=== PATIENT | male | born 1980 | race Caucasian/White ===

== ENCOUNTER 2023-12-09 19:24 | Inpatient (IN) | payer MEDICAID, OTHER, SELFPAY ==
[2023-12-09] VITALS (9 sets, daily range): BP systolic 109–123; BP diastolic 55–75; PULSE 102–137; RESP 23–45; TEMP 36.6–39.2; O2SAT 4–96; BMI 20.6
--- NOTE | ~2023-12-09 | US_ITS ---
EXAMINATION: US VENOUS ULTRASOUND WITH DOPPLER LOWER EXTREMITY, BILATERAL CLINICAL INFORMATION: Pain COMPARISON: None available. TECHNIQUE: Ultrasound of the deep veins is performed from the hip to the calf with compression sonography and color and pulse Doppler assessment. Spectral analysis with color-flow imaging is performed. FINDINGS: RIGHT: There is normal venous compression and respiratory variation and augmented flow. The visualized common femoral vein, superficial femoral vein, profunda femoral vein, popliteal vein, and the trifurcation region shows no evidence of deep venous thrombosis. There is no significant popliteal fossa cyst. Subcentimeter short axis inguinal nodes which maintain normal hilar architecture. LEFT: There is normal venous compression and respiratory variation and augmented flow. The visualized common femoral vein, superficial femoral vein, profunda femoral vein, popliteal vein, and the trifurcation region shows no evidence of deep venous thrombosis. There is no significant popliteal fossa cyst. Subcentimeter short axis inguinal nodes which maintain normal hilar architecture. If the patient's symptoms persist, followup ultrasound in 5 days 7 days might be of value to exclude proximal propagation from a non-visualized calf vein. US/US venous duplex LE BI IMPRESSION: No DVT demonstrated in the bilateral lower extremity. Subcentimeter short axis bilateral inguinal nodes which maintain normal hilar architecture, and may be reactive.
--- NOTE | ~2023-12-09 | CT_ITS ---
CLINICAL HISTORY: Left pneumothorax PROCEDURES: 1. Limited preprocedure CT of the chest. Permanent images saved in PACS. 2. Placement of a 10 Georgian all-purpose drainage catheter into left pleural space 3. Limited post procedure CT of the chest. Permanent images taken PACS. CLINICIANS: Terry King PA-C Preprocedural imaging reviewed with Dr. Andres MEDICATIONS: -Fentanyl 25 mcg, and lidocaine 1% 10 mL SQ -Antibiotics: None -For additional details, please see nursing flowsheet. COMPLICATIONS: None ESTIMATED BLOOD LOSS: < 5 ml CONTRAST: None SPECIMENS: None PROCEDURE NOTE: The procedure, risks, benefits, and alternatives were carefully explained to the patient and written informed consent was obtained. The patient was placed supine on the CT table. A timeout was performed. A limited CT of the chest was performed to choose appropriate needle entry and trajectory. The patient was prepped and draped in usual sterile fashion. The skin and subcutaneous tissues were anesthetized with lidocaine. Under CT guidance, a 5 Georgian M-KOPAeh catheter was advanced through the left second intercostal space into the pleural cavity. A 0.0355 J-wire was advanced through the catheter and coiled into left pleural space. The catheter was removed and the tract was serially dilated. Over the wire, a 10 [place]ian all-purpose drainage catheter was advanced and positioned at the left apex of the left chest cavity. The wire was removed. The catheter was connected to an atrium. The catheter was secured to skin with a 3-0 nylon suture. A dry sterile dressing was applied to the left chest. A limited post procedure CT of the chest was performed demonstrating the tube well-positioned in the left pleural space. Images were saved in PACS. The patient was stable after the procedure and was transferred back to the medical floor. The procedure was done a dedicated nurse for monitoring of vital signs. CT/CT chest tube placement Impression: CT-guided placement of left chest tube for pneumothorax This procedure was performed by Terry King PA-C and supervised by Dr. Andres.
--- NOTE | ~2023-12-09 | XR_ITS ---
EXAMINATION: XR CHEST CLINICAL INFORMATION: Follow-up left pneumothorax COMPARISON: Previous chest x-ray most recent from yesterday TECHNIQUE: Frontal view of the chest was obtained. FINDINGS: Left chest tube projects over left upper lung unchanged. Right upper extremity PICC line tip projects over cavoatrial junction. The cardiac and mediastinal contours are stable. There is diffuse bilateral airspace there is a small to moderate left pneumothorax. Slightly decreased in size compared to yesterday's exam. No pleural effusion. No right pneumothorax. XR/XR chest 1V IMPRESSION: Stable position of left chest tube. Small to moderate left pneumothorax slightly decreased in size compared to yesterday's exam.
--- NOTE | ~2023-12-09 | CT_ITS ---
EXAMINATION: CT CHEST WITHOUT CONTRAST CLINICAL INFORMATION: Pulmonary fibrosis COMPARISON: 01/13/2024 TECHNIQUE: Multidetector volumetric CT imaging of the chest was done. Axial MIP volume rendering provided. Sagittal and coronal reformatted images were obtained. This CT examination was performed using dose optimization techniques as appropriate, variously including the following: *Automated exposure control *Adjustment of mA and/or kV according to patient size (this includes techniques or standardized protocols for targeted exams where dose is matched to indication/reason for exam; i.e. extremities or head) *Use of iterative reconstruction technique DLP: 190 mGy-cm FINDINGS: LD TEACHER: PICC line and left hemithorax smallbore catheter. Left costophrenic angle blunting. Increased interstitial markings. LUNGS AND PLEURA: Intrathoracic trachea is dilated. Trachea and bronchi are patent. Mild bronchiectasis. Diffuse underlying groundglass opacities and septal thickening/fibrosis again noted. Small bore left sided chest tube has been placed with pigtail in the anterior pleural space. One of the sideholes appears to reside outside the thoracic cavity, coronal 8:15, sagittal 9:31. There is been reduction in the degree of left pneumothorax following chest tube placement. Small amount of subcutaneous emphysema is noted. Small left pleural effusion has increased since previous chest CT. Small right-sided medial pleural thickening/fluid minimally increased. MEDIASTINUM: No demonstrable thyroid nodules. Diffuse esophageal thickening. No pathologic lymphadenopathy. Heart size within normal limits. No pericardial effusion. Nonaneurysmal aorta. Dilated pulmonary arteries. Central venous catheter tip at the SVC/right atrial junction. CORONARY ARTERY CALCIFICATION: None visualized on this study. AXILLA: No lymphadenopathy. UPPER ABDOMEN: Splenomegaly to 15 cm. OSSEOUS STRUCTURES: Unremarkable. CT/CT chest wo IV con IMPRESSION: Interval decrease in left-sided pneumothorax following small bore chest tube placement since 01/13/[address] One of the catheter sideholes appears to reside outside the thoracic cavity. Small amount of subcutaneous emphysema. Increasing small left pleural effusion. Stable underlying pulmonary groundglass opacities and fibrotic changes. Pulmonary hypertension. Splenomegaly. Fleischner guidelines were followed.
--- NOTE | ~2023-12-09 | XR_ITS ---
EXAMINATION: XR CHEST CLINICAL INFORMATION: Shortness of breath. COMPARISON: Prior chest radiographs dated 02/16/2010. TECHNIQUE: Frontal view of the chest was obtained. FINDINGS: The heart, great vessels, pulmonary vasculature and mediastinum are stable. There is a moderate patchy infiltrate in the mid left lung. Lesser patchy airspace disease is seen at the central right base. No pleural effusion or pneumothorax is seen. There is no acute osseous abnormality. XR/XR chest 1V IMPRESSION: There are bilateral patchy infiltrates, left greater than right. These are likely infectious in etiology. Recommend continued radiographic follow-up to clearance.
--- NOTE | ~2023-12-09 | XR_ITS ---
EXAMINATION: XR CHEST CLINICAL INFORMATION: Follow-up pneumothorax. COMPARISON: Most recent chest radiograph dated 01/12/2024. TECHNIQUE: Frontal view of the chest was obtained. FINDINGS: Moderate left-sided pneumothorax, not significantly changed when compared to the prior examination. No right-sided pneumothorax. No pleural effusion. Diffuse bilateral airspace opacities are redemonstrated, unchanged. Stable cardiomediastinal silhouette. Right-sided PICC in unchanged position. XR/XR chest 1V IMPRESSION: 1. Moderate left-sided pneumothorax, not significantly changed. 2. Diffuse bilateral airspace opacities, unchanged. 3. Right-sided PICC in unchanged position.
--- NOTE | ~2023-12-09 | CT_ITS ---
EXAMINATION: CT CHEST WITHOUT CONTRAST CLINICAL INFORMATION: Cough. Shortness of breath. COMPARISON: Chest radiograph from 12/09/2023. TECHNIQUE: Multidetector volumetric CT imaging of the chest was done. Axial MIP volume rendering provided. Sagittal and coronal reformatted images were obtained. DLP: 222 mGy-cm FINDINGS: LUNGS: Extensive regions of irregular groundglass opacification with interlobular and intralobular septal thickening throughout the bilateral lungs (partially decreasing terminating in appearance). Partial sparing in the medial aspects of the upper lungs, multiple subpleural regions,, the inferior segment of the right middle lobe, and the basal segments of the left lower lobe. No dense focal consolidative process. No pleural effusion or pneumothorax. Mild central peribronchial wall thickening. Otherwise, the airways remain patent. MEDIASTINUM: The cardiac structures are without significant demonstrated abnormality. No pericardial effusion. No mediastinal free fluid or gas. No hilar or mediastinal lymphadenopathy. Coronary artery calcifications: Absent. PLEURA: There is no pleural effusion or pneumothorax. No pleural mass or thickening. AXILLA: No lymphadenopathy UPPER ABDOMEN: The spleen is enlarged, measuring up to 14 cm in long axis. Otherwise, limited evaluation of the upper abdomen without additional significant soft tissue abnormalities. VASCULATURE: The thoracic aorta is of normal contour and caliber. The main pulmonary artery appears mildly enlarged, measuring approximately 3.4 cm in diameter (ascending aorta 3 cm). OSSEOUS STRUCTURES: Mild multilevel degenerative changes of the spine. No suspicious lytic or sclerotic osseous lesions demonstrated. No soft tissue masses demonstrated. CT/CT chest wo IV con IMPRESSION: 1. Extensive regions of irregular groundglass opacification with interlobular and intralobular septal thickening throughout the bilateral lungs. Findings are nonspecific but may be seen in the setting of an atypical/viral infections, inflammatory processes, or diffuse alveolar hemorrhage in the appropriate clinical settings. 2. The main pulmonary artery appears mildly enlarged, measuring 3.4 cm in diameter. 3. Nonspecific splenomegaly.
--- NOTE | ~2023-12-09 | XR_ITS ---
EXAMINATION: XR CHEST CLINICAL INFORMATION: Chest tube placement. COMPARISON: 01/22/2024. TECHNIQUE: Frontal view of the chest was obtained. FINDINGS: The cardiomediastinal silhouette is stable. There is diffuse increased markings and bilateral patchy infiltrates similar to previous. A left approach chest tube is in good position. PICC line is in a stable position. No significant pneumothorax currently identified. The bony structures and soft tissues are unremarkable. XR/XR chest 1V IMPRESSION: 1. Left chest tube in place with no significant pneumothorax currently identified. 2. Diffuse increased markings and bilateral patchy infiltrates similar to previous.
--- NOTE | ~2023-12-09 | XR_ITS ---
EXAMINATION: XR CHEST CLINICAL INFORMATION: Left pneumothorax status post pleurodesis. COMPARISON: 01/25/2024 TECHNIQUE: Frontal view of the chest was obtained. FINDINGS: Right sided PICC line again seen with internal tip at the SVC/right atrial junction. Small bore caliber pigtail catheter again identified overlying the upper left hemithorax. Redemonstration left costophrenic angle blunting and mild increase in lateral left hemithorax opacity. Overall mid/inferior left hemithorax lucency is unchanged. Patchy pulmonary opacities again seen with slight worsening left upper lobe. Bony structures are intact. XR/XR chest 1V IMPRESSION: Left small bore pigtail catheter with slight increase in left lateral pleural opacity/fluid and left upper lobe patchy pulmonary opacity. No identifiable pneumothorax.
--- NOTE | ~2023-12-09 | XR_ITS ---
EXAMINATION: XR CHEST CLINICAL INFORMATION: Dyspnea. COMPARISON: 01/11/2024. TECHNIQUE: Frontal view of the chest was obtained. FINDINGS: The cardiomediastinal silhouette is stable. There is diffuse increased markings/patchy infiltrates similar to previous. There is a moderate left pneumothorax. A PICC line extends to the lower SVC. The bony structures and soft tissues are unremarkable. XR/XR chest 1V IMPRESSION: 1. Moderate left pneumothorax. 2. Diffuse increased markings/patchy infiltrates similar to previous. 3. PICC line in place.
--- NOTE | ~2023-12-09 | XR_ITS ---
EXAMINATION: XR CHEST CLINICAL INFORMATION: A left pneumothorax COMPARISON: Chest x-ray 01/21/2024 TECHNIQUE: Frontal view of the chest was obtained. FINDINGS: There is persistent small left pneumothorax with a chest tube overlying fourth posterior rib. A right PICC line tip remains in distal SVC. The lungs are hypoexpanded with patchy opacities in both lungs which are stable chest x-ray from 01/13/2024. Heart size and pulmonary vascularity is normal. No gross bony abnormality seen. XR/XR chest 1V IMPRESSION: No change in the small left apical pneumothorax and chest catheter which appears to be within the upper hemithorax. No change in right PICC line. No change in patchy bilateral airspace disease.
--- NOTE | ~2023-12-09 | XR_ITS ---
EXAMINATION: XR CHEST CLINICAL INFORMATION: Follow-up left pneumothorax COMPARISON: Previous chest x-ray from yesterday TECHNIQUE: Frontal view of the chest was obtained. FINDINGS: Left pigtail chest tube unchanged in position. Small left apical pneumothorax not appreciably changed. There may be a small left pleural effusion. The cardiac and mediastinal contours are stable. Diffuse bilateral airspace disease unchanged. No right pleural effusion or pneumothorax. Right upper extremity PICC line with tip projecting over the cavoatrial junction. XR/XR chest 1V IMPRESSION: Stable position of left chest tube. Stable small left apical pneumothorax. No change in diffuse bilateral airspace disease.
--- NOTE | ~2023-12-09 | US_ITS ---
EXAMINATION: US ABDOMEN COMPLETE CLINICAL INFORMATION: Cirrhosis, splenomegaly. COMPARISON: CT chest without contrast 12/09/2023. TECHNIQUE: Real-time imaging of the abdominal viscera. FINDINGS: PANCREAS: Largely obscured by overlapping bowel gas. ABDOMINAL AORTA: The proximal segment is nonaneurysmal. The mid and distal segments are obscured by overlapping bowel gas. INFERIOR VENA CAVA: Visualized portions are normal. LIVER: The liver is normal in size. The liver contour is normal. There is diffuse increased liver parenchymal echogenicity. Within the right hepatic lobe, there are 2.9 x 1.9 x 2.7 cm and 1.1 x 1.2 x 0.9 cm hyperechoic, circumscribed masses. Within the left hepatic lobe, there are 2.0 x 1.5 x 1.3 cm, 1.9 x 1.8 x 2.0 cm hyperechoic, circumscribed masses. There is no intrahepatic biliary duct dilatation seen. GALLBLADDER: The gallbladder is partially contracted and shows shadowing gallstones. There is no sludge, polyp, wall thickening or pericholecystic fluid. COMMON BILE DUCT: Normal in caliber measuring 0.9 cm in diameter. RIGHT KIDNEY: There is mild hydronephrosis. No renal calculi or focal parenchymal lesions. The kidney measures 13.3 cm in maximum dimension. LEFT KIDNEY: Imaging somewhat limited. No hydronephrosis. No renal calculi or focal parenchymal lesions. The kidney measures 12.6 cm in maximum dimension. SPLEEN: No focal finding. The spleen measures 12.7 cm in maximum dimension. FREE FLUID: There is mild free fluid noted within the rightward pelvis superior to the urinary bladder. US/US abdomen complete IMPRESSION: 1. Consistent with the provided history of cirrhosis, there is increase in hepatic echotexture. No biliary ductal dilatation is seen. 2. Four hyperechoic, circumscribed masses are seen within the liver, the appearances characteristic of benign hemangiomas. These are of doubtful clinical significance; however, given the history of cirrhosis, further consideration may be given to more definitive characterization with dynamic MRI. 3. There is cholelithiasis. 4. There is mild right hydronephrosis. 4. Technically limited ultrasound examination of the abdominal great vessels and the left kidney.
--- NOTE | ~2023-12-09 | XR_ITS ---
EXAMINATION: XR CHEST CLINICAL INFORMATION: Follow-up left pneumothorax. COMPARISON: 01/08/2024 TECHNIQUE: Frontal view of the chest was obtained. FINDINGS: Lungs are mildly hypoinflated. There is mild improvement with decreased reticular and groundglass opacities, particularly in the right lung. Trace left pneumothorax is faintly visible at the lateral left upper lobe. The minimal blunting of the left lateral costophrenic sulcus suggests trace pleural effusion. The tip of the right arm peripherally inserted catheter is in region of junction of the SVC with right atrium. Cardiac silhouette is normal in size. The visualized bones are intact. XR/XR chest 1V IMPRESSION: * Trace left-sided pneumothorax is similar in appearance compared to 01/08/2024. * Mild interval improvement in the diffuse reticular/groundglass opacities, particularly in the right lung.
--- NOTE | ~2023-12-09 | XR_ITS ---
EXAMINATION: XR CHEST CLINICAL INFORMATION: Hypoxia, SOB COMPARISON: None available. TECHNIQUE: Frontal view of the chest was obtained. FINDINGS: The lungs are well-expanded with patchy diffuse patchy opacity seen in both lungs suggestive multi lobar infiltrate. There is no pleural effusion or pneumothorax. Heart size appears normal. Pulmonary vascularity is normal. There is a right PICC line with its tip in mid SVC. No gross bony abnormality. XR/XR chest 1V IMPRESSION: Diffuse patchy opacity in both lungs suggestive of multi lobar infiltrate.
--- NOTE | ~2023-12-09 | CT_ITS ---
EXAMINATION: CT CHEST WITHOUT CONTRAST CLINICAL INFORMATION: Hypoxia. COMPARISON: 12/09/2023. TECHNIQUE: Multidetector volumetric CT imaging of the chest was done. Axial MIP volume rendering provided. Sagittal and coronal reformatted images were obtained. This CT examination was performed using dose optimization techniques as appropriate, variously including the following: *Automated exposure control *Adjustment of mA and/or kV according to patient size (this includes techniques or standardized protocols for targeted exams where dose is matched to indication/reason for exam; i.e. extremities or head) *Use of iterative reconstruction technique DLP: 279 mGy-cm FINDINGS: DIRECTOR MISSION: There are diffuse bilateral lung opacities. LUNGS: There is again seen extensive bilateral multilobar groundglass opacities with intralobular and interlobular septal thickening similar to previous with some apparent extension right upper lobe as well as medial left upper lobe. MEDIASTINUM: The mediastinum is normal. CORONARY ARTERY CALCIFICATION: None visualized on this study. PLEURA: There is no pleural effusion. No pleural mass or thickening. AXILLA: No lymphadenopathy. UPPER ABDOMEN: Unremarkable. OSSEOUS STRUCTURES: Unremarkable. CT/CT chest wo IV con IMPRESSION: Extensive bilateral multilobar groundglass opacities with intralobular and interlobular septal thickening with mild interval progression compared to prior. Findings are again nonspecific and may be seen with infectious or inflammatory process. Fleischner guidelines were followed.
--- NOTE | ~2023-12-09 | XR_ITS ---
EXAMINATION: XR CHEST CLINICAL INFORMATION: Follow up left pneumothorax. COMPARISON: None available. TECHNIQUE: Frontal view of the chest was obtained. FINDINGS: Redemonstration of left apically oriented chest tube. Increased moderate left apical pneumothorax. Right PICC line tip again projects at the cavoatrial junction. Similar cardiomediastinal silhouette. Redemonstration of multifocal patchy airspace opacities, similar. XR/XR chest 1V IMPRESSION: Increased moderate left apical pneumothorax. Left apically oriented chest tube appears relatively less apical in location compared with prior exam. This study was presented today January 19, 2024 for interpretation. [facility] staff will provide results to referring provider at this time.
--- NOTE | ~2023-12-09 | XR_ITS ---
EXAMINATION: XR CHEST CLINICAL INFORMATION: Chest tube removal. COMPARISON: 01/26/2024 chest radiographs earlier in the day. TECHNIQUE: Frontal view of the chest was obtained. FINDINGS: Right-sided PICC line unchanged in position. Interval removal of left pigtail catheter. No gross pneumothorax appreciated. Persistent pulmonary opacities and left costophrenic angle blunting are stable to slightly improved. XR/XR chest 1V IMPRESSION: 1. Interval removal of left pigtail catheter. No gross pneumothorax appreciated. 2. Persistent pulmonary opacities and left costophrenic angle blunting are stable to slightly improved.
--- NOTE | ~2023-12-09 | XR_ITS ---
EXAMINATION: XR CHEST CLINICAL INFORMATION: Follow-up left pneumothorax and chest tube placement COMPARISON: Chest 01/13/2024 TECHNIQUE: AP upright portable view of the chest was obtained. By 40 9:00 AM FINDINGS: Left apically oriented chest tube is seen. Question of trace air at the left lung base with a small hydropneumothorax. Right-sided PICC line projects over the level of the cavoatrial junction. Stable appearance of the cardiomediastinal silhouette. Again seen is multifocal patchy of airspace opacities with slightly better aeration. XR/XR chest 1V IMPRESSION: 1. Left apically oriented chest tube is seen. 2. Question of trace air at the left lung base with a small hydropneumothorax.
--- NOTE | ~2023-12-09 | XR_ITS ---
EXAMINATION: XR CHEST CLINICAL INFORMATION: Follow-up pneumothorax. COMPARISON: Chest 01/24/2024 TECHNIQUE: Frontal view of the chest was obtained. FINDINGS: There is a left chest tube catheter with its tip overlying fourth rib. No visible pneumothorax is seen. There is minimal blunting of left CP angle. There is a right PICC line with its tip in the mid SVC. The lungs are hypoexpanded diffuse increase interstitial markings and patchy infiltrates which appears stable. Heart size is borderline normal. No gross bony abnormality seen. XR/XR chest 1V IMPRESSION: 1. Left chest tube catheter with its tip overlying fourth rib. No visible pneumothorax. 2. Hypoexpanded lungs with diffuse increase interstitial markings and patchy infiltrates are stable. 3. Stable right PICC line
--- NOTE | ~2023-12-09 | XR_ITS ---
EXAMINATION: XR CHEST CLINICAL INFORMATION: Chest tube to waterseal COMPARISON: Previous chest radiographs, most recent, earlier in the day. TECHNIQUE: Frontal view of the chest was obtained. FINDINGS: Right-sided PICC line and left upper lobe smallbore pigtail catheter unchanged in position. No definite pneumothorax identified status post left chest tube to waterseal. Persistent pulmonary opacities and left costophrenic angle blunting are unchanged. Left lateral hemithorax density may be slightly increased in the left apex. Cardiomediastinal silhouette is stable in appearance. Bony structures are intact. XR/XR chest 1V IMPRESSION: No identifiable pneumothorax. Mild increase in left pleural fluid not excluded. Other stable findings.
--- NOTE | ~2023-12-09 | XR_ITS ---
EXAMINATION: XR CHEST CLINICAL INFORMATION: Follow-up pneumothorax. COMPARISON: Chest 01/08/2024. TECHNIQUE: Frontal view of the chest was obtained. FINDINGS: The lungs are hypoexpanded with diffuse fine reticular and groundglass opacity seen throughout both lungs similar to CT chest 01/06/2024. CT visualized trace left apical pneumothorax is not visualized on this chest x-ray. The heart size and the great vessels are normal caliber. There is a right PICC line with its tip in mid SVC. There is no gross bony abnormality seen. XR/XR chest 1V IMPRESSION: 1. Diffuse fine reticular and groundglass opacity throughout both lungs similar to CT chest 01/06/2024. 2. Right PICC line tip in mid SVC.
--- NOTE | ~2023-12-09 | CT_ITS ---
EXAMINATION: CT CHEST WITHOUT CONTRAST CLINICAL INFORMATION: Hypoxia COMPARISON: 12/19/2023 TECHNIQUE: Multidetector volumetric CT imaging of the chest was done. Axial MIP volume rendering provided. Sagittal and coronal reformatted images were obtained. This CT examination was performed using dose optimization techniques as appropriate, variously including the following: *Automated exposure control *Adjustment of mA and/or kV according to patient size (this includes techniques or standardized protocols for targeted exams where dose is matched to indication/reason for exam; i.e. extremities or head) *Use of iterative reconstruction technique DLP: 134 mGy-cm FINDINGS: PALLET RECTIFIER: Diffuse bilateral opacities are noted. LUNGS: The central airways are patent. Diffuse groundglass opacity throughout both lungs appearing more confluent than on prior study. Mild bronchiectasis throughout. Given the increased confluence of the opacities there is decreased appearance of the septal thickening/reticulation. There is a trace left-sided pneumothorax noted. No pleural effusion. MEDIASTINUM: Normal heart size. No pericardial effusion. No mediastinal lymphadenopathy. Right-sided PICC line terminates near the cavoatrial junction. CORONARY ARTERY CALCIFICATION: None visualized on this study. AXILLA: No lymphadenopathy. UPPER ABDOMEN: Unremarkable. OSSEOUS STRUCTURES: Unremarkable. CT/CT chest wo IV con IMPRESSION: 1. Trace left-sided pneumothorax. This appears new from previous. 2. Diffuse groundglass opacities throughout both lungs appearing more confluent than on the prior study. There is decreased appearance of the septal thickening/reticulation. There is likely a component of fibrosis with bronchiectasis associated with chronic infectious/inflammatory process. Fleischner guidelines were followed. The report will be called to the ordering clinician by a [facility] Workflow Coordinator.
--- NOTE | ~2023-12-09 | XR_ITS ---
EXAMINATION: XR CHEST CLINICAL INFORMATION: Chest pain. Pneumothorax. COMPARISON: Chest x-ray January 26, 2024 TECHNIQUE: Frontal view of the chest was obtained. FINDINGS: Cardiac silhouette is normal in size. Stable positioning of right upper extremity PICC line with catheter tip terminating at the cavoatrial junction. Unchanged patchy bilateral airspace disease. Similar tenting of the left hemidiaphragm. No gross pleural effusion. No pneumothorax. XR/XR chest 1V IMPRESSION: Unchanged patchy bilateral airspace disease. No pneumothorax.
--- NOTE | ~2023-12-09 | XR_ITS ---
EXAMINATION: XR CHEST CLINICAL INFORMATION: Hypoxia. COMPARISON: CT chest 12/09/2023 TECHNIQUE: Frontal view of the chest was obtained. FINDINGS: The lungs are fairly well-expanded with diffuse groundglass patchy opacity seen throughout both lungs. No pleural effusion suspected. The heart size and pulmonary vascularity is normal. No gross bony abnormality seen. XR/XR chest 1V IMPRESSION: Diffuse groundglass patchy opacity seen throughout both lungs likely inflammatory or infectious etiology. Atypical viral, toxic inhalation or autoimmune disease can have same picture. Overall no change from CT chest 12/09/2023.
--- NOTE | ~2023-12-09 | XR_ITS ---
EXAMINATION: XR CHEST CLINICAL INFORMATION: Left pneumothorax status post chest tube. COMPARISON: Chest radiograph 01/13/2024. TECHNIQUE: Frontal view of the chest was obtained. FINDINGS: Interval placement of a left apically oriented chest tube with significant decrease size of a now trace left-sided pneumothorax. Right-sided PICC line tip projects at the level of the superior cavoatrial junction. Stable appearance of the cardiomediastinal silhouette. Redemonstration of multifocal patchy airspace opacities. No significant pleural effusion. No acute osseous findings. XR/XR chest 1V IMPRESSION: 1. Significant decrease in size of a now trace left-sided pneumothorax. 2. Multifocal patchy airspace opacities are not significantly changed.
--- NOTE | 2023-12-09 19:32 | ECG_ITS ---
Test Reason : SOB Blood Pressure : / mmHG Vent. Rate : 135 BPM Atrial Rate : 135 BPM P-R Int : 136 ms QRS Dur : 094 ms QT Int : 368 ms P-R-T Axes : 080 -17 065 degrees QTc Int : 552 ms Poor data quality Sinus tachycardia Possible Left atrial enlargement Incomplete right bundle branch block Minimal voltage criteria for LVH, may be normal variant ( [place] product ) Borderline ECG When compared with ECG of 24-FEB-2010 15:53, Vent. rate has increased BY 74 BPM Incomplete right bundle branch block is now Present Referred By: Sophie Vaughn Electronically Signed By:DEJAH DUONG MD
--- NOTE | 2023-12-09 19:44 | ED_ITS ---
HPI - SOB/Dyspnea General Chief Complaint: Dyspnea Stated Complaint: SOB,FLU-LIKE SYMPTOMS,WKNSS [id number] Time Seen by Provider: 12/09/23 19:43 Source: patient and EMS Mode of arrival: EMS History of Present Illness HPI Narrative: 43-year-old male who arrives severely short of breath and hypoxic into the 70s and 80s, known to have HIV but is not currently on medication and also has history of anxiety, reports that he has been sleeping on his mother's couch denies any GI or symptoms but has been progressively short of breath with chills. Related Data Allergies Allergy/AdvReac Type Severity Reaction Status Date / Time No Known Allergies Allergy Verified 12/09/23 19:32 Review of Systems 2 Review of Systems: Pertinent positives and negatives as stated in HPI [facility] Past Medical History Source: nursing notes reviewed Onset Date is defined in the Problem List Problems that require an onset date and time if occurred within 24 hrs of arrival to the ED Aortic Dissection and Rupture; Neurologic impairment; Cardiopulmonary Arrest; Endotracheal Intubation; Insertion or Replacement of Mechanical Circulatory Assist Device Social History Social History Smoked in Last 30 Days: Yes Use of substances other than those prescribed or required for medical reasons: No Advance Directives: No Advance Directives Information Provided: No Physical Exam 2 Vital Signs: Vital Signs: Last Vital Signs Temp 99.1 F 12/09/23 22:00 Pulse 104 H 12/09/23 22:11 Resp 23 H 12/09/23 22:11 BP 111/59 L 12/09/23 22:11 Pulse Ox 94 12/09/23 22:00 O2 Del Method Oxymask 12/09/23 22:00 O2 Flow Rate 15 12/09/23 22:00 Oxygen Flow Rate 15 12/09/23 19:34 BMI result Body Mass Index 20.6 VITAL SIGNS: Reviewed. GENERAL: cachectic, in moderate to severe distress. HEAD: Normocephalic/atraumatic EYES: PERRLA, EOMI EARS: Ext canals without abnormality NOSE: Nares patent bilateral OROPHARYNX: no oral lesions noted, posterior pharynx clear, oral thrush noted NECK: Supple, no adenopathy LUNGS: Normal breath sounds. No adventitious sounds or accessory muscle use. SpO2<96> CARDIOVASCULAR: Regular rate and rhythm without noted murmurs, no JVD or lower extremity edema. ABDOMEN: Soft, non-tender, non-distended with bowel sounds. MUSCULOSKELETAL: No tenderness, deformities, or effusions noted on gross inspection. EXTREMITIES: No cyanosis, clubbing or edema. SKIN: Inspection of the skin reveals no rashes NEUROLOGIC: Alert and oriented x 4. Strength and sensation to light touch were grossly intact x 4. Medications Administered Generic Name Dose Route Start Last Admin Trade Name Freq PRN Reason Stop Dose Admin Atovaquone 1,500 mg 12/09/23 22:15 12/09/23 22:44 Atovaquone 750 Mg/5 Ml Oral.Susp PO 1,500 mg DAILY COMPA Administration Fluconazole 200 mg in 100 mls @ 100 mls/hr 12/09/23 22:10 12/09/23 22:44 Diflucan IV 12/09/23 23:09 100 mls/hr ONCE ONE Administration Discontinued Medications Generic Name Dose Route Start Last Admin Trade Name Freq PRN Reason Stop Dose Admin Cefepime HCl 2 gm/ Sodium 50 mls @ 100 mls/hr 12/09/23 19:43 12/09/23 20:44 Chloride IV 12/09/23 20:12 Infused ONCE ONE Infusion Sodium Chloride 2,245.29 mls @ 2,245.29 mls/hr 12/09/23 19:43 12/09/23 22:00 Ns 30 ml/kg infuse over 1 hr (2245.29 ml) 12/09/23 20:42 Infused IV Infusion .Q1H STA Medical Decision Making Medical Decision Making [facility] Narrative: 43-year-old male with history and clinical presentation, DDX: Severe Sepsis, AIDS, PE/PNA, oral thrush, ?PCP INTERVENTION: Antibiotics, ED bolus, oxy mask at 12 L I reviewed all investigations and hematologic indices are negative for leukocytosis although there is a left shift, there is a normocytic anemia and no thrombocytopenia. Coagulation studies are deranged. VBG with pH suggestive of acidosis but not secondary to respiratory at this time. There is no hypercapnia. Chemistry indices demonstrate an ELI with metabolic acidosis not associated with lactic acid elevation and no suspicion for contributing DKA. Suspect that the acidosis is secondary to renal failure, there are no prior lab findings for correlation. High sensitivity troponin is noted to be 60 but this may be a combination of patient's hypoxemic episode in conjunction with ELI. Albumin is noted to be 2.6 suggesting malnutrition and underlying chronic disease. Viral testing is negative for influenza/RSV/COVID. Chest x-ray significant for bilateral patchy infiltrates, left greater than right and given patient's presentation and lack of HIV treatment suspicion for PJP is high and will pursue obtaining sputum for further analysis. Consultation was placed for Infectious Disease. 2200: Dr. Jovel agrees with treating for PJP. Recommends Mepron 1500mg daily and Diflucan. Pt already received Cefepime. 2211: ABG demonstrates improvement of pH, pCO2 is noted to be 18 and PO2-86. 2214: On re-evaluation patient's HR has improved, his color has improved and BP remains stable. 2219: Discussed the case with DR Lara and will discuss with Dr Hay (senior game designer). 2239: I discussed case with senior game designer, Dr. Hay, who is in initial agreement that patient does not require ICU level of care at this time but understands that this could change for the hospitalist. Dr. Hay will send down the ICU mid- level provider to further assess the patient and then make her final decision. Dr Lara to admit but ICU is aware and will provide any additional support. PT rectal temp- 102 and given Tylenol. Differential Diagnosis Differential Diagnoses: The differential diagnosis associated with the presentation includes Please see the discussion above Admission/Observation Consideration of admission/observation: Escalation of care including admission/observation considered Please see the discussion above Consult Healthcare Provider Management of the patient was discussed with: Hospitalist and Electronics Engineering Technologist Please see the discussion above Lab Data MDM Lab Attestation statement: I reviewed the patient's lab results. Please see the discussion above 12/09/23 19:52 12/09/23 21:23 Labs: Lab Results 12/09/23 12/09/23 12/09/23 Range/Units 19:51 19:52 19:54 WBC 10.1 (4.8-10.8) X10*3/uL RBC 3.94 L (4.60-5.80) X10*6/uL Hgb 11.6 L (14.0-18.0) g/dl Hct 34.2 L (42.0-52.0) % MCV 86.8 (80.0-98.0) fL MCH 29.4 (27.0-33.0) pg MCHC 33.9 (31.0-36.0) g/dl RDW 13.9 (11.0-16.0) % Plt Count 397 (160-400) X10*3/uL MPV 11.1 (9.4-12.4) fL Immature Gran % (Auto) 0.6 H (0.0-0.4) % Neut % (Auto) 86.6 H (45-73) % Lymph % (Auto) 6.6 L (20-40) % [place] % (Auto) 4.7 (2-11) % Eos % (Auto) 1.2 (0-4) % Baso % (Auto) 0.3 (0-2) % Lymph # (Auto) 0.7 L (1.2-4.9) X10*3/uL [place] # (Auto) 0.5 (0.1-1.2) X10*3/uL Eos # (Auto) 0.1 (0.0-0.4) X10*3/uL Baso # (Auto) 0.0 (0.0-0.2) X10*3/uL Abs Immat Gran (auto) 0.06 H (0.00-0.03) X10*3/uL Absolute Neuts (auto) 8.8 H (2.0-8.3) x10*3/uL Absolute Nucleated RBC 0.000 (0.0-0.012) X10*3/uL Nucleated RBC % (auto) 0.0 (0.0-0.2) /100WBC PT 18.9 H (11.1-13.3) SEC INR 1.6 H (0.9-1.1) APTT 38.1 H (26.0-36.4) SEC O2 Saturation % ABG pH at Pt Temp (7.35-7.45) ABG pCO2 at Pt Temp (32-45) mmHg ABG pO2 at Pt Temp (83-108) mmHg ABG HCO3 (22-26) mmol/L ABG Base Excess (Actual) mmol/L VBG pH (7.32-7.43) VBG pCO2 mmHg VBG pO2 mmHg VBG HCO3 (22-26) mmol/L VBG O2 Saturation % VBG Base Excess mmol/L Sodium (135-145) mmol/L Potassium (3.3-5.1) mmol/L Chloride (96-108) mmol/L Carbon Dioxide (22-29) mmol/L Anion Gap (12-20) BUN (9-16) mg/dL Creatinine (0.5-1.4) mg/dL Estim Creat Clear Calc Estimated GFR Random Glucose (60-115) mg/dL Lactic Acid (0.5-2.0) mmol/L Calcium (8.4-10.2) mg/dL Magnesium (1.6-2.6) mg/dL Total Bilirubin (0.0-1.0) mg/dL AST (5-37) U/L ALT (0-40) U/L Alkaline Phosphatase (39-117) U/L Total Creatine Kinase (38-174) U/L Troponin I High Sens (<3.5-35.0) ng/L Total Protein (6.5-8.0) g/dL Albumin (3.5-5.0) g/dL Urine Color Urine Appearance Urine pH (5.0-9.0) Ur Specific [place] (1.005-1.025) Urine Protein (Neg-Trace) mg/dL Urine Glucose (UA) (Negative) mg/dL Urine Ketones (Negative) mg/dL Urine Blood (Negative) Urine Nitrite (Negative) Ur Leukocyte Esterase (Negative) Urine Opiates Screen (Not Detect) Urine Fentanyl Screen (Not Detect) Ur Barbiturates Screen (Not Detect) Ur Phencyclidine Scrn (Not Detect) Ur Amphetamines Screen (Not Detect) U Benzodiazepines Scrn (Not Detect) Urine Cocaine Screen (Not Detect) U Marijuana (THC) Screen (Not Detect) Ethyl Alcohol mg/dL COVID-19 (ANDI) Negative (Negative) COVID-19 Clin Com See Note Influenza Type A (MELLY) Negative (Negative) Influenza Type A (PCR) (Negative) Influenza Type B (MELLY) Negative (Negative) Influenza Type B (PCR) (Negative) Influenza A & B Note See Note RSV RNA Qual (PCR) (Negative) SARS-CoV-2 RNA (RT-PCR) (Negative) 12/09/23 12/09/23 12/09/23 Range/Units 20:05 20:55 21:23 WBC (4.8-10.8) X10*3/uL RBC (4.60-5.80) X10*6/uL Hgb (14.0-18.0) g/dl Hct (42.0-52.0) % MCV (80.0-98.0) fL MCH (27.0-33.0) pg MCHC (31.0-36.0) g/dl RDW (11.0-16.0) % Plt Count (160-400) X10*3/uL MPV (9.4-12.4) fL Immature Gran % (Auto) (0.0-0.4) % Neut % (Auto) (45-73) % Lymph % (Auto) (20-40) % [place] % (Auto) (2-11) % Eos % (Auto) (0-4) % Baso % (Auto) (0-2) % Lymph # (Auto) (1.2-4.9) X10*3/uL [place] # (Auto) (0.1-1.2) X10*3/uL Eos # (Auto) (0.0-0.4) X10*3/uL Baso # (Auto) (0.0-0.2) X10*3/uL Abs Immat Gran (auto) (0.00-0.03) X10*3/uL Absolute Neuts (auto) (2.0-8.3) x10*3/uL Absolute Nucleated RBC (0.0-0.012) X10*3/uL Nucleated RBC % (auto) (0.0-0.2) /100WBC PT (11.1-13.3) SEC INR (0.9-1.1) APTT (26.0-36.4) SEC O2 Saturation % ABG pH at Pt Temp (7.35-7.45) ABG pCO2 at Pt Temp (32-45) mmHg ABG pO2 at Pt Temp (83-108) mmHg ABG HCO3 (22-26) mmol/L ABG Base Excess (Actual) mmol/L VBG pH 7.30 L (7.32-7.43) VBG pCO2 25 mmHg VBG pO2 30 mmHg VBG HCO3 12 L (22-26) mmol/L VBG O2 Saturation 32.0 % VBG Base Excess -11.9 mmol/L Sodium 143 (135-145) mmol/L Potassium 3.7 (3.3-5.1) mmol/L Chloride 118 H (96-108) mmol/L Carbon Dioxide 12 L (22-29) mmol/L Anion Gap 17 (12-20) BUN 71 H (9-16) mg/dL Creatinine 2.48 H (0.5-1.4) mg/dL Estim Creat Clear Calc 39.8 Estimated GFR 28 Random Glucose 103 (60-115) mg/dL Lactic Acid 1.3 (0.5-2.0) mmol/L Calcium 9.0 (8.4-10.2) mg/dL Magnesium 1.6 (1.6-2.6) mg/dL Total Bilirubin 0.2 (0.0-1.0) mg/dL AST 41 H (5-37) U/L ALT 21 (0-40) U/L Alkaline Phosphatase 48 (39-117) U/L Total Creatine Kinase 30 L (38-174) U/L Troponin I High Sens 60.0 H (<3.5-35.0) ng/L Total Protein 8.3 H (6.5-8.0) g/dL Albumin 2.6 L (3.5-5.0) g/dL Urine Color Urine Appearance Urine pH (5.0-9.0) Ur Specific [place] (1.005-1.025) Urine Protein (Neg-Trace) mg/dL Urine Glucose (UA) (Negative) mg/dL Urine Ketones (Negative) mg/dL Urine Blood (Negative) Urine Nitrite (Negative) Ur Leukocyte Esterase (Negative) Urine Opiates Screen (Not Detect) Urine Fentanyl Screen (Not Detect) Ur Barbiturates Screen (Not Detect) Ur Phencyclidine Scrn (Not Detect) Ur Amphetamines Screen (Not Detect) U Benzodiazepines Scrn (Not Detect) Urine Cocaine Screen (Not Detect) U Marijuana (THC) Screen (Not Detect) Ethyl Alcohol < 10 mg/dL COVID-19 (ANDI) (Negative) COVID-19 Clin Com Influenza Type A (MELLY) (Negative) Influenza Type A (PCR) NEGATIVE (Negative) Influenza Type B (MELLY) (Negative) Influenza Type B (PCR) NEGATIVE (Negative) Influenza A & B Note RSV RNA Qual (PCR) NEGATIVE (Negative) SARS-CoV-2 RNA (RT-PCR) NEGATIVE (Negative) 12/09/23 12/09/23 Range/Units 22:11 22:36 WBC (4.8-10.8) X10*3/uL RBC (4.60-5.80) X10*6/uL Hgb (14.0-18.0) g/dl Hct (42.0-52.0) % MCV (80.0-98.0) fL MCH (27.0-33.0) pg MCHC (31.0-36.0) g/dl RDW (11.0-16.0) % Plt Count (160-400) X10*3/uL MPV (9.4-12.4) fL Immature Gran % (Auto) (0.0-0.4) % Neut % (Auto) (45-73) % Lymph % (Auto) (20-40) % [place] % (Auto) (2-11) % Eos % (Auto) (0-4) % Baso % (Auto) (0-2) % Lymph # (Auto) (1.2-4.9) X10*3/uL [place] # (Auto) (0.1-1.2) X10*3/uL Eos # (Auto) (0.0-0.4) X10*3/uL Baso # (Auto) (0.0-0.2) X10*3/uL Abs Immat Gran (auto) (0.00-0.03) X10*3/uL Absolute Neuts (auto) (2.0-8.3) x10*3/uL Absolute Nucleated RBC (0.0-0.012) X10*3/uL Nucleated RBC % (auto) (0.0-0.2) /100WBC PT (11.1-13.3) SEC INR (0.9-1.1) APTT (26.0-36.4) SEC O2 Saturation 97.0 % ABG pH at Pt Temp 7.37 (7.35-7.45) ABG pCO2 at Pt Temp 18 L* (32-45) mmHg ABG pO2 at Pt Temp 86 (83-108) mmHg ABG HCO3 10 L (22-26) mmol/L ABG Base Excess (Actual) -12.3 mmol/L VBG pH (7.32-7.43) VBG pCO2 mmHg VBG pO2 mmHg VBG HCO3 (22-26) mmol/L VBG O2 Saturation % VBG Base Excess mmol/L Sodium (135-145) mmol/L Potassium (3.3-5.1) mmol/L Chloride (96-108) mmol/L Carbon Dioxide (22-29) mmol/L Anion Gap (12-20) BUN (9-16) mg/dL Creatinine (0.5-1.4) mg/dL Estim Creat Clear Calc Estimated GFR Random Glucose (60-115) mg/dL Lactic Acid (0.5-2.0) mmol/L Calcium (8.4-10.2) mg/dL Magnesium (1.6-2.6) mg/dL Total Bilirubin (0.0-1.0) mg/dL AST (5-37) U/L ALT (0-40) U/L Alkaline Phosphatase (39-117) U/L Total Creatine Kinase (38-174) U/L Troponin I High Sens (<3.5-35.0) ng/L Total Protein (6.5-8.0) g/dL Albumin (3.5-5.0) g/dL Urine Color Dark Yellow Urine Appearance Cloudy Urine pH 5.5 (5.0-9.0) Ur Specific [place] 1.025 (1.005-1.025) Urine Protein 100 (2+) H (Neg-Trace) mg/dL Urine Glucose (UA) Negative (Negative) mg/dL Urine Ketones Trace (Negative) mg/dL Urine Blood Trace H (Negative) Urine Nitrite Negative (Negative) Ur Leukocyte Esterase Negative (Negative) Urine Opiates Screen Not Detected (Not Detect) Urine Fentanyl Screen Not Detected (Not Detect) Ur Barbiturates Screen Not Detected (Not Detect) Ur Phencyclidine Scrn Not Detected (Not Detect) Ur Amphetamines Screen Not Detected (Not Detect) U Benzodiazepines Scrn Not Detected (Not Detect) Urine Cocaine Screen Not Detected (Not Detect) U Marijuana (THC) Screen Not Detected (Not Detect) Ethyl Alcohol mg/dL COVID-19 (ANDI) (Negative) COVID-19 Clin Com Influenza Type A (MELLY) (Negative) Influenza Type A (PCR) (Negative) Influenza Type B (MELLY) (Negative) Influenza Type B (PCR) (Negative) Influenza A & B Note RSV RNA Qual (PCR) (Negative) SARS-CoV-2 RNA (RT-PCR) (Negative) Independent Interpretation I performed an independent interpretation of an: EKG Interpretation: Sinus tachycardia, HR-135, no STEMI, [place]/QRS within normal limits, QTC -552 Radiology Impression Discussion of test interpretation with radiology: I have reviewed the radiologist's reading. Radiologist Impression: Please see the discussion above Chronic Conditions Patient?s care impacted by: Other HIV/AIDS Critical Care Time Critical Care Time Critical Care Time: Yes Total Critical Care Time: 90 Attestation: I personally attest to this time spent taking care of the patient. Discharge Plan Discharge Clinical Impression: AIDS, Severe sepsis, Acute hypoxemic respiratory failure, PCP (pneumocystis jiroveci pneumonia) Patient Disposition: Admitted As Inpatient
[2023-12-09] MEDS: 0.9 % Sodium Chloride 2,245.29 ML 2245.29 ML IV (19:55)
[2023-12-09 19:59] LABS: MANUAL DIFF FLAG NO
[2023-12-09 20:01] LABS: Basophils Percent Auto 0.3 % (0-2); Eosinophils Absolute Auto 0.1 X10*3/uL (0.0-0.4); Eosinophils Percent Auto 1.2 % (0-4); Hematocrit 34.2 % (42.0-52.0); Hemoglobin 11.6 g/dl (14.0-18.0); Imm Gran Abs Auto 0.06 X10*3/uL (0.00-0.03); Imm Gran Pct Auto 0.6 % (0.0-0.4); Lymphocytes Absolute Auto 0.7 X10*3/uL (1.2-4.9); Lymphocytes Percent Auto 6.6 % (20-40); Mean Corpuscular HGB Conc 33.9 g/dl (31.0-36.0); Mean Corpuscular Hemoglobin 29.4 pg (27.0-33.0); Mean Corpuscular Volume 86.8 fL (80.0-98.0); Mean Platelet Volume 11.1 fL (9.4-12.4); Monocytes Absolute Auto 0.5 X10*3/uL (0.1-1.2); Monocytes Percent Auto 4.7 % (2-11); Neutrophils Absolute Auto 8.8 x10*3/uL (2.0-8.3); Neutrophils Percent Auto 86.6 % (45-73); Platelet Count 397 X10*3/uL (160-400); Red Blood Count 3.94 X10*6/uL (4.60-5.80); Red Cell Distribution Width 13.9 % (11.0-16.0); White Blood Count 10.1 X10*3/uL (4.8-10.8)
[2023-12-09] MEDS: cefEPime HCl 2 GM in 0.9 % Sodium Chloride 50 ML IV (20:01)
--- NOTE | 2023-12-09 20:04 | PC.NURSE ---
pt a&o, increase sob, pt change director, respiratory at the bedside, provider into assess pt, labs collect and sent, Iv placed. pt placed on bedside monitor, EKG completed.
[2023-12-09 20:10] LABS: VBG Base Excess -11.9 mmol/L; VBG HCO3 12 mmol/L (22-26); VBG pCO2 25 mmHg; VBG pO2 30 mmHg
[2023-12-09 20:10] LABS: Venous Blood Gas Refer to POC result
[2023-12-09 20:11] LABS: INTERNATIONAL NORM RATIO 1.6 (0.9-1.1); Prothrombin Time 18.9 SEC (11.1-13.3)
[2023-12-09 20:17] LABS: COVID-19 Test Negative (Negative); IDNOW Serial# 08D9AD1C
[2023-12-09 20:26] LABS: IDNOW Serial# 152EDE1D; Influenza A Negative (Negative); Influenza B2 Negative (Negative)
--- NOTE | 2023-12-09 21:16 | MHC.EDTECH ---
SOME OF PATIENT LABS ARE DELAY PATIENT A DIFFICULT STICK .
[2023-12-09 21:36] LABS: Influenza A PCR NEGATIVE (Negative); Influenza B PCR NEGATIVE (Negative); Resp Syncy Virus RNA Qual PCR NEGATIVE (Negative); SARS COV2 PCR INHOUSE NEGATIVE (Negative)
[2023-12-09 21:42] LABS: Lactic Acid 1.3 mmol/L (0.5-2.0)
[2023-12-09 21:47] LABS: Alanine Aminotransferase 21 U/L (0-40); Albumin Level 2.6 g/dL (3.5-5.0); Alkaline Phosphatase 48 U/L (39-117); Anion Gap 17 (12-20); Aspartate Amino Transferase 41 U/L (5-37); Bilirubin Total 0.2 mg/dL (0.0-1.0); Blood Urea Nitrogen 71 mg/dL (9-16); Carbon Dioxide 12 mmol/L (22-29); Chloride 118 mmol/L (96-108); Creatinine Clr Calc Pharmacy 39.8; Estimated Glomerular Filt Rate 28; Glucose Random 103 mg/dL (60-115); Magnesium 1.6 mg/dL (1.6-2.6); Potassium 3.7 mmol/L (3.3-5.1); Sodium 143 mmol/L (135-145); Total Protein 8.3 g/dL (6.5-8.0)
[2023-12-09 22:05] LABS: Partial Thromboplastin Time 38.1 SEC (26.0-36.4)
[2023-12-09 22:08] LABS: Ethanol < 10 mg/dL
[2023-12-09 22:20] LABS: ABG Refer to POC result
[2023-12-09 22:21] LABS: ABG Base Excess -12.3 mmol/L; ABG HCO3 10 mmol/L (22-26); ABG pCO2 18 mmHg (32-45); ABG pH 7.37 (7.35-7.45); ABG pO2 86 mmHg (83-108)
[2023-12-09] MEDS: Atovaquone 750 MG/5 ML ORAL.SUSP 1500 MG PO (22:44)
[2023-12-09] MEDS: Fluconazole in NaCl,Iso-Osm 200 MG/100 ML PIGGYBACK 100 MG IV (22:44)
[2023-12-09 22:50] LABS: Amphetamine Screen Urine Not Detected (Not Detect); Barbiturates, Urine Not Detected (Not Detect); Benzodiazepines Screen Urine Not Detected (Not Detect); Cannabinoid Screen Urine Not Detected (Not Detect); Cocaine Screen Urine Not Detected (Not Detect); Fentanyl, urine Not Detected (Not Detect); Opiate Screen Urine Not Detected (Not Detect); Phencyclidine Screen Urine Not Detected (Not Detect)
[2023-12-09 22:51] LABS: Appearance Urine Cloudy; Color Urine Dark Yellow; Glucose Urine UA Negative (Negative); Leukocyte Esterase Urine Negative (Negative); Nitrite Urine Negative (Negative); PH 5.5 (5.0-9.0); Specific Gravity - Urine 1.025 (1.005-1.025); UMIC TRIGGER UACC YES; Urine Blood Trace (Negative); Urine Ketones Trace mg/dL (Negative); Urine Protein 100 (2+) mg/dL (Neg-Trace)
[2023-12-09] MEDS: Acetaminophen 325 MG TABLET 975 MG PO (22:58)
--- NOTE | 2023-12-09 23:05 | P.CONCC_ITS ---
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 The patient had been homeless for over 3 years and has not taking any medications for such.? Of time.? Recently has been in contact and living in his mom's house but started feeling sick for the past 2 weeks with cough, generalized malaise, chills and flu-like symptoms which have gotten worse over the past week. He did come to the emergency room and at the time he arrived with unstable vital signs including tachycardia in the 140s, tachypnea at 40 breaths per minute, hypoxic at 70-80% while on supplemental oxygen and reporting all of the above- mentioned symptoms. ?His workup reveal no white count, he is however febrile at 102.5.? Electrolytes are normal, he does have renal failure with creatinine of 2.41, BUN of 71, albumin 2.6 otherwise normal laboratories and negative respiratory panel including RSV, COVID. ?Patient's chest x-ray does show bilateral patchy infiltrates left greater than right, and although CT scan reading is still pending, he appears to have somewhat groundglass lesions/infiltrates and given his underlying history of HIV, this is concerning for PCP pneumonia versus although less likely tuberculosis. Currently the patient states that he feels slightly better than when he 1st came in, his significantly dry and widened there is if he could eat something, he has not happy about having to answer additional questions to me and would like to be left alone. ROS:? Unable to obtain Past Medical History:? As above Past Surgical History: Family history:? Noncontributory Social History:? Lives at? home with mom; was homeless x 3 years, ex drinker, no drugs, contracted HIV due to unprotected sex. CODE STATUS: FULL CODE Allergies: NKDA Home Medications: See Med Rec sepsis PHYSICAL EXAM done at 11 pm: VS: 111/55; 104, 28, 102.5 rectally General:? Alert oriented x3 appears to be in minimal distress.? Speaking full sentences.? Speech is well articulated, thought process is coherent.? Following all commands. Skin:? Dry seborrheic like dermatitis and or lesions/plaques noted on the face, bilateral upper extremities, lower extremities.? Onychomycosis of the bilateral toenails.? No open sores or ulcers noted.? Overall the skin is dry, there is 1+ stenting. HEENT:? Head is normocephalic, atraumatic, pupils equal round reactive to light accommodation bilaterally.? Extraocular movements appear intact.? Buccal mucosa is very dry, Neck is supple without lymphadenopathy. Cardiac:? Clears wants to with a S3 gallop and/or murmur at the left lower sternal border 3/6.? No rubs Pulmonary:? Diminished lung sounds bilaterally with poor inspiratory and expiratory effort or capacity, no wheezes, rhonchi are noted bilaterally in the middle and lower lobes, no crackles.? There is no egophony changes. Abdomen:? Protuberant, positive bowel sounds in all 4 quadrants.? Soft, nontender, no rebound or guarding.? Musculoskeletal:? Moving all 4 extremities upon request a major joints, there is no crepitus or tenderness.? The strength is 5/5 bilaterally and throughout all 4 extremities.? There is no leg edema , no calf tenderness , no leg asymmetry.? Gait not assessed at this point. Neurologic:? As above, cranial nerves 2-12 are grossly intact.? No focal deficits noted. Vascular:? 2+ pulses upper and lower extremities distally. SIGNIFICANT LABORATORY DATA:? As above REVIEW OF IMAGES: CXR IMPRESSION: There are bilateral patchy infiltrates, left greater than right. These are likely infectious in etiology. Recommend continued radiographic follow-up to clearance. CHEST CT IMPRESSION: pending EKG REVIEW: ASSESSMENT : 1. Acute hypoxic respiratory failure 2.Acute respiratory distress due to underlying bilateral pneumonia rule out PCP, tuberculosis; atypical PNA 3. Acute Sepsis without shock 4.HIV rule out AIDS 5.Acute kidney injury likely prerenal azotemia 6. Significant clinical dehydration 7. Hypoalbuminemia and suspected protein calorie malnutrition syndrome 8. Compensating Metabolic acidosis 9. History of liver cirrhosis due to prior alcoholism 10. Coagulopathy due to liver disease ? vit ADECK deff 11. Normocytic anemia r/o iron deff, occult bleed vs chronic illness 12. Protenuria NOS likely due to dehydration, illness and renal failure 13. Oral Candidiasis ? esophageal due to inmuno-compromised state PLAN OF CARE: At this point, I do not believe the patient is in need of critical care, clinically he has improved since arrival to the emergency room and with their treatment. He does appear to be septic but is not in shock, I have ordered 3oml/kg; blood cultures, he will be on Cefepime, he has mild respiratory distress,? He certainly needs close observation, I have suggested and ordered to get him off the OxyMask in place him on flow oxygen for tachypnea and morphine or Dilaudid for work of breathing. He does not need positive pressure at this point. ?I ordered more IVF bolus and LR after that given significant dehydration, albumin, a total of 100 mEq of bicarb IV, Tylenol for fever, Patient should have a HIV viral load, CD4 count, infectious disease consult, sputum culture and Gram stain, AFB sputum testing x3, PCP prophylaxis and or treatment orally; keeping in mind his renal dysfunction for dosing purposes if Bactrim is used; but would be best to treat with Atovaquone;oral nystatin vs fluconazole, repeat laboratories, check hepatitis AB and C, Phos. Consider steroid if he wheezes and schedule nebs. Consider covering for atypicals with Zithromax. Certainly if the patient decompensates please feel free to contact us again. All orders placed and case discussed with the ED physician (Dr Godfrey) and Dr Lara from IM service GI PROPHYLAXIS: ?Oral PPI DVT PROPHYLAXIS: ?Heparin subQ q.12 hours Critical care time used for critical evaluation of this patient, diagnosis, treatment and coordination of care, review her records and documentation TOTAL CRITICAL CARE TIME 90?MIN . discussion and coordination with consultants, completely separate from any procedures performed. Patient's care was discussed in detail with Dr. Hay.? She is aware of all the above as well as the plan of care for this patient. [facility] Social History Social History Patient Tobacco Use Status: Current everyday Tobacco user Smoked in Last 30 Days: Yes Use of substances other than those prescribed or required for medical reasons: No Advance Directives: No Advance Directives Information Provided: No Meds Allergies Allergy/AdvReac Type Severity Reaction Status Date / Time No Known Allergies Allergy Verified 12/09/23 19:32 Active Medications: Current Medications Atovaquone (Atovaquone 750 Mg/5 Ml Oral.Susp) 1,500 mg PO DAILY [facility] Last Admin: 12/09/23 22:44 Dose: 1,500 mg Fluconazole (Diflucan) 200 mg in 100 mls @ 100 mls/hr IV ONCE ONE Stop: 12/09/23 23:09 Last Admin: 12/09/23 22:44 Dose: 100 mls/hr Physical Exam 2 Vital Signs: Vital Signs: Last Vital Signs Temp 102.5 F H 12/09/23 22:53 Pulse 114 H 12/09/23 22:53 Resp 39 H 12/09/23 22:53 BP 111/55 L 12/09/23 22:53 Pulse Ox 96 12/09/23 22:53 O2 Del Method Oxymask 12/09/23 22:53 O2 Flow Rate 15 12/09/23 22:53 Oxygen Flow Rate 15 12/09/23 19:34 BMI result Body Mass Index 20.6 Results Labs 12/10/23 05:56 12/10/23 05:56 Labs: Short CBC 12/09/23 Range/Units 19:52 WBC 10.1 (4.8-10.8) X10*3/uL Hgb 11.6 L (14.0-18.0) g/dl Hct 34.2 L (42.0-52.0) % Plt Count 397 (160-400) X10*3/uL BMP 12/09/23 21:23 Sodium 143 Potassium 3.7 Chloride 118 H Carbon Dioxide 12 L BUN 71 H Creatinine 2.48 H Calcium 9.0 Cardiac Enzymes 12/09/23 Range/Units 21:23 Total Creatine Kinase 30 L (38-174) U/L Liver Function 12/09/23 Range/Units 21:23 Total Bilirubin 0.2 (0.0-1.0) mg/dL AST 41 H (5-37) U/L ALT 21 (0-40) U/L Alkaline Phosphatase 48 (39-117) U/L Albumin 2.6 L (3.5-5.0) g/dL Urine 12/09/23 Range/Units 22:36 Urine Color Dark Yellow Urine Appearance Cloudy Urine pH 5.5 (5.0-9.0) Ur Specific [place] 1.025 (1.005-1.025) Urine Protein 100 (2+) H (Neg-Trace) mg/dL Urine Glucose (UA) Negative (Negative) mg/dL Documented by User: Gina Hay MD 12/10/23 07:53 History of Present Illness HPI HPI: ?43-year-old male with long history of HIV which he contracted by unprotected intercourse, liver cirrhosis due to alcoholism however he has been sober for several years, denies IV or any other drug use or other medical comorbidities.? The patient had been homeless for over 3 years and has not taking any medications for such.? Of time.? Recently has been in contact and living in his mom's house but started feeling sick for the past 2 weeks with cough, generalized malaise, chills and flu-like symptoms which have gotten worse over the past week. He did come to the emergency room and at the time he arrived with unstable vital signs including tachycardia in the 140s, tachypnea at 40 breaths per minute, hypoxic at 70-80% while on supplemental oxygen and reporting all of the above- mentioned symptoms. ?His workup reveal no white count, he is however febrile at 102.5.? Electrolytes are normal, he does have acute renal insufficiency with creatinine of 2.41, BUN of 71, albumin 2.6 otherwise normal laboratories and negative respiratory panel including RSV, COVID. ?Patient's chest x-ray does show bilateral patchy infiltrates left greater than right, and although CT scan reading is still pending, he appears to have somewhat groundglass lesions/infiltrates and given his underlying history of HIV, this is concerning for PCP pneumonia versus although less likely tuberculosis. Currently the patient states that he feels slightly better than when he 1st came in, his significantly dry and widened there is if he could eat something, he has not happy about having to answer additional questions to me and would like to be left alone. ROS:? Unable to obtain Past Medical History:? As above Past Surgical History: Family history:? Noncontributory Social History:? Lives at? home with mom; was homeless x 3 years, ex drinker, no drugs, contracted HIV due to unprotected sex. CODE STATUS: FULL CODE Allergies: NKDA Home Medications: See Med Rec sepsis PHYSICAL EXAM done at 11 pm: VS: 111/55; 104, 28, 102.5 rectally General:? Alert oriented x3 appears to be in minimal distress.? Speaking full sentences.? Speech is well articulated, thought process is coherent.? Following all commands. Skin:? Dry seborrheic like dermatitis and or lesions/plaques noted on the face, bilateral upper extremities, lower extremities.? Onychomycosis of the bilateral toenails.? No open sores or ulcers noted.? Overall the skin is dry, there is 1+ stenting. HEENT:? Head is normocephalic, atraumatic, pupils equal round reactive to light accommodation bilaterally.? Extraocular movements appear intact.? Buccal mucosa is very dry, Neck is supple without lymphadenopathy. Cardiac:? Clears wants to with a S3 gallop and/or murmur at the left lower sternal border 3/6.? No rubs Pulmonary:? Diminished lung sounds bilaterally with poor inspiratory and expiratory effort or capacity, no wheezes, rhonchi are noted bilaterally in the middle and lower lobes, no crackles.? There is no egophony changes. Abdomen:? Protuberant, positive bowel sounds in all 4 quadrants.? Soft, nontender, no rebound or guarding.? Musculoskeletal:? Moving all 4 extremities upon request a major joints, there is no crepitus or tenderness.? The strength is 5/5 bilaterally and throughout all 4 extremities.? There is no leg edema , no calf tenderness , no leg asymmetry.? Gait not assessed at this point. Neurologic:? As above, cranial nerves 2-12 are grossly intact.? No focal deficits noted. Vascular:? 2+ pulses upper and lower extremities distally. SIGNIFICANT LABORATORY DATA:? As above REVIEW OF IMAGES: CXR IMPRESSION: There are bilateral patchy infiltrates, left greater than right. These are likely infectious in etiology. Recommend continued radiographic follow-up to clearance. CHEST CT IMPRESSION: pending EKG REVIEW: ASSESSMENT : 1. Acute hypoxic respiratory failure 2.Acute respiratory distress due to underlying bilateral pneumonia rule out PCP, tuberculosis; atypical PNA 3. Acute Sepsis without shock 4.HIV rule out AIDS 5.Acute kidney injury likely prerenal azotemia 6. Significant clinical dehydration 7. Hypoalbuminemia and suspected protein calorie malnutrition syndrome 8. Compensating Metabolic acidosis 9. History of liver cirrhosis due to prior alcoholism 10. Coagulopathy due to liver disease ? vit ADECK deff 11. Normocytic anemia r/o iron deff, occult bleed vs chronic illness 12. Protenuria NOS likely due to dehydration, illness and renal failure 13. Oral Candidiasis ? esophageal due to inmuno-compromised state PLAN OF CARE: At this point, I do not believe the patient is in need of critical care, clinically he has improved since arrival to the emergency room and with their treatment. He does appear to be septic but is not in shock, I have ordered 3oml/kg; blood cultures, he will be on Cefepime, he has mild respiratory distress,? He certainly needs close observation, I have suggested and ordered to get him off the OxyMask in place him on flow oxygen for tachypnea and morphine or Dilaudid for work of breathing. He does not need positive pressure at this point. ?I ordered more IVF bolus and LR after that given significant dehydration, albumin, a total of 100 mEq of bicarb IV, Tylenol for fever, Patient should have a HIV viral load, CD4 count, infectious disease consult, sputum culture and Gram stain, AFB sputum testing x3, PCP prophylaxis and or treatment orally; keeping in mind his renal dysfunction for dosing purposes if Bactrim is used; but would be best to treat with Atovaquone;oral nystatin vs fluconazole, repeat laboratories, check hepatitis AB and C, Phos. Consider steroid if he wheezes and schedule nebs. Consider covering for atypicals with Zithromax. Certainly if the patient decompensates please feel free to contact us again. All orders placed and case discussed with the ED physician (Dr Godfrey) and Dr Lara from IM service GI PROPHYLAXIS: ?Oral PPI DVT PROPHYLAXIS: ?Heparin subQ q.12 hours Critical care time used for critical evaluation of this patient, diagnosis, treatment and coordination of care, review her records and documentation TOTAL CRITICAL CARE TIME 90?MIN . discussion and coordination with consultants, completely separate from any procedures performed. Patient's care was discussed in detail with Dr. Hay.? She is aware of all the above as well as the plan of care for this patient. [facility] Social History Social History Patient Tobacco Use Status: Current everyday Tobacco user Smoked in Last 30 Days: Yes Use of substances other than those prescribed or required for medical reasons: No Advance Directives: No Advance Directives Information Provided: No Meds Allergies Allergy/AdvReac Type Severity Reaction Status Date / Time No Known Allergies Allergy Verified 12/09/23 19:32 Results Labs 12/10/23 05:56 12/10/23 05:56
--- NOTE | 2023-12-09 23:10 | PC.NURSE ---
Pt IV infiltrated. Second IV placed in the left AC. IV working well with medications running at this time.
[2023-12-09 23:14] LABS: Bacteria Urine None Seen (None Seen); Granular Casts Urine Present; Other Crystals Urine Present; WBC Urine 0-5 /HPF (0-5)
--- NOTE | 2023-12-09 23:38 | PM.IMHP ---
History of Present Illness Date of Service: 12/09/23 Attending physician on admission: Gia Reagan Chief Complaint: Shortness of breath Terry Gunter is a 43 years old man with past medical history significant for HIV infection (not taking HARRTs) presents to the emergency department complaining of worsening shortness of breath over the last few days. He does have generalized weakness and fatigue. He also complains of cough, vomiting and diarrhea. He denied abdominal pain. He did not report any acute gastrointestinal symptom. He does have a rash involving his face and extremities which he attributes to sorry acids. Terry is homeless and he has not been taking his HIV medication for the last 3 years. He smoke tobacco, half pack daily. He denied illicit drug use or alcohol abuse. In the ED, he was found to have tachycardia and fever. His oxygen saturation dropped to the 70s and his current requirement 2 L per minutes supplemental oxygen via mask. Blood workup is remarkable for elevated creatinine in of 2.48 as well as a BUN. There is no leukocytosis or lactic acidosis. Troponin is elevated, 60 and there is hypoalbuminemia. Urinalysis showed proteinuria but no evidence of urinary tract infection. Viral testing for COVID-19, influenza and RSV are negative. Urine drug test is negative. TSH is normal. AST is slightly elevated at 41. ALT, alk phos and total bilirubin are normal. ABG showed normal pH. There is no CO2 retention. CXR showed bilateral patchy infiltrates. Chest CT scan without IV contrast showed extensive regions of irregular ground glass opacities with interlobular and intralobular septal thickening throughout the bilateral lungs and splenomegaly. ED tx: Cefepime 2 g IV x1, fluconazole 200 mg IV x1, acetaminophen 975 mg p.o. x1, atovaquone 1500 mg p.o. x1, DuoNeb. Review of Systems Review of Systems: All 12 systems were reviewed and normal except as noted in HPI. Neurologic: Denies Abnormal speech present [facility] Social History Patient Tobacco Use Status: Current everyday Tobacco user Smoked in Last 30 Days: Yes Use of substances other than those prescribed or required for medical reasons: No Advance Directives: No Advance Directives Information Provided: No Meds Allergies Allergy/AdvReac Type Severity Reaction Status Date / Time No Known Allergies Allergy Verified 12/09/23 19:32 Active Medications: Current Medications Acetaminophen (Acetaminophen 325 Mg Tablet) 975 mg PO Q6H PRN PRN Reason: Pain, Mild (Pain Scale 1-3) Atovaquone (Atovaquone 750 Mg/5 Ml Oral.Susp) 1,500 mg PO DAILY [facility] Last Admin: 12/09/23 22:44 Dose: 1,500 mg Atovaquone (Atovaquone 750 Mg/5 Ml Oral.Susp) 1,500 mg PO DAILY [facility] Heparin Sodium (Porcine) (Heparin Sodium,Porcine 5,000 Unit/Ml Vial) 5,000 unit SUBCUT Q8H COMPA Hydromorphone HCl (Hydromorphone Hcl 0.5 Mg/0.5 Ml Syringe) 0.5 mg IVPUSH Q4H PRN; Protocol PRN Reason: Pain, Mild (Pain Scale 1-3) Lactated Ringer's (Lr) 1,000 mls @ 100 mls/hr IVCONT .Q10H [facility] Sodium Chloride (Ns) 1,000 mls @ 100 mls/hr IVCONT .Q10H [facility] Cefepime HCl 0.5 gm/ Sodium (Chloride) 50 mls @ 100 mls/hr IV Q24H [facility] Lactated Ringer's (Lr) 2,245.29 mls @ 2,245.29 mls/hr 30 ml/kg infuse over 1 hr (2245.29 ml) IV .Q1H ONE Stop: 12/10/23 00:35 Prednisone (Prednisone 20 Mg Tablet) 40 mg PO BID [facility] Sodium Chloride (0.9 % Sodium Chloride Flush 3 Ml Syringe) 3 ml IVFLUSH QSHIFT [facility] Physical Exam Vital Signs and Narrative: Vital Signs: Last Vital Signs Temp 102.5 F H 12/09/23 22:53 Pulse 114 H 12/09/23 22:53 Resp 39 H 12/09/23 22:53 BP 111/55 L 12/09/23 22:53 Pulse Ox 96 12/09/23 22:53 O2 Del Method Oxymask 12/09/23 22:53 O2 Flow Rate 15 12/09/23 22:53 Oxygen Flow Rate 12/09/23 19:34 BMI result Body Mass Index 20.6 Const: General: cooperative, alert, awake, ill appearing and poor hygiene Orientation/consciousness: patient oriented x3 HEENT: Head: Yes normocephalic and Yes atraumatic Eyes: Pupils: Equal, round and reactive pupils present EOM: EOMs intact bilaterally Resp: Effort & Inspection: able to speak in complete sentences, abnormal respiratory pattern, no nasal flaring and no respiratory distress Auscultation: rhonchi Cardio: Rate: tachycardic Rhythm: regular rhythm Heart sounds: no murmurs GI: Inspection: Yes normal to inspection and No distended Palpation (GI): Soft to palpation, nontender and No Ascites present Auscultation: normal bowel sounds Rectal Exam - Male: Yes deferred Skin: General skin exam: dry skin and erythema Rashes: rashes noted Neuro: General: patient oriented x3 Cranial nerves: Yes Equal, round and reactive pupils present Cognition (Neuro): normal cognition Speech: No Abnormal speech present Extrem: General: Yes full ROM, Yes no clubbing, cyanosis or edema and No edema Left upper extremity: edema Psych: Appearance: grossly normal Mental Status: mental status grossly normal Speech and movement: Normal speech and movement present Affect: normal affect Results Labs 12/09/23 19:52 12/09/23 21:23 Labs: Laboratory Results - last 24 hr 12/09/23 12/09/23 12/09/23 19:51 19:52 19:54 MCV 86.8 MCH 29.4 MCHC 33.9 RDW 13.9 Plt Count 397 MPV 11.1 Immature Gran % (Auto) 0.6 H Neut % (Auto) 86.6 H Lymph % (Auto) 6.6 L [place] % (Auto) 4.7 Eos % (Auto) 1.2 Baso % (Auto) 0.3 Lymph # (Auto) 0.7 L [place] # (Auto) 0.5 Eos # (Auto) 0.1 Baso # (Auto) 0.0 Abs Immat Gran (auto) 0.06 H Absolute Neuts (auto) 8.8 H Absolute Nucleated RBC 0.000 Nucleated RBC % (auto) 0.0 PT 18.9 H INR 1.6 H APTT 38.1 H O2 Saturation ABG pH at Pt Temp ABG pCO2 at Pt Temp ABG pO2 at Pt Temp ABG HCO3 ABG Base Excess (Actual) VBG pH VBG pCO2 VBG pO2 VBG HCO3 VBG O2 Saturation VBG Base Excess Anion Gap Estim Creat Clear Calc Estimated GFR Random Glucose Lactic Acid Calcium Magnesium Total Bilirubin AST ALT Alkaline Phosphatase Total Creatine Kinase Total Protein Albumin Urine Color Urine Appearance Urine pH Ur Specific [place] Urine Protein Urine Glucose (UA) Urine Ketones Urine Blood Urine Nitrite Ur Leukocyte Esterase Urine RBC Urine WBC Ur Squamous Epith Cells Other Crystals Urine Bacteria Hyaline Casts Granular Casts Urine Opiates Screen Urine Fentanyl Screen Ur Barbiturates Screen Ur Phencyclidine Scrn Ur Amphetamines Screen U Benzodiazepines Scrn Urine Cocaine Screen U Marijuana (THC) Screen Ethyl Alcohol COVID-19 (ANDI) Negative COVID-19 Clin Com See Note Influenza Type A (MELLY) Negative Influenza Type A (PCR) Influenza Type B (MELLY) Negative Influenza Type B (PCR) Influenza A & B Note See Note RSV RNA Qual (PCR) SARS-CoV-2 RNA (RT-PCR) 12/09/23 12/09/23 12/09/23 20:05 20:55 21:23 MCV MCH MCHC RDW Plt Count MPV Immature Gran % (Auto) Neut % (Auto) Lymph % (Auto) [place] % (Auto) Eos % (Auto) Baso % (Auto) Lymph # (Auto) [place] # (Auto) Eos # (Auto) Baso # (Auto) Abs Immat Gran (auto) Absolute Neuts (auto) Absolute Nucleated RBC Nucleated RBC % (auto) PT INR APTT O2 Saturation ABG pH at Pt Temp ABG pCO2 at Pt Temp ABG pO2 at Pt Temp ABG HCO3 ABG Base Excess (Actual) VBG pH 7.30 L VBG pCO2 25 VBG pO2 30 VBG HCO3 12 L VBG O2 Saturation 32.0 VBG Base Excess -11.9 Anion Gap 17 Estim Creat Clear Calc 39.8 Estimated GFR 28 Random Glucose 103 Lactic Acid 1.3 Calcium 9.0 Magnesium 1.6 Total Bilirubin 0.2 AST 41 H ALT 21 Alkaline Phosphatase 48 Total Creatine Kinase 30 L Total Protein 8.3 H Albumin 2.6 L Urine Color Urine Appearance Urine pH Ur Specific [place] Urine Protein Urine Glucose (UA) Urine Ketones Urine Blood Urine Nitrite Ur Leukocyte Esterase Urine RBC Urine WBC Ur Squamous Epith Cells Other Crystals Urine Bacteria Hyaline Casts Granular Casts Urine Opiates Screen Urine Fentanyl Screen Ur Barbiturates Screen Ur Phencyclidine Scrn Ur Amphetamines Screen U Benzodiazepines Scrn Urine Cocaine Screen U Marijuana (THC) Screen Ethyl Alcohol < 10 COVID-19 (ANDI) COVID-19 Clin Com Influenza Type A (MELLY) Influenza Type A (PCR) NEGATIVE Influenza Type B (MELLY) Influenza Type B (PCR) NEGATIVE Influenza A & B Note RSV RNA Qual (PCR) NEGATIVE SARS-CoV-2 RNA (RT-PCR) NEGATIVE 12/09/23 12/09/23 22:11 22:36 MCV MCH MCHC RDW Plt Count MPV Immature Gran % (Auto) Neut % (Auto) Lymph % (Auto) [place] % (Auto) Eos % (Auto) Baso % (Auto) Lymph # (Auto) [place] # (Auto) Eos # (Auto) Baso # (Auto) Abs Immat Gran (auto) Absolute Neuts (auto) Absolute Nucleated RBC Nucleated RBC % (auto) PT INR APTT O2 Saturation 97.0 ABG pH at Pt Temp 7.37 ABG pCO2 at Pt Temp 18 L* ABG pO2 at Pt Temp 86 ABG HCO3 10 L ABG Base Excess (Actual) -12.3 VBG pH VBG pCO2 VBG pO2 VBG HCO3 VBG O2 Saturation VBG Base Excess Anion Gap Estim Creat Clear Calc Estimated GFR Random Glucose Lactic Acid Calcium Magnesium Total Bilirubin AST ALT Alkaline Phosphatase Total Creatine Kinase Total Protein Albumin Urine Color Dark Yellow Urine Appearance Cloudy Urine pH 5.5 Ur Specific [place] 1.025 Urine Protein 100 (2+) H Urine Glucose (UA) Negative Urine Ketones Trace Urine Blood Trace H Urine Nitrite Negative Ur Leukocyte Esterase Negative Urine RBC 3-5 H Urine WBC 0-5 Ur Squamous Epith Cells 6-10 Other Crystals Present Urine Bacteria None Seen Hyaline Casts 6-10 Granular Casts Present Urine Opiates Screen Not Detected Urine Fentanyl Screen Not Detected Ur Barbiturates Screen Not Detected Ur Phencyclidine Scrn Not Detected Ur Amphetamines Screen Not Detected U Benzodiazepines Scrn Not Detected Urine Cocaine Screen Not Detected U Marijuana (THC) Screen Not Detected Ethyl Alcohol COVID-19 (ANDI) COVID-19 Clin Com Influenza Type A (MELLY) Influenza Type A (PCR) Influenza Type B (MELLY) Influenza Type B (PCR) Influenza A & B Note RSV RNA Qual (PCR) SARS-CoV-2 RNA (RT-PCR) Imaging Radiologist's Impressions: Impressions Chest X-Ray 12/09/23 20:25 IMPRESSION: There are bilateral patchy infiltrates, left greater than right. These are likely infectious in etiology. Recommend continued radiographic follow-up to clearance. Assessment and Plan (1) PCP (pneumocystis jiroveci pneumonia): Status: Acute (2) Acute hypoxemic respiratory failure: Status: Acute Plan Terry Gunter is a 43 years old man with past medical history significant Hypoxic respiratory failure likely secondary to Pneumocystis pneumonia in the setting of untreated HIV infection (likely underlying AIDS). Admit to hospitalist service. Telemetry. Pulse oximetry. Will start high-flow therapy. Bronchodilator therapy every 4 hours. Continue empiric treatment with atorvaquone. Continue therapy with cefepime. Start therapy with azithromycin IV for a typical coverage. Start corticosteroids therapy with prednisone (decreases mortality). shakes CD4, HIV viral load, sputum cultures and AFB sputum testing. Appreciate ICU team and ID recommendations. Sepsis likely secondary to above. Continue therapy with cefepime, atorvaquone. and Diflucan. IV fluids administration with lactated Ringer 3o ml/kg then maintenance. Blood cultures were obtained -will follow results. Recheck lactic acid. Metabolic acidosis, improving. Bicarb IV given. Continue to monitor CO2. Acute kidney injury + proteinuria; possible secondary to volume depletion. This can also be associated to HIV infection.. Continue IV fluids. Continue to monitor renal function. Avoid nephrotoxic agents. Generalized pain. Dilaudid IV as needed. Oral candidiasis (possibly esophageal as well), continue fluconazole IV. Anemia, likely multifactorial: AIDS, poor nutrition and acute infection. Elevated troponin, likely demand ischemia (tachycardia). Will continue to monitor. Cachexia associated with hypoalbuminemia. Dietary consult. Elevated INR. possible vitamin K deficiency. According to notes patient has history of liver cirrhosis, however he denied a history of this. Will order vitamin K and recheck INR. VTE prophylaxis: Heparin subut GI prophylaxis: Protonix IV Code status: Full Patient will require hospitalization for at least 2 midnights for respiratory failure secondary to pneumonia (eduardo PJP) therapy with IV antibiotics and antifungals, IV fluids , high-flow oxygen therapy as a specialty evaluation. Quality Stroke Does the patient have a stroke diagnosis?: No VTE Prior VTE?: No VTE Risk Level:: Medical - moderate - high VTE Device Contraindication: Treatment Not Indicated VTE Drug Contraindication: N/A - Med Ordered
--- NOTE | 2023-12-09 23:42 | PC.NURSE ---
Per signal tower director, DC normal saline and admin LR. Pt has one 22g IV, multiple RN's and techs have attempted to stick pt with no success. Prison Officer stated he will send his ICU resource nurse to attempt.
[2023-12-09 23:43] LABS: Phosphorus 4.9 mg/dL (2.7-4.5)
[2023-12-09] MEDS: predniSONE 20 MG TABLET 40 MG PO (23:58)
[2023-12-09] MEDS: Sodium Bicarbonate 8.4% 50 MEQ/50 ML SYRINGE 100 MEQ IVPUSH (23:59)
[2023-12-10] VITALS (20 sets, daily range): BP systolic 106–138; BP diastolic 54–83; PULSE 63–91; RESP 16–39; TEMP 36.1–38.1; O2SAT 85–100; BMI 20.5
[2023-12-10 00:06] LABS: Thyroid Stimulating Hormone 1.82 uIU/mL (0.32-4.0)
[2023-12-10] MEDS: HYDROmorphone HCl 0.5 MG/0.5 ML SYRINGE IVPUSH ×4 (00:06→21:05)
--- NOTE | 2023-12-10 00:12 | PC.NURSE ---
Pt reporting 9/10 pain everywhere. Medicated with PRN dilauded, per JAN.
--- NOTE | 2023-12-10 00:33 | PC.NURSE ---
maintenance fluids delayed due to bolus fluids taking longer than scheduled.
[2023-12-10] MEDS: Azithromycin 500 MG in 0.9 % Sodium Chloride 250 ML 125 MG IV (02:33)
[2023-12-10] MEDS: Lactated Ringers 1,000 ML 100 ML IVCONT ×3 (02:33→21:05)
[2023-12-10 02:55] LABS: Venous Blood Gas Refer to POC result
[2023-12-10 02:57] LABS: VBG Base Excess -7.2 mmol/L; VBG HCO3 16 mmol/L (22-26); VBG pCO2 25 mmHg; VBG pH 7.41 (7.32-7.43); VBG pO2 33 mmHg
[2023-12-10 03:05] LABS: Anion Gap 16 (12-20); Blood Urea Nitrogen 65 mg/dL (9-16); Calcium 8.6 mg/dL (8.4-10.2); Carbon Dioxide 15 mmol/L (22-29); Chloride 118 mmol/L (96-108); Creatinine Clr Calc Pharmacy 52.2; Estimated Glomerular Filt Rate 39; Glucose Random 106 mg/dL (60-115); Potassium 3.5 mmol/L (3.3-5.1); Sodium 145 mmol/L (135-145)
[2023-12-10] MEDS: Sodium Bicarbonate 8.4% 50 MEQ/50 ML SYRINGE 100 MEQ IVPUSH (04:25)
[2023-12-10] MEDS: Pantoprazole Sodium 40 MG/10 ML VIAL IVPUSH (05:53)
[2023-12-10 06:04] LABS: MANUAL DIFF FLAG NO
[2023-12-10 06:05] LABS: Venous Blood Gas Refer to POC result
[2023-12-10 06:06] LABS: VBG Base Excess -3.4 mmol/L; VBG HCO3 19 mmol/L (22-26); VBG pCO2 28 mmHg; VBG pH 7.44 (7.32-7.43); VBG pO2 45 mmHg
[2023-12-10 06:22] LABS: Lactic Acid 1.1 mmol/L (0.5-2.0)
[2023-12-10 06:29] LABS: Basophils Percent Auto 0.2 % (0-2); Eosinophils Percent Auto 0.4 % (0-4); Hematocrit 25.3 % (42.0-52.0); Hemoglobin 8.6 g/dl (14.0-18.0); Imm Gran Abs Auto 0.08 X10*3/uL (0.00-0.03); Imm Gran Pct Auto 1.6 % (0.0-0.4); Lymphocytes Absolute Auto 0.3 X10*3/uL (1.2-4.9); Lymphocytes Percent Auto 5.5 % (20-40); Mean Corpuscular Hemoglobin 29.5 pg (27.0-33.0); Mean Corpuscular Volume 86.6 fL (80.0-98.0); Mean Platelet Volume 11.1 fL (9.4-12.4); Monocytes Absolute Auto 0.2 X10*3/uL (0.1-1.2); Monocytes Percent Auto 3.6 % (2-11); Neutrophils Absolute Auto 4.5 x10*3/uL (2.0-8.3); Neutrophils Percent Auto 88.7 % (45-73); Platelet Count 282 X10*3/uL (160-400); Red Blood Count 2.92 X10*6/uL (4.60-5.80); Red Cell Distribution Width 13.8 % (11.0-16.0); White Blood Count 5.1 X10*3/uL (4.8-10.8)
[2023-12-10 06:33] LABS: Troponin-I High Sensitivity 41.1 ng/L (<3.5-35.0)
[2023-12-10 06:34] LABS: Alanine Aminotransferase 22 U/L (0-40); Albumin Level 2.3 g/dL (3.5-5.0); Alkaline Phosphatase 51 U/L (39-117); Anion Gap 14 (12-20); Aspartate Amino Transferase 44 U/L (5-37); Bilirubin Total 0.3 mg/dL (0.0-1.0); Blood Urea Nitrogen 60 mg/dL (9-16); Calcium 8.4 mg/dL (8.4-10.2); Carbon Dioxide 19 mmol/L (22-29); Chloride 117 mmol/L (96-108); Creatinine Clr Calc Pharmacy 62.5; Estimated Glomerular Filt Rate 48; Glucose Random 120 mg/dL (60-115); Potassium 3.3 mmol/L (3.3-5.1); Sodium 147 mmol/L (135-145); Total Protein 7.3 g/dL (6.5-8.0)
--- NOTE | 2023-12-10 07:29 | PC.NURSE ---
patient sitting up in bed, high flow NC 54 FIO2 patient satting 97%. respirations equal, patient shows no signs of distress. Eating breakfast, call [facility] within reach, skin PWD
[2023-12-10] MEDS: Albuterol/Iprat 2.5/0.5MG 3 ML AMPUL.NEB INHALE ×3 (07:53→21:12)
--- NOTE | 2023-12-10 07:54 | PHA.MEDREC ---
Pharmacy Consult ? Medication Reconciliation Pharmacy has completed the medication reconciliation.
[2023-12-10] MEDS: Heparin Sodium,Porcine 5,000 UNIT/ML VIAL 5000 UNIT SUBCUT ×2 (08:06→17:00)
[2023-12-10] MEDS: Phytonadione (Vit K1) Oral 10 MG/ML AMPUL 5 MG PO (08:07)
[2023-12-10] MEDS: predniSONE 20 MG TABLET 40 MG PO ×2 (08:18→17:00)
[2023-12-10 08:33] LABS: HBS Num1 2.61 mIU/mL (0-7.99); HBc Num1 0.13 S/CO (0.00-0.79); HBsAGNum1 0.84 S/CO (0.00-0.99); Hepatitis A Antibody IgM 0.16 Index (0-0.79); Hepatitis B Core Antibody Nonreactive (Nonreactive); Hepatitis B Surface Antigen Negative (Negative); ~HepC Num1 0.21 S/CO (0.00-0.79); ~Hepatitis A Antibody IgM Nonreactive (Nonreactive); ~Hepatitis B Surface Antibody NONREACTIVE (Nonreactive); ~Hepatitis C Antibody Nonreactive (Nonreactive)
--- NOTE | 2023-12-10 08:37 | MHC.EDTECH ---
this account underwriter noticed low O2 stats on area secretary monitor reading between 68%-80%, I went to pt's room in attempts to reposition O2 sensor and check to see if pt is feeling SOB. Pt refused O2 check do to pt being on bed cash and requesting privacy. pt was informed by this account underwriter that his O2 was reading very low and I wanted to make sure that the O2 was reading accurately. This tech was not able to recheck O2, RN was made aware of situation.
[2023-12-10 08:53] LABS: Lactate Dehydrogenase 646 U/L (118-273)
--- NOTE | 2023-12-10 08:58 | PC.NURSE ---
patient desat down to the 60s, on high flow, resp called patient placed back on 50 % fio2. patient had diarrhea, patient cleaned up linens changed. patient sitting up in bed
[2023-12-10] MEDS: Sulfamethoxazole/Trimethoprim 320 MG in Dextrose 5 % 500 ML 225 MG IV ×2 (09:42→22:28)
--- NOTE | 2023-12-10 09:49 | MHC.CM.PN ---
IMM 12/10/23, Pt is staying with his mother, he was independent with ADL's prior to becoming ill. He does not have a PCP, CM will request appt. be made for him. HCP was discussed, he declined to complete one. Pt expressed preference for home with VNA services vs. STR if recommended. CM to follow and assist with DC planning.
--- NOTE | 2023-12-10 10:24 | PC.NURSE ---
RN noted H/H and WBC drop from yesterday's labs. H/H 11.6/34.2 to 8.6/25.3 WB 10.1 to 5.1 MD Noé Robles made aware via [employer]. No new orders.
[2023-12-10] MEDS: Bictegrav/Emtricit/Tenofov Ala TABLET 1 TAB PO (11:01)
[2023-12-10] MEDS: Sodium Chloride 3 % Inhalation 15 ML VIAL.NEB INHALE ×2 (11:12→14:31)
--- NOTE | 2023-12-10 13:59 | HO.PM.IMPN ---
Subjective Subjective Date of Service: 12/10/23 Interval History: Coughing, minimal sputum On HFNC 50% fiO2 40 Lpm Was seen at [facility] in [place] but became homeless and was living in tent and was lost to follow-up. Now staying with mother locally. No fever. Has been off ARVs for approximately 3 yr due to loss to follow-up. Review of Systems Review of Systems: Yes all other systems are reviewed and are negative Physical Exam Vital Signs: Vital Signs: Last Vital Signs Temp 98.1 F 12/10/23 10:58 Pulse 77 12/10/23 11:13 Resp 21 H 12/10/23 11:13 BP 116/67 12/10/23 10:58 Pulse Ox 96 12/10/23 10:58 O2 Del Method High Flow Nasal C annula 12/10/23 10:58 O2 Flow Rate 40 12/10/23 10:58 FiO2 50 12/10/23 10:58 Oxygen Flow Rate 15 12/09/23 19:34 BMI result Body Mass Index 20.6 Gen: in moderate repsiratory distress. malnourished, ill-appearing HEENT: sclera anicteric, moist mucus membranes, thrush on back of tongue Neck: supple Lungs: inspiratory fine crackles throughout Heart: regular rate and rhythm, no murmurs Abd: soft, non-tender, non-distended Ext: no edema Skin: warm/well-perfused Neuro: alert and oriented x3, no focal findings Psych: appropriate affect Objective Data Active Medications Acetaminophen (Acetaminophen 325 Mg Tablet) 975 mg PO Q8H PRN PRN Reason: Fever >100.4 Albuterol/Ipratropium (Albuterol/Iprat 2.5/0.5mg 3 Ml Ampul.Neb) 3 ml INHALE RQ6H WHILE AWAKE [facility] Last Admin: 12/10/23 07:53 Dose: 3 ml Documented By: JAMES Bictegravir/Emtricitabine/Tenofovir (Bictegrav/Emtricit/Tenofov Ala Tablet) 1 tab PO DAILY [facility] Last Admin: 12/10/23 11:01 Dose: 1 tab Documented By: PRUDENCIO Heparin Sodium (Porcine) (Heparin Sodium,Porcine 5,000 Unit/Ml Vial) 5,000 unit SUBCUT Q8H [facility] Last Admin: 12/10/23 08:06 Dose: 5,000 unit Documented By: AAYUSH Hydromorphone HCl (Hydromorphone Hcl 0.5 Mg/0.5 Ml Syringe) 0.5 mg IVPUSH Q4H PRN; Protocol PRN Reason: Pain, Mild (Pain Scale 1-3) Last Admin: 12/10/23 11:52 Dose: 0.5 mg Documented By: PRUDENCIO Cefepime HCl 0.5 gm/ Sodium (Chloride) 50 mls @ 100 mls/hr IV Q24H [facility] Azithromycin 500 mg/ Sodium (Chloride) 250 mls @ 125 mls/hr IV Q24H [facility] Last Infusion: 12/10/23 04:45 Dose: Infused Documented By: LYNNE Lactated Ringer's (Lr) 1,000 mls @ 100 mls/hr IVCONT .Q10H [facility] Last Admin: 12/10/23 11:52 Dose: 100 mls/hr Documented By: PRUDENCIO Fluconazole 100 mg/ IV (Miscellaneous Supplies) 50 mls @ 50 mls/hr IV Q24H [facility] Trimethoprim/Sulfamethoxazole (320 mg/ Dextrose) 520 mls @ 225 mls/hr IV Q6H [facility] Last Admin: 12/10/23 09:42 Dose: 225 mls/hr Documented By: AAYUSH Pantoprazole Sodium (Pantoprazole Sodium 40 Mg/10 Ml Vial) 40 mg IVPUSH DAILY@0630 [facility] Last Admin: 12/10/23 05:53 Dose: 40 mg Documented By: LYNNE Prednisone (Prednisone 20 Mg Tablet) 40 mg PO BIDWM [facility] Stop: 12/14/23 17:01 Last Admin: 12/10/23 08:18 Dose: 40 mg Documented By: AAYUSH Prednisone (Prednisone 20 Mg Tablet) 40 mg PO DAILY [facility] Stop: 12/19/23 09:01 Prednisone (Prednisone 20 Mg Tablet) 20 mg PO DAILY [facility] Stop: 12/30/23 09:01 Sodium Chloride (0.9 % Sodium Chloride Flush 3 Ml Syringe) 3 ml IVFLUSH QSHIFT [facility] Last Admin: 12/10/23 07:36 Dose: Not Given Documented By: AAYUSH Non-Admin Reason: IV Running Sodium Chloride (Sodium Chloride 3 % Inhalation 15 Ml Vial.Neb) 15 ml INHALE Q12H [facility] Stop: 12/11/23 10:31 Last Admin: 12/10/23 11:12 Dose: 15 ml Documented By: JAMES Labs 12/10/23 05:56 12/10/23 05:56 Labs: Laboratory Results - last 24 hr 12/09/23 12/09/23 12/09/23 19:51 19:52 19:54 MCV 86.8 MCH 29.4 MCHC 33.9 RDW 13.9 Plt Count 397 MPV 11.1 Immature Gran % (Auto) 0.6 H Neut % (Auto) 86.6 H Lymph % (Auto) 6.6 L Antelope % (Auto) 4.7 Eos % (Auto) 1.2 Baso % (Auto) 0.3 Lymph # (Auto) 0.7 L [place]elope # (Auto) 0.5 Eos # (Auto) 0.1 Baso # (Auto) 0.0 Abs Immat Gran (auto) 0.06 H Absolute Neuts (auto) 8.8 H Absolute Nucleated RBC 0.000 Nucleated RBC % (auto) 0.0 PT 18.9 H INR 1.6 H APTT 38.1 H O2 Saturation ABG pH at Pt Temp ABG pCO2 at Pt Temp ABG pO2 at Pt Temp ABG HCO3 ABG Base Excess (Actual) VBG pH VBG pCO2 VBG pO2 VBG HCO3 VBG O2 Saturation VBG Base Excess Anion Gap Estim Creat Clear Calc Estimated GFR Random Glucose Lactic Acid Calcium Phosphorus Magnesium Total Bilirubin AST ALT Alkaline Phosphatase Lactate Dehydrogenase Total Creatine Kinase Total Protein Albumin TSH Urine Color Urine Appearance Urine pH Ur Specific [place] Urine Protein Urine Glucose (UA) Urine Ketones Urine Blood Urine Nitrite Ur Leukocyte Esterase Urine RBC Urine WBC Ur Squamous Epith Cells Other Crystals Urine Bacteria Hyaline Casts Granular Casts Urine Opiates Screen Urine Fentanyl Screen Ur Barbiturates Screen Ur Phencyclidine Scrn Ur Amphetamines Screen U Benzodiazepines Scrn Urine Cocaine Screen U Marijuana (THC) Screen Ethyl Alcohol COVID-19 (ANDI) Negative COVID-19 Clin Com See Note Hepatitis A IgM Ab Hep Bs Antigen Hep Bs Antibody Hep B Core Total Ab Hepatitis C Ab (EIA) Influenza Type A (MELLY) Negative Influenza Type A (PCR) Influenza Type B (MELLY) Negative Influenza Type B (PCR) Influenza A & B Note See Note RSV RNA Qual (PCR) SARS-CoV-2 RNA (RT-PCR) 12/09/23 12/09/23 12/09/23 20:05 20:55 21:23 MCV MCH MCHC RDW Plt Count MPV Immature Gran % (Auto) Neut % (Auto) Lymph % (Auto) Antelope % (Auto) Eos % (Auto) Baso % (Auto) Lymph # (Auto) Antelope # (Auto) Eos # (Auto) Baso # (Auto) Abs Immat Gran (auto) Absolute Neuts (auto) Absolute Nucleated RBC Nucleated RBC % (auto) PT INR APTT O2 Saturation ABG pH at Pt Temp ABG pCO2 at Pt Temp ABG pO2 at Pt Temp ABG HCO3 ABG Base Excess (Actual) VBG pH 7.30 L VBG pCO2 25 VBG pO2 30 VBG HCO3 12 L VBG O2 Saturation 32.0 VBG Base Excess -11.9 Anion Gap 17 Estim Creat Clear Calc 39.8 Estimated GFR 28 Random Glucose 103 Lactic Acid 1.3 Calcium 9.0 Phosphorus 4.9 H Magnesium 1.6 Total Bilirubin 0.2 AST 41 H ALT 21 Alkaline Phosphatase 48 Lactate Dehydrogenase Total Creatine Kinase 30 L Total Protein 8.3 H Albumin 2.6 L TSH 1.82 Urine Color Urine Appearance Urine pH Ur Specific [place] Urine Protein Urine Glucose (UA) Urine Ketones Urine Blood Urine Nitrite Ur Leukocyte Esterase Urine RBC Urine WBC Ur Squamous Epith Cells Other Crystals Urine Bacteria Hyaline Casts Granular Casts Urine Opiates Screen Urine Fentanyl Screen Ur Barbiturates Screen Ur Phencyclidine Scrn Ur Amphetamines Screen U Benzodiazepines Scrn Urine Cocaine Screen U Marijuana (THC) Screen Ethyl Alcohol < 10 COVID-19 (ANDI) COVID-19 Clin Com Hepatitis A IgM Ab Hep Bs Antigen Hep Bs Antibody Hep B Core Total Ab Hepatitis C Ab (EIA) Influenza Type A (MELLY) Influenza Type A (PCR) NEGATIVE Influenza Type B (MELLY) Influenza Type B (PCR) NEGATIVE Influenza A & B Note RSV RNA Qual (PCR) NEGATIVE SARS-CoV-2 RNA (RT-PCR) NEGATIVE 12/09/23 12/09/23 12/10/23 22:11 22:36 02:48 MCV MCH MCHC RDW Plt Count MPV Immature Gran % (Auto) Neut % (Auto) Lymph % (Auto) Antelope % (Auto) Eos % (Auto) Baso % (Auto) Lymph # (Auto) Antelope # (Auto) Eos # (Auto) Baso # (Auto) Abs Immat Gran (auto) Absolute Neuts (auto) Absolute Nucleated RBC Nucleated RBC % (auto) PT INR APTT O2 Saturation 97.0 ABG pH at Pt Temp 7.37 ABG pCO2 at Pt Temp 18 L* ABG pO2 at Pt Temp 86 ABG HCO3 10 L ABG Base Excess (Actual) -12.3 VBG pH VBG pCO2 VBG pO2 VBG HCO3 VBG O2 Saturation VBG Base Excess Anion Gap 16 Estim Creat Clear Calc 52.2 Estimated GFR 39 Random Glucose 106 Lactic Acid Calcium 8.6 Phosphorus Magnesium Total Bilirubin AST ALT Alkaline Phosphatase Lactate Dehydrogenase 646 H Total Creatine Kinase Total Protein Albumin TSH Urine Color Dark Yellow Urine Appearance Cloudy Urine pH 5.5 Ur Specific [place] 1.025 Urine Protein 100 (2+) H Urine Glucose (UA) Negative Urine Ketones Trace Urine Blood Trace H Urine Nitrite Negative Ur Leukocyte Esterase Negative Urine RBC 3-5 H Urine WBC 0-5 Ur Squamous Epith Cells 6-10 Other Crystals Present Urine Bacteria None Seen Hyaline Casts 6-10 Granular Casts Present Urine Opiates Screen Not Detected Urine Fentanyl Screen Not Detected Ur Barbiturates Screen Not Detected Ur Phencyclidine Scrn Not Detected Ur Amphetamines Screen Not Detected U Benzodiazepines Scrn Not Detected Urine Cocaine Screen Not Detected U Marijuana (THC) Screen Not Detected Ethyl Alcohol COVID-19 (ANDI) COVID-19 Clin Com Hepatitis A IgM Ab Hep Bs Antigen Hep Bs Antibody Hep B Core Total Ab Hepatitis C Ab (EIA) Influenza Type A (MELLY) Influenza Type A (PCR) Influenza Type B (MELLY) Influenza Type B (PCR) Influenza A & B Note RSV RNA Qual (PCR) SARS-CoV-2 RNA (RT-PCR) 12/10/23 12/10/23 12/10/23 02:50 05:56 05:57 MCV 86.6 MCH 29.5 MCHC 34.0 RDW 13.8 Plt Count 282 D MPV 11.1 Immature Gran % (Auto) 1.6 H Neut % (Auto) 88.7 H Lymph % (Auto) 5.5 L [place]elope % (Auto) 3.6 Eos % (Auto) 0.4 Baso % (Auto) 0.2 Lymph # (Auto) 0.3 L [place] # (Auto) 0.2 Eos # (Auto) 0.0 Baso # (Auto) 0.0 Abs Immat Gran (auto) 0.08 H Absolute Neuts (auto) 4.5 Absolute Nucleated RBC 0.000 Nucleated RBC % (auto) 0.0 PT INR APTT O2 Saturation ABG pH at Pt Temp ABG pCO2 at Pt Temp ABG pO2 at Pt Temp ABG HCO3 ABG Base Excess (Actual) VBG pH 7.41 VBG pCO2 25 VBG pO2 33 VBG HCO3 16 L VBG O2 Saturation 49.0 VBG Base Excess -7.2 Anion Gap 14 Estim Creat Clear Calc 62.5 Estimated GFR 48 Random Glucose 120 H Lactic Acid 1.1 Calcium 8.4 Phosphorus Magnesium Total Bilirubin 0.3 AST 44 H ALT 22 Alkaline Phosphatase 51 Lactate Dehydrogenase Total Creatine Kinase Total Protein 7.3 Albumin 2.3 L TSH Urine Color Urine Appearance Urine pH Ur Specific [place] Urine Protein Urine Glucose (UA) Urine Ketones Urine Blood Urine Nitrite Ur Leukocyte Esterase Urine RBC Urine WBC Ur Squamous Epith Cells Other Crystals Urine Bacteria Hyaline Casts Granular Casts Urine Opiates Screen Urine Fentanyl Screen Ur Barbiturates Screen Ur Phencyclidine Scrn Ur Amphetamines Screen U Benzodiazepines Scrn Urine Cocaine Screen U Marijuana (THC) Screen Ethyl Alcohol COVID-19 (ANDI) COVID-19 Clin Com Hepatitis A IgM Ab Nonreactive Hep Bs Antigen Negative Hep Bs Antibody NONREACTIVE Hep B Core Total Ab Nonreactive Hepatitis C Ab (EIA) Nonreactive Influenza Type A (MELLY) Influenza Type A (PCR) Influenza Type B (MELLY) Influenza Type B (PCR) Influenza A & B Note RSV RNA Qual (PCR) SARS-CoV-2 RNA (RT-PCR) 12/10/23 06:00 MCV MCH MCHC RDW Plt Count MPV Immature Gran % (Auto) Neut % (Auto) Lymph % (Auto) Antelope % (Auto) Eos % (Auto) Baso % (Auto) Lymph # (Auto) [place]elope # (Auto) Eos # (Auto) Baso # (Auto) Abs Immat Gran (auto) Absolute Neuts (auto) Absolute Nucleated RBC Nucleated RBC % (auto) PT INR APTT O2 Saturation ABG pH at Pt Temp ABG pCO2 at Pt Temp ABG pO2 at Pt Temp ABG HCO3 ABG Base Excess (Actual) VBG pH 7.44 H VBG pCO2 28 VBG pO2 45 VBG HCO3 19 L VBG O2 Saturation 70.0 VBG Base Excess -3.4 Anion Gap Estim Creat Clear Calc Estimated GFR Random Glucose Lactic Acid Calcium Phosphorus Magnesium Total Bilirubin AST ALT Alkaline Phosphatase Lactate Dehydrogenase Total Creatine Kinase Total Protein Albumin TSH Urine Color Urine Appearance Urine pH Ur Specific [place] Urine Protein Urine Glucose (UA) Urine Ketones Urine Blood Urine Nitrite Ur Leukocyte Esterase Urine RBC Urine WBC Ur Squamous Epith Cells Other Crystals Urine Bacteria Hyaline Casts Granular Casts Urine Opiates Screen Urine Fentanyl Screen Ur Barbiturates Screen Ur Phencyclidine Scrn Ur Amphetamines Screen U Benzodiazepines Scrn Urine Cocaine Screen U Marijuana (THC) Screen Ethyl Alcohol COVID-19 (ANDI) COVID-19 Clin Com Hepatitis A IgM Ab Hep Bs Antigen Hep Bs Antibody Hep B Core Total Ab Hepatitis C Ab (EIA) Influenza Type A (MELLY) Influenza Type A (PCR) Influenza Type B (MELLY) Influenza Type B (PCR) Influenza A & B Note RSV RNA Qual (PCR) SARS-CoV-2 RNA (RT-PCR) Assessment and Plan (1) PCP (pneumocystis jiroveci pneumonia): Status: Acute Plan d2 43yo M with HIV diagnosed in 2005 off ART for approximately 3 yr presenting with 2 wk of increasing dyspnea + cough + fever, admitted for hypoxia due to PNA, likely PJP sepsis and AHRF due to PNA, likely PJP - Cr improved; given severity of disease, will treat with IV TMP-SMX 17.5 mg/kg/d TMP component divided q6h 12/10-12/30 PLUS prednisone taper 12/10-. Induced sputum for PJP PCR and also will check Fungitell. ID consult pending. Remains on bacterial coverage with azithromycin and cefepime started 12/09-. Blood cultures pending. - Given immunosuppression, will also r/o active TB with induced sputum x3 for AFB smear/culture. HIV and likely AIDS - CD4 + viral load pending. Pt states christal CD4 was around 360 and denies hx AIDS-defining illnesses. ARV hx includes Truvada + Norvir-boosed Prezista, then Truvada + Prezcobix, then Biktarvy. No hx of resistance or medication intolerance Restart Biktarvy and monitor for IRIS. ID consult pending. Obtain records from [facility] in [place], [place]. thrush and likely esophagitis - fluconazole IV ELI, prerenal metabolic acidosis - Improving with fluid resucitation. Check FENa and Upr/Cr anemia of chronic disease - monitor blood counts troponin elevation - likely demand from sepsis + ELI; no chest pain/ischemic EKG changes coagulopathy - given vit K, recheck INR tomorrow possible cirrhosis - abd US. HBV + HCV negative. hx syphilis, previously treated - check RPR titer VTE ppx - UFH dispo - TBD In my clinical judgment, the patient requires continued inpatient hospitalization for the following reasons: hypoxia Total time managing care of this patient today: 50 minutes. Quality Stroke Does the patient have a stroke diagnosis?: No VTE Prior VTE?: No VTE Risk Level:: Medical - moderate - high VTE Device Contraindication: Treatment Not Indicated VTE Drug Contraindication: N/A - Med Ordered
[2023-12-10 15:14] LABS: Protein/Creatinine Ratio, Ur 1.53 (<0.2); Total Protein Urine Random 87 mg/dL (<12)
[2023-12-10] MEDS: 0.9 % Sodium Chloride Flush 3 ML SYRINGE IVFLUSH (21:05)
[2023-12-10] MEDS: Fluconazole in NaCl,Iso-Osm 100 MG in Container,Empty 0 ML 50 MG IV (22:28)
[2023-12-10] MEDS: cefEPime HCl 0.5 GM in 0.9 % Sodium Chloride 50 ML IV (22:28)
--- NOTE | 2023-12-10 23:18 | W.PM.IDCN ---
History of Present Illness Data of Consult Service Date: 12/10/23 Requesting physician: Harmeet Wells Primary Care Provider: None Physician HPI Reason for consult: hypoxia,pneumonia in HIV patient He is too short of breath to give much of history. He came from [place] to live with mother here. He is homeless there. He has HIV and takes Biktarvy over last two years but hasnt lately. He denies positive Tspot or TB concepcion test. He has been positive since 2005. He worked starting up [email or web address]. He took Biktarvy regularly when he took it. He recalls CD4 count around 550. His MRSA screen is negative. Review of Systems Review of Systems: Yes all other systems are reviewed and are negative Respiratory: Respiratory: Reports as per HPI [facility] Past Medical History Medical History Gout Arthritis Family History Family history: reviewed and not pertinent Social History Social History Household Members: Family Housing: Apartment Do you presently have visiting nurse or other home services: No Patient Tobacco Use Status: Current everyday Tobacco user Tobacco use type: Cigarette Cigarette Packs Per Day: 0.5 Cigarettes Per Day: 10.0 service: No Meds Allergies Allergy/AdvReac Type Severity Reaction Status Date / Time No Known Allergies Allergy Verified 12/09/23 19:32 Active Medications: Current Medications Acetaminophen (Acetaminophen 325 Mg Tablet) 975 mg PO Q8H PRN PRN Reason: Fever >100.4 Albuterol/Ipratropium (Albuterol/Iprat 2.5/0.5mg 3 Ml Ampul.Neb) 3 ml INHALE RQ6H WHILE AWAKE [facility] Last Admin: 12/10/23 21:12 Dose: 3 ml Bictegravir/Emtricitabine/Tenofovir (Bictegrav/Emtricit/Tenofov Ala Tablet) 1 tab PO DAILY [facility] Last Admin: 12/10/23 11:01 Dose: 1 tab Heparin Sodium (Porcine) (Heparin Sodium,Porcine 5,000 Unit/Ml Vial) 5,000 unit SUBCUT Q8H [facility] Last Admin: 12/10/23 17:00 Dose: 5,000 unit Hydromorphone HCl (Hydromorphone Hcl 0.5 Mg/0.5 Ml Syringe) 0.5 mg IVPUSH Q4H PRN; Protocol PRN Reason: Pain, Mild (Pain Scale 1-3) Last Admin: 12/10/23 21:05 Dose: 0.5 mg Azithromycin 500 mg/ Sodium (Chloride) 250 mls @ 125 mls/hr IV Q24H [facility] Last Infusion: 12/10/23 04:45 Dose: Infused Lactated Ringer's (Lr) 1,000 mls @ 100 mls/hr IVCONT .Q10H [facility] Last Admin: 12/10/23 21:05 Dose: 100 mls/hr Fluconazole 100 mg/ IV (Miscellaneous Supplies) 50 mls @ 50 mls/hr IV Q24H [facility] Last Admin: 12/10/23 22:28 Dose: 50 mls/hr Trimethoprim/Sulfamethoxazole (320 mg/ Dextrose) 520 mls @ 225 mls/hr IV Q6H [facility] Last Admin: 12/10/23 22:28 Dose: 225 mls/hr Cefepime HCl 0.5 gm/ Sodium (Chloride) 50 mls @ 100 mls/hr IV Q24H [facility] Last Admin: 12/10/23 22:28 Dose: 100 mls/hr Pantoprazole Sodium (Pantoprazole Sodium 40 Mg/10 Ml Vial) 40 mg IVPUSH DAILY@0630 [facility] Last Admin: 12/10/23 05:53 Dose: 40 mg Prednisone (Prednisone 20 Mg Tablet) 40 mg PO BIDWM [facility] Stop: 12/14/23 17:01 Last Admin: 12/10/23 17:00 Dose: 40 mg Prednisone (Prednisone 20 Mg Tablet) 40 mg PO DAILY [facility] Stop: 12/19/23 09:01 Prednisone (Prednisone 20 Mg Tablet) 20 mg PO DAILY [facility] Stop: 12/30/23 09:01 Sodium Chloride (0.9 % Sodium Chloride Flush 3 Ml Syringe) 3 ml IVFLUSH QSHIFT [facility] Last Admin: 12/10/23 21:05 Dose: 3 ml Sodium Chloride (Sodium Chloride 3 % Inhalation 15 Ml Vial.Neb) 15 ml INHALE Q12H [facility] Stop: 12/11/23 10:31 Last Admin: 12/10/23 14:31 Dose: 15 ml Home Medications Medication Instructions Recorded Confirmed Last Taken Type No Known Home Meds 12/10/23 12/10/23 Unknown History Physical Exam Vital Signs: Vital Signs: Last Vital Signs Temp 97.0 F 12/10/23 23:07 Pulse 63 12/10/23 23:07 Resp 20 12/10/23 23:07 BP 106/54 L 12/10/23 23:07 Pulse Ox 97 12/10/23 23:07 O2 Del Method High Flow Nasal C annula 12/10/23 23:07 O2 Flow Rate 40 12/10/23 23:07 FiO2 50 12/10/23 23:07 Oxygen Flow Rate 15 12/09/23 19:34 BMI result Body Mass Index 20.5 Const: General: diaphoretic HEENT: Head: Yes normal to inspection Face and sinus: Yes normal facial exam Mouth: Normal oral and palatal mucosa present (small amount thrush back of mouth) Teeth and gingiva: dentition normal Eyes: General: appearance normal, both eyes and all related structures Pupils: Equal, round and reactive pupils present Resp: Effort & Inspection: normal respiratory effort Cardio: Rate: regular rate Rhythm: regular rhythm GI: Palpation (GI): Soft to palpation and nontender : General: Yes no CVA tenderness Back/Spine/Pelvis: Back: no CVA tenderness Skin: Other: seborrhea throughout Neuro: General: moves all extremities Cranial nerves: Yes Equal, round and reactive pupils present Extrem: General: Yes normal to inspection Psych: Appearance: grossly normal Results Labs 12/11/23 07:30 12/11/23 07:30 Labs: Short CBC 12/10/23 Range/Units 05:56 WBC 5.1 (4.8-10.8) X10*3/uL Hgb 8.6 L D (14.0-18.0) g/dl Hct 25.3 L D (42.0-52.0) % Plt Count 282 D (160-400) X10*3/uL BMP 12/10/23 12/10/23 02:48 05:56 Sodium 145 147 H Potassium 3.5 3.3 Chloride 118 H 117 H Carbon Dioxide 15 L 19 L BUN 65 H 60 H Creatinine 1.89 H 1.58 H Calcium 8.6 8.4 Liver Function 12/10/23 Range/Units 05:56 Total Bilirubin 0.3 (0.0-1.0) mg/dL AST 44 H (5-37) U/L ALT 22 (0-40) U/L Alkaline Phosphatase 51 (39-117) U/L Albumin 2.3 L (3.5-5.0) g/dL Urine 12/09/23 Range/Units 22:36 Urine Color Dark Yellow Urine Appearance Cloudy Urine pH 5.5 (5.0-9.0) Ur Specific [place] 1.025 (1.005-1.025) Urine Protein 100 (2+) H (Neg-Trace) mg/dL Urine Glucose (UA) Negative (Negative) mg/dL Microbiology Microbiology Results: Microbiology 12/09/23 20:11 Blood - Venous Blood Culture - Preliminary No growth after 24 hours. 12/09/23 19:51 Blood - Venous Blood Culture - Preliminary No growth after 24 hours. 12/10/23 10:10 Sputum - Expectorated Gram Stain - Final Assessment and Plan (1) AIDS: Status: Acute (2) Severe sepsis: Status: Acute Treat pneumonia Cefepime Bactrim Zmax appropriate. MRSA nare Check CD4 and viral load Continue Biktarvy (3) Acute hypoxemic respiratory failure: Status: Acute He has likely PJP pneumonia but possible bacterial or atypical coinfection. He has thrush He has likely CD4 count below 100. Plan Bactrim 15-20 mg/kg/day cover PJP. three week steroid 30 mg bid for a week,15 mg bid second week and 7.5 mg po bid third week. Cefepime for now but stop after 3-5 day likely. Azithromycin for now,likely change to po Zpack on discharge. Check urine strep pneumonia and Legionella antigen. Diflucan 100 mg daily cover thrush. Restart Biktarvy. Stop respiratory isolation and start standard precautions ,
[2023-12-11] VITALS (15 sets, daily range): BP systolic 105–129; BP diastolic 58–72; PULSE 51–98; RESP 18–24; TEMP 35.9–36.8; O2SAT 91–98; BMI 20.5
[2023-12-11] MEDS: Heparin Sodium,Porcine 5,000 UNIT/ML VIAL 5000 UNIT SUBCUT ×2 (00:59→07:50)
[2023-12-11] MEDS: Azithromycin 500 MG in 0.9 % Sodium Chloride 250 ML 125 MG IV (01:00)
[2023-12-11] MEDS: HYDROmorphone HCl 0.5 MG/0.5 ML SYRINGE IVPUSH ×3 (02:44→17:23)
[2023-12-11] MEDS: Sulfamethoxazole/Trimethoprim 320 MG in Dextrose 5 % 500 ML 225 MG IV ×3 (04:02→17:17)
[2023-12-11] MEDS: Pantoprazole Sodium 40 MG/10 ML VIAL IVPUSH (06:14)
[2023-12-11] MEDS: Lactated Ringers 1,000 ML 100 ML IVCONT (06:15)
[2023-12-11] MEDS: Bictegrav/Emtricit/Tenofov Ala TABLET 1 TAB PO (07:50)
[2023-12-11] MEDS: predniSONE 20 MG TABLET 40 MG PO ×2 (07:51→17:17)
[2023-12-11] MEDS: 0.9 % Sodium Chloride Flush 3 ML SYRINGE IVFLUSH ×2 (07:51→17:32)
[2023-12-11 07:55] LABS: Hematocrit 24.2 % (42.0-52.0); Hemoglobin 8.2 g/dl (14.0-18.0); Mean Corpuscular HGB Conc 33.9 g/dl (31.0-36.0); Mean Corpuscular Hemoglobin 29.7 pg (27.0-33.0); Mean Corpuscular Volume 87.7 fL (80.0-98.0); Mean Platelet Volume 10.9 fL (9.4-12.4); Platelet Count 284 X10*3/uL (160-400); Red Blood Count 2.76 X10*6/uL (4.60-5.80); Red Cell Distribution Width 13.8 % (11.0-16.0); White Blood Count 3.1 X10*3/uL (4.8-10.8)
[2023-12-11 08:04] LABS: INTERNATIONAL NORM RATIO 1.1 (0.9-1.1); Prothrombin Time 13.9 SEC (11.1-13.3)
[2023-12-11 08:33] LABS: Alanine Aminotransferase 16 U/L (0-40); Albumin Level 2.4 g/dL (3.5-5.0); Alkaline Phosphatase 44 U/L (39-117); Anion Gap 11 (12-20); Aspartate Amino Transferase 30 U/L (5-37); Bilirubin Total 0.2 mg/dL (0.0-1.0); Blood Urea Nitrogen 36 mg/dL (9-16); Calcium 8.5 mg/dL (8.4-10.2); Carbon Dioxide 24 mmol/L (22-29); Chloride 107 mmol/L (96-108); Creatinine Clr Calc Pharmacy 110.1; Estimated Glomerular Filt Rate > 60; Glucose Random 122 mg/dL (60-115); Potassium 3.8 mmol/L (3.3-5.1); Sodium 138 mmol/L (135-145); Total Protein 7.4 g/dL (6.5-8.0)
[2023-12-11 08:38] LABS: Magnesium 1.4 mg/dL (1.6-2.6)
[2023-12-11 08:39] LABS: Syphilis Screen Reactive (Nonreactive)
[2023-12-11 08:42] LABS: Procalcitonin 1.02 ng/mL
[2023-12-11] MEDS: Albuterol/Iprat 2.5/0.5MG 3 ML AMPUL.NEB INHALE ×3 (08:46→20:18)
--- NOTE | 2023-12-11 08:57 | P.PNIM_ITS ---
Subjective Subjective Date of Service: 12/11/23 Interval History: dyspnea improved; still on HFNC SCr normalized feels better no fever Review of Systems Review of Systems: Yes all other systems are reviewed and are negative Physical Exam 2 Vital Signs: Vital Signs: Last Vital Signs Temp 96.6 F L 12/11/23 07:55 Pulse 84 12/11/23 08:47 Resp 20 12/11/23 08:47 BP 106/69 12/11/23 07:55 Pulse Ox 97 12/11/23 07:55 O2 Del Method High Flow Nasal C annula 12/11/23 07:55 O2 Flow Rate 40 12/11/23 07:55 FiO2 54.6 12/11/23 07:55 Oxygen Flow Rate 15 12/09/23 19:34 BMI result Body Mass Index 20.5 Gen: in mild repsiratory distress. malnourished, ill-appearing HEENT: sclera anicteric, moist mucus membranes, thrush on back of tongue Neck: supple Lungs: fine inspiratory crackles throughout Heart: regular rate and rhythm, no murmurs Abd: soft, non-tender, non-distended Ext: no edema Skin: warm/well-perfused, multiple psoriatic plaques Neuro: alert and oriented x3, no focal findings Psych: appropriate affect Objective Data Active Medications Acetaminophen (Acetaminophen 325 Mg Tablet) 975 mg PO Q8H PRN PRN Reason: Fever >100.4 Albuterol/Ipratropium (Albuterol/Iprat 2.5/0.5mg 3 Ml Ampul.Neb) 3 ml INHALE RQ6H WHILE AWAKE [facility] Last Admin: 12/11/23 08:46 Dose: 3 ml Documented By: JONATHAN Bictegravir/Emtricitabine/Tenofovir (Bictegrav/Emtricit/Tenofov Ala Tablet) 1 tab PO DAILY [facility] Last Admin: 12/11/23 07:50 Dose: 1 tab Documented By: LIANA Heparin Sodium (Porcine) (Heparin Sodium,Porcine 5,000 Unit/Ml Vial) 5,000 unit SUBCUT Q8H [facility] Last Admin: 12/11/23 07:50 Dose: 5,000 unit Documented By: LIANA Hydromorphone HCl (Hydromorphone Hcl 0.5 Mg/0.5 Ml Syringe) 0.5 mg IVPUSH Q4H PRN; Protocol PRN Reason: Pain, Mild (Pain Scale 1-3) Last Admin: 12/11/23 02:44 Dose: 0.5 mg Documented By: SEAN Azithromycin 500 mg/ Sodium (Chloride) 250 mls @ 125 mls/hr IV Q24H [facility] Last Infusion: 12/11/23 03:01 Dose: Infused Documented By: SEAN Lactated Ringer's (Lr) 1,000 mls @ 100 mls/hr IVCONT .Q10H [facility] Last Admin: 12/11/23 06:15 Dose: 100 mls/hr Documented By: SEAN Fluconazole 100 mg/ IV (Miscellaneous Supplies) 50 mls @ 50 mls/hr IV Q24H [facility] Last Infusion: 12/10/23 23:33 Dose: Infused Documented By: SEAN Trimethoprim/Sulfamethoxazole (320 mg/ Dextrose) 520 mls @ 225 mls/hr IV Q6H [facility] Last Infusion: 12/11/23 06:24 Dose: Infused Documented By: SEAN Cefepime HCl 0.5 gm/ Sodium (Chloride) 50 mls @ 100 mls/hr IV Q24H [facility] Last Infusion: 12/10/23 23:33 Dose: Infused Documented By: SEAN Magnesium Sulfate (Magnesium Sulfate/H2o) 2 gm in 50 mls @ 25 mls/hr IV ONCE ONE Stop: 12/11/23 10:53 Pantoprazole Sodium (Pantoprazole Sodium 40 Mg/10 Ml Vial) 40 mg IVPUSH DAILY@0630 [facility] Last Admin: 12/11/23 06:14 Dose: 40 mg Documented By: SEAN Prednisone (Prednisone 20 Mg Tablet) 40 mg PO BIDWM [facility] Stop: 12/14/23 17:01 Last Admin: 12/11/23 07:51 Dose: 40 mg Documented By: LIANA Prednisone (Prednisone 20 Mg Tablet) 40 mg PO DAILY [facility] Stop: 12/19/23 09:01 Prednisone (Prednisone 20 Mg Tablet) 20 mg PO DAILY [facility] Stop: 12/30/23 09:01 Sodium Chloride (0.9 % Sodium Chloride Flush 3 Ml Syringe) 3 ml IVFLUSH QSHIFT [facility] Last Admin: 12/11/23 07:51 Dose: 3 ml Documented By: LIANA Sodium Chloride (Sodium Chloride 3 % Inhalation 15 Ml Vial.Neb) 15 ml INHALE Q12H [facility] Stop: 12/11/23 10:31 Last Admin: 12/11/23 08:41 Dose: Not Given Documented By: JONATHAN Non-Admin Reason: See Note Labs 12/11/23 07:30 12/11/23 07:30 Labs: Laboratory Results - last 24 hr 12/10/23 12/11/23 14:57 07:30 MCV 87.7 MCH 29.7 MCHC 33.9 RDW 13.8 Plt Count 284 MPV 10.9 Absolute Nucleated RBC 0.000 Nucleated RBC % (auto) 0.0 PT 13.9 H D INR 1.1 Anion Gap 11 L Estim Creat Clear Calc 110.1 Estimated GFR > 60 Random Glucose 122 H Calcium 8.5 Magnesium 1.4 L* Total Bilirubin 0.2 AST 30 ALT 16 Alkaline Phosphatase 44 Total Protein 7.4 Albumin 2.4 L Procalcitonin 1.02 U Random Total Protein 87 H Ur Random Sodium 69.0 Urine Creatinine 56.90 Protein/Creatinin Ratio 1.53 H T.pallidum Ab (EIA) Reactive A Impressions Abdomen Ultrasound 12/10/23 13:45 IMPRESSION: 1. Consistent with the provided history of cirrhosis, there is increase in hepatic echotexture. No biliary ductal dilatation is seen. 2. Four hyperechoic, circumscribed masses are seen within the liver, the appearances characteristic of benign hemangiomas. These are of doubtful clinical significance; however, given the history of cirrhosis, further consideration may be given to more definitive characterization with dynamic MRI. 3. There is cholelithiasis. 4. There is mild right hydronephrosis. 4. Technically limited ultrasound examination of the abdominal great vessels and the left kidney. Microbiology Microbiology Results: Microbiology 12/10/23 02:04 Blood Culture - Preliminary Blood - Venous No growth after 24 hours. 12/10/23 02:04 Blood Culture - Preliminary Blood - Venous No growth after 24 hours. 12/09/23 20:11 Blood Culture - Preliminary Blood - Venous No growth after 24 hours. 12/09/23 19:51 Blood Culture - Preliminary Blood - Venous No growth after 24 hours. 12/10/23 10:10 Gram Stain - Final Sputum - Expectorated Assessment and Plan (1) PCP (pneumocystis jiroveci pneumonia): Status: Acute Plan d3 43yo M with HIV diagnosed in 2005 off ART for approximately 3 yr presenting with 2 wk of increasing dyspnea + cough + fever, admitted for hypoxia due to PNA, likely PJP sepsis and AHRF due to PNA, likely PJP - Cr improved; given severity of disease, treating with IV TMP-SMX 17.5 mg/kg/d TMP component divided q6h 12/10-12/30 PLUS prednisone taper 12/10-. Induced sputum for PJP PCR and serum Fungitell pending. Remains on bacterial coverage with azithromycin and cefepime started 12/09-. Blood cultures pending. Trend PCT. MRSA swab pending. Legionella Ag pending. - Given likely AIDS, will also r/o active TB with induced sputum x3 for AFB smear/culture. T-spot pending HIV and likely AIDS - CD4 + viral load pending - pt states christal CD4 was around 360 and denies hx AIDS-defining illnesses - ARV hx includes Truvada + Norvir-boosed Prezista, then Truvada + Prezcobix, then Biktarvy. No hx of resistance or medication intolerance - restarted Biktarvy 12/10 and will monitor for IRIS - ID consulted - records requested from [facility] in [place], [place]. Needs local ID follow-up. 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 recheck as outpt once virally suppressed on ART hx syphilis - previously treated with 3 doses of PCN per pt; RPR pending anemia of chronic disease - monitor blood counts troponin elevation - likely demand from sepsis + ELI; no chest pain/ischemic EKG changes coagulopathy - resolved after vit K repleted compensated cirrhosis - abd US as above. HBV + HCV negative. 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 Quality Stroke Does the patient have a stroke diagnosis?: No VTE Prior VTE?: No VTE Risk Level:: Medical - moderate - high VTE Device Contraindication: Treatment Not Indicated VTE Drug Contraindication: N/A - Med Ordered
[2023-12-11] MEDS: Magnesium Sulfate/H2O 2 GM/50 ML PIGGYBACK IV (09:15)
[2023-12-11 09:26] LABS: MRSA Nasal PCR NEGATIVE (Negative); SA Nasal PCR POSITIVE (Negative)
--- NOTE | 2023-12-11 10:18 | MHC.IC ---
Addendum entered by Mindy Mcnair RN 12/14/23 10:40: NEGATIVE PRESSURE LOG IS HANGING ON THE WALL NEXT TO THE METER. IT MUST BE FILLED OUT EVERY SHIFT. Original Note: TB RULE OUT. N95 REQUIRED. CLIPBOARD MUST BE FILLED OUT EVERY SHIFT.
[2023-12-11] MEDS: Enoxaparin Sodium 40 MG/0.4 ML SYRINGE SUBCUT (11:18)
--- NOTE | 2023-12-11 12:07 | MHC.CM.PN ---
EMR REVIEWED, PT REMAINS ON HI FLOW NC O2, PT IS TB R/O AND PER HOSPITALIST ANTIC PT WILL REMAIN INPT APPROX 1 WK. PT W/[place] MEDICAID AND REFERRAL SENT TO TO ASSIST W/TRANSITION TO [facility] MEDICAID, ONCE PT'S MH IS ACTIVE CM WILL ASSIST W/NEW PCP APPT. CM WILL CONT TO FOLLOW DC NEEDS.
--- NOTE | 2023-12-11 15:05 | P.CDIM_ITS ---
PROVIDER RESPONSE TEXT: To clarify, the appropriate diagnosis supported by the clinical indicators: Moderate QUERY TEXT: PHYSICIAN'S DOCUMENTATION REQUEST Date of Query: 12/11/2023 08:31 AM EST Patient Name: Terry Gunter Admit Date: 12/10/2023 Dear Chidi Robles, A review of the medical record indicates additional documentation may be needed. Please review below and update the documentation accordingly. Documentation includes the diagnosis of malnutrition. ICU critical care note dated 12/09 - Assessment: Hypoalbuminemia and suspected protein calorie malnutr ition syndrome. Progress note dated 12/10 - malnourished BMI 20 74.3KG Albumin 2.4 L ill appearing, poor hygiene, homeless, AIDS, poor nutrition and acute infection. If possible, please provide additional specificity regarding the severity of the malnutrition using t he above information: Mild Moderate Severe Other (explain) Clinically unable to determine (explain) Thank you, Danae Blackmon, CCS, CDIS Use of terms such as suspected, likely, concern for, or probable (associated with a specific diagnosi s that is being evaluated, monitored, or treated as if it exists) are acceptable and can be coded in the inpatient se tting, when documented at the time of discharge. Please use your independent medical judgment in providing your response. THIS QUERY IS PART OF THE PERMANENT MEDICAL RECORD
--- NOTE | 2023-12-11 16:43 | P.PNID_ITS ---
Subjective Subjective Date of Service: 12/11/23 Critical Care Time (minutes): 15 Comment: He feels better His breathing feels better. Objective Data Labs 12/11/23 07:30 12/11/23 07:30 Labs: Laboratory Results - last 24 hr 12/11/23 12/11/23 00:05 07:30 WBC 3.1 L RBC 2.76 L Hgb 8.2 L Hct 24.2 L MCV 87.7 MCH 29.7 MCHC 33.9 RDW 13.8 Plt Count 284 MPV 10.9 Absolute Nucleated RBC 0.000 Nucleated RBC % (auto) 0.0 PT 13.9 H D INR 1.1 Sodium 138 Potassium 3.8 Chloride 107 Carbon Dioxide 24 Anion Gap 11 L BUN 36 H Creatinine 0.89 Estim Creat Clear Calc 110.1 Estimated GFR > 60 Random Glucose 122 H Calcium 8.5 Magnesium 1.4 L* Total Bilirubin 0.2 AST 30 ALT 16 Alkaline Phosphatase 44 Total Protein 7.4 Albumin 2.4 L Procalcitonin 1.02 Nasal Screen MRSA (PCR) NEGATIVE Nasal S. aureus Screen POSITIVE A Nasal MRSA/S.aureus Interp SEE NOTE T.pallidum Ab (EIA) Reactive A Microbiology Microbiology Results: Microbiology 12/10/23 10:10 Sputum - Expectorated Gram Stain - Final 12/10/23 10:10 Sputum - Expectorated Sputum Culture - Preliminary Culture in progress. 12/10/23 02:04 Blood - Venous Blood Culture - Preliminary No growth after 24 hours. 12/10/23 02:04 Blood - Venous Blood Culture - Preliminary No growth after 24 hours. 12/09/23 20:11 Blood - Venous Blood Culture - Preliminary No growth after 24 hours. 12/09/23 19:51 Blood - Venous Blood Culture - Preliminary No growth after 24 hours. Physical Exam 2 Vital Signs: Vital Signs: Last Vital Signs Temp 96.7 F L 12/11/23 15:23 Pulse 70 12/11/23 15:23 Resp 19 12/11/23 15:23 BP 129/66 12/11/23 15:23 Pulse Ox 96 12/11/23 15:23 O2 Del Method High Flow Nasal C annula 12/11/23 15:23 O2 Flow Rate 40 12/11/23 15:23 FiO2 50 12/11/23 15:23 Oxygen Flow Rate 15 12/09/23 19:34 BMI result Body Mass Index 20.5 Const: General: cooperative HEENT: Head: Yes normal to inspection Mouth: other (slt thrush) Resp: Effort & Inspection: normal respiratory effort Cardio: Rate: regular rate Rhythm: regular rhythm GI: Inspection: Yes normal to inspection Assessment and Plan Assessment and plan (1) PCP (pneumocystis jiroveci pneumonia): Status: Acute (2) Acute hypoxemic respiratory failure: Status: Acute (3) Severe sepsis: Problem details: Await CD4 count. Watch leukopenia and anemia,may be just dilutional but possible CMV disease or Bactrim related. Status: Acute Assessment and Plan: Continue Bactrim for now continue steroids continue Biktarvy,Cefepime,Azithromycin and Diflucan (4) AIDS: Status: Acute Time Spent With Patient Time: Total time managing care of this patient today ____ minutes.
--- NOTE | 2023-12-11 16:49 | PM.EVENT ---
Event Note Date of Service: 12/11/23 Event Note: on discharge call Aiden Mena at [phone] to set up patient at [facility] Time Spent With Patient Time: Total time managing care of this patient today ____ minutes.
[2023-12-12] VITALS (14 sets, daily range): BP systolic 96–132; BP diastolic 44–80; PULSE 61–126; RESP 18–28; TEMP 36.4–37.5; O2SAT 91–100
[2023-12-12] MEDS: HYDROmorphone HCl 0.5 MG/0.5 ML SYRINGE IVPUSH ×5 (00:03→22:40)
[2023-12-12] MEDS: Fluconazole in NaCl,Iso-Osm 100 MG in Container,Empty 0 ML IV ×2 (00:15→23:58)
[2023-12-12] MEDS: cefEPime HCl 0.5 GM in 0.9 % Sodium Chloride 50 ML IV ×2 (01:30→20:30)
[2023-12-12] MEDS: 0.9 % Sodium Chloride Flush 3 ML SYRINGE IVFLUSH ×4 (01:42→20:33)
[2023-12-12] MEDS: Azithromycin 500 MG in 0.9 % Sodium Chloride 250 ML 125 MG IV (02:30)
[2023-12-12] MEDS: Sulfamethoxazole/Trimethoprim 320 MG in Dextrose 5 % 500 ML 225 MG IV ×3 (05:39→16:26)
[2023-12-12] MEDS: Pantoprazole Sodium 40 MG/10 ML VIAL IVPUSH (05:39)
[2023-12-12] MEDS: Albuterol/Iprat 2.5/0.5MG 3 ML AMPUL.NEB INHALE ×3 (07:48→19:49)
[2023-12-12] MEDS: predniSONE 20 MG TABLET 40 MG PO ×2 (08:19→16:25)
[2023-12-12] MEDS: Bictegrav/Emtricit/Tenofov Ala TABLET 1 TAB PO (08:19)
[2023-12-12] MEDS: Enoxaparin Sodium 40 MG/0.4 ML SYRINGE SUBCUT (08:23)
--- NOTE | 2023-12-12 11:46 | HO.PM.IMPN ---
Subjective Subjective Date of Service: 12/12/23 Interval History: worsening hypoxia + dyspnea this AM, FiO2 up from 50 to 70% coughing no fever Review of Systems Review of Systems: Yes all other systems are reviewed and are negative Physical Exam Vital Signs: Vital Signs: Last Vital Signs Temp 97.9 F 12/12/23 08:00 Pulse 81 12/12/23 08:00 Resp 18 12/12/23 11:21 BP 96/44 L 12/12/23 08:00 Pulse Ox 91 L 12/12/23 08:00 O2 Del Method High Flow Nasal C annula 12/12/23 08:00 O2 Flow Rate 40 12/12/23 08:00 FiO2 50 12/12/23 08:00 Oxygen Flow Rate 15 12/09/23 19:34 BMI result Body Mass Index 20.5 Gen: in mild repsiratory distress. malnourished, ill-appearing HEENT: sclera anicteric, moist mucus membranes, thrush on back of tongue Neck: supple Lungs: fine inspiratory crackles throughout Heart: regular rate and rhythm, no murmurs Abd: soft, non-tender, non-distended Ext: no edema Skin: warm/well-perfused, multiple psoriatic plaques Neuro: alert and oriented x3, no focal findings Psych: appropriate affect Objective Data Active Medications Acetaminophen (Acetaminophen 325 Mg Tablet) 975 mg PO Q8H PRN PRN Reason: Fever >100.4 Albuterol/Ipratropium (Albuterol/Iprat 2.5/0.5mg 3 Ml Ampul.Neb) 3 ml INHALE RQ6H WHILE AWAKE [facility] Last Admin: 12/12/23 07:48 Dose: 3 ml Documented By: MIKI Bictegravir/Emtricitabine/Tenofovir (Bictegrav/Emtricit/Tenofov Ala Tablet) 1 tab PO DAILY [facility] Last Admin: 12/12/23 08:19 Dose: 1 tab Documented By: JESS Enoxaparin Sodium (Enoxaparin Sodium 40 Mg/0.4 Ml Syringe) 40 mg SUBCUT Q24H [facility] Last Admin: 12/12/23 08:23 Dose: 40 mg Documented By: JESS Hydromorphone HCl (Hydromorphone Hcl 0.5 Mg/0.5 Ml Syringe) 0.5 mg IVPUSH Q4H PRN; Protocol PRN Reason: Pain, Mild (Pain Scale 1-3) Last Admin: 12/12/23 08:34 Dose: 0.5 mg Documented By: JESS Azithromycin 500 mg/ Sodium (Chloride) 250 mls @ 125 mls/hr IV Q24H [facility] Last Infusion: 12/12/23 04:30 Dose: Infused Documented By: SPENSER Fluconazole 100 mg/ IV (Miscellaneous Supplies) 50 mls @ 50 mls/hr IV Q24H [facility] Last Infusion: 12/12/23 00:45 Dose: Infused Documented By: SPENSER Trimethoprim/Sulfamethoxazole (320 mg/ Dextrose) 520 mls @ 225 mls/hr IV Q6H [facility] Last Infusion: 12/12/23 08:25 Dose: Infused Documented By: JESS Cefepime HCl 0.5 gm/ Sodium (Chloride) 50 mls @ 100 mls/hr IV Q24H [facility] Last Infusion: 12/12/23 02:00 Dose: Infused Documented By: SPENSER Omeprazole (Omeprazole 20 Mg Capsule.Dr) 20 mg PO DAILY@0630 [facility] Prednisone (Prednisone 20 Mg Tablet) 40 mg PO BIDWM [facility] Stop: 12/14/23 17:01 Last Admin: 12/12/23 08:19 Dose: 40 mg Documented By: JESS Prednisone (Prednisone 20 Mg Tablet) 40 mg PO DAILY [facility] Stop: 12/19/23 09:01 Prednisone (Prednisone 20 Mg Tablet) 20 mg PO DAILY [facility] Stop: 12/30/23 09:01 Sodium Chloride (0.9 % Sodium Chloride Flush 3 Ml Syringe) [facility] Admin: 12/12/23 08:23 Dose: 3 ml Documented By: JESS Labs 12/11/23 07:30 12/11/23 07:30 Microbiology Microbiology Results: Microbiology 12/10/23 10:10 Gram Stain - Final Sputum - Expectorated Sputum Culture - Preliminary Culture in progress. 12/10/23 02:04 Blood Culture - Preliminary Blood - Venous No growth after 48 hours. 12/10/23 02:04 Blood Culture - Preliminary Blood - Venous No growth after 48 hours. 12/09/23 20:11 Blood Culture - Preliminary Blood - Venous No growth after 48 hours. 01/10/24 19:51 Blood Culture - Preliminary Blood - Venous No growth after 48 hours. Assessment and Plan (1) PCP (pneumocystis jiroveci pneumonia): Status: Acute Plan d4 43yo M with HIV diagnosed in 2005 off ART for approximately 3 yr presenting with 2 wk of increasing dyspnea + cough + fever, admitted for hypoxia due to PNA, likely PJP sepsis and AHRF due to PNA, likely severe PJP - ID consulted - IV TMP-SMX 17.5 mg/kg/d TMP component divided q6h 12/10-12/30 PLUS prednisone taper 12/10- - induced sputum for PJP PCR and serum Fungitell pending - remains on bacterial coverage with azithromycin and cefepime started 12/09-. MRSA swab positive. Blood cultures negative. Recheck procalcitonin in AM. Legionella Ag pending. - 3 induced sputums for AFB pending along with T-spot TB - wean fiO2 as tolerated HIV and likely AIDS - CD4 + viral load pending - pt states christal CD4 was around 360 and denies hx AIDS-defining illnesses - ARV hx includes Truvada + Norvir-boosed Prezista, then Truvada + Prezcobix, then Biktarvy. No hx of resistance or medication intolerance. Pt stopped taking Biktarvy due to homelessness/loss to follow-up - restarted Biktarvy 12/10 and will monitor for IRIS - records requested from [facility] in [place], [place]. Needs local ID follow-up. 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 recheck as outpt once virally suppressed on ART hx syphilis - previously treated with 3 doses of PCN per pt; RPR pending anemia of chronic disease - monitor blood counts troponin elevation - likely demand from sepsis + ELI; no chest pain/ischemic EKG changes coagulopathy - resolved after vit K repleted compensated cirrhosis - abd US as above. HBV + HCV negative. 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 Quality Stroke Does the patient have a stroke diagnosis?: No VTE Prior VTE?: No VTE Risk Level:: Medical - moderate - high VTE Device Contraindication: Treatment Not Indicated VTE Drug Contraindication: N/A - Med Ordered
[2023-12-12 14:28] LABS: Absolute CD3 Count 182 cells/uL (840-3060); Absolute CD4 Count <20 cells/uL (490-1740); Absolute CD8 Count 165 cells/uL (180-1170); Absolute Lymphocytes 270 cells/uL (850-3900); CD4 CD8 Ratio 0.11 (0.86-5.00); Percent CD3 Cells 67 % (57-85); Percent CD4 Cells 7 % (30-61); Percent CD8 Cells 61 % (12-42)
[2023-12-12 17:26] LABS: Hematocrit 23.8 % (42.0-52.0); Mean Corpuscular HGB Conc 33.6 g/dl (31.0-36.0); Mean Corpuscular Hemoglobin 29.4 pg (27.0-33.0); Mean Corpuscular Volume 87.5 fL (80.0-98.0); Mean Platelet Volume 10.6 fL (9.4-12.4); Platelet Count 295 X10*3/uL (160-400); Red Blood Count 2.72 X10*6/uL (4.60-5.80); Red Cell Distribution Width 13.6 % (11.0-16.0); White Blood Count 6.4 X10*3/uL (4.8-10.8)
[2023-12-12 17:31] LABS: INTERNATIONAL NORM RATIO 1.1 (0.9-1.1); Prothrombin Time 13.2 SEC (11.1-13.3)
[2023-12-12 17:58] LABS: Alanine Aminotransferase 14 U/L (0-40); Albumin Level 2.4 g/dL (3.5-5.0); Alkaline Phosphatase 44 U/L (39-117); Anion Gap 15 (12-20); Aspartate Amino Transferase 20 U/L (5-37); Bilirubin Total 0.2 mg/dL (0.0-1.0); Blood Urea Nitrogen 20 mg/dL (9-16); Calcium 8.3 mg/dL (8.4-10.2); Carbon Dioxide 20 mmol/L (22-29); Chloride 105 mmol/L (96-108); Creatinine Clr Calc Pharmacy 112.6; Estimated Glomerular Filt Rate > 60; Glucose Random 140 mg/dL (60-115); Magnesium 1.2 mg/dL (1.6-2.6); Potassium 3.8 mmol/L (3.3-5.1); Sodium 136 mmol/L (135-145); Total Protein 7.2 g/dL (6.5-8.0)
[2023-12-12] MEDS: Magnesium Sulfate/H2O 2 GM/50 ML PIGGYBACK IV (21:09)
[2023-12-13] VITALS (10 sets, daily range): BP systolic 97–117; BP diastolic 51–69; PULSE 61–88; RESP 18–24; TEMP 36.4–37.5; O2SAT 90–97
[2023-12-13] MEDS: Sulfamethoxazole/Trimethoprim 320 MG in Dextrose 5 % 500 ML 225 MG IV ×4 (01:03→22:14)
[2023-12-13] MEDS: Azithromycin 500 MG in 0.9 % Sodium Chloride 250 ML 125 MG IV (03:58)
[2023-12-13] MEDS: Omeprazole 20 MG CAPSULE.DR PO (06:30)
[2023-12-13 07:13] LABS: Hematocrit 23.6 % (42.0-52.0); Mean Corpuscular HGB Conc 33.9 g/dl (31.0-36.0); Mean Corpuscular Hemoglobin 29.1 pg (27.0-33.0); Mean Corpuscular Volume 85.8 fL (80.0-98.0); Mean Platelet Volume 10.6 fL (9.4-12.4); Platelet Count 307 X10*3/uL (160-400); Red Blood Count 2.75 X10*6/uL (4.60-5.80); Red Cell Distribution Width 13.6 % (11.0-16.0); White Blood Count 6.1 X10*3/uL (4.8-10.8)
[2023-12-13 07:42] LABS: Alanine Aminotransferase 11 U/L (0-40); Albumin Level 2.3 g/dL (3.5-5.0); Alkaline Phosphatase 41 U/L (39-117); Anion Gap 14 (12-20); Aspartate Amino Transferase 16 U/L (5-37); Bilirubin Total 0.2 mg/dL (0.0-1.0); Blood Urea Nitrogen 18 mg/dL (9-16); Calcium 7.6 mg/dL (8.4-10.2); Carbon Dioxide 21 mmol/L (22-29); Chloride 105 mmol/L (96-108); Creatinine Clr Calc Pharmacy 113.9; Estimated Glomerular Filt Rate > 60; Glucose Random 111 mg/dL (60-115); Magnesium 1.7 mg/dL (1.6-2.6); Potassium 3.5 mmol/L (3.3-5.1); Sodium 136 mmol/L (135-145); Total Protein 6.8 g/dL (6.5-8.0)
[2023-12-13] MEDS: Albuterol/Iprat 2.5/0.5MG 3 ML AMPUL.NEB INHALE ×3 (07:43→19:51)
[2023-12-13] MEDS: Bictegrav/Emtricit/Tenofov Ala TABLET 1 TAB PO (07:47)
[2023-12-13] MEDS: HYDROmorphone HCl 0.5 MG/0.5 ML SYRINGE IVPUSH ×3 (07:48→22:15)
[2023-12-13] MEDS: 0.9 % Sodium Chloride Flush 3 ML SYRINGE IVFLUSH ×2 (07:48→17:45)
[2023-12-13] MEDS: predniSONE 20 MG TABLET 40 MG PO ×2 (07:48→17:44)
[2023-12-13 07:58] LABS: Procalcitonin 0.18 ng/mL
[2023-12-13] MEDS: Enoxaparin Sodium 40 MG/0.4 ML SYRINGE SUBCUT (09:59)
[2023-12-13] MEDS: diazePAM 10 MG/2 ML CARTRIDGE 2.5 MG IVPUSH ×2 (12:19→21:16)
--- NOTE | 2023-12-13 12:29 | P.PNIM_ITS ---
Subjective Subjective Date of Service: 12/13/23 Interval History: Persistent hypoxix and remains on highFlo, FiO2 66%, saturation 95% Physical Exam 2 Vital Signs: Vital Signs: Last Vital Signs Temp 99.5 F 12/13/23 11:44 Pulse 86 12/13/23 11:44 Resp 20 12/13/23 11:44 BP 117/63 12/13/23 11:44 Pulse Ox 95 12/13/23 11:44 O2 Del Method High Flow Nasal C annula 12/13/23 11:44 O2 Flow Rate 50 12/13/23 11:44 FiO2 66 12/13/23 11:44 Oxygen Flow Rate 15 12/09/23 19:34 BMI result Body Mass Index 20.5 Gen: in mild repsiratory distress. malnourished, ill-appearing, anxious HEENT: sclera anicteric, thrush on tongue Neck: supple Lungs: fine inspiratory crackles throughout Heart: regular rate and rhythm, no murmurs Abd: soft, non-tender, non-distended Ext: no edema Skin: warm/well-perfused, multiple psoriatic plaques Neuro: alert and oriented x3, no focal findings Psych: appropriate affect other than anxiety Objective Data Active Medications Acetaminophen (Acetaminophen 325 Mg Tablet) 975 mg PO Q8H PRN PRN Reason: Fever >100.4 Albuterol/Ipratropium (Albuterol/Iprat 2.5/0.5mg 3 Ml Ampul.Neb) 3 ml INHALE RQ6H WHILE AWAKE [facility] Last Admin: 12/13/23 07:43 Dose: 3 ml Documented By: MIKI Bictegravir/Emtricitabine/Tenofovir (Bictegrav/Emtricit/Tenofov Ala Tablet) 1 tab PO DAILY [facility] Last Admin: 12/13/23 07:47 Dose: 1 tab Documented By: JESS Diazepam (Diazepam 10 Mg/2 Ml Cartridge) 2.5 mg IVPUSH Q6H PRN PRN Reason: anxiety/restlessness Last Admin: 12/13/23 12:19 Dose: 2.5 mg Documented By: JESS Comments: Enoxaparin Sodium (Enoxaparin Sodium 40 Mg/0.4 Ml Syringe) 40 mg SUBCUT Q24H [facility] Last Admin: 12/13/23 09:59 Dose: 40 mg Documented By: JESS Hydromorphone HCl (Hydromorphone Hcl 0.5 Mg/0.5 Ml Syringe) 0.5 mg IVPUSH Q4H PRN; Protocol PRN Reason: Pain, Mild (Pain Scale 1-3) Last Admin: 12/13/23 07:48 Dose: 0.5 mg Documented By: JESS Azithromycin 500 mg/ Sodium (Chloride) 250 mls @ 125 mls/hr IV Q24H [facility] Last Infusion: 12/13/23 05:58 Dose: Infused Documented By: SPENSER Fluconazole 100 mg/ IV (Miscellaneous Supplies) 50 mls @ 50 mls/hr IV Q24H [facility] Last Infusion: 12/13/23 00:28 Dose: Infused Documented By: SPENSER Cefepime HCl 0.5 gm/ Sodium (Chloride) 50 mls @ 100 mls/hr IV Q24H [facility] Last Infusion: 12/12/23 21:00 Dose: Infused Documented By: SPENSER Trimethoprim/Sulfamethoxazole (320 mg/ Dextrose) 520 mls @ 225 mls/hr IV Q6H [facility] Last Infusion: 12/13/23 12:26 Dose: Infused Documented By: JESS Omeprazole (Omeprazole 20 Mg Capsule.Dr) 20 mg PO DAILY@0630 [facility] Last Admin: 12/13/23 06:30 Dose: 20 mg Documented By: SPENSER Prednisone (Prednisone 20 Mg Tablet) 40 mg PO BIDWM [facility] Stop: 12/14/23 17:01 Last Admin: 12/13/23 07:48 Dose: 40 mg Documented By: JESS Prednisone (Prednisone 20 Mg Tablet) 40 mg PO DAILY [facility] Stop: 12/19/23 09:01 Prednisone (Prednisone 20 Mg Tablet) 20 mg PO DAILY [facility] Stop: 12/30/23 09:01 Sodium Chloride (0.9 % Sodium Chloride Flush 3 Ml Syringe) 3 ml IVFLUSH QSHIFT [facility] Last Admin: 12/13/23 07:48 Dose: 3 ml Documented By: JESS Labs 12/13/23 06:40 12/13/23 06:40 Labs: Laboratory Results - last 24 hr 12/10/23 12/12/23 12/13/23 05:56 17:20 06:40 MCV 87.5 85.8 MCH 29.4 29.1 MCHC 33.6 33.9 RDW 13.6 13.6 Plt Count 295 307 MPV 10.6 10.6 Absolute Nucleated RBC 0.000 0.000 Nucleated RBC % (auto) 0.0 0.0 PT 13.2 INR 1.1 Anion Gap 15 14 Estim Creat Clear Calc 112.6 113.9 Estimated GFR > 60 > 60 Random Glucose 140 H 111 Calcium 8.3 L 7.6 L D Magnesium 1.2 L* 1.7 Total Bilirubin 0.2 0.2 AST 20 16 ALT 14 11 Alkaline Phosphatase 44 41 Total Protein 7.2 6.8 Albumin 2.4 L 2.3 L Procalcitonin 0.18 Lymphocyte Subset Cmmnt TNP Total Lymphocytes 270 L % CD3 Cells 67 Absolute CD3 Count 182 L % CD4 Cells 7 L Absolute CD4 Count <20 L CD4/CD8 Ratio 0.11 L % CD8 Cells 61 H Absolute CD8 Count 165 L Microbiology Microbiology Results: Microbiology 12/10/23 10:10 Gram Stain - Final Sputum - Expectorated Sputum Culture - Final Assessment and Plan (1) PCP (pneumocystis jiroveci pneumonia): Status: Acute Plan 43yo M with HIV diagnosed in 2005 off ART for approximately 3 yr presenting with 2 wk of increasing dyspnea + cough + fever, admitted for hypoxia due to PNA, likely PJP sepsis and AHRF due to PNA, likely severe PJP - ID consulted - IV TMP-SMX 17.5 mg/kg/d TMP component divided q6h 12/10-12/30 PLUS prednisone taper 12/10- - induced sputum for PJP PCR and serum Fungitell pending - remains on bacterial coverage with azithromycin and cefepime started 12/09-. MRSA swab positive. Blood cultures negative. Legionella Ag pending. - 3 induced sputums for AFB pending along with T-spot TB - wean fiO2 as tolerated HIV and AIDS - CD4 < 20, viral load pending - pt states christal CD4 was around 360 and denies hx AIDS-defining illnesses - ARV hx includes Truvada + Norvir-boosed Prezista, then Truvada + Prezcobix, then Biktarvy. No hx of resistance or medication intolerance. Pt stopped taking Biktarvy due to homelessness/loss to follow-up - restarted Biktarvy 12/10 and will monitor for IRIS - records requested from [facility] in [place], [place]. Needs local ID follow-up. 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 recheck as outpt once virally suppressed on ART hx syphilis - previously treated with 3 doses of PCN per pt; RPR pending anemia of chronic disease - monitor blood counts troponin elevation - likely demand from sepsis + ELI; no chest pain/ischemic EKG changes coagulopathy - resolved after vit K repleted compensated cirrhosis - abd US as above. HBV + HCV negative. 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 Quality Stroke Does the patient have a stroke diagnosis?: No VTE Prior VTE?: No VTE Risk Level:: Medical - moderate - high VTE Device Contraindication: Treatment Not Indicated VTE Drug Contraindication: N/A - Med Ordered
[2023-12-13] MEDS: cefEPime HCl 0.5 GM in 0.9 % Sodium Chloride 50 ML IV (20:09)
[2023-12-13 20:39] LABS: TS Negative Control Passed; TS Panel A 0; TS Panel B 2; TS Positive Control Passed; TSpotTB Negative (Negative)
[2023-12-13] MEDS: Fluconazole in NaCl,Iso-Osm 100 MG in Container,Empty 0 ML IV (21:17)
[2023-12-13] MEDS: ondansetron HCL 4 MG/2 ML VIAL IVPUSH (22:15)
[2023-12-14] VITALS (16 sets, daily range): BP systolic 92–114; BP diastolic 44–68; PULSE 67–94; RESP 16–24; TEMP 36.2–36.9; O2SAT 89–98
[2023-12-14] MEDS: Azithromycin 500 MG in 0.9 % Sodium Chloride 250 ML 125 MG IV (01:10)
[2023-12-14] MEDS: Sulfamethoxazole/Trimethoprim 320 MG in Dextrose 5 % 500 ML 225 MG IV ×4 (03:53→21:50)
[2023-12-14] MEDS: Omeprazole 20 MG CAPSULE.DR PO (05:55)
[2023-12-14] MEDS: Albuterol/Iprat 2.5/0.5MG 3 ML AMPUL.NEB INHALE ×3 (08:09→19:38)
[2023-12-14] MEDS: Enoxaparin Sodium 40 MG/0.4 ML SYRINGE SUBCUT (08:21)
[2023-12-14] MEDS: predniSONE 20 MG TABLET 40 MG PO ×2 (08:21→15:52)
[2023-12-14] MEDS: Bictegrav/Emtricit/Tenofov Ala TABLET 1 TAB PO (08:21)
[2023-12-14] MEDS: 0.9 % Sodium Chloride Flush 3 ML SYRINGE IVFLUSH ×2 (08:22→15:55)
[2023-12-14] MEDS: Acetaminophen 325 MG TABLET 975 MG PO (08:22)
[2023-12-14 08:40] LABS: Glucose, Whole Blood 115 mg/dL (60-115)
--- NOTE | 2023-12-14 10:46 | HO.PM.IMPN ---
Subjective Subjective Date of Service: 12/14/23 Interval History: he states that he feels a bit better, however there isPersistent hypoxix and remains on highFlo, FiO2 66%, saturation 95% Physical Exam Vital Signs: Vital Signs: Last Vital Signs Temp 98.4 F 12/14/23 07:23 Pulse 67 12/14/23 08:14 Resp 20 12/14/23 08:47 BP 108/63 12/14/23 07:23 Pulse Ox 95 12/14/23 07:23 O2 Del Method High Flow Nasal C annula 12/14/23 07:23 O2 Flow Rate 33.1 12/14/23 07:23 FiO2 69 12/14/23 07:23 Oxygen Flow Rate 15 12/09/23 19:34 BMI result Body Mass Index 20.5 Gen: in no repsiratory distress. malnourished, ill-appearing, anxious HEENT: sclera anicteric, thrush on tongue Neck: supple Lungs: fine inspiratory crackles throughout Heart: regular rate and rhythm, no murmurs Abd: soft, non-tender, non-distended Ext: no edema Skin: warm/well-perfused, multiple psoriatic plaques Neuro: alert and oriented x3, no focal findings Psych: appropriate affect other than anxiety Objective Data Active Medications Acetaminophen (Acetaminophen 325 Mg Tablet) 975 mg PO Q8H PRN PRN Reason: Fever >100.4 Last Admin: 12/14/23 08:22 Dose: 975 mg Documented By: ANDRIA Albuterol/Ipratropium (Albuterol/Iprat 2.5/0.5mg 3 Ml Ampul.Neb) 3 ml INHALE RQ6H WHILE AWAKE [facility] Last Admin: 12/14/23 08:09 Dose: 3 ml Documented By: JAMES Bictegravir/Emtricitabine/Tenofovir (Bictegrav/Emtricit/Tenofov Ala Tablet) 1 tab PO DAILY [facility] Last Admin: 12/14/23 08:21 Dose: 1 tab Documented By: ANDRIA Diazepam (Diazepam 10 Mg/2 Ml Cartridge) 2.5 mg IVPUSH Q6H PRN PRN Reason: anxiety/restlessness Last Admin: 12/13/23 21:16 Dose: 2.5 mg Documented By: SHARONA Enoxaparin Sodium (Enoxaparin Sodium 40 Mg/0.4 Ml Syringe) 40 mg SUBCUT Q24H [facility] Last Admin: 12/14/23 08:21 Dose: 40 mg Documented By: ANDRIA Hydromorphone HCl (Hydromorphone Hcl 0.5 Mg/0.5 Ml Syringe) 0.5 mg IVPUSH Q4H PRN; Protocol PRN Reason: Pain, Mild (Pain Scale 1-3) Last Admin: 12/13/23 22:15 Dose: 0.5 mg Documented By: SHARONA Azithromycin 500 mg/ Sodium (Chloride) 250 mls @ 125 mls/hr IV Q24H [facility] Last Infusion: 12/14/23 04:04 Dose: Infused Documented By: MICHEAL Fluconazole 100 mg/ IV (Miscellaneous Supplies) 50 mls @ 50 mls/hr IV Q24H [facility] Last Infusion: 12/13/23 21:52 Dose: Infused Documented By: SHARONA Cefepime HCl 0.5 gm/ Sodium (Chloride) 50 mls @ 100 mls/hr IV Q24H [facility] Last Infusion: 12/13/23 20:39 Dose: Infused Documented By: SHARONA Trimethoprim/Sulfamethoxazole (320 mg/ Dextrose) 520 mls @ 225 mls/hr IV Q6H [facility] Last Admin: 12/14/23 10:32 Dose: 225 mls/hr Documented By: ANDRIA Omeprazole (Omeprazole 20 Mg Capsule.Dr) 20 mg PO DAILY@0630 [facility] Last Admin: 12/14/23 05:55 Dose: 20 mg Documented By: MICHEAL Ondansetron HCl (Ondansetron Hcl 4 Mg/2 Ml Vial) 4 mg IVPUSH Q8H PRN PRN Reason: Nausea and Vomiting Last Admin: 12/13/23 22:15 Dose: 4 mg Documented By: SHARONA Prednisone (Prednisone 20 Mg Tablet) 40 mg PO BIDWM [facility] Stop: 12/14/23 17:01 Last Admin: 12/14/23 08:21 Dose: 40 mg Documented By: ANDRIA Prednisone (Prednisone 20 Mg Tablet) 40 mg PO DAILY [facility] Stop: 12/19/23 09:01 Prednisone (Prednisone 20 Mg Tablet) 20 mg PO DAILY [facility] Stop: 12/30/23 09:01 Sodium Chloride (0.9 % Sodium Chloride Flush 3 Ml Syringe) 3 ml IVFLUSH QSHIFT [facility] Last Admin: 12/14/23 08:22 Dose: 3 ml Documented By: PHANLYM Labs 12/13/23 06:40 12/13/23 06:40 Labs: Laboratory Results - last 24 hr 12/11/23 12/14/23 07:30 08:19 POC Glucose 115 TB Test (T-Spot) Com Negative TB Test Nil Control Passed TB Test Panel A 0 TB Test Panel B 2 TB Test Positive Cntrl Passed Microbiology Microbiology Results: Microbiology 12/10/23 10:10 Gram Stain - Final Sputum - Expectorated Sputum Culture - Final Assessment and Plan (1) PCP (pneumocystis jiroveci pneumonia): Status: Acute Plan 43yo M with HIV diagnosed in 2005 off ART for approximately 3 yr presenting with 2 wk of increasing dyspnea + cough + fever, admitted for hypoxia due to PNA, likely PJP sepsis and acute hypoxic resp failure due to PNA, likely severe Pneumocystis jiroveci?pneumonia (PJP) - ID following - IV TMP-SMX 17.5 mg/kg/d TMP component divided q6h 12/10-12/30 PLUS prednisone taper 12/10- - induced sputum for PJP PCR and serum Fungitell pending - remains on bacterial coverage with azithromycin and cefepime started 12/09-. MRSA swab positive. Blood cultures negative. Legionella Ag pending. - 3 induced sputums for AFB pending, T-spot TB negative - wean fiO2 as tolerated HIV and AIDS - CD4 < 20, viral load pending - pt states christal CD4 was around 360 and denies hx AIDS-defining illnesses - ARV hx includes Truvada + Norvir-boosed Prezista, then Truvada + Prezcobix, then Biktarvy. No hx of resistance or medication intolerance. Pt stopped taking Biktarvy due to homelessness/loss to follow-up - restarted Biktarvy 12/10 and will monitor for immune reconstitution inflammatory syndrome (IRIS) - records requested from [facility] in [place], [place]. Needs local ID follow-up. 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 recheck as outpt once virally suppressed on ART hx syphilis - previously treated with 3 doses of PCN per pt; RPR pending anemia of chronic disease - monitor blood counts troponin elevation - likely demand from sepsis + ELI; no chest pain/ischemic EKG changes coagulopathy - resolved after vit K repleted compensated cirrhosis - abd US as above. HBV + HCV negative. 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 Quality Stroke Does the patient have a stroke diagnosis?: No VTE Prior VTE?: No VTE Risk Level:: Medical - moderate - high VTE Device Contraindication: Treatment Not Indicated VTE Drug Contraindication: N/A - Med Ordered
--- NOTE | 2023-12-14 11:05 | HE.PHANOTE ---
CONVERTED FLUCONAZOLE TO PO PER IV TO PO CONVERSION POLICY AFTER DISCUSSION WITH DR SARMIENTO
--- NOTE | 2023-12-14 12:24 | MHC.CLN ---
F/U PT IS MODERATELY MALNOURISHED PT WITH MILDLY DEPLETED SUBCUTANEOUS FAT AND MUSCLE MASS WITH CHRONIC POOR PO INTAKE R/T HOMELESSNESS WITH RECENT INCREASED NUTRITION NEEDS R/T ACUTE ILLNESSES WITH UNTREATED HIV DIET RX: REGULAR-APPROPRIATE RECOMMEND CHANGING SUPPLEMENTS TO MAGIC CUP AND ENSURE MAX BID TO INCREASE KCALS MONITOR PO INTAKE AND ENCOURAGE SUPPLEMENTS
[2023-12-14] MEDS: HYDROmorphone HCl 0.5 MG/0.5 ML SYRINGE IVPUSH ×3 (12:59→22:00)
[2023-12-14] MEDS: cefEPime HCl 0.5 GM in 0.9 % Sodium Chloride 50 ML IV (20:10)
[2023-12-14] MEDS: Fluconazole 100 MG TABLET PO (21:54)
[2023-12-15] VITALS (14 sets, daily range): BP systolic 95–115; BP diastolic 44–86; PULSE 68–97; RESP 18–24; TEMP 36.4–37.2; O2SAT 88–97
[2023-12-15] MEDS: 0.9 % Sodium Chloride Flush 3 ML SYRINGE IVFLUSH ×3 (01:00→15:32)
[2023-12-15] MEDS: Azithromycin 500 MG in 0.9 % Sodium Chloride 250 ML 125 MG IV (01:02)
[2023-12-15] MEDS: diazePAM 10 MG/2 ML CARTRIDGE 2.5 MG IVPUSH ×2 (01:13→10:51)
[2023-12-15] MEDS: Sulfamethoxazole/Trimethoprim 320 MG in Dextrose 5 % 500 ML 225 MG IV ×4 (03:27→23:15)
[2023-12-15] MEDS: HYDROmorphone HCl 0.5 MG/0.5 ML SYRINGE IVPUSH ×4 (04:46→19:49)
[2023-12-15] MEDS: Omeprazole 20 MG CAPSULE.DR PO (06:15)
[2023-12-15 07:39] LABS: Hematocrit 23.8 % (42.0-52.0); Hemoglobin 8.1 g/dl (14.0-18.0); Mean Corpuscular Volume 88.1 fL (80.0-98.0); Mean Platelet Volume 10.9 fL (9.4-12.4); NRBC Pct Auto 0.3 /100WBC (0.0-0.2); Platelet Count 353 X10*3/uL (160-400); Red Cell Distribution Width 13.8 % (11.0-16.0); White Blood Count 6.4 X10*3/uL (4.8-10.8)
[2023-12-15 07:41] LABS: INTERNATIONAL NORM RATIO 1.1 (0.9-1.1); Prothrombin Time 12.9 SEC (11.1-13.3)
[2023-12-15] MEDS: Albuterol/Iprat 2.5/0.5MG 3 ML AMPUL.NEB INHALE ×3 (07:46→19:37)
[2023-12-15 07:54] LABS: Alanine Aminotransferase 17 U/L (0-40); Albumin Level 2.1 g/dL (3.5-5.0); Alkaline Phosphatase 60 U/L (39-117); Anion Gap 12 (12-20); Aspartate Amino Transferase 17 U/L (5-37); Bilirubin Direct < 0.2 mg/dL (0.0-0.5); Bilirubin Total 0.1 mg/dL (0.0-1.0); Blood Urea Nitrogen 23 mg/dL (9-16); Calcium 7.7 mg/dL (8.4-10.2); Carbon Dioxide 22 mmol/L (22-29); Chloride 103 mmol/L (96-108); Creatinine Clr Calc Pharmacy 134.2; Estimated Glomerular Filt Rate > 60; Glucose Random 120 mg/dL (60-115); Potassium 3.8 mmol/L (3.3-5.1); Sodium 133 mmol/L (135-145); Total Protein 6.5 g/dL (6.5-8.0)
[2023-12-15 08:14] LABS: Magnesium 1.5 mg/dL (1.6-2.6)
--- NOTE | 2023-12-15 09:08 | PM.EVENT ---
Event Note Date of Service: 12/15/23 Event Note: stop airborne isolation if T spot negative or sputum negative Time Spent With Patient Time: Total time managing care of this patient today ____ minutes.
[2023-12-15 09:34] LABS: Toxoplasma IgG Antibody <7.20 IU/mL; Toxoplasma IgM Antibody <8.00 AU/mL
[2023-12-15] MEDS: predniSONE 20 MG TABLET 40 MG PO (10:51)
[2023-12-15] MEDS: Enoxaparin Sodium 40 MG/0.4 ML SYRINGE SUBCUT (10:51)
[2023-12-15] MEDS: Bictegrav/Emtricit/Tenofov Ala TABLET 1 TAB PO (11:05)
--- NOTE | 2023-12-15 13:48 | HO.PM.IMPN ---
Subjective Subjective Date of Service: 12/15/23 Interval History: he states that he feels a bit better, however there is Persistent hypoxix and remains on highFlo, FiO2 down to 50%, saturation 92%, and feels sob Physical Exam Vital Signs: Vital Signs: Last Vital Signs Temp 98.8 F 12/15/23 11:21 Pulse 86 12/15/23 11:21 Resp 22 H 12/15/23 11:21 BP 109/64 12/15/23 11:21 Pulse Ox 92 12/15/23 11:21 O2 Del Method High Flow Nasal C annula 12/15/23 11:21 O2 Flow Rate 32 12/15/23 11:21 FiO2 50 12/15/23 11:21 Oxygen Flow Rate 15 12/09/23 19:34 BMI result Body Mass Index 20.5 Gen: in no repsiratory distress. malnourished, ill-appearing, anxious HEENT: sclera anicteric, thrush on tongue Neck: supple Lungs: fine inspiratory crackles throughout Heart: regular rate and rhythm, no murmurs Abd: soft, non-tender, non-distended Ext: no edema Skin: warm/well-perfused, multiple psoriatic plaques Neuro: alert and oriented x3, no focal findings Psych: appropriate affect other than anxiety Objective Data Active Medications Acetaminophen (Acetaminophen 325 Mg Tablet) 975 mg PO Q8H PRN PRN Reason: Fever >100.4 Last Admin: 12/14/23 08:22 Dose: 975 mg Documented By: ANDRIA Albuterol/Ipratropium (Albuterol/Iprat 2.5/0.5mg 3 Ml Ampul.Neb) 3 ml INHALE RQ6H WHILE AWAKE [facility] Last Admin: 12/15/23 07:46 Dose: 3 ml Documented By: JAMES Bictegravir/Emtricitabine/Tenofovir (Bictegrav/Emtricit/Tenofov Ala Tablet) 1 tab PO DAILY [facility] Last Admin: 12/15/23 11:05 Dose: 1 tab Documented By: KYLE Diazepam (Diazepam 10 Mg/2 Ml Cartridge) 2.5 mg IVPUSH Q6H PRN PRN Reason: anxiety/restlessness Last Admin: 12/15/23 10:51 Dose: 2.5 mg Documented By: KYLE Enoxaparin Sodium (Enoxaparin Sodium 40 Mg/0.4 Ml Syringe) 40 mg SUBCUT Q24H [facility] Last Admin: 12/15/23 10:51 Dose: 40 mg Documented By: KYLE Fluconazole (Fluconazole 100 Mg Tablet) 100 mg PO Q24H [facility] Stop: 12/20/23 21:59 Last Admin: 12/14/23 21:54 Dose: 100 mg Documented By: SHARONA Hydromorphone HCl (Hydromorphone Hcl 0.5 Mg/0.5 Ml Syringe) 0.5 mg IVPUSH Q4H PRN; Protocol PRN Reason: Pain, Mild (Pain Scale 1-3) Last Admin: 12/15/23 10:50 Dose: 0.5 mg Documented By: KYLE Azithromycin 500 mg/ Sodium (Chloride) 250 mls @ 125 mls/hr IV Q24H [facility] Last Infusion: 12/15/23 03:33 Dose: Infused Documented By: SANDRA Cefepime HCl 0.5 gm/ Sodium (Chloride) 50 mls @ 100 mls/hr IV Q24H [facility] Last Infusion: 12/14/23 20:48 Dose: Infused Documented By: SHARONA Trimethoprim/Sulfamethoxazole (320 mg/ Dextrose) 520 mls @ 225 mls/hr IV Q6H [facility] Last Infusion: 12/15/23 13:40 Dose: Infused Documented By: KYLE Ganciclovir Sodium 375 mg/ (Sodium Chloride) 107.5 mls @ 107.5 mls/hr IV Q12H [facility] Omeprazole (Omeprazole 20 Mg Capsule.Dr) 20 mg PO DAILY@0630 [facility] Last Admin: 12/15/23 06:15 Dose: 20 mg Documented By: SANDRA Ondansetron HCl (Ondansetron Hcl 4 Mg/2 Ml Vial) 4 mg IVPUSH Q8H PRN PRN Reason: Nausea and Vomiting Last Admin: 12/13/23 22:15 Dose: 4 mg Documented By: SHARONA Prednisone (Prednisone 20 Mg Tablet) 40 mg PO DAILY [facility] Stop: 12/19/23 09:01 Last Admin: 12/15/23 10:51 Dose: 40 mg Documented By: KYLE Prednisone (Prednisone 20 Mg Tablet) 20 mg PO DAILY [facility] Stop: 12/30/23 09:01 Sodium Chloride (0.9 % Sodium Chloride Flush 3 Ml Syringe) 3 ml IVFLUSH QSHIFT [facility] Last Admin: 12/15/23 11:05 Dose: 3 ml Documented By: KYLE Labs 12/15/23 07:08 12/15/23 07:08 Labs: Laboratory Results - last 24 hr 12/14/23 12/15/23 12/15/23 17:23 07:08 07:08 MCV 88.1 MCH 30.0 MCHC 34.0 RDW 13.8 Plt Count 353 MPV 10.9 Absolute Nucleated RBC 0.020 H Nucleated RBC % (auto) 0.3 H PT 12.9 INR 1.1 Anion Gap 12 Estim Creat Clear Calc 134.2 Estimated GFR > 60 Random Glucose 120 H Calcium 7.7 L Magnesium 1.5 L Cancelled Total Bilirubin 0.1 Direct Bilirubin AST ALT Alkaline Phosphatase Total Protein Albumin Toxoplasma IgG Ab <7.20 Toxoplasma IgM Ab <8.00 12/15/23 12/15/23 12/15/23 07:08 07:08 07:08 MCV MCH MCHC RDW Plt Count MPV Absolute Nucleated RBC Nucleated RBC % (auto) PT INR Anion Gap Estim Creat Clear Calc Estimated GFR Random Glucose Calcium Magnesium Total Bilirubin Cancelled Direct Bilirubin < 0.2 Cancelled AST 17 Cancelled ALT 17 Alkaline Phosphatase Total Protein Albumin Toxoplasma IgG Ab Toxoplasma IgM Ab 12/15/23 12/15/23 12/15/23 07:08 07:08 07:08 MCV MCH MCHC RDW Plt Count MPV Absolute Nucleated RBC Nucleated RBC % (auto) PT INR Anion Gap Estim Creat Clear Calc Estimated GFR Random Glucose Calcium Magnesium Total Bilirubin Direct Bilirubin AST ALT Cancelled Alkaline Phosphatase 60 Cancelled Total Protein 6.5 Cancelled Albumin 2.1 L Toxoplasma IgG Ab Toxoplasma IgM Ab 12/15/23 07:08 MCV MCH MCHC RDW Plt Count MPV Absolute Nucleated RBC Nucleated RBC % (auto) PT INR Anion Gap Estim Creat Clear Calc Estimated GFR Random Glucose Calcium Magnesium Total Bilirubin Direct Bilirubin AST ALT Alkaline Phosphatase Total Protein Albumin Cancelled Toxoplasma IgG Ab Toxoplasma IgM Ab Microbiology Microbiology Results: Microbiology 12/10/23 02:04 Blood Culture - Final Blood - Venous No growth after 5 days. 12/10/23 02:04 Blood Culture - Final Blood - Venous No growth after 5 days. 12/09/23 20:11 Blood Culture - Final Blood - Venous No growth after 5 days. 12/09/23 19:51 Blood Culture - Final Blood - Venous No growth after 5 days. Assessment and Plan (1) PCP (pneumocystis jiroveci pneumonia): Status: Acute Plan 43yo M with HIV diagnosed in 2005 off ART for approximately 3 yr presenting with 2 wk of increasing dyspnea + cough + fever, admitted for hypoxia due to PNA, likely PJP sepsis and acute hypoxic resp failure due to PNA, likely severe Pneumocystis jiroveci?pneumonia (PJP) - ID following - IV TMP-SMX 17.5 mg/kg/d TMP component divided q6h 12/10-12/30 PLUS prednisone taper 12/10- - induced sputum for PJP PCR and serum Fungitell pending - remains on bacterial coverage with azithromycin and cefepime started 12/09-. MRSA swab positive. Blood cultures negative. Legionella Ag pending. - 3 induced sputums for AFB pending, T-spot TB negative, DC TB isolation - wean fiO2 as tolerated HIV and AIDS - CD4 < 20, viral load pending - pt states christal CD4 was around 360 and denies hx AIDS-defining illnesses - ARV hx includes Truvada + Norvir-boosed Prezista, then Truvada + Prezcobix, then Biktarvy. No hx of resistance or medication intolerance. Pt stopped taking Biktarvy due to homelessness/loss to follow-up - restarted Biktarvy 12/10 and will monitor for immune reconstitution inflammatory syndrome (IRIS) - records requested from [facility] in [place], [place]. Needs local ID follow-up. 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 recheck as outpt once virally suppressed on ART hx syphilis - previously treated with 3 doses of PCN per pt; RPR pending anemia of chronic disease - monitor blood counts troponin elevation - likely demand from sepsis + ELI; no chest pain/ischemic EKG changes coagulopathy - resolved after vit K repleted compensated cirrhosis - abd US as above. HBV + HCV negative. 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 Quality Stroke Does the patient have a stroke diagnosis?: No VTE Prior VTE?: No VTE Risk Level:: Medical - moderate - high VTE Device Contraindication: Treatment Not Indicated VTE Drug Contraindication: N/A - Med Ordered
[2023-12-15 14:28] LABS: HIV RNA PCR Qn Copies 569000 copies/mL (NOT DETECTED); HIV RNA PCR Qn Log Copies 5.76 (NOT DETECTED)
--- NOTE | 2023-12-15 18:03 | HO.PICC ---
PICC Line Insertion NPICC Diagnosis: PCP Pneumonia Indication: Shelter antibiotics/multiple IV meds Pertinent Labs: reviewed Technique: Following informed consent including risks, benefits and alternatives and using sterile technique including cap and mask, sterile gown, glove and drape, the right arm and existing right basilic vein access was prepped three times and draped in the usual sterile fashion of full barrier technique with CHG. Following completion of [place] Protocol the skin and soft tissues were anesthetized with 1% Lidocaine plain. Over an 0.018 wire through peel-away sheath, a 4FR double lumen PASV PICC line was positioned. Catheter length is 44 CM internal length, 0 CM external length, for a total trimmed length of 44 CM. The procedure was performed in Room 483. Tip verification was performed by Ed Puente with El 3CG. Tip located in SVC. Ultrasound was used to document vein patency. A formal ultrasound picture and cardiac rhythm strip was recorded. [employer] has released the line for use and it is currently dressed with a StatLock, Tegaderm, and CHG disc. Verification has been performed for blood return and line patency. Arm Circumference: 25.5 CM Equipment: [facility] Power PICC SOLO Catheter Type: 4FR double lumen PASV PICC Lot #: [id number]
[2023-12-15] MEDS: Fluconazole 100 MG TABLET PO (21:39)
[2023-12-15] MEDS: cefEPime HCl 0.5 GM in 0.9 % Sodium Chloride 50 ML IV (21:39)
[2023-12-16] VITALS (13 sets, daily range): BP systolic 100–119; BP diastolic 56–64; PULSE 66–90; RESP 16–24; TEMP 36.1–36.7; O2SAT 90–97
[2023-12-16] MEDS: HYDROmorphone HCl 0.5 MG/0.5 ML SYRINGE IVPUSH ×5 (01:26→19:37)
[2023-12-16] MEDS: 0.9 % Sodium Chloride Flush 3 ML SYRINGE IVFLUSH ×2 (01:27→19:37)
[2023-12-16] MEDS: Azithromycin 500 MG in 0.9 % Sodium Chloride 250 ML 125 MG IV (01:27)
[2023-12-16 02:19] LABS: Pneumocystis jir Ql PCR DETECTED; Pneumocystis jir source SPUTUM
[2023-12-16 02:37] LABS: Legionella Ag Urine Not Detected (Not Detected)
[2023-12-16] MEDS: Sulfamethoxazole/Trimethoprim 320 MG in Dextrose 5 % 500 ML 225 MG IV ×4 (03:56→21:40)
[2023-12-16] MEDS: Omeprazole 20 MG CAPSULE.DR PO (05:20)
--- NOTE | 2023-12-16 07:00 | CA_ITS ---
Transthoracic Echocardiogram Patient (Last, First, Middle): Terry Gunter, Gender: Male Date of : 1980 Age: 43 Procedure Date: 12/16/2023 Procedure Type: Transthoracic Echocardiogram Location: [facility] [place] Height: 190.5 cm Weight: 73.94 kg BSA: 2.01 m2 Heart Rate: 82 bpm BP: 115 / 61 mmHg Produce Inspector: JAS Referring MD: Trever Hollingsworth MD Symptoms: ? cardiomyopathy Study Quality: Adequate ECG Rhythm: Sinus Conclusions: - The left ventricular systolic function is normal. The visually estimated ejection fraction is between 55-60%. - No obvious valvular pathology seen on this study. Findings Left Ventricle Normal left ventricular cavity size. There is normal left ventricular wall thickness. The left ventricular systolic function is normal. The visually estimated ejection fraction is between 55-60%. There is no evidence of regional wall motion abnormalities. Diastolic function is normal for age. Right Ventricle Mildly increased right ventricular cavity size. There is normal right ventricular systolic function. Atria Both atria are normal in size. Aortic Valve There is a normal trileaflet aortic valve. There is no aortic valve stenosis. There is no aortic valve regurgitation. Mitral Valve The mitral valve appears normal. There is no mitral valve regurgitation. There is no mitral valve stenosis. Pulmonic Valve The pulmonic valve is likely normal. Tricuspid Valve Normal tricuspid valve structure. There is trace tricuspid valve regurgitation. There is no evidence of pulmonary hypertension. Great Vessels The asc aorta is normal in size. Venous The inferior vena cava is normal in size and collapses greater than 50% with inspiration. Pericardium/Pleural There is no evidence of pericardial effusion. Prior Study Comparison No prior study available for comparison. Recommendations, Care & Conclusions No obvious valvular pathology seen on this study. Measurements 2D Linear Measurements IVSd: 0.73 0.6-0.9/0.6-1.0 cm LVIDd: 5.26 3.9-5.3/4.2-5.9 cm LVIDd Index: 2.62 2.4-3.2/2.2-3.1 cm/m2 LVIDs: 3.55 2.0-3.6 cm LVPWd: 0.78 0.7-1.1 cm LA Diam: 3.80 2.7-3.8/3.0-4.0 cm LAIDs Index: 1.89 1.5-2.3 cm/m2 LV Mass: 172.49 67-162/88-224 g LV Mass Index: 85.82 43-95/49-115 g/m2 LVOT Diam: 2.20 3.0+(-)1.3 cm 2D Systolic Function EF 4C: 65.50 >55% EF 2C: 65.50 >55% EF BiP: 65.00 >55% Mitral Valve MV Pk E: 0.90 MV PK A: 0.80 MV Decel Time: 235.00 E/A: 1.10 E'Lateral: 13.30 E'Medial: 8.05 E/E' Med: 11.10 E/E' Lat: 6.70 PHT: 69.00 MVA PHT: 3.19 Decel Aurora: 3.81 Aortic Valve AoV Pk Jossue: 1.46 AoV Mn Jossue: 1.02 AoV VTI: 0.28 AoV Pk Grad: 9.00 Aov Mn Grad: 5.00 LOGAN Cont.VTI: 3.62 LVOT LVOT Pk Jossue: 1.45 LVOT Mn Jossue: 0.93 LVOT VTI: 0.27 LVOT Pk Grad: 8.00 LVOT Mn Grad: 4.00 LVOT Diam: 2.20 LVOT Area: 3.80 Diastolic Function MV Pk E: 0.90 MV Pk A: 0.80 E/A: 1.10 E'Medial: 8.05 E/E' Med: 11.10 E' Laterial: 13.30 E/E' Lat: 6.70 Right Ventricle TAPSE (mm): 29.10 TVS' Jossue: 15.40 Tricuspid Valve TR Pk Jossue: 2.36 TR Pk Grad: 22.00 RA Press: 8.00 RVSP: 30.00 Great Vessels Aorta Sinus of Valsalva: 3.11 2.0-3.[address] Ridge: 2.73 1.7-3.4 cm Ao Asc: 3.20 2.1-3.4 cm Updated in Other Vendor System with Status of Final Adam Da Silva MD electronically signed on 12/17/2023 8:50:05 AM with status of Final
[2023-12-16] MEDS: Albuterol/Iprat 2.5/0.5MG 3 ML AMPUL.NEB INHALE ×3 (07:50→19:42)
--- NOTE | 2023-12-16 09:03 | HO.PM.IMPN ---
Subjective Subjective Date of Service: 12/16/23 Interval History: f/u on acute hypoxic resp failure with HIV aids, remains on high flow, hypoxic into 70s, now on high flow + NRB anxious-- Physical Exam Vital Signs: Vital Signs: Last Vital Signs Temp 97.6 F 12/16/23 07:18 Pulse 76 12/16/23 08:04 Resp 24 H 12/16/23 08:04 BP 108/57 L 12/16/23 07:18 Pulse Ox 92 12/16/23 07:18 O2 Del Method High Flow Nasal C annula 12/16/23 07:18 O2 Flow Rate 50 12/16/23 07:18 FiO2 60 12/16/23 07:18 Oxygen Flow Rate 15 12/09/23 19:34 BMI result Body Mass Index 20.5 Gen: in no repsiratory distress. malnourished, ill-appearing, anxious HEENT: sclera anicteric, thrush on tongue Neck: supple Lungs: fine inspiratory crackles throughout Heart: regular rate and rhythm, no murmurs Abd: soft, non-tender, non-distended Ext: no edema Skin: warm/well-perfused, multiple psoriatic plaques Neuro: alert and oriented x3, no focal findings Psych: appropriate affect other than anxiety Objective Data Active Medications Acetaminophen (Acetaminophen 325 Mg Tablet) 975 mg PO Q8H PRN PRN Reason: Fever >100.4 Last Admin: 12/14/23 08:22 Dose: 975 mg Documented By: ANDRIA Albuterol/Ipratropium (Albuterol/Iprat 2.5/0.5mg 3 Ml Ampul.Neb) 3 ml INHALE RQ6H WHILE AWAKE [facility] Last Admin: 12/16/23 07:50 Dose: 3 ml Documented By: SOFIE Bictegravir/Emtricitabine/Tenofovir (Bictegrav/Emtricit/Tenofov Ala Tablet) 1 tab PO DAILY [facility] Last Admin: 12/15/23 11:05 Dose: 1 tab Documented By: KYLE Diazepam (Diazepam 10 Mg/2 Ml Cartridge) 2.5 mg IVPUSH Q6H PRN PRN Reason: anxiety/restlessness Last Admin: 12/15/23 10:51 Dose: 2.5 mg Documented By: KYLE Enoxaparin Sodium (Enoxaparin Sodium 40 Mg/0.4 Ml Syringe) 40 mg SUBCUT Q24H [facility] Last Admin: 12/15/23 10:51 Dose: 40 mg Documented By: KYLE Fluconazole (Fluconazole 100 Mg Tablet) 100 mg PO Q24H [facility] Stop: 12/20/23 21:59 Last Admin: 12/15/23 21:39 Dose: 100 mg Documented By: YENNIFER Hydromorphone HCl (Hydromorphone Hcl 0.5 Mg/0.5 Ml Syringe) 0.5 mg IVPUSH Q4H PRN; Protocol PRN Reason: Pain, Mild (Pain Scale 1-3) Last Admin: 12/16/23 05:20 Dose: 0.5 mg Documented By: SEAN Azithromycin 500 mg/ Sodium (Chloride) 250 mls @ 125 mls/hr IV Q24H [facility] Last Infusion: 12/16/23 03:28 Dose: Infused Documented By: SEAN Cefepime HCl 0.5 gm/ Sodium (Chloride) 50 mls @ 100 mls/hr IV Q24H [facility] Last Infusion: 12/15/23 22:16 Dose: Infused Documented By: YENNIFER Trimethoprim/Sulfamethoxazole (320 mg/ Dextrose) 520 mls @ 225 mls/hr IV Q6H [facility] Last Infusion: 12/16/23 06:25 Dose: Infused Documented By: SEAN Ganciclovir Sodium 375 mg/ (Sodium Chloride) 107.5 mls @ 107.5 mls/hr IV Q12H [facility] Last Infusion: 12/16/23 05:23 Dose: Infused Documented By: SEAN Omeprazole (Omeprazole 20 Mg Capsule.Dr) 20 mg PO DAILY@0630 [facility] Last Admin: 12/16/23 05:20 Dose: 20 mg Documented By: SEAN Ondansetron HCl (Ondansetron Hcl 4 Mg/2 Ml Vial) 4 mg IVPUSH Q8H PRN PRN Reason: Nausea and Vomiting Last Admin: 12/13/23 22:15 Dose: 4 mg Documented By: SHARONA Prednisone (Prednisone 20 Mg Tablet) 40 mg PO DAILY [facility] Stop: 12/19/23 09:01 Last Admin: 12/15/23 10:51 Dose: 40 mg Documented By: KYLE Prednisone (Prednisone 20 Mg Tablet) 20 mg PO DAILY [facility] Stop: 12/30/23 09:01 Sodium Chloride (0.9 % Sodium Chloride Flush 3 Ml Syringe) 3 ml IVFLUSH QSHIFT [facility] Last Admin: 12/16/23 07:23 Dose: Not Given Documented By: MARIAH Non-Admin Reason: See Note Labs 12/15/23 07:08 12/15/23 07:08 Labs: Laboratory Results - last 24 hr 12/10/23 12/10/23 12/11/23 05:56 10:10 01:00 HIV-1 RNA copies/mL 312924 H HIV-1 RNA logcopies/mL 5.76 H Ur L.pneumophila Ag Not Detected Pneumocystis Source SPUTUM Pneumocyst jirovecii PCR DETECTED A Toxoplasma IgG Ab Toxoplasma IgM Ab 12/14/23 17:23 HIV-1 RNA copies/mL HIV-1 RNA logcopies/mL Ur L.pneumophila Ag Pneumocystis Source Pneumocyst jirovecii PCR Toxoplasma IgG Ab <7.20 Toxoplasma IgM Ab <8.00 Microbiology Microbiology Results: Microbiology 12/10/23 02:04 Blood Culture - Final Blood - Venous No growth after 5 days. 12/10/23 02:04 Blood Culture - Final Blood - Venous No growth after 5 days. Assessment and Plan (1) PCP (pneumocystis jiroveci pneumonia): Status: Acute Plan 43yo M with HIV diagnosed in 2005 off ART for approximately 3 yr presenting with 2 wk of increasing dyspnea + cough + fever, admitted for hypoxia due to PNA, likely PJP sepsis and acute hypoxic resp failure due to PNA, likely severe Pneumocystis jiroveci?pneumonia (PJP) - ID following - IV TMP-SMX 17.5 mg/kg/d TMP component divided q6h 12/10-12/30 PLUS prednisone taper 12/10- - induced sputum for PJP PCR and serum Fungitell pending - bacterial coverage with azithromycin and cefepime started 12/09-. MRSA swab positive. Blood cultures negative. Legionella Ag negative - 3 induced sputums for AFB pending, T-spot TB negative, DC TB isolation on 12/15 - Increasing O2 requirement today, now max on high flow and partial NRB -ABG + pulmonology/ICU consult -Dilaudid PRN for acute resp distress HIV and AIDS - CD4 < 20, viral load high count 569K - pt states christal CD4 was around 360 and denies hx AIDS-defining illnesses - ARV hx includes Truvada + Norvir-boosed Prezista, then Truvada + Prezcobix, then Biktarvy. No hx of resistance or medication intolerance. Pt stopped taking Biktarvy due to homelessness/loss to follow-up - restarted Biktarvy 12/10 and will monitor for immune reconstitution inflammatory syndrome (IRIS) - records requested from [facility] in [place], [place]. Needs local ID follow-up. 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 recheck as outpt once virally suppressed on ART hx syphilis - previously treated with 3 doses of PCN per pt; RPR pending anemia of chronic disease - monitor blood counts troponin elevation - likely demand from sepsis + LEI; no chest pain/ischemic EKG changes coagulopathy - resolved after vit K repleted compensated cirrhosis - abd US as above. HBV + HCV negative. 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 Quality Stroke Does the patient have a stroke diagnosis?: No VTE Prior VTE?: No VTE Risk Level:: Medical - moderate - high VTE Device Contraindication: Treatment Not Indicated VTE Drug Contraindication: N/A - Med Ordered
[2023-12-16] MEDS: Enoxaparin Sodium 40 MG/0.4 ML SYRINGE SUBCUT (09:09)
[2023-12-16] MEDS: diazePAM 10 MG/2 ML CARTRIDGE 2.5 MG IVPUSH (09:09)
[2023-12-16] MEDS: Bictegrav/Emtricit/Tenofov Ala TABLET 1 TAB PO (09:09)
[2023-12-16] MEDS: predniSONE 20 MG TABLET 40 MG PO (09:09)
[2023-12-16 09:26] LABS: ABG Base Excess -0.8 mmol/L; ABG HCO3 20 mmol/L (22-26); ABG pCO2 25 mmHg (32-45); ABG pH 7.52 (7.35-7.45); ABG pO2 65 mmHg (83-108)
[2023-12-16] MEDS: Potassium Chloride/H20 40 MEQ/100 ML PIGGYBACK 100 MEQ IV (10:24)
[2023-12-16] MEDS: Albumin Human 25 % 100 ML IV ×3 (10:24→21:39)
[2023-12-16] MEDS: Furosemide 20 MG/2 ML VIAL IVPUSH ×2 (10:24→15:30)
[2023-12-16] MEDS: Magnesium Sulfate/H2O 2 GM/50 ML PIGGYBACK IV (10:25)
--- NOTE | 2023-12-16 10:26 | PC.NURSE ---
per administering albumin first then lasix followed my IV Lytes.
--- NOTE | 2023-12-16 10:31 | P.CONPL_ITS ---
History of Present Illness History of Present Illness Consult date: 12/16/23 Requesting physician: Trever Hollingsworth Chief complaint: Hypoxic Respiratory Failure Narrative: 43-year-old gentleman with underlying AIDS, liver cirrhosis, ?syphilis admitted on 12/09/2023 with dyspnea and acute hypoxic respiratory failure secondary to PCP, now treated with IV Bactrim and also started on HAART. Hospital course significant for progressive hypoxia now requiring high-flow nasal cannula at 70%. Of note, secondary to requirement for IV Bactrim patient is positive approximately 12 L since admission. Review of Systems 2 Constitutional: Constitutional: Denies daytime sleepiness, Denies excessive sweating, Reports fatigue, Reports fever(s), Reports lethargy, Reports malaise, Denies night sweats, Denies snoring and Reports weight loss Eyes: Eyes: Denies blurry vision and Denies itchy eyes ENT: Denies nasal congestion, Denies post nasal drip, Denies sinus pain, Denies sinus pressure and Denies other ( Thrush) Cardiovascular: Cardiovascular: Denies chest pain, Reports pedal edema, Denies dyspnea, Reports dyspnea on exertion, Denies orthopnea and Denies paroxysmal nocturnal dyspnea Respiratory: Respiratory: Reports cough, Denies hemoptysis, Denies excessive phlegm production, Denies dyspnea, Reports dyspnea on exertion, Denies snoring and Denies wheezing Gastrointestinal: Gastrointestinal: Denies abdominal pain and Denies heartburn Integumentary/Breasts: Skin/Breast: Reports rash Neurologic: Denies memory loss and Denies seizure-like activity Psychiatric: Psychiatric: Denies abnormal sleep pattern, Denies anxiety and Denies memory loss Endocrine: Endocrine: Denies excessive sweating, Reports fatigue and Denies heat intolerance Hematologic/Lymphatic: Hematologic/Lymphatic: Denies easy bruising Allergic/Immunologic: Allergic/Immunologic: Denies itchy eyes, Denies seasonal rhinorrhea and Denies wheezing PMFSH Past Medical History Medical History Gout Arthritis Family History Family history: reviewed and not pertinent Social History Social History Household Members: Family Housing: Apartment Do you presently have visiting nurse or other home services: No Patient Tobacco Use Status: Current everyday Tobacco user Tobacco use type: Cigarette Cigarette Packs Per Day: 0.5 Cigarettes Per Day: 10.0 service: No Meds Allergies Allergy/AdvReac Type Severity Reaction Status Date / Time No Known Allergies Allergy Verified 12/09/23 19:32 Active Medications: Current Medications Acetaminophen (Acetaminophen 325 Mg Tablet) 975 mg PO Q8H PRN PRN Reason: Fever >100.4 Last Admin: 12/14/23 08:22 Dose: 975 mg Albuterol/Ipratropium (Albuterol/Iprat 2.5/0.5mg 3 Ml Ampul.Neb) 3 ml INHALE RQ6H WHILE AWAKE [facility] Last Admin: 12/16/23 07:50 Dose: 3 ml Bictegravir/Emtricitabine/Tenofovir (Bictegrav/Emtricit/Tenofov Ala Tablet) 1 tab PO DAILY [facility] Last Admin: 12/16/23 09:09 Dose: 1 tab Diazepam (Diazepam 10 Mg/2 Ml Cartridge) 2.5 mg IVPUSH Q6H PRN PRN Reason: anxiety/restlessness Last Admin: 12/16/23 09:09 Dose: 2.5 mg Enoxaparin Sodium (Enoxaparin Sodium 40 Mg/0.4 Ml Syringe) 40 mg SUBCUT Q24H [facility] Last Admin: 12/16/23 09:09 Dose: 40 mg Fluconazole (Fluconazole 100 Mg Tablet) 100 mg PO Q24H [facility] Stop: 12/20/23 21:59 Last Admin: 12/15/23 21:39 Dose: 100 mg Hydromorphone HCl (Hydromorphone Hcl 0.5 Mg/0.5 Ml Syringe) 0.5 mg IVPUSH Q4H PRN; Protocol PRN Reason: Pain, Mild (Pain Scale 1-3) Last Admin: 12/16/23 09:09 Dose: 0.5 mg Azithromycin 500 mg/ Sodium (Chloride) 250 mls @ 125 mls/hr IV Q24H [facility] Last Infusion: 12/16/23 03:28 Dose: Infused Cefepime HCl 0.5 gm/ Sodium (Chloride) 50 mls @ 100 mls/hr IV Q24H [facility] Last Infusion: 12/15/23 22:16 Dose: Infused Trimethoprim/Sulfamethoxazole (320 mg/ Dextrose) 520 mls @ 225 mls/hr IV Q6H [facility] Last Admin: 12/16/23 09:09 Dose: 225 mls/hr Ganciclovir Sodium 375 mg/ (Sodium Chloride) 107.5 mls @ 107.5 mls/hr IV Q12H [facility] Last Infusion: 12/16/23 05:23 Dose: Infused Albumin Human (Kedbumin 25 %) 100 mls @ 100 mls/hr IV Q6H [facility] Stop: 12/17/23 04:59 Last Admin: 12/16/23 10:24 Dose: 100 mls/hr Potassium Chloride (Potassium Chloride/H20) 40 meq in 100 mls @ 100 mls/hr IV ONCE ONE Stop: 12/16/23 11:00 Last Admin: 12/16/23 10:24 Dose: 100 mls/hr Magnesium Sulfate (Magnesium Sulfate/H2o) 2 gm in 50 mls @ 25 mls/hr IV ONCE ONE Stop: 12/16/23 12:00 Last Admin: 12/16/23 10:25 Dose: 25 mls/hr Omeprazole (Omeprazole 20 Mg Capsule.Dr) 20 mg PO DAILY@0630 [facility] Last Admin: 12/16/23 05:20 Dose: 20 mg Ondansetron HCl (Ondansetron Hcl 4 Mg/2 Ml Vial) 4 mg IVPUSH Q8H PRN PRN Reason: Nausea and Vomiting Last Admin: 12/13/23 22:15 Dose: 4 mg Prednisone (Prednisone 20 Mg Tablet) 40 mg PO DAILY [facility] Stop: 12/19/23 09:01 Last Admin: 12/16/23 09:09 Dose: 40 mg Prednisone (Prednisone 20 Mg Tablet) 20 mg PO DAILY [facility] Stop: 12/30/23 09:01 Sodium Chloride (0.9 % Sodium Chloride Flush 3 Ml Syringe) 3 ml IVFLUSH QSHIFT [facility] Last Admin: 12/16/23 07:23 Dose: Not Given Home Medications Medication Instructions Recorded Confirmed Last Taken Type No Known Home Meds 12/10/23 12/10/23 Unknown History Physical Exam 2 Vital Signs: Vital Signs: Last Vital Signs Temp 97.6 F 12/16/23 07:18 Pulse 76 12/16/23 08:04 Resp 24 H 12/16/23 08:04 BP 108/57 L 12/16/23 07:18 Pulse Ox 92 12/16/23 07:18 O2 Del Method High Flow Nasal C annula 12/16/23 07:18 O2 Flow Rate 50 12/16/23 07:18 FiO2 60 12/16/23 07:18 Oxygen Flow Rate 15 12/09/23 19:34 BMI result Body Mass Index 20.5 Const: General: no acute distress, alert, awake and ill appearing N utritional Appearance: thin Orientation/consciousness: Other orientation findings ( oriented) HEENT: Head: Yes atraumatic Eyes: General: appearance normal, both eyes and all related structures S clerae: sclerae normal EOM: EOMs intact bilaterally Neck: Neck: Yes supple Lymphatic: no lymphadenopathy noted Resp: Effort & Inspection: normal respiratory effort and no use of accessory muscles Auscultation: crackles bilateral Cardio: Rate: regular rate Rhythm: regular rhythm Heart sounds: no gallops, no murmurs and no rubs Skin: General skin exam: other ( warm) Extrem: General: No clubbing, No cyanosis and Yes edema (Trace bilateral) Results Laboratory Findings 12/15/23 07:08 12/15/23 07:08 ABG, PT/INR, D-dimer: PT/INR, D-dimer PT 12.9 SEC (11.1-13.3) 12/15/23 07:08 INR 1.1 (0.9-1.1) 12/15/23 07:08 Abnormal lab findings: Abnormal Labs 12/09/23 12/09/23 12/09/23 19:51 19:52 20:05 WBC RBC 3.94 L Hgb 11.6 L Hct 34.2 L Immature Gran % (Auto) 0.6 H Neut % (Auto) 86.6 H Lymph % (Auto) 6.6 L Lymph # (Auto) 0.7 L Abs Immat Gran (auto) 0.06 H Absolute Neuts (auto) 8.8 H Absolute Nucleated RBC Nucleated RBC % (auto) PT 18.9 H INR 1.6 H APTT 38.1 H ABG pH at Pt Temp ABG pCO2 at Pt Temp ABG pO2 at Pt Temp ABG HCO3 VBG pH 7.30 L VBG HCO3 12 L Sodium Chloride Carbon Dioxide Anion Gap BUN Creatinine Random Glucose Calcium Phosphorus Magnesium AST Lactate Dehydrogenase Total Creatine Kinase Troponin I High Sens Total Protein Albumin Urine Protein Urine Blood Urine RBC U Random Total Protein Protein/Creatinin Ratio Nasal S. aureus Screen Total Lymphocytes Absolute CD3 Count % CD4 Cells Absolute CD4 Count CD4/CD8 Ratio % CD8 Cells Absolute CD8 Count T.pallidum Ab (EIA) HIV-1 RNA copies/mL HIV-1 RNA logcopies/mL Pneumocyst jirovecii PCR 12/09/23 12/09/23 12/09/23 21:23 22:11 22:36 WBC RBC Hgb Hct Immature Gran % (Auto) Neut % (Auto) Lymph % (Auto) Lymph # (Auto) Abs Immat Gran (auto) Absolute Neuts (auto) Absolute Nucleated RBC Nucleated RBC % (auto) PT INR APTT ABG pH at Pt Temp ABG pCO2 at Pt Temp 18 L* ABG pO2 at Pt Temp ABG HCO3 10 L VBG pH VBG HCO3 Sodium Chloride 118 H Carbon Dioxide 12 L Anion Gap BUN 71 H Creatinine 2.48 H Random Glucose Calcium Phosphorus 4.9 H Magnesium AST 41 H Lactate Dehydrogenase Total Creatine Kinase 30 L Troponin I High Sens 60.0 H Total Protein 8.3 H Albumin 2.6 L Urine Protein 100 (2+) H Urine Blood Trace H Urine RBC 3-5 H U Random Total Protein Protein/Creatinin Ratio Nasal S. aureus Screen Total Lymphocytes Absolute CD3 Count % CD4 Cells Absolute CD4 Count CD4/CD8 Ratio % CD8 Cells Absolute CD8 Count T.pallidum Ab (EIA) HIV-1 RNA copies/mL HIV-1 RNA logcopies/mL Pneumocyst jirovecii PCR 12/10/23 12/10/23 12/10/23 02:48 02:50 05:56 WBC RBC 2.92 L D Hgb 8.6 L D Hct 25.3 L D Immature Gran % (Auto) 1.6 H Neut % (Auto) 88.7 H Lymph % (Auto) 5.5 L Lymph # (Auto) 0.3 L Abs Immat Gran (auto) 0.08 H Absolute Neuts (auto) Absolute Nucleated RBC Nucleated RBC % (auto) PT INR APTT ABG pH at Pt Temp ABG pCO2 at Pt Temp ABG pO2 at Pt Temp ABG HCO3 VBG pH VBG HCO3 16 L Sodium 147 H Chloride 118 H 117 H Carbon Dioxide 15 L 19 L Anion Gap BUN 65 H 60 H Creatinine 1.89 H 1.58 H Random Glucose 120 H Calcium Phosphorus Magnesium AST 44 H Lactate Dehydrogenase 646 H Total Creatine Kinase Troponin I High Sens Total Protein Albumin 2.3 L Urine Protein Urine Blood Urine RBC U Random Total Protein Protein/Creatinin Ratio Nasal S. aureus Screen Total Lymphocytes 270 L Absolute CD3 Count 182 L % CD4 Cells 7 L Absolute CD4 Count <20 L CD4/CD8 Ratio 0.11 L % CD8 Cells 61 H Absolute CD8 Count 165 L T.pallidum Ab (EIA) HIV-1 RNA copies/mL 227173 H HIV-1 RNA logcopies/mL 5.76 H Pneumocyst jirovecii PCR 12/10/23 12/10/23 12/10/23 05:57 06:00 10:10 WBC RBC Hgb Hct Immature Gran % (Auto) Neut % (Auto) Lymph % (Auto) Lymph # (Auto) Abs Immat Gran (auto) Absolute Neuts (auto) Absolute Nucleated RBC Nucleated RBC % (auto) PT INR APTT ABG pH at Pt Temp ABG pCO2 at Pt Temp ABG pO2 at Pt Temp ABG HCO3 VBG pH 7.44 H VBG HCO3 19 L Sodium Chloride Carbon Dioxide Anion Gap BUN Creatinine Random Glucose Calcium Phosphorus Magnesium AST Lactate Dehydrogenase Total Creatine Kinase Troponin I High Sens 41.1 H Total Protein Albumin Urine Protein Urine Blood Urine RBC U Random Total Protein Protein/Creatinin Ratio Nasal S. aureus Screen Total Lymphocytes Absolute CD3 Count % CD4 Cells Absolute CD4 Count CD4/CD8 Ratio % CD8 Cells Absolute CD8 Count T.pallidum Ab (EIA) HIV-1 RNA copies/mL HIV-1 RNA logcopies/mL Pneumocyst jirovecii PCR DETECTED A 12/10/23 12/11/23 12/11/23 14:57 00:05 07:30 WBC 3.1 L RBC 2.76 L Hgb 8.2 L Hct 24.2 L Immature Gran % (Auto) Neut % (Auto) Lymph % (Auto) Lymph # (Auto) Abs Immat Gran (auto) Absolute Neuts (auto) Absolute Nucleated RBC Nucleated RBC % (auto) PT 13.9 H D INR APTT ABG pH at Pt Temp ABG pCO2 at Pt Temp ABG pO2 at Pt Temp ABG HCO3 VBG pH VBG HCO3 Sodium Chloride Carbon Dioxide Anion Gap 11 L BUN 36 H Creatinine Random Glucose 122 H Calcium Phosphorus Magnesium 1.4 L* AST Lactate Dehydrogenase Total Creatine Kinase Troponin I High Sens Total Protein Albumin 2.4 L Urine Protein Urine Blood Urine RBC U Random Total Protein 87 H Protein/Creatinin Ratio 1.53 H Nasal S. aureus Screen POSITIVE A Total Lymphocytes Absolute CD3 Count % CD4 Cells Absolute CD4 Count CD4/CD8 Ratio % CD8 Cells Absolute CD8 Count T.pallidum Ab (EIA) Reactive A HIV-1 RNA copies/mL HIV-1 RNA logcopies/mL Pneumocyst jirovecii PCR 12/12/23 12/13/23 12/15/23 17:20 06:40 07:08 WBC RBC 2.72 L 2.75 L 2.70 L Hgb 8.0 L 8.0 L 8.1 L Hct 23.8 L 23.6 L 23.8 L Immature Gran % (Auto) Neut % (Auto) Lymph % (Auto) Lymph # (Auto) Abs Immat Gran (auto) Absolute Neuts (auto) Absolute Nucleated RBC 0.020 H Nucleated RBC % (auto) 0.3 H PT INR APTT ABG pH at Pt Temp ABG pCO2 at Pt Temp ABG pO2 at Pt Temp ABG HCO3 VBG pH VBG HCO3 Sodium 133 L Chloride Carbon Dioxide 20 L 21 L Anion Gap BUN 20 H 18 H 23 H Creatinine Random Glucose 140 H 120 H Calcium 8.3 L 7.6 L D 7.7 L Phosphorus Magnesium 1.2 L* 1.5 L AST Lactate Dehydrogenase Total Creatine Kinase Troponin I High Sens Total Protein Albumin 2.4 L 2.3 L 2.1 L Urine Protein Urine Blood Urine RBC U Random Total Protein Protein/Creatinin Ratio Nasal S. aureus Screen Total Lymphocytes Absolute CD3 Count % CD4 Cells Absolute CD4 Count CD4/CD8 Ratio % CD8 Cells Absolute CD8 Count T.pallidum Ab (EIA) HIV-1 RNA copies/mL HIV-1 RNA logcopies/mL Pneumocyst jirovecii PCR 12/16/23 09:19 WBC RBC Hgb Hct Immature Gran % (Auto) Neut % (Auto) Lymph % (Auto) Lymph # (Auto) Abs Immat Gran (auto) Absolute Neuts (auto) Absolute Nucleated RBC Nucleated RBC % (auto) PT INR APTT ABG pH at Pt Temp 7.52 H ABG pCO2 at Pt Temp 25 L ABG pO2 at Pt Temp 65 L ABG HCO3 20 L VBG pH VBG HCO3 Sodium Chloride Carbon Dioxide Anion Gap BUN Creatinine Random Glucose Calcium Phosphorus Magnesium AST Lactate Dehydrogenase Total Creatine Kinase Troponin I High Sens Total Protein Albumin Urine Protein Urine Blood Urine RBC U Random Total Protein Protein/Creatinin Ratio Nasal S. aureus Screen Total Lymphocytes Absolute CD3 Count % CD4 Cells Absolute CD4 Count CD4/CD8 Ratio % CD8 Cells Absolute CD8 Count T.pallidum Ab (EIA) HIV-1 RNA copies/mL HIV-1 RNA logcopies/mL Pneumocyst jirovecii PCR Microbiology: Microbiology 12/10/23 02:04 Blood - Venous Blood Culture - Final No growth after 5 days. 12/10/23 02:04 Blood - Venous Blood Culture - Final No growth after 5 days. 12/09/23 20:11 Blood - Venous Blood Culture - Final No growth after 5 days. 12/09/23 19:51 Blood - Venous Blood Culture - Final No growth after 5 days. 12/10/23 10:10 Sputum - Expectorated Gram Stain - Final 12/10/23 10:10 Sputum - Expectorated Sputum Culture - Final Assessment and Plan (1) PCP (pneumocystis jiroveci pneumonia): Status: Acute (2) Acute hypoxemic respiratory failure: Status: Acute (3) Pulmonary edema: Status: Acute Plan Impression: 43-year-old gentleman with AIDS admitted with PCP pneumonia now on IV back and HAART, also with significant volume overload, now requiring high- flow nasal cannula to maintain normal oximetry. Recommendations: Agree with IV Bactrim for treatment of PCP and azithromycin prophylaxis for MAC. Suggest albumin augmented diuresis for pulmonary edema. Procedures Date of Service Date of Service: 12/16/23
[2023-12-16 11:13] LABS: ABG Refer to POC result
--- NOTE | 2023-12-16 11:46 | MHC.CLN ---
F/U PT IS MODERATELY MALNOURISHED SEE CLINICAL ASSESSMENT DATED 12/11/23 PO INTAKE 100% X4 MEALS DIET RX: REGULAR-APPROPRIATE RECEIVING MAGIC CUP AND ENSURE MAX BID TO INCREASE KCALS MONITOR PO INTAKE AND ENCOURAGE SUPPLEMENTS
[2023-12-16] MEDS: Azithromycin 250 MG TABLET PO (14:19)
[2023-12-16 14:24] LABS: CMV DNA PCR Qn Source NOT GIVEN; CMV DNA Qn PCR NOT DETECTED Log IU/mL (NOT DETECTED); CMV DNA Qn Real Time PCR NOT DETECTED (NOT DETECTED)
--- NOTE | 2023-12-16 15:17 | P.PNID_ITS ---
Subjective Subjective Date of Service: 12/16/23 Critical Care Time (minutes): 15 Comment: He still has severe shortness of breath and remains on HFNC. CD4 count is undetectable. He has been getting fluid with antibiotics and Dr Atkins of Pulmonary recommended diuresis which is being done. He has some mild abdominal discomfort as well. Objective Data Labs 12/15/23 07:08 12/15/23 07:08 Labs: Laboratory Results - last 24 hr 12/10/23 12/11/23 12/14/23 10:10 01:00 17:23 O2 Saturation ABG pH at Pt Temp ABG pCO2 at Pt Temp ABG pO2 at Pt Temp ABG HCO3 ABG Base Excess (Actual) CMV Specimen Source NOT GIVEN CMV Qnt PCR IU/mL NOT DETECTED CMV Qnt PCR log IU/mL NOT DETECTED Ur L.pneumophila Ag Not Detected Pneumocystis Source SPUTUM Pneumocyst jirovecii PCR DETECTED A 12/16/23 09:19 O2 Saturation 91.0 ABG pH at Pt Temp 7.52 H ABG pCO2 at Pt Temp 25 L ABG pO2 at Pt Temp 65 L ABG HCO3 20 L ABG Base Excess (Actual) -0.8 CMV Specimen Source CMV Qnt PCR IU/mL CMV Qnt PCR log IU/mL Ur L.pneumophila Ag Pneumocystis Source Pneumocyst jirovecii PCR Microbiology Microbiology Results: Microbiology 12/10/23 02:04 Blood - Venous Blood Culture - Final No growth after 5 days. 12/10/23 02:04 Blood - Venous Blood Culture - Final No growth after 5 days. 12/09/23 20:11 Blood - Venous Blood Culture - Final No growth after 5 days. 12/09/23 19:51 Blood - Venous Blood Culture - Final No growth after 5 days. 12/10/23 10:10 Sputum - Expectorated Gram Stain - Final 12/10/23 10:10 Sputum - Expectorated Sputum Culture - Final Physical Exam 2 Vital Signs: Vital Signs: Last Vital Signs Temp 98.1 F 12/16/23 11:23 Pulse 90 12/16/23 11:23 Resp 16 12/16/23 14:11 BP 115/61 12/16/23 11:23 Pulse Ox 92 12/16/23 11:23 O2 Del Method High Flow Nasal C annula 12/16/23 11:23 O2 Flow Rate 55 12/16/23 11:23 FiO2 79 12/16/23 11:23 Oxygen Flow Rate 15 12/09/23 19:34 BMI result Body Mass Index 20.5 Const: General: cooperative HEENT: Head: Yes normal to inspection Mouth: Normal oral and palatal mucosa present Resp: Effort & Inspection: abnormal respiratory pattern Cardio: Rate: regular rate Rhythm: regular rhythm GI: Inspection: Yes normal to inspection Assessment and Plan Assessment and plan (1) Pulmonary edema: Problem details: He has still shortness of breath. There could be volume overload/cardiomyopathy. Also started on ganciclovir two days ago ?CMV PJP proven now and toxoplasmosis and Legionella negative. He probably has some IRIS,TB Tspot negative. AIDS by CD4 count undetectable. Status: Acute Assessment and Plan: Can switch Bactrim to oral, 2 DS bid. Check echo and for clots check leg u/s. Zithromax changed to po 250 daily. Stop Cefepime Continue steroids and watch for ulcers on steroids with abdominal discomfort and continue PPIs. (2) PCP (pneumocystis jiroveci pneumonia): Status: Acute (3) Acute hypoxemic respiratory failure: Status: Acute Time Spent With Patient Time: Total time managing care of this patient today ____ minutes.
--- NOTE | 2023-12-16 15:49 | MHC.CM.PN ---
EMR REVIEWED, PT REMAINS ON HI FLOW O2, CM AWAITING MESSAGE FROM FS WHO REPORT THEY WILL CONTACT CM WHEN PT'S MH IS ACTIVE, CM WILL CONT TO FOLLOW DC NEEDS.
[2023-12-16 18:43] LABS: Anion Gap 15 (12-20); Blood Urea Nitrogen 21 mg/dL (9-16); Calcium 8.5 mg/dL (8.4-10.2); Carbon Dioxide 21 mmol/L (22-29); Chloride 101 mmol/L (96-108); Creatinine Clr Calc Pharmacy 106.5; Estimated Glomerular Filt Rate > 60; Glucose Random 135 mg/dL (60-115); Potassium 4.6 mmol/L (3.3-5.1); Sodium 132 mmol/L (135-145)
[2023-12-16] MEDS: Fluconazole 100 MG TABLET PO (21:40)
[2023-12-17] VITALS (12 sets, daily range): BP systolic 104–118; BP diastolic 51–74; PULSE 79–109; RESP 17–28; TEMP 36.2–36.8; O2SAT 92–98
[2023-12-17] MEDS: HYDROmorphone HCl 0.5 MG/0.5 ML SYRINGE IVPUSH ×5 (01:13→20:44)
[2023-12-17] MEDS: Sulfamethoxazole/Trimethoprim 320 MG in Dextrose 5 % 500 ML 225 MG IV ×2 (03:54→08:53)
[2023-12-17] MEDS: Albumin Human 25 % 100 ML IV (03:55)
[2023-12-17] MEDS: diazePAM 10 MG/2 ML CARTRIDGE 2.5 MG IVPUSH ×3 (05:08→22:24)
[2023-12-17] MEDS: Omeprazole 20 MG CAPSULE.DR PO (06:16)
[2023-12-17 07:13] LABS: Anion Gap 13 (12-20); Blood Urea Nitrogen 19 mg/dL (9-16); Calcium 8.6 mg/dL (8.4-10.2); Carbon Dioxide 22 mmol/L (22-29); Chloride 102 mmol/L (96-108); Creatinine Clr Calc Pharmacy 125.6; Estimated Glomerular Filt Rate > 60; Glucose Random 84 mg/dL (60-115); Potassium 4.9 mmol/L (3.3-5.1); Sodium 132 mmol/L (135-145)
[2023-12-17] MEDS: predniSONE 20 MG TABLET 40 MG PO (08:47)
[2023-12-17] MEDS: Enoxaparin Sodium 40 MG/0.4 ML SYRINGE SUBCUT (08:47)
[2023-12-17] MEDS: Furosemide 20 MG/2 ML VIAL IVPUSH ×2 (08:47→16:33)
[2023-12-17] MEDS: Bictegrav/Emtricit/Tenofov Ala TABLET 1 TAB PO (08:47)
[2023-12-17] MEDS: 0.9 % Sodium Chloride Flush 3 ML SYRINGE IVFLUSH ×3 (08:47→20:44)
--- NOTE | 2023-12-17 09:15 | HO.PM.IMPN ---
Subjective Subjective Date of Service: 12/17/23 Interval History: f/u on acute hypoxic resp failure with HIV/AIDS complex, remains on high flow, anxious Physical Exam Vital Signs: Vital Signs: Last Vital Signs Temp 98.0 F 12/17/23 07:07 Pulse 97 12/17/23 07:07 Resp 26 H 12/17/23 08:16 BP 115/74 12/17/23 07:07 Pulse Ox 93 12/17/23 07:07 O2 Del Method High Flow Nasal C annula 12/17/23 07:07 O2 Flow Rate 50 12/17/23 07:07 FiO2 73 12/17/23 07:07 Oxygen Flow Rate 15 12/09/23 19:34 BMI result Body Mass Index 20.5 Gen: in repsiratory distress. malnourished, ill-appearing, anxious Lungs: fine inspiratory crackles throughout unchanged Heart: regular rate and rhythm, no murmurs Abd: soft, non-tender, non-distended Ext: no edema Skin: warm/well-perfused, multiple psoriatic plaques Neuro: alert and oriented x3, no focal findings Psych: appropriate affect other than anxiety Objective Data Active Medications Acetaminophen (Acetaminophen 325 Mg Tablet) 975 mg PO Q8H PRN PRN Reason: Fever >100.4 Last Admin: 12/14/23 08:22 Dose: 975 mg Documented By: ANDRIA Azithromycin (Azithromycin 250 Mg Tablet) 250 mg PO Q24H [facility] Last Admin: 12/16/23 14:19 Dose: 250 mg Documented By: SOFFAAzalia Bictegravir/Emtricitabine/Tenofovir (Bictegrav/Emtricit/Tenofov Ala Tablet) 1 tab PO DAILY [facility] Last Admin: 12/17/23 08:47 Dose: 1 tab Documented By: ERNESTO Diazepam (Diazepam 10 Mg/2 Ml Cartridge) 2.5 mg IVPUSH Q6H PRN PRN Reason: anxiety/restlessness Last Admin: 12/17/23 05:08 Dose: 2.5 mg Documented By: RUTHANN Enoxaparin Sodium (Enoxaparin Sodium 40 Mg/0.4 Ml Syringe) 40 mg SUBCUT Q24H [facility] Last Admin: 12/17/23 08:47 Dose: 40 mg Documented By: ERNESTO Fluconazole (Fluconazole 100 Mg Tablet) 100 mg PO Q24H [facility] Stop: 12/20/23 21:59 Last Admin: 12/16/23 21:40 Dose: 100 mg Documented By: RUTHANN Furosemide (Furosemide 20 Mg/2 Ml Vial) 20 mg IVPUSH BID@0900,1800 [facility]; Protocol Last Admin: 12/17/23 08:47 Dose: 20 mg Documented By: ERNESTO Hydromorphone HCl (Hydromorphone Hcl 0.5 Mg/0.5 Ml Syringe) 0.5 mg IVPUSH Q4H PRN; Protocol PRN Reason: Pain, Mild (Pain Scale 1-3) Last Admin: 12/17/23 08:48 Dose: 0.5 mg Documented By: ERNESTO Trimethoprim/Sulfamethoxazole (320 mg/ Dextrose) 520 mls @ 225 mls/hr IV Q6H [facility] Last Admin: 12/17/23 08:53 Dose: 225 mls/hr Documented By: ERNESTO Ganciclovir Sodium 375 mg/ (Sodium Chloride) 107.5 mls @ 107.5 mls/hr IV Q12H [facility] Last Infusion: 12/17/23 06:43 Dose: Infused Documented By: RUTHANN Omeprazole (Omeprazole 20 Mg Capsule.Dr) 20 mg PO DAILY@0630 [facility] Last Admin: 12/17/23 06:16 Dose: 20 mg Documented By: RUTHANN Ondansetron HCl (Ondansetron Hcl 4 Mg/2 Ml Vial) 4 mg IVPUSH Q8H PRN PRN Reason: Nausea and Vomiting Last Admin: 12/13/23 22:15 Dose: 4 mg Documented By: SHARONA Prednisone (Prednisone 20 Mg Tablet) 40 mg PO DAILY [facility] Stop: 12/19/23 09:01 Last Admin: 12/17/23 08:47 Dose: 40 mg Documented By: ERNESTO Prednisone (Prednisone 20 Mg Tablet) 20 mg PO DAILY [facility] Stop: 12/30/23 09:01 Sodium Chloride (0.9 % Sodium Chloride Flush 3 Ml Syringe) 3 ml IVFLUSH QSHIFT [facility] Last Admin: 12/17/23 08:47 Dose: 3 ml Documented By: ERNESTO Labs 12/15/23 07:08 12/17/23 06:10 Labs: Laboratory Results - last 24 hr 01/12/16/23 12/16/23 17:23 09:19 18:06 O2 Saturation 91.0 ABG pH at Pt Temp 7.52 H ABG pCO2 at Pt Temp 25 L ABG pO2 at Pt Temp 65 L ABG HCO3 20 L ABG Base Excess (Actual) -0.8 Anion Gap 15 Estim Creat Clear Calc 106.5 Estimated GFR > 60 Random Glucose 135 H Calcium 8.5 D CMV Specimen Source NOT GIVEN CMV Qnt PCR IU/mL NOT DETECTED CMV Qnt PCR log IU/mL NOT DETECTED 12/17/23 06:10 O2 Saturation ABG pH at Pt Temp ABG pCO2 at Pt Temp ABG pO2 at Pt Temp ABG HCO3 ABG Base Excess (Actual) Anion Gap 13 Estim Creat Clear Calc 125.6 Estimated GFR > 60 Random Glucose 84 Calcium 8.6 CMV Specimen Source CMV Qnt PCR IU/mL CMV Qnt PCR log IU/mL Assessment and Plan (1) PCP (pneumocystis jiroveci pneumonia): Status: Acute Plan 43yo M with HIV diagnosed in 2005 off ART for approximately 3 yr presenting with 2 wk of increasing dyspnea + cough + fever, admitted for hypoxia due to PNA, likely PJP sepsis and acute hypoxic resp failure due to PNA, likely severe Pneumocystis jiroveci?pneumonia (PJP) - ID following - IV TMP-SMX 17.5 mg/kg/d TMP component divided q6h 12/10-12/30, changed to PO 12/16, continue prednisone taper 12/10- - induced sputum for PJP PCR and serum Fungitell pending - bacterial coverage with azithromycin 12/09, changed to PO 250 qd on 12/16, and cefepime 12/09 to 12/16 MRSA swab positive. Blood cultures negative. Legionella Ag negative - 3 induced sputums for AFB pending, T-spot TB negative, DC'd TB isolation on 12/15 - Increasing O2 requirement today, now max on high flow and partial NRB -Plumbing Installer saw on 12/16 with recommendation IV diuretics, + fluid in excess of 8 l -Dilaudid PRN for acute resp distress HIV and AIDS - CD4 < 20, viral load high count 569K - pt states christal CD4 was around 360 and denies hx AIDS-defining illnesses - ARV hx includes Truvada + Norvir-boosed Prezista, then Truvada + Prezcobix, then Biktarvy. No hx of resistance or medication intolerance. Pt stopped taking Biktarvy due to homelessness/loss to follow-up - restarted Biktarvy 12/10 and will monitor for immune reconstitution inflammatory syndrome (IRIS) - records requested from [facility] in [place], [place]. Needs local ID follow-up. 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 recheck as outpt once virally suppressed on ART hx syphilis - previously treated with 3 doses of PCN per pt; RPR pending anemia of chronic disease - monitor blood counts troponin elevation - likely demand from sepsis + ELI; no chest pain/ischemic EKG changes coagulopathy - resolved after vit K repleted compensated cirrhosis - abd US as above. HBV + HCV negative. 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 Quality Stroke Does the patient have a stroke diagnosis?: No VTE Prior VTE?: No VTE Risk Level:: Medical - moderate - high VTE Device Contraindication: Treatment Not Indicated VTE Drug Contraindication: N/A - Med Ordered
[2023-12-17] MEDS: Sulfamethox/Trimeth 800/160 TABLET 2 TAB PO ×2 (09:34→20:44)
[2023-12-17] MEDS: Azithromycin 250 MG TABLET PO (16:33)
[2023-12-17] MEDS: Fluconazole 100 MG TABLET PO (20:44)
[2023-12-18] VITALS (11 sets, daily range): BP systolic 94–109; BP diastolic 54–70; PULSE 72–93; RESP 20–40; TEMP 36.1–36.9; O2SAT 91–98
[2023-12-18] MEDS: HYDROmorphone HCl 0.5 MG/0.5 ML SYRINGE IVPUSH ×6 (00:44→21:16)
[2023-12-18] MEDS: Omeprazole 20 MG CAPSULE.DR PO (05:34)
[2023-12-18] MEDS: diazePAM 10 MG/2 ML CARTRIDGE 2.5 MG IVPUSH ×2 (05:34→11:28)
[2023-12-18] MEDS: Sulfamethox/Trimeth 800/160 TABLET 2 TAB PO ×2 (08:42→21:18)
[2023-12-18] MEDS: Furosemide 20 MG/2 ML VIAL IVPUSH ×2 (08:42→17:13)
[2023-12-18] MEDS: predniSONE 20 MG TABLET 40 MG PO (08:42)
[2023-12-18] MEDS: Bictegrav/Emtricit/Tenofov Ala TABLET 1 TAB PO (08:43)
[2023-12-18] MEDS: Enoxaparin Sodium 40 MG/0.4 ML SYRINGE SUBCUT (08:43)
[2023-12-18] MEDS: 0.9 % Sodium Chloride Flush 3 ML SYRINGE IVFLUSH ×2 (08:43→17:13)
[2023-12-18 10:19] LABS: Basophils Percent Auto 0.2 % (0-2); Eosinophils Absolute Auto 0.3 X10*3/uL (0.0-0.4); Eosinophils Percent Auto 2.3 % (0-4); Hematocrit 32.2 % (42.0-52.0); Hemoglobin 10.6 g/dl (14.0-18.0); Imm Gran Abs Auto 0.33 X10*3/uL (0.00-0.03); Imm Gran Pct Auto 2.5 % (0.0-0.4); Lymphocytes Absolute Auto 0.3 X10*3/uL (1.2-4.9); Lymphocytes Percent Auto 2.1 % (20-40); MANUAL DIFF FLAG SCAN; Mean Corpuscular HGB Conc 32.9 g/dl (31.0-36.0); Mean Corpuscular Hemoglobin 29.2 pg (27.0-33.0); Mean Corpuscular Volume 88.7 fL (80.0-98.0); Mean Platelet Volume 10.7 fL (9.4-12.4); Monocytes Absolute Auto 0.2 X10*3/uL (0.1-1.2); Monocytes Percent Auto 1.5 % (2-11); Neutrophils Absolute Auto 11.8 x10*3/uL (2.0-8.3); Neutrophils Percent Auto 91.4 % (45-73); Platelet Count 258 X10*3/uL (160-400); Red Blood Count 3.63 X10*6/uL (4.60-5.80); Red Cell Distribution Width 15.2 % (11.0-16.0); SCAN SMEAR FLAG 1
[2023-12-18 10:21] LABS: VBG Base Excess 0.7 mmol/L; VBG HCO3 21 mmol/L (22-26); VBG pCO2 24 mmHg; VBG pH 7.55 (7.32-7.43); VBG pO2 71 mmHg
[2023-12-18 10:21] LABS: Venous Blood Gas Refer to POC result
[2023-12-18 10:45] LABS: Anion Gap 17 (12-20); Blood Urea Nitrogen 32 mg/dL (9-16); Calcium 9.4 mg/dL (8.4-10.2); Carbon Dioxide 21 mmol/L (22-29); Chloride 97 mmol/L (96-108); Creatinine Clr Calc Pharmacy 116.7; Estimated Glomerular Filt Rate > 60; Glucose Random 131 mg/dL (60-115); Magnesium 1.4 mg/dL (1.6-2.6); Sodium 130 mmol/L (135-145)
--- NOTE | 2023-12-18 10:54 | P.PNPL_ITS ---
Subjective Subjective Date of Service: 12/18/23 Principal diagnosis: AIDS, PCP Interval history: After starting with diuresis diuresed approximately 4.5 L, some improvement in dyspnea, however still significantly symptomatic. Objective Data Labs 12/15/23 07:08 12/18/23 10:12 Labs: Laboratory Results - last 24 hr 12/18/23 12/18/23 10:12 10:15 VBG pH 7.55 H VBG pCO2 24 VBG pO2 71 VBG HCO3 21 L VBG O2 Saturation 94.0 VBG Base Excess 0.7 Sodium 130 L Potassium 5.0 Chloride 97 Carbon Dioxide 21 L Anion Gap 17 BUN 32 H Creatinine 0.84 Estim Creat Clear Calc 116.7 Estimated GFR > 60 Random Glucose 131 H Calcium 9.4 D Magnesium 1.4 L* Microbiology Microbiology Results: Microbiology 12/10/23 02:04 Blood - Venous Blood Culture - Final No growth after 5 days. 12/10/23 02:04 Blood - Venous Blood Culture - Final No growth after 5 days. 12/09/23 20:11 Blood - Venous Blood Culture - Final No growth after 5 days. 12/09/23 19:51 Blood - Venous Blood Culture - Final No growth after 5 days. 12/10/23 10:10 Sputum - Expectorated Gram Stain - Final 12/10/23 10:10 Sputum - Expectorated Sputum Culture - Final Review of Systems Cardiovascular: Reports dyspnea Respiratory: Reports dyspnea Physical Exam 2 Vital Signs: Vital Signs: Last Vital Signs Temp 97 F 12/18/23 07:32 Pulse 85 12/18/23 07:32 Resp 20 12/18/23 08:05 BP 94/54 L 12/18/23 07:32 Pulse Ox 95 12/18/23 07:32 O2 Del Method High Flow Nasal C annula 12/18/23 07:32 O2 Flow Rate 55 12/18/23 07:32 FiO2 90.5 12/18/23 07:32 Oxygen Flow Rate 15 12/09/23 19:34 BMI result Body Mass Index 20.5 Const: General: no acute distress, alert and awake Eyes: Sclerae: sclerae normal EOM: EOMs intact bilaterally Neck: Neck: Yes no lymphadenopathy, Yes trachea midline and Yes supple Resp: Effort & Inspection: tachypneic Auscultation: crackles bilateral Cardio: Rate: regular rate Rhythm: regular rhythm Heart sounds: no gallops, no murmurs and no rubs GI: Palpation (GI): Soft to palpation and Other GI palpation findings present ( Nontender) Auscultation: normal bowel sounds Extrem: General: Yes no pedal edema, No clubbing, No cyanosis and Yes edema (trace bilateral) Procedures Date of Service Date of Service: 12/18/23 Assessment and Plan Assessment and plan (1) Acute hypoxemic respiratory failure: Status: Acute (2) PCP (pneumocystis jiroveci pneumonia): Status: Acute (3) Pulmonary edema: Status: Acute Plan Impression: 43-year-old gentleman with AIDS admitted with PCP pneumonia now on IV back and HAART, also with significant volume overload, now requiring high- flow nasal cannula to maintain normal oximetry. Improving with diuresis. Recommendations: Agree with continuation of IV Bactrim for treatment of PCP and azithromycin prophylaxis for MAC. Continue albumin augmented diuresis for pulmonary edema. Time Spent With Patient Time: Total time managing care of this patient today ____ minutes. Progress Note: Quality Stroke Does the patient have a stroke diagnosis?: No
[2023-12-18 10:55] LABS: SLIDE REVIEW VERIFIED
[2023-12-18] MEDS: Magnesium Sulfate/H2O 2 GM/50 ML PIGGYBACK IV (11:35)
[2023-12-18] MEDS: Albumin Human 25 % 100 ML IV ×2 (11:39→17:18)
--- NOTE | 2023-12-18 13:31 | MHC.CLN ---
F/U PO INTAKE 100% DIET RX: REGULAR-APPROPRIATE RECEIVING MAGIC CUP AND ENSURE MAX BID TO INCREASE KCALS MONITOR PO INTAKE AND ENCOURAGE SUPPLEMENTS MONITOR WEIGHT CLOSELY
[2023-12-18 15:19] LABS: RPR Quantitative Reactive 1:8 (Nonreactive); T.Pallidum Particle Agg Test Reactive (Nonreactive)
[2023-12-18] MEDS: Azithromycin 250 MG TABLET PO (17:12)
[2023-12-18] MEDS: Acetaminophen 325 MG TABLET 975 MG PO (21:16)
[2023-12-18] MEDS: Fluconazole 100 MG TABLET PO (21:18)
[2023-12-19] VITALS (22 sets, daily range): BP systolic 106–127; BP diastolic 57–84; PULSE 77–125; RESP 19–35; TEMP 36.2–37.2; O2SAT 89–100
[2023-12-19] MEDS: 0.9 % Sodium Chloride Flush 3 ML SYRINGE IVFLUSH ×4 (01:15→21:09)
[2023-12-19] MEDS: Albumin Human 25 % 100 ML IV ×2 (01:15→06:36)
[2023-12-19] MEDS: HYDROmorphone HCl 0.5 MG/0.5 ML SYRINGE IVPUSH ×6 (01:58→22:32)
[2023-12-19] MEDS: Omeprazole 20 MG CAPSULE.DR PO (06:37)
[2023-12-19 09:25] LABS: Anion Gap 18 (12-20); Blood Urea Nitrogen 39 mg/dL (9-16); Calcium 10.2 mg/dL (8.4-10.2); Carbon Dioxide 22 mmol/L (22-29); Chloride 97 mmol/L (96-108); Estimated Glomerular Filt Rate > 60; Glucose Random 75 mg/dL (60-115); Potassium 5.3 mmol/L (3.3-5.1); Sodium 132 mmol/L (135-145)
[2023-12-19] MEDS: Sulfamethox/Trimeth 800/160 TABLET 2 TAB PO ×2 (09:51→21:09)
[2023-12-19] MEDS: Furosemide 20 MG/2 ML VIAL IVPUSH ×2 (09:51→18:20)
[2023-12-19] MEDS: predniSONE 20 MG TABLET 40 MG PO (09:51)
[2023-12-19] MEDS: Bictegrav/Emtricit/Tenofov Ala TABLET 1 TAB PO (09:51)
[2023-12-19] MEDS: diazePAM 10 MG/2 ML CARTRIDGE 2.5 MG IVPUSH ×2 (09:53→11:31)
[2023-12-19] MEDS: Enoxaparin Sodium 40 MG/0.4 ML SYRINGE SUBCUT (09:56)
--- NOTE | 2023-12-19 11:05 | P.PNPL_ITS ---
Subjective Subjective Date of Service: 12/19/23 Principal diagnosis: AIDS, PCP Interval history: Still with significant hypoxia and dyspnea. Objective Data Labs 12/18/23 10:11 12/19/23 08:58 Labs: Laboratory Results - last 24 hr 12/11/23 12/19/23 07:30 08:58 Sodium 132 L Potassium 5.3 H Chloride 97 Carbon Dioxide 22 Anion Gap 18 BUN 39 H Creatinine 0.79 Estim Creat Clear Calc 124.0 Estimated GFR > 60 Random Glucose 75 Calcium 10.2 D RPR Reactive 1:8 H T.pallidum Particle Agg Reactive H Microbiology Microbiology Results: Microbiology 12/10/23 14:48 Sputum - Expectorated Direct Acid Fast Bacilli Smear - Final 12/10/23 14:29 Sputum - Expectorated Direct Acid Fast Bacilli Smear - Final 12/10/23 10:10 Sputum - Expectorated Direct Acid Fast Bacilli Smear - Final 12/10/23 02:04 Blood - Venous Blood Culture - Final No growth after 5 days. 12/10/23 02:04 Blood - Venous Blood Culture - Final No growth after 5 days. 12/09/23 20:11 Blood - Venous Blood Culture - Final No growth after 5 days. 12/09/23 19:51 Blood - Venous Blood Culture - Final No growth after 5 days. 12/10/23 10:10 Sputum - Expectorated Gram Stain - Final 12/10/23 10:10 Sputum - Expectorated Sputum Culture - Final Review of Systems Cardiovascular: Denies chest pain and Reports dyspnea Respiratory: Denies cough, Reports dyspnea and Denies wheezing Allergic/Immunologic: Denies wheezing Physical Exam 2 Vital Signs: Vital Signs: Last Vital Signs Temp 97.1 F 12/19/23 07:26 Pulse 88 12/19/23 07:26 Resp 24 H 12/19/23 10:50 BP 115/59 L 12/19/23 07:26 Pulse Ox 98 12/19/23 07:26 O2 Del Method High Flow Nasal C annula 12/19/23 07:26 O2 Flow Rate 55 12/19/23 07:26 FiO2 89 12/19/23 07:26 Oxygen Flow Rate 15 12/09/23 19:34 BMI result Body Mass Index 20.5 Const: General: alert, awake and ill appearing Eyes: Sclerae: sclerae normal EOM: EOMs intact bilaterally Neck: Neck: Yes no lymphadenopathy, Yes trachea midline and Yes supple Resp: Effort & Inspection: tachypneic Auscultation: crackles bilateral Cardio: Rate: regular rate Rhythm: regular rhythm Heart sounds: no gallops, no murmurs and no rubs GI: Palpation (GI): Soft to palpation and Other GI palpation findings present ( Nontender) Auscultation: normal bowel sounds Extrem: General: Yes no pedal edema, No clubbing and No cyanosis Procedures Date of Service Date of Service: 12/19/23 Assessment and Plan Assessment and plan (1) Pulmonary edema: Status: Acute (2) PCP (pneumocystis jiroveci pneumonia): Status: Acute (3) Acute hypoxemic respiratory failure: Status: Acute (4) AIDS: Status: Acute Plan Impression: 43-year-old gentleman with AIDS admitted with PCP pneumonia now on IV back and HAART, also with significant volume overload, now requiring high- flow nasal cannula to maintain normal oximetry. Minimal symptomatic improvement despite significant diuresis. Recommendations: Agree with continuation of IV Bactrim for treatment of PCP and azithromycin prophylaxis for MAC. Will obtain CT chest for further evaluation. Time Spent With Patient Time: Total time managing care of this patient today ____ minutes. Progress Note: Quality Stroke Does the patient have a stroke diagnosis?: No
--- NOTE | 2023-12-19 11:37 | PC.NURSE ---
patient desatted to 82% on highflow NC. RT and MD were called to bedside and pt was placed on non-rebreather to be transferred down to CT. Pt began to desat after a few minutes off of high flow and RT was again called to bedside and patient was placed on bipap to be transferred. AFter a few minutes on BIPAP, pt began to become anxious and would no longer tolerate the Bipap machine. He was then placed back on highflow NC and CT was postponed. PT now satting 98% on high flow. MD notified
--- NOTE | 2023-12-19 12:20 | HO.PM.IMPN ---
Subjective Subjective Date of Service: 12/19/23 Interval History: He has has peristent hypoxia that seems to be worsening, we were attempted to eval with CT but could not be temporarly be put on NRB or BiPAP Physical Exam Vital Signs: Vital Signs: Last Vital Signs Temp 98.9 F 12/19/23 11:16 Pulse 120 H 12/19/23 11:16 Resp 20 12/19/23 11:16 BP 124/84 12/19/23 11:16 Pulse Ox 89 L 12/19/23 11:16 O2 Del Method Non-Rebreather Ma sk 12/19/23 11:16 O2 Flow Rate 55 12/19/23 07:26 FiO2 100 12/19/23 11:16 Oxygen Flow Rate 15 12/09/23 19:34 BMI result Body Mass Index 20.5 Gen: in repsiratory distress. malnourished, ill-appearing, anxious Lungs: fine inspiratory crackles throughout unchanged Heart: regular rate and rhythm, no murmurs Abd: soft, non-tender, non-distended Ext: no edema Skin: warm/well-perfused, multiple psoriatic plaques Neuro: alert and oriented x3, no focal findings Psych: appropriate affect other than anxiety Objective Data Active Medications Acetaminophen (Acetaminophen 325 Mg Tablet) 975 mg PO Q8H PRN PRN Reason: Fever >100.4 Last Admin: 12/18/23 21:16 Dose: 975 mg Documented By: JACQUELIN Azithromycin (Azithromycin 250 Mg Tablet) 250 mg PO Q24H [facility] Last Admin: 12/18/23 17:12 Dose: 250 mg Documented By: ERNESTO Bictegravir/Emtricitabine/Tenofovir (Bictegrav/Emtricit/Tenofov Ala Tablet) 1 tab PO DAILY [facility] Last Admin: 12/19/23 09:51 Dose: 1 tab Documented By: LIANA Diazepam (Diazepam 10 Mg/2 Ml Cartridge) 2.5 mg IVPUSH Q6H PRN PRN Reason: anxiety/restlessness Last Admin: 12/19/23 09:53 Dose: 2.5 mg Documented By: LIANA Enoxaparin Sodium (Enoxaparin Sodium 40 Mg/0.4 Ml Syringe) 40 mg SUBCUT Q24H [facility] Last Admin: 12/19/23 09:56 Dose: 40 mg Documented By: LIANA Fluconazole (Fluconazole 100 Mg Tablet) 100 mg PO Q24H [facility] Stop: 12/20/23 21:59 Last Admin: 12/18/23 21:18 Dose: 100 mg Documented By: JACQUELIN Furosemide (Furosemide 20 Mg/2 Ml Vial) 20 mg IVPUSH BID@0900,1800 [facility]; Protocol Last Admin: 12/19/23 09:51 Dose: 20 mg Documented By: LIANA Hydromorphone HCl (Hydromorphone Hcl 0.5 Mg/0.5 Ml Syringe) 0.5 mg IVPUSH Q4H PRN; Protocol PRN Reason: Pain, Mild (Pain Scale 1-3) Last Admin: 12/19/23 06:34 Dose: 0.5 mg Documented By: JACQUELIN Omeprazole (Omeprazole 20 Mg Capsule.Dr) 20 mg PO DAILY@0630 [facility] Last Admin: 12/19/23 06:37 Dose: 20 mg Documented By: JACQUELIN Ondansetron HCl (Ondansetron Hcl 4 Mg/2 Ml Vial) 4 mg IVPUSH Q8H PRN PRN Reason: Nausea and Vomiting Last Admin: 12/13/23 22:15 Dose: 4 mg Documented By: SHARONA Prednisone (Prednisone 20 Mg Tablet) 20 mg PO DAILY [facility] Stop: 12/30/23 09:01 Sodium Chloride (0.9 % Sodium Chloride Flush 3 Ml Syringe) 3 ml IVFLUSH QSHIFT [facility] Last Admin: 12/19/23 09:53 Dose: 3 ml Documented By: LIANA Trimethoprim/Sulfamethoxazole (Sulfamethox/Trimeth 800/160 Tablet) 2 tab PO BID [facility] Last Admin: 12/19/23 09:51 Dose: 2 tab Documented By: LIANA Labs 12/18/23 10:11 12/19/23 08:58 Labs: Laboratory Results - last 24 hr 12/11/23 12/19/23 07:30 08:58 Anion Gap 18 Estim Creat Clear Calc 124.0 Estimated GFR > 60 Random Glucose 75 Calcium 10.2 D RPR Reactive 1:8 H T.pallidum Particle Agg Reactive H Microbiology Microbiology Results: Microbiology 12/10/23 14:48 Direct Acid Fast Bacilli Smear - Final Sputum - Expectorated 12/10/23 14:29 Direct Acid Fast Bacilli Smear - Final Sputum - Expectorated 12/10/23 10:10 Direct Acid Fast Bacilli Smear - Final Sputum - Expectorated Assessment and Plan (1) PCP (pneumocystis jiroveci pneumonia): Status: Acute Plan 43yo M with HIV diagnosed in 2005 off STEELE for approximately 3 yr presented with 2 wk sof increasing dyspnea + cough + fever, admitted for hypoxia due to sepsis/PNA, high concernfor PJP sepsis, acute hypoxic resp failure due to PNA, likely severe Pneumocystis jiroveci?pneumonia (PJP) in setting HIV/AIDS - IV TMP-SMX 17.5 mg/kg/d TMP divided q6h started on 12/10 changed to PO Bactrim DS 2tabs bid on 12/16, continue prednisone taper 12/10- - PJP PCR is positive - bacterial coverage with azithromycin 12/09, changed to PO 250 qd on 12/16, and cefepime 12/09 to 12/16 then stopped. MRSA swab positive. Blood cultures negative. Legionella Ag negative - 3 induced sputums for AFB pending, T-spot TB negative, DC'd TB isolation on 12/15 - Persistent Hypoxia now max on high flow and partial NR -Dilaudid PRN for acute resp distress -ID and Pulmonology following -12/19/23, Increasing HypOxia, CT requested but not able to tolerate BiPAP or NRB, and given worsening hypoxia will be transfered to ICU for HIV and AIDS, CD4 < 20, viral load 569K copies - ARV hx includes Truvada + Norvir-boosed Prezista, then Truvada + Prezcobix, then Biktarvy. No hx of resistance or medication intolerance. Pt stopped taking Biktarvy due to homelessness/loss to follow-up - restarted Biktarvy 12/10 and will monitor for immune reconstitution inflammatory syndrome (IRIS) - records requested from [facility] in [place], [place]. Needs local ID follow-up. thrush and likely candidal esophagitis - fluconazole 12/10-12/19, changed to PO 12/14 and nearly resolved. 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 recheck as outpt once virally suppressed on ART hx syphilis - previously treated with 3 doses of PCN per pt; RPR ist still positive, will check with ID about further treatment anemia of chronic disease - monitor blood counts troponin elevation - likely demand from sepsis + ELI; no chest pain/ischemic EKG changes coagulopathy - resolved after vit K repleted compensated cirrhosis - abd US as above. HBV + HCV negative. 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 Atkins and will be transfered to the ICU Total time managing care of this patient today: 50 minutes. Quality Stroke Does the patient have a stroke diagnosis?: No VTE Prior VTE?: No VTE Risk Level:: Medical - moderate - high VTE Device Contraindication: Treatment Not Indicated VTE Drug Contraindication: N/A - Med Ordered
--- NOTE | 2023-12-19 12:31 | PM.CCN ---
Critical Care Event Note Summary Date of Service: 12/19/23 Code activated: No Narrative: 43-year-old with AIDS admitted with acute hypoxic respiratory failure secondary to PCP pneumonia/pulmonary edema now with worsening hypoxemia requiring maximum settings on high-flow nasal cannula being transferred to intensive care unit for close monitoring and further care. Critical Care Time (minutes): 0
[2023-12-19 12:43] LABS: Magnesium 1.9 mg/dL (1.6-2.6)
[2023-12-19 13:15] LABS: Venous Blood Gas Refer to POC result
[2023-12-19 13:17] LABS: VBG Base Excess 3.3 mmol/L; VBG HCO3 24 mmol/L (22-26); VBG pCO2 26 mmHg; VBG pH 7.56 (7.32-7.43); VBG pO2 192 mmHg
[2023-12-19 13:25] LABS: Lactate Dehydrogenase 333 U/L (118-273)
[2023-12-19] MEDS: Azithromycin 250 MG TABLET PO (16:23)
--- NOTE | 2023-12-19 18:31 | PC.NURSE ---
Assumed care of patient 14:40. Pt transferred from [facility] to ICU. Pt unable to tolerate Chest CT at 14:40 at time of transfer. Pt mildly anxious, orthopnea, accessory muscle use on HFNC 55L 100% during transport. Pt settled in ICU. Pt provided bed bath on arrival. Blanchable redness to coccyx, psoriasis rash to b/l arms and b/l legs. Continued PO Zithro COMPA. PRN dilaudid IVP given for pleuritic pain 07/09. 17:[address] w/o contrast. Pt states he does not want to go, feels nervous. Pt states he does not want to take prn Valium IVP for anxiety because it makes me feel sick and feel funny. Pt A+Ox4. 18:00 Pt given COMPA IVP lasix 20 mg. Pt work of breath at rest has improved since assuming care of patient. This information passed on in RN to RN report.
[2023-12-19] MEDS: Fluconazole 100 MG TABLET PO (21:09)
[2023-12-20] VITALS (32 sets, daily range): BP systolic 97–122; BP diastolic 54–76; PULSE 90–120; RESP 19–97; TEMP 36.4–36.7; O2SAT 90–100; BMI 20.4
[2023-12-20] MEDS: HYDROmorphone HCl 0.5 MG/0.5 ML SYRINGE IVPUSH ×7 (04:03→23:37)
[2023-12-20 05:25] LABS: MANUAL DIFF FLAG NO
[2023-12-20 05:27] LABS: Basophils Percent Auto 0.2 % (0-2); Eosinophils Absolute Auto 0.3 X10*3/uL (0.0-0.4); Eosinophils Percent Auto 2.4 % (0-4); Hematocrit 27.7 % (42.0-52.0); Hemoglobin 9.3 g/dl (14.0-18.0); Imm Gran Abs Auto 0.41 X10*3/uL (0.00-0.03); Imm Gran Pct Auto 2.9 % (0.0-0.4); Lymphocytes Absolute Auto 0.4 X10*3/uL (1.2-4.9); Lymphocytes Percent Auto 2.8 % (20-40); Mean Corpuscular HGB Conc 33.6 g/dl (31.0-36.0); Mean Corpuscular Volume 89.4 fL (80.0-98.0); Mean Platelet Volume 10.6 fL (9.4-12.4); Monocytes Absolute Auto 0.4 X10*3/uL (0.1-1.2); Monocytes Percent Auto 2.5 % (2-11); Neutrophils Absolute Auto 12.7 x10*3/uL (2.0-8.3); Neutrophils Percent Auto 89.2 % (45-73); Platelet Count 221 X10*3/uL (160-400); Red Cell Distribution Width 15.1 % (11.0-16.0); White Blood Count 14.3 X10*3/uL (4.8-10.8)
[2023-12-20 05:32] LABS: VBG Base Excess 3.8 mmol/L; VBG HCO3 26 mmol/L (22-26); VBG pCO2 32 mmHg; VBG pH 7.51 (7.32-7.43); VBG pO2 49 mmHg
[2023-12-20 05:33] LABS: Venous Blood Gas Refer to POC result
[2023-12-20] MEDS: Omeprazole 20 MG CAPSULE.DR PO (05:44)
[2023-12-20 05:49] LABS: Alanine Aminotransferase 29 U/L (0-40); Albumin Level 3.7 g/dL (3.5-5.0); Alkaline Phosphatase 99 U/L (39-117); Anion Gap 14 (12-20); Aspartate Amino Transferase 25 U/L (5-37); Bilirubin Total 0.3 mg/dL (0.0-1.0); Blood Urea Nitrogen 27 mg/dL (9-16); Calcium 9.5 mg/dL (8.4-10.2); Carbon Dioxide 24 mmol/L (22-29); Chloride 94 mmol/L (96-108); Creatinine Clr Calc Pharmacy 116.2; Estimated Glomerular Filt Rate > 60; Glucose Random 98 mg/dL (60-115); Magnesium 1.6 mg/dL (1.6-2.6); Phosphorus 2.8 mg/dL (2.7-4.5); Potassium 4.5 mmol/L (3.3-5.1); Sodium 127 mmol/L (135-145); Total Protein 7.8 g/dL (6.5-8.0)
[2023-12-20] MEDS: Magnesium Sulfate/D5W 1 GM/100 ML PIGGYBACK IV (06:13)
[2023-12-20] MEDS: Furosemide 20 MG/2 ML VIAL IVPUSH ×2 (07:27→17:26)
[2023-12-20] MEDS: Sulfamethox/Trimeth 800/160 TABLET 2 TAB PO (07:27)
[2023-12-20] MEDS: 0.9 % Sodium Chloride Flush 3 ML SYRINGE IVFLUSH ×2 (07:28→22:26)
[2023-12-20] MEDS: predniSONE 20 MG TABLET PO (07:28)
[2023-12-20] MEDS: Bictegrav/Emtricit/Tenofov Ala TABLET 1 TAB PO (10:06)
[2023-12-20] MEDS: Enoxaparin Sodium 40 MG/0.4 ML SYRINGE SUBCUT (10:06)
--- NOTE | 2023-12-20 10:25 | P.PNCC_ITS ---
Subjective Subjective Date of Service: 12/20/23 Interval History: 43-year-old gentleman with underlying AIDS, liver cirrhosis,? Syphilis, 12/09/2023 with dyspnea and acute hypoxic respiratory failure secondary to PCP initially treated with IV Bactrim later transitioned to p.o., however with worsening hypoxia now essentially on maximum high-flow support. Poor response to diuresis. Transferred to intensive care on 12/19/2023. Restarted on IV Bactrim. No events overnight. Critical Care Time (minutes): 60 Physical Exam 2 Vital Signs: Vital Signs: Last Vital Signs Temp 97.7 F 12/20/23 04:00 Pulse 110 H 12/20/23 10:00 Resp 34 H 12/20/23 10:00 BP 97/54 L 12/20/23 10:00 Pulse Ox 96 12/20/23 10:00 O2 Del Method High Flow Nasal C annula 12/20/23 10:00 O2 Flow Rate 55 12/20/23 10:00 FiO2 100 12/20/23 10:00 Oxygen Flow Rate 15 12/09/23 19:34 BMI result Body Mass Index 20.4 Const: General: no acute distress, alert and awake Eyes: Sclerae: sclerae normal EOM: EOMs intact bilaterally Neck: Neck: Yes no lymphadenopathy, Yes trachea midline and Yes supple Resp: Effort & Inspection: no respiratory distress Auscultation: crackles bilateral Cardio: Rate: tachycardic Rhythm: regular rhythm Heart sounds: no gallops, no murmurs and no rubs GI: Palpation (GI): Soft to palpation and Other GI palpation findings present ( Nontender) Auscultation: normal bowel sounds Extrem: General: Yes no pedal edema, No clubbing and No cyanosis Objective Data Labs 12/20/23 05:14 12/20/23 05:14 Labs: Laboratory Results - last 24 hr 12/19/23 12/19/23 12/19/23 08:58 13:06 13:09 WBC RBC Hgb Hct MCV MCH MCHC RDW Plt Count MPV Immature Gran % (Auto) Neut % (Auto) Lymph % (Auto) [place] % (Auto) Eos % (Auto) Baso % (Auto) Lymph # (Auto) [place] # (Auto) Eos # (Auto) Baso # (Auto) Abs Immat Gran (auto) Absolute Neuts (auto) Absolute Nucleated RBC Nucleated RBC % (auto) VBG pH 7.56 H VBG pCO2 26 VBG pO2 192 VBG HCO3 24 VBG O2 Saturation 99.0 VBG Base Excess 3.3 Sodium Potassium Chloride Carbon Dioxide Anion Gap BUN Creatinine Estim Creat Clear Calc Estimated GFR Random Glucose Calcium Phosphorus Magnesium 1.9 Total Bilirubin AST ALT Alkaline Phosphatase Lactate Dehydrogenase 333 H Total Protein Albumin 12/20/23 12/20/23 05:14 05:22 WBC 14.3 H RBC 3.10 L Hgb 9.3 L Hct 27.7 L MCV 89.4 MCH 30.0 MCHC 33.6 RDW 15.1 Plt Count 221 MPV 10.6 Immature Gran % (Auto) 2.9 H Neut % (Auto) 89.2 H Lymph % (Auto) 2.8 L [place] % (Auto) 2.5 Eos % (Auto) 2.4 Baso % (Auto) 0.2 Lymph # (Auto) 0.4 L [place] # (Auto) 0.4 Eos # (Auto) 0.3 Baso # (Auto) 0.0 Abs Immat Gran (auto) 0.41 H Absolute Neuts (auto) 12.7 H Absolute Nucleated RBC 0.000 Nucleated RBC % (auto) 0.0 VBG pH 7.51 H VBG pCO2 32 VBG pO2 49 VBG HCO3 26 VBG O2 Saturation 77.0 VBG Base Excess 3.8 Sodium 127 L Potassium 4.5 Chloride 94 L Carbon Dioxide 24 Anion Gap 14 BUN 27 H Creatinine 0.84 Estim Creat Clear Calc 116.2 Estimated GFR > 60 Random Glucose 98 Calcium 9.5 D Phosphorus 2.8 Magnesium 1.6 Total Bilirubin 0.3 AST 25 ALT 29 Alkaline Phosphatase 99 Lactate Dehydrogenase Total Protein 7.8 Albumin 3.7 Microbiology Microbiology Results: Microbiology 12/10/23 14:48 Sputum - Expectorated Direct Acid Fast Bacilli Smear - Final 12/10/23 14:29 Sputum - Expectorated Direct Acid Fast Bacilli Smear - Final 12/10/23 10:10 Sputum - Expectorated Direct Acid Fast Bacilli Smear - Final 12/10/23 02:04 Blood - Venous Blood Culture - Final No growth after 5 days. 12/10/23 02:04 Blood - Venous Blood Culture - Final No growth after 5 days. 12/09/23 20:11 Blood - Venous Blood Culture - Final No growth after 5 days. 12/09/23 19:51 Blood - Venous Blood Culture - Final No growth after 5 days. 12/10/23 10:10 Sputum - Expectorated Gram Stain - Final 12/10/23 10:10 Sputum - Expectorated Sputum Culture - Final Progress Note: A&P Assessment and plan (1) Pulmonary edema: Status: Acute (2) PCP (pneumocystis jiroveci pneumonia): Status: Acute (3) Acute hypoxemic respiratory failure: Status: Acute (4) AIDS: Status: Acute Plan Assessment: 43-year-old gentleman with AIDS, now acute hypoxic respiratory failure with PCP pneumonia requiring maximum high-flow support Plan: Neuro: No acute issues. Cardiac: No acute issues. Pulmonary: Acute hypoxic respiratory failure secondary to PCP pneumonia with likely contribution of pulmonary edema. Now on high-flow, continue to titrate off as tolerated. Renal: No acute issues. Endo: No acute issues. GI: No acute issues. Underlying cirrhosis with some ascites. Hepatitis negative. ID: IV Bactrim and systemic glucocorticoids for PCP pneumonia, azithromycin prophylaxis for MAC, empiric ceftriaxone,? Amphotericin-B. Continue HAART. Heme/Onc: No acute issues. Psych: No acute issues. Miscellaneous: No acute issues. Prophylaxis: Lovenox Diet: Regular Critical care time spent: 60 minutes Quality Stroke Does the patient have a stroke diagnosis?: No VTE Prior VTE?: No VTE Risk Level:: Medical - moderate - high VTE Device Contraindication: Treatment Not Indicated VTE Drug Contraindication: N/A - Med Ordered
[2023-12-20] MEDS: cefTRIAXone sodium 1 GM in 0.9 % Sodium Chloride 50 ML IV (10:38)
--- NOTE | 2023-12-20 15:14 | PC.NURSE ---
per pharmacy, Ambisome does not scan, as it is a NF medication. OK to override.
[2023-12-20] MEDS: Azithromycin 250 MG TABLET PO (15:52)
--- NOTE | 2023-12-20 19:31 | HE.PHANOTE ---
RE IV SULFAMETH/TMP: SPOKE TO ZENY IN ICU AND HE IS AWARE WE HAVE LOADED BACTRIM VIALS TO ICU PYXIS AND DUE TO 4 HOUR BUD HE WILL HAVE TO MAKE 0500 DOSE ON 12/21 USING D5 500 ML.
[2023-12-21] VITALS (32 sets, daily range): BP systolic 92–124; BP diastolic 48–73; PULSE 85–115; RESP 17–32; TEMP 36.4–37; O2SAT 90–98; BMI 21.3
[2023-12-21] MEDS: HYDROmorphone HCl 0.5 MG/0.5 ML SYRINGE IVPUSH ×7 (02:54→22:04)
[2023-12-21 05:03] LABS: VBG Base Excess 3.4 mmol/L; VBG HCO3 26 mmol/L (22-26); VBG pCO2 36 mmHg; VBG pH 7.47 (7.32-7.43); VBG pO2 46 mmHg; Venous Blood Gas Refer to POC result
[2023-12-21 05:16] LABS: Basophils Percent Auto 0.2 % (0-2); Eosinophils Absolute Auto 0.2 X10*3/uL (0.0-0.4); Eosinophils Percent Auto 1.3 % (0-4); Hematocrit 27.3 % (42.0-52.0); Hemoglobin 9.1 g/dl (14.0-18.0); Imm Gran Abs Auto 0.36 X10*3/uL (0.00-0.03); Imm Gran Pct Auto 2.7 % (0.0-0.4); Lymphocytes Absolute Auto 0.3 X10*3/uL (1.2-4.9); Lymphocytes Percent Auto 2.3 % (20-40); MANUAL DIFF FLAG SCAN; Mean Corpuscular HGB Conc 33.3 g/dl (31.0-36.0); Mean Corpuscular Hemoglobin 29.6 pg (27.0-33.0); Mean Corpuscular Volume 88.9 fL (80.0-98.0); Mean Platelet Volume 10.6 fL (9.4-12.4); Monocytes Absolute Auto 0.2 X10*3/uL (0.1-1.2); Monocytes Percent Auto 1.8 % (2-11); Neutrophils Percent Auto 91.7 % (45-73); Platelet Count 189 X10*3/uL (160-400); Red Blood Count 3.07 X10*6/uL (4.60-5.80); Red Cell Distribution Width 14.8 % (11.0-16.0); SCAN SMEAR FLAG 1; White Blood Count 13.1 X10*3/uL (4.8-10.8)
[2023-12-21] MEDS: Omeprazole 20 MG CAPSULE.DR PO (05:17)
[2023-12-21 05:31] LABS: Alanine Aminotransferase 39 U/L (0-40); Albumin Level 3.3 g/dL (3.5-5.0); Alkaline Phosphatase 98 U/L (39-117); Anion Gap 15 (12-20); Aspartate Amino Transferase 19 U/L (5-37); Bilirubin Total 0.3 mg/dL (0.0-1.0); Blood Urea Nitrogen 25 mg/dL (9-16); Carbon Dioxide 26 mmol/L (22-29); Chloride 92 mmol/L (96-108); Creatinine Clr Calc Pharmacy 113.1; Estimated Glomerular Filt Rate > 60; Glucose Random 91 mg/dL (60-115); Magnesium 1.6 mg/dL (1.6-2.6); Potassium 4.8 mmol/L (3.3-5.1); Sodium 128 mmol/L (135-145); Total Protein 7.5 g/dL (6.5-8.0)
[2023-12-21 05:35] LABS: SLIDE REVIEW VERIFIED
[2023-12-21] MEDS: ondansetron HCL 4 MG/2 ML VIAL IVPUSH (06:00)
[2023-12-21] MEDS: Magnesium Sulfate/D5W 1 GM/100 ML PIGGYBACK IV (06:07)
[2023-12-21] MEDS: Furosemide 20 MG/2 ML VIAL 40 MG IVPUSH ×2 (08:49→17:15)
[2023-12-21] MEDS: Albumin Human 25 % 100 ML IV ×3 (08:49→20:07)
[2023-12-21] MEDS: Acetaminophen 325 MG TABLET 975 MG PO ×2 (08:49→18:39)
[2023-12-21] MEDS: 0.9 % Sodium Chloride Flush 3 ML SYRINGE IVFLUSH ×2 (08:50→15:24)
[2023-12-21] MEDS: predniSONE 20 MG TABLET PO (08:50)
[2023-12-21] MEDS: Bictegrav/Emtricit/Tenofov Ala TABLET 1 TAB PO (08:52)
--- NOTE | 2023-12-21 09:42 | PM.CCPN ---
Subjective Subjective Date of Service: 12/21/23 Interval History: 43-year-old gentleman with underlying AIDS, liver cirrhosis,? Syphilis, 12/09/2023 with dyspnea and acute hypoxic respiratory failure secondary to PCP initially treated with IV Bactrim later transitioned to p.o., however with worsening hypoxia now essentially on maximum high-flow support. Poor response to diuresis. Transferred to intensive care on 12/19/2023. Restarted on IV Bactrim. No events overnight. Critical Care Time (minutes): 45 Physical Exam Vital Signs: Vital Signs: Last Vital Signs Temp 98.6 F 12/21/23 08:00 Pulse 112 H 12/21/23 09:00 Resp 22 H 12/21/23 09:00 BP 113/52 L 12/21/23 09:00 Pulse Ox 92 12/21/23 09:00 O2 Del Method High Flow Nasal C annula 12/21/23 09:00 O2 Flow Rate 55 12/21/23 09:00 FiO2 100 12/21/23 09:00 Oxygen Flow Rate 15 12/09/23 19:34 BMI result Body Mass Index 21.3 Const: General: no acute distress, alert, awake and ill appearing Eyes: Sclerae: sclerae normal EOM: EOMs intact bilaterally Neck: Neck: Yes no lymphadenopathy, Yes trachea midline and Yes supple Resp: Effort & Inspection: no respiratory distress and tachypneic Auscultation: crackles bilateral Cardio: Rate: tachycardic Rhythm: regular rhythm Heart sounds: no gallops, no murmurs and no rubs GI: Palpation (GI): Soft to palpation and Other GI palpation findings present ( Nontender) Auscultation: normal bowel sounds Extrem: General: Yes no pedal edema, No clubbing and No cyanosis Objective Data Labs 12/21/23 04:58 12/21/23 04:58 Labs: Laboratory Results - last 24 hr 12/21/23 12/21/23 04:57 04:58 WBC 13.1 H RBC 3.07 L Hgb 9.1 L Hct 27.3 L MCV 88.9 MCH 29.6 MCHC 33.3 RDW 14.8 Plt Count 189 MPV 10.6 Immature Gran % (Auto) 2.7 H Neut % (Auto) 91.7 H Lymph % (Auto) 2.3 L [place] % (Auto) 1.8 L Eos % (Auto) 1.3 Baso % (Auto) 0.2 Lymph # (Auto) 0.3 L [place] # (Auto) 0.2 Eos # (Auto) 0.2 Baso # (Auto) 0.0 Abs Immat Gran (auto) 0.36 H Absolute Neuts (auto) 12.0 H Absolute Nucleated RBC 0.000 Nucleated RBC % (auto) 0.0 Smear Tech's Comments VERIFIED VBG pH 7.47 H VBG pCO2 36 VBG pO2 46 VBG HCO3 26 VBG O2 Saturation 75.0 VBG Base Excess 3.4 Sodium 128 L Potassium 4.8 Chloride 92 L Carbon Dioxide 26 Anion Gap 15 BUN 25 H Creatinine 0.90 Estim Creat Clear Calc 113.1 Estimated GFR > 60 Random Glucose 91 Calcium 9.0 Phosphorus 4.0 Magnesium 1.6 Total Bilirubin 0.3 AST 19 ALT 39 Alkaline Phosphatase 98 Total Protein 7.5 Albumin 3.3 L Microbiology Microbiology Results: Microbiology 12/10/23 14:48 Sputum - Expectorated Direct Acid Fast Bacilli Smear - Final 12/10/23 14:29 Sputum - Expectorated Direct Acid Fast Bacilli Smear - Final 12/10/23 10:10 Sputum - Expectorated Direct Acid Fast Bacilli Smear - Final 12/10/23 02:04 Blood - Venous Blood Culture - Final No growth after 5 days. 12/10/23 02:04 Blood - Venous Blood Culture - Final No growth after 5 days. 12/09/23 20:11 Blood - Venous Blood Culture - Final No growth after 5 days. 12/09/23 19:51 Blood - Venous Blood Culture - Final No growth after 5 days. 12/10/23 10:10 Sputum - Expectorated Gram Stain - Final 12/10/23 10:10 Sputum - Expectorated Sputum Culture - Final Progress Note: A&P Assessment and plan (1) AIDS: Status: Acute (2) Acute hypoxemic respiratory failure: Status: Acute (3) PCP (pneumocystis jiroveci pneumonia): Status: Acute (4) Pulmonary edema: Status: Acute Plan Assessment: 43-year-old gentleman with AIDS, now acute hypoxic respiratory failure with PCP pneumonia requiring maximum high-flow support Plan: Neuro: No acute issues. Cardiac: No acute issues. Pulmonary: Acute hypoxic respiratory failure secondary to PCP pneumonia with likely contribution of pulmonary edema. Now on high-flow, continue to titrate off as tolerated. Renal: No acute issues. Endo: No acute issues. GI: No acute issues. Underlying cirrhosis with some ascites. Hepatitis negative. ID: IV Bactrim and systemic glucocorticoids for PCP pneumonia, azithromycin prophylaxis for MAC, empiric ceftriaxone/Amphotericin-B. Continue HAART. Heme/Onc: No acute issues. Psych: No acute issues. Miscellaneous: No acute issues. Prophylaxis: Lovenox Diet: Regular Critical care time spent: 45 minutes Quality Stroke Does the patient have a stroke diagnosis?: No VTE Prior VTE?: No VTE Risk Level:: Medical - moderate - high VTE Device Contraindication: Treatment Not Indicated VTE Drug Contraindication: N/A - Med Ordered
--- NOTE | 2023-12-21 09:52 | MHC.CLN ---
F/U PO INTAKE EXCELLENT CONSUMING 100% WT UP 77.2KG FROM 74.3KG SINCE ADMISSION DIET RX: REGULAR-APPROPRIATE RECEIVING MAGIC CUP AND ENSURE MAX BID TO INCREASE KCALS NSG REPORTS PT EATING WELL AND ORDERS DOOR DASH OCCASIONALLY CONTINUE TO MONITOR PO INTAKE AND ENCOURAGE SUPPLEMENTS MONITOR WEIGHT CLOSELY
--- NOTE | 2023-12-21 09:53 | P.CDIM_ITS ---
PROVIDER RESPONSE TEXT: To clarify, the appropriate diagnosis supported by the clinical indicators: Hyponatremia QUERY TEXT: PHYSICIAN'S DOCUMENTATION REQUEST Date of Query: 12/21/2023 09:46 AM EST Patient Name: Terry uGnter Admit Date: 12/10/2023 Dear Felipe Atkins, A review of the medical record indicates additional documentation may be needed. Please review below and update the documentation accordingly. Clinical Indicators: LAB FINDINGS: sodium 127 L 128 L IV fluids Based on the above, is there a diagnosis that correlates with these lab findings: Hyponatremia Labs indicate a diagnosis of (please specify) Other (explain) Clinically unable to determine (explain) Thank you, Danae Blackmon, CCS, CDIS Use of terms such as suspected, likely, concern for, or probable (associated with a specific diagnosi s that is being evaluated, monitored, or treated as if it exists) are acceptable and can be coded in the inpatient se tting, when documented at the time of discharge. Please use your independent medical judgment in providing your response. THIS QUERY IS PART OF THE PERMANENT MEDICAL RECORD
[2023-12-21] MEDS: cefTRIAXone sodium 1 GM in 0.9 % Sodium Chloride 50 ML IV (11:50)
[2023-12-21] MEDS: Enoxaparin Sodium 40 MG/0.4 ML SYRINGE SUBCUT (11:50)
--- NOTE | 2023-12-21 13:59 | PM.IDPN ---
Subjective Subjective Date of Service: 12/21/23 Critical Care Time (minutes): 15 Comment: He feels much better today. He has improved breathing. Objective Data Labs 12/21/23 04:58 12/21/23 04:58 Labs: Laboratory Results - last 24 hr 12/21/23 12/21/23 04:57 04:58 WBC 13.1 H RBC 3.07 L Hgb 9.1 L Hct 27.3 L MCV 88.9 MCH 29.6 MCHC 33.3 RDW 14.8 Plt Count 189 MPV 10.6 Immature Gran % (Auto) 2.7 H Neut % (Auto) 91.7 H Lymph % (Auto) 2.3 L [place] % (Auto) 1.8 L Eos % (Auto) 1.3 Baso % (Auto) 0.2 Lymph # (Auto) 0.3 L [place] # (Auto) 0.2 Eos # (Auto) 0.2 Baso # (Auto) 0.0 Abs Immat Gran (auto) 0.36 H Absolute Neuts (auto) 12.0 H Absolute Nucleated RBC 0.000 Nucleated RBC % (auto) 0.0 Smear Tech's Comments VERIFIED VBG pH 7.47 H VBG pCO2 36 VBG pO2 46 VBG HCO3 26 VBG O2 Saturation 75.0 VBG Base Excess 3.4 Sodium 128 L Potassium 4.8 Chloride 92 L Carbon Dioxide 26 Anion Gap 15 BUN 25 H Creatinine 0.90 Estim Creat Clear Calc 113.1 Estimated GFR > 60 Random Glucose 91 Calcium 9.0 Phosphorus 4.0 Magnesium 1.6 Total Bilirubin 0.3 AST 19 ALT 39 Alkaline Phosphatase 98 Total Protein 7.5 Albumin 3.3 L Microbiology Microbiology Results: Microbiology 12/10/23 14:48 Sputum - Expectorated Direct Acid Fast Bacilli Smear - Final 12/10/23 14:29 Sputum - Expectorated Direct Acid Fast Bacilli Smear - Final 12/10/23 10:10 Sputum - Expectorated Direct Acid Fast Bacilli Smear - Final 12/10/23 02:04 Blood - Venous Blood Culture - Final No growth after 5 days. 12/10/23 02:04 Blood - Venous Blood Culture - Final No growth after 5 days. 12/09/23 20:11 Blood - Venous Blood Culture - Final No growth after 5 days. 12/09/23 19:51 Blood - Venous Blood Culture - Final No growth after 5 days. 12/10/23 10:10 Sputum - Expectorated Gram Stain - Final 12/10/23 10:10 Sputum - Expectorated Sputum Culture - Final Physical Exam Vital Signs: Vital Signs: Last Vital Signs Temp 97.8 F 12/21/23 13:00 Pulse 109 H 12/21/23 13:00 Resp 26 H 12/21/23 13:00 BP 124/66 12/21/23 13:00 Pulse Ox 91 L 12/21/23 13:00 O2 Del Method High Flow Nasal C annula 12/21/23 13:00 O2 Flow Rate 55 12/21/23 13:00 FiO2 100 12/21/23 13:00 Oxygen Flow Rate 15 12/09/23 19:34 BMI result Body Mass Index 21.3 Const: General: cooperative HEENT: Head: Yes normal to inspection Mouth: Normal oral and palatal mucosa present Resp: Effort & Inspection: abnormal respiratory pattern Cardio: Rate: regular rate Skin: General skin exam: no rashes or lesions noted Assessment and Plan Assessment and plan (1) Pulmonary edema: Problem details: He is doing better now. Concern over pulmonary edema as well as IRIS at this time and improving. He has been on treatment for PJP He has positive fungitell Status: Acute (2) PCP (pneumocystis jiroveci pneumonia): Status: Acute (3) Acute hypoxemic respiratory failure: Status: Acute Plan Cryptococcal antigen pending. Continue PJP treatment Continue Biktarvy. Await viral load. Time Spent With Patient Time: Total time managing care of this patient today ____ minutes.
[2023-12-21] MEDS: Azithromycin 250 MG TABLET PO (14:35)
--- NOTE | 2023-12-21 15:40 | MHC.CM.PN ---
Pt continues respiratory care in ICU: on HFNC, antibiotics for PJP, viral load still pending, followed by ID MD. No plans to transfer: pt has out of state insurer, no local MD and thus not able to receive VNA care. He will d/c to home w/parent when medically stable. CM to follow for finalization of d/c planning
[2023-12-22] VITALS (37 sets, daily range): BP systolic 99–136; BP diastolic 43–74; PULSE 78–114; RESP 16–33; TEMP 36–36.8; O2SAT 86–99; BMI 21.8
[2023-12-22] MEDS: 0.9 % Sodium Chloride Flush 3 ML SYRINGE IVFLUSH ×3 (00:32→16:56)
[2023-12-22] MEDS: HYDROmorphone HCl 0.5 MG/0.5 ML SYRINGE IVPUSH ×8 (02:27→23:14)
[2023-12-22] MEDS: Albumin Human 25 % 100 ML IV (02:27)
[2023-12-22] MEDS: guaiFEN/Codeine SF 200/20/10ML 10 ML LIQUID 5 ML PO (04:41)
[2023-12-22 05:07] LABS: VBG Base Excess 2.5 mmol/L; VBG HCO3 25 mmol/L (22-26); VBG pCO2 33 mmHg; VBG pH 7.48 (7.32-7.43); VBG pO2 47 mmHg
[2023-12-22] MEDS: ondansetron HCL 4 MG/2 ML VIAL IVPUSH ×3 (05:07→18:34)
[2023-12-22 05:09] LABS: Basophils Percent Auto 0.2 % (0-2); Eosinophils Absolute Auto 0.1 X10*3/uL (0.0-0.4); Eosinophils Percent Auto 1.1 % (0-4); Hematocrit 25.6 % (42.0-52.0); Hemoglobin 8.6 g/dl (14.0-18.0); Imm Gran Pct Auto 1.8 % (0.0-0.4); Lymphocytes Absolute Auto 0.3 X10*3/uL (1.2-4.9); Lymphocytes Percent Auto 2.5 % (20-40); Mean Corpuscular HGB Conc 33.6 g/dl (31.0-36.0); Mean Corpuscular Hemoglobin 29.3 pg (27.0-33.0); Mean Corpuscular Volume 87.1 fL (80.0-98.0); Mean Platelet Volume 10.3 fL (9.4-12.4); Monocytes Absolute Auto 0.2 X10*3/uL (0.1-1.2); Monocytes Percent Auto 1.4 % (2-11); Neutrophils Absolute Auto 10.3 x10*3/uL (2.0-8.3); Platelet Count 165 X10*3/uL (160-400); Red Blood Count 2.94 X10*6/uL (4.60-5.80); Red Cell Distribution Width 15.1 % (11.0-16.0); SCAN SMEAR FLAG 1
[2023-12-22 05:10] LABS: Venous Blood Gas Refer to POC result
[2023-12-22 05:11] LABS: MANUAL DIFF FLAG SCAN
[2023-12-22 05:24] LABS: Albumin Level 4.1 g/dL (3.5-5.0); Anion Gap 18 (12-20); Blood Urea Nitrogen 35 mg/dL (9-16); Calcium 9.5 mg/dL (8.4-10.2); Carbon Dioxide 23 mmol/L (22-29); Chloride 91 mmol/L (96-108); Creatinine Clr Calc Pharmacy 90.1; Estimated Glomerular Filt Rate > 60; Glucose Random 87 mg/dL (60-115); Magnesium 1.7 mg/dL (1.6-2.6); Potassium 4.7 mmol/L (3.3-5.1); Sodium 127 mmol/L (135-145)
[2023-12-22 05:26] LABS: SLIDE REVIEW VERIFIED
[2023-12-22] MEDS: Omeprazole 20 MG CAPSULE.DR PO (06:42)
[2023-12-22] MEDS: predniSONE 20 MG TABLET PO (08:26)
[2023-12-22] MEDS: Bictegrav/Emtricit/Tenofov Ala TABLET 1 TAB PO (08:26)
[2023-12-22] MEDS: Furosemide 20 MG/2 ML VIAL 40 MG IVPUSH ×2 (08:26→17:39)
--- NOTE | 2023-12-22 08:38 | PM.CCPN ---
Subjective Subjective Date of Service: 12/22/23 Interval History: 43-year-old gentleman with underlying AIDS, liver cirrhosis,? Syphilis, 12/09/2023 with dyspnea and acute hypoxic respiratory failure secondary to PCP initially treated with IV Bactrim later transitioned to p.o., however with worsening hypoxia now essentially on maximum high-flow support. Poor response to diuresis. Transferred to intensive care on 12/19/2023. Restarted on IV Bactrim. No events overnight. Continues to require maximum high-flow nasal cannula support. Critical Care Time (minutes): 45 Physical Exam Vital Signs: Vital Signs: Last Vital Signs Temp 96.8 F 12/22/23 08:00 Pulse 105 H 12/22/23 08:00 Resp 33 H 12/22/23 08:26 BP 114/54 L 12/22/23 08:00 Pulse Ox 93 12/22/23 08:00 O2 Del Method High Flow Nasal C annula 12/22/23 08:00 O2 Flow Rate 55 12/22/23 08:00 FiO2 100 12/22/23 08:00 Oxygen Flow Rate 15 12/09/23 19:34 BMI result Body Mass Index 21.8 Const: General: no acute distress, alert and awake Eyes: Sclerae: sclerae normal EOM: EOMs intact bilaterally Neck: Neck: Yes no lymphadenopathy, Yes trachea midline and Yes supple Resp: Effort & Inspection: no respiratory distress and tachypneic Auscultation: crackles Cardio: Rate: tachycardic Rhythm: regular rhythm Heart sounds: no gallops, no murmurs and no rubs GI: Palpation (GI): Soft to palpation and Other GI palpation findings present ( Nontender) Auscultation: normal bowel sounds Extrem: General: Yes no pedal edema, No clubbing and No cyanosis Objective Data Labs 12/22/23 04:48 12/22/23 04:48 Labs: Laboratory Results - last 24 hr 12/22/23 12/22/23 04:48 05:00 WBC 11.0 H RBC 2.94 L Hgb 8.6 L Hct 25.6 L MCV 87.1 MCH 29.3 MCHC 33.6 RDW 15.1 Plt Count 165 MPV 10.3 Immature Gran % (Auto) 1.8 H Neut % (Auto) 93.0 H Lymph % (Auto) 2.5 L [place] % (Auto) 1.4 L Eos % (Auto) 1.1 Baso % (Auto) 0.2 Lymph # (Auto) 0.3 L [place] # (Auto) 0.2 Eos # (Auto) 0.1 Baso # (Auto) 0.0 Abs Immat Gran (auto) 0.20 H Absolute Neuts (auto) 10.3 H Absolute Nucleated RBC 0.000 Nucleated RBC % (auto) 0.0 Smear Tech's Comments VERIFIED VBG pH 7.48 H VBG pCO2 33 VBG pO2 47 VBG HCO3 25 VBG O2 Saturation 75.0 VBG Base Excess 2.5 Sodium 127 L Potassium 4.7 Chloride 91 L Carbon Dioxide 23 Anion Gap 18 BUN 35 H Creatinine 1.13 Estim Creat Clear Calc 90.1 Estimated GFR > 60 Random Glucose 87 Calcium 9.5 Phosphorus 5.0 H Magnesium 1.7 Albumin 4.1 Microbiology Microbiology Results: Microbiology 12/10/23 14:48 Sputum - Expectorated Direct Acid Fast Bacilli Smear - Final 12/10/23 14:29 Sputum - Expectorated Direct Acid Fast Bacilli Smear - Final 12/10/23 10:10 Sputum - Expectorated Direct Acid Fast Bacilli Smear - Final 12/10/23 02:04 Blood - Venous Blood Culture - Final No growth after 5 days. 12/10/23 02:04 Blood - Venous Blood Culture - Final No growth after 5 days. 12/09/23 20:11 Blood - Venous Blood Culture - Final No growth after 5 days. 12/09/23 19:51 Blood - Venous Blood Culture - Final No growth after 5 days. 12/10/23 10:10 Sputum - Expectorated Gram Stain - Final 12/10/23 10:10 Sputum - Expectorated Sputum Culture - Final Progress Note: A&P Assessment and plan (1) AIDS: Status: Acute (2) PCP (pneumocystis jiroveci pneumonia): Status: Acute (3) Acute hypoxemic respiratory failure: Status: Acute (4) Pulmonary edema: Status: Acute Plan Assessment: 43-year-old gentleman with AIDS, now acute hypoxic respiratory failure with PCP pneumonia requiring maximum high-flow support Plan: Neuro: No acute issues. Cardiac: No acute issues. Pulmonary: Acute hypoxic respiratory failure secondary to PCP pneumonia with likely contribution of pulmonary edema. Now on high-flow, continue to titrate off as tolerated. Renal: Diuresed approximately 6 L. Continue to maintain euvolemia. Endo: No acute issues. GI: No acute issues. Underlying cirrhosis with some ascites. Hepatitis negative. ID: IV Bactrim and systemic glucocorticoids for PCP pneumonia, azithromycin prophylaxis for MAC, empiric ceftriaxone/Amphotericin-B. Continue HAART. Heme/Onc: No acute issues. Psych: No acute issues. Miscellaneous: No acute issues. Prophylaxis: Lovenox Diet: Regular Critical care time spent: 45 minutes Quality Stroke Does the patient have a stroke diagnosis?: No VTE Prior VTE?: No VTE Risk Level:: Medical - moderate - high VTE Device Contraindication: Treatment Not Indicated VTE Drug Contraindication: N/A - Med Ordered
[2023-12-22] MEDS: Enoxaparin Sodium 40 MG/0.4 ML SYRINGE SUBCUT (09:22)
[2023-12-22] MEDS: cefTRIAXone sodium 1 GM in 0.9 % Sodium Chloride 50 ML IV (09:22)
[2023-12-22] MEDS: Azithromycin 250 MG TABLET PO (14:29)
[2023-12-22] MEDS: Sennosides/Docusate Sodium TABLET 1 TAB PO (21:32)
[2023-12-22 23:38] LABS: HIV Genotype DETECTED
[2023-12-23] VITALS (34 sets, daily range): BP systolic 106–128; BP diastolic 37–75; PULSE 14–112; RESP 15–44; TEMP 36.7–36.9; O2SAT 91–100; BMI 21.8
[2023-12-23] MEDS: 0.9 % Sodium Chloride Flush 3 ML SYRINGE IVFLUSH ×3 (00:07→14:25)
[2023-12-23 00:14] LABS: Date Viral Load Collected NG; Dolutegravir Resistance NOT PREDICTED; HIV-1 Bictegravir Resistance NOT PREDICTED; HIV-1 Cabotegravir Resistance NOT PREDICTED; HIV-1 Elvitegravir Resistance NOT PREDICTED; Raltegravir Resistance NOT PREDICTED; Value of Last HIV Viral Load NG copies/mL
[2023-12-23] MEDS: HYDROmorphone HCl 0.5 MG/0.5 ML SYRINGE IVPUSH ×8 (02:01→23:28)
[2023-12-23 04:40] LABS: VBG Base Excess 4.3 mmol/L; VBG HCO3 27 mmol/L (22-26); VBG pCO2 33 mmHg; VBG pH 7.51 (7.32-7.43); VBG pO2 48 mmHg
[2023-12-23 04:44] LABS: Basophils Percent Auto 0.2 % (0-2); Eosinophils Absolute Auto 0.2 X10*3/uL (0.0-0.4); Eosinophils Percent Auto 1.3 % (0-4); Hematocrit 25.8 % (42.0-52.0); Hemoglobin 8.8 g/dl (14.0-18.0); Imm Gran Abs Auto 0.14 X10*3/uL (0.00-0.03); Imm Gran Pct Auto 1.1 % (0.0-0.4); Lymphocytes Absolute Auto 0.2 X10*3/uL (1.2-4.9); Lymphocytes Percent Auto 1.7 % (20-40); MANUAL DIFF FLAG SCAN; Mean Corpuscular HGB Conc 34.1 g/dl (31.0-36.0); Mean Corpuscular Volume 88.1 fL (80.0-98.0); Monocytes Absolute Auto 0.2 X10*3/uL (0.1-1.2); Monocytes Percent Auto 1.9 % (2-11); Neutrophils Absolute Auto 11.9 x10*3/uL (2.0-8.3); Neutrophils Percent Auto 93.8 % (45-73); Platelet Count 194 X10*3/uL (160-400); Red Blood Count 2.93 X10*6/uL (4.60-5.80); Red Cell Distribution Width 15.1 % (11.0-16.0); SCAN SMEAR FLAG 1; White Blood Count 12.7 X10*3/uL (4.8-10.8)
[2023-12-23 04:51] LABS: Venous Blood Gas Refer to POC result
[2023-12-23 04:59] LABS: Albumin Level 3.7 g/dL (3.5-5.0); Anion Gap 19 (12-20); Blood Urea Nitrogen 39 mg/dL (9-16); Calcium 9.5 mg/dL (8.4-10.2); Carbon Dioxide 23 mmol/L (22-29); Chloride 85 mmol/L (96-108); Creatinine Clr Calc Pharmacy 95.6; Estimated Glomerular Filt Rate > 60; Glucose Random 88 mg/dL (60-115); Magnesium 1.6 mg/dL (1.6-2.6); Phosphorus 4.5 mg/dL (2.7-4.5); Potassium 4.8 mmol/L (3.3-5.1); Sodium 122 mmol/L (135-145)
[2023-12-23 05:01] LABS: SLIDE REVIEW VERIFIED
[2023-12-23] MEDS: ondansetron HCL 4 MG/2 ML VIAL IVPUSH ×3 (05:11→23:27)
[2023-12-23] MEDS: Omeprazole 20 MG CAPSULE.DR PO (05:23)
[2023-12-23] MEDS: Metoclopramide HCl 10 MG/2 ML VIAL 5 MG IVPUSH (07:45)
[2023-12-23] MEDS: Bictegrav/Emtricit/Tenofov Ala TABLET 1 TAB PO (07:45)
[2023-12-23] MEDS: Furosemide 20 MG/2 ML VIAL 40 MG IVPUSH (07:45)
[2023-12-23] MEDS: predniSONE 20 MG TABLET PO (07:45)
--- NOTE | 2023-12-23 09:37 | PM.CCPN ---
Subjective Subjective Date of Service: 12/23/23 Interval History: 43-year-old gentleman with underlying AIDS, liver cirrhosis,? Syphilis, 12/09/2023 with dyspnea and acute hypoxic respiratory failure secondary to PCP initially treated with IV Bactrim later transitioned to p.o., however with worsening hypoxia now essentially on maximum high-flow support. Poor response to diuresis. Transferred to intensive care on 12/19/2023. Restarted on IV Bactrim. No events overnight. No significant changess. Critical Care Time (minutes): 45 Physical Exam Vital Signs: Vital Signs: Last Vital Signs Temp 98.2 F 12/23/23 08:00 Pulse 100 12/23/23 08:54 Resp 21 H 12/23/23 08:54 BP 120/75 12/23/23 08:54 Pulse Ox 98 12/23/23 08:54 O2 Del Method High Flow Nasal C annula 12/23/23 08:54 O2 Flow Rate 55 12/23/23 08:54 FiO2 100 12/23/23 08:54 Oxygen Flow Rate 15 12/09/23 19:34 BMI result Body Mass Index 21.8 Const: General: no acute distress, alert and awake Eyes: Sclerae: sclerae normal EOM: EOMs intact bilaterally Neck: Neck: Yes no lymphadenopathy, Yes trachea midline and Yes supple Resp: Effort & Inspection: normal respiratory effort and no respiratory distress Auscultation: crackles bilateral Cardio: Rate: regular rate Rhythm: regular rhythm Heart sounds: no gallops, no murmurs and no rubs GI: Palpation (GI): Soft to palpation and Other GI palpation findings present ( Nontender) Auscultation: normal bowel sounds Extrem: General: Yes no pedal edema, No clubbing and No cyanosis Objective Data Labs 12/23/23 04:34 12/23/23 04:34 Labs: Laboratory Results - last 24 hr 12/16/23 12/23/23 12/23/23 14:57 04:33 04:34 WBC 12.7 H RBC 2.93 L Hgb 8.8 L Hct 25.8 L MCV 88.1 MCH 30.0 MCHC 34.1 RDW 15.1 Plt Count 194 MPV 11.0 Immature Gran % (Auto) 1.1 H Neut % (Auto) 93.8 H Lymph % (Auto) 1.7 L [place] % (Auto) 1.9 L Eos % (Auto) 1.3 Baso % (Auto) 0.2 Lymph # (Auto) 0.2 L [place] # (Auto) 0.2 Eos # (Auto) 0.2 Baso # (Auto) 0.0 Abs Immat Gran (auto) 0.14 H Absolute Neuts (auto) 11.9 H Absolute Nucleated RBC 0.000 Nucleated RBC % (auto) 0.0 Smear Tech's Comments VERIFIED VBG pH 7.51 H VBG pCO2 33 VBG pO2 48 VBG HCO3 27 H VBG O2 Saturation 76.0 VBG Base Excess 4.3 Sodium 122 L Potassium 4.8 Chloride 85 L Carbon Dioxide 23 Anion Gap 19 BUN 39 H Creatinine 1.09 Estim Creat Clear Calc 95.6 Estimated GFR > 60 Random Glucose 88 Calcium 9.5 Phosphorus 4.5 Magnesium 1.6 Albumin 3.7 HIV-1 RNA copies/mL NG HIV Genotype DETECTED A HIV-1 Int Bictegravir NOT PREDICTED HIV-1 Int Cabotegravir NOT PREDICTED HIV Integrase Genotype NOT PREDICTED HIV Integrase Genotype2 NOT PREDICTED HIV Resistance Test NOT PREDICTED Viral Load Date NG Microbiology Microbiology Results: Microbiology 12/10/23 14:48 Sputum - Expectorated Direct Acid Fast Bacilli Smear - Final 12/10/23 14:29 Sputum - Expectorated Direct Acid Fast Bacilli Smear - Final 12/10/23 10:10 Sputum - Expectorated Direct Acid Fast Bacilli Smear - Final 12/10/23 02:04 Blood - Venous Blood Culture - Final No growth after 5 days. 12/10/23 02:04 Blood - Venous Blood Culture - Final No growth after 5 days. 12/09/23 20:11 Blood - Venous Blood Culture - Final No growth after 5 days. 12/09/23 19:51 Blood - Venous Blood Culture - Final No growth after 5 days. 12/10/23 10:10 Sputum - Expectorated Gram Stain - Final 12/10/23 10:10 Sputum - Expectorated Sputum Culture - Final Progress Note: A&P Assessment and plan (1) AIDS: Status: Acute (2) Acute hypoxemic respiratory failure: Status: Acute (3) PCP (pneumocystis jiroveci pneumonia): Status: Acute (4) Pulmonary edema: Status: Acute Plan Assessment: 43-year-old gentleman with AIDS, now acute hypoxic respiratory failure with PCP pneumonia requiring maximum high-flow support Plan: Neuro: No acute issues. Cardiac: No acute issues. Pulmonary: Acute hypoxic respiratory failure secondary to PCP pneumonia with likely contribution of pulmonary edema. Now on high-flow, continue to titrate off as tolerated. Renal: Diuresed approximately 6 L. Continue to maintain euvolemia. Endo: No acute issues. GI: No acute issues. Underlying cirrhosis with some ascites. Hepatitis negative. ID: IV Bactrim and systemic glucocorticoids for PCP pneumonia, azithromycin prophylaxis for MAC, empiric ceftriaxone/Amphotericin-B. Continue HAART. Heme/Onc: No acute issues. Psych: No acute issues. Miscellaneous: No acute issues. Prophylaxis: Lovenox Diet: Regular Critical care time spent: 45 minutes Quality Stroke Does the patient have a stroke diagnosis?: No VTE Prior VTE?: No VTE Risk Level:: Medical - moderate - high VTE Device Contraindication: Treatment Not Indicated VTE Drug Contraindication: N/A - Med Ordered
--- NOTE | 2023-12-23 10:11 | MHC.CLN ---
F/U PO INTAKE DECREASED R/T N/V YESTERDAY NSG REPORTED APPETITE IS OK REGLAN STARTED DIET RX: REGULAR-APPROPRIATE RECEIVING MAGIC CUP AND ENSURE MAX BID TO INCREASE KCALS REVIEWED LABS -MAY NEED FLUID RESTRICTION CONTINUE TO MONITOR PO INTAKE AND ENCOURAGE SUPPLEMENTS MONITOR WEIGHT CLOSELY
[2023-12-23] MEDS: cefTRIAXone sodium 1 GM in 0.9 % Sodium Chloride 50 ML IV (10:40)
[2023-12-23] MEDS: Enoxaparin Sodium 40 MG/0.4 ML SYRINGE SUBCUT (10:41)
[2023-12-23] MEDS: Azithromycin 250 MG TABLET PO (14:24)
[2023-12-23] MEDS: Furosemide 20 MG/2 ML VIAL IVPUSH (17:30)
[2023-12-24] VITALS (34 sets, daily range): BP systolic 107–139; BP diastolic 51–71; PULSE 81–119; RESP 14–30; TEMP 36.4–37.1; O2SAT 90–100; BMI 21.8
[2023-12-24] MEDS: HYDROmorphone HCl 0.5 MG/0.5 ML SYRINGE IVPUSH ×8 (02:30→23:56)
[2023-12-24 04:57] LABS: VBG Base Excess 4.4 mmol/L; VBG HCO3 28 mmol/L (22-26); VBG pCO2 38 mmHg; VBG pH 7.47 (7.32-7.43); VBG pO2 50 mmHg
[2023-12-24 04:59] LABS: Venous Blood Gas Refer to POC result
[2023-12-24 05:08] LABS: Basophils Percent Auto 0.2 % (0-2); Eosinophils Absolute Auto 0.2 X10*3/uL (0.0-0.4); Eosinophils Percent Auto 1.6 % (0-4); Hematocrit 26.3 % (42.0-52.0); Hemoglobin 8.9 g/dl (14.0-18.0); Imm Gran Abs Auto 0.13 X10*3/uL (0.00-0.03); Imm Gran Pct Auto 1.1 % (0.0-0.4); Lymphocytes Absolute Auto 0.2 X10*3/uL (1.2-4.9); MANUAL DIFF FLAG SCAN; Mean Corpuscular HGB Conc 33.8 g/dl (31.0-36.0); Mean Corpuscular Volume 85.7 fL (80.0-98.0); Mean Platelet Volume 10.9 fL (9.4-12.4); Monocytes Absolute Auto 0.3 X10*3/uL (0.1-1.2); Monocytes Percent Auto 2.8 % (2-11); Neutrophils Absolute Auto 10.9 x10*3/uL (2.0-8.3); Neutrophils Percent Auto 92.3 % (45-73); Platelet Count 214 X10*3/uL (160-400); Red Blood Count 3.07 X10*6/uL (4.60-5.80); SCAN SMEAR FLAG 1; White Blood Count 11.8 X10*3/uL (4.8-10.8)
[2023-12-24 05:29] LABS: SLIDE REVIEW VERIFIED
[2023-12-24 05:31] LABS: Albumin Level 3.6 g/dL (3.5-5.0); Anion Gap 18 (12-20); Blood Urea Nitrogen 38 mg/dL (9-16); Calcium 9.4 mg/dL (8.4-10.2); Carbon Dioxide 23 mmol/L (22-29); Chloride 83 mmol/L (96-108); Creatinine Clr Calc Pharmacy 98.3; Estimated Glomerular Filt Rate > 60; Glucose Random 101 mg/dL (60-115); Magnesium 1.7 mg/dL (1.6-2.6); Phosphorus 3.9 mg/dL (2.7-4.5); Potassium 4.4 mmol/L (3.3-5.1); Sodium 120 mmol/L (135-145)
[2023-12-24] MEDS: ondansetron HCL 4 MG/2 ML VIAL IVPUSH ×2 (07:32→16:45)
[2023-12-24] MEDS: 0.9 % Sodium Chloride Flush 3 ML SYRINGE IVFLUSH ×3 (07:32→23:04)
[2023-12-24] MEDS: Furosemide 20 MG/2 ML VIAL IVPUSH ×2 (07:33→17:53)
--- NOTE | 2023-12-24 08:37 | PM.CCPN ---
Subjective Subjective Date of Service: 12/24/23 Interval History: 43-year-old gentleman with underlying AIDS, liver cirrhosis,? Syphilis, 12/09/2023 with dyspnea and acute hypoxic respiratory failure secondary to PCP initially treated with IV Bactrim later transitioned to p.o., however with worsening hypoxia now essentially on maximum high-flow support. Poor response to diuresis. Transferred to intensive care on 12/19/2023. Restarted on IV Bactrim. No events overnight. Slowly worsening hypernatremia, started on sodium tabs. Critical Care Time (minutes): 45 Physical Exam Vital Signs: Vital Signs: Last Vital Signs Temp 98.7 F 12/24/23 08:00 Pulse 108 H 12/24/23 08:00 Resp 30 H 12/24/23 08:00 BP 118/60 12/24/23 08:00 Pulse Ox 94 12/24/23 08:00 O2 Del Method High Flow Nasal C annula 12/24/23 08:00 O2 Flow Rate 45 12/24/23 08:00 FiO2 100 12/24/23 08:00 Oxygen Flow Rate 15 12/09/23 19:34 BMI result Body Mass Index 21.8 Const: General: no acute distress, alert, awake and ill appearing Eyes: Sclerae: sclerae normal EOM: EOMs intact bilaterally Neck: Neck: Yes no lymphadenopathy, Yes trachea midline and Yes supple Resp: Effort & Inspection: tachypneic Auscultation: crackles bilateral Cardio: Rate: regular rate Rhythm: regular rhythm Heart sounds: no gallops, no murmurs and no rubs GI: Palpation (GI): Soft to palpation and Other GI palpation findings present ( Nontender) Auscultation: normal bowel sounds Extrem: General: Yes no pedal edema, No clubbing and No cyanosis Objective Data Labs 12/24/23 04:55 12/24/23 04:55 Labs: Laboratory Results - last 24 hr 12/24/23 12/24/23 04:51 04:55 WBC 11.8 H RBC 3.07 L Hgb 8.9 L Hct 26.3 L MCV 85.7 MCH 29.0 MCHC 33.8 RDW 15.0 Plt Count 214 MPV 10.9 Immature Gran % (Auto) 1.1 H Neut % (Auto) 92.3 H Lymph % (Auto) 2.0 L [place] % (Auto) 2.8 Eos % (Auto) 1.6 Baso % (Auto) 0.2 Lymph # (Auto) 0.2 L [place] # (Auto) 0.3 Eos # (Auto) 0.2 Baso # (Auto) 0.0 Abs Immat Gran (auto) 0.13 H Absolute Neuts (auto) 10.9 H Absolute Nucleated RBC 0.000 Nucleated RBC % (auto) 0.0 Smear Tech's Comments VERIFIED VBG pH 7.47 H VBG pCO2 38 VBG pO2 50 VBG HCO3 28 H VBG O2 Saturation 81.0 VBG Base Excess 4.4 Sodium 120 L* Potassium 4.4 Chloride 83 L Carbon Dioxide 23 Anion Gap 18 BUN 38 H Creatinine 1.06 Estim Creat Clear Calc 98.3 Estimated GFR > 60 Random Glucose 101 Calcium 9.4 Phosphorus 3.9 Magnesium 1.7 Albumin 3.6 Microbiology Microbiology Results: Microbiology 12/10/23 14:48 Sputum - Expectorated Direct Acid Fast Bacilli Smear - Final 12/10/23 14:29 Sputum - Expectorated Direct Acid Fast Bacilli Smear - Final 12/10/23 10:10 Sputum - Expectorated Direct Acid Fast Bacilli Smear - Final 12/10/23 02:04 Blood - Venous Blood Culture - Final No growth after 5 days. 12/10/23 02:04 Blood - Venous Blood Culture - Final No growth after 5 days. 12/09/23 20:11 Blood - Venous Blood Culture - Final No growth after 5 days. 12/09/23 19:51 Blood - Venous Blood Culture - Final No growth after 5 days. 12/10/23 10:10 Sputum - Expectorated Gram Stain - Final 12/10/23 10:10 Sputum - Expectorated Sputum Culture - Final Progress Note: A&P Assessment and plan (1) AIDS: Status: Acute (2) Acute hypoxemic respiratory failure: Status: Acute (3) Pulmonary edema: Status: Acute (4) PCP (pneumocystis jiroveci pneumonia): Status: Acute Plan Assessment: 43-year-old gentleman with AIDS, now acute hypoxic respiratory failure with PCP pneumonia requiring maximum high-flow support Plan: Neuro: No acute issues. Cardiac: No acute issues. Pulmonary: Acute hypoxic respiratory failure secondary to PCP pneumonia with likely contribution of pulmonary edema. Now on high-flow, continue to titrate off as tolerated. Renal: Hyponatremia, started on sodium tabs. Continue to maintain euvolemia. Endo: No acute issues. GI: No acute issues. Underlying cirrhosis with some ascites. Hepatitis negative. ID: IV Bactrim and systemic glucocorticoids for PCP pneumonia, azithromycin prophylaxis for MAC, empiric ceftriaxone/Amphotericin-B. Continue HAART. Heme/Onc: No acute issues. Psych: No acute issues. Miscellaneous: No acute issues. Prophylaxis: Lovenox Diet: Regular Critical care time spent: 45 minutes Quality Stroke Does the patient have a stroke diagnosis?: No VTE Prior VTE?: No VTE Risk Level:: Medical - moderate - high VTE Device Contraindication: Treatment Not Indicated VTE Drug Contraindication: N/A - Med Ordered
[2023-12-24] MEDS: Bictegrav/Emtricit/Tenofov Ala TABLET 1 TAB PO (10:02)
[2023-12-24] MEDS: Sodium Chloride Tab 1 GM TABLET PO ×3 (10:02→21:09)
[2023-12-24] MEDS: predniSONE 20 MG TABLET PO (10:02)
[2023-12-24] MEDS: cefTRIAXone sodium 1 GM in 0.9 % Sodium Chloride 50 ML IV (11:00)
[2023-12-24] MEDS: Acetaminophen 325 MG TABLET 975 MG PO (11:10)
[2023-12-24] MEDS: Azithromycin 250 MG TABLET PO (14:48)
[2023-12-24] MEDS: Metoclopramide HCl 10 MG/2 ML VIAL IVPUSH (18:19)
--- NOTE | 2023-12-24 19:01 | HO.SKINPHOTO ---
Location: Coccyx Blanchable redness to bony prominence of coccyx. Psoriasis rash to b/l buttocks.
[2023-12-24] MEDS: Sennosides/Docusate Sodium TABLET 1 TAB PO (21:09)
[2023-12-25] VITALS (30 sets, daily range): BP systolic 100–132; BP diastolic 48–69; PULSE 77–107; RESP 15–29; TEMP 36.1–36.7; O2SAT 90–98; BMI 20.7
[2023-12-25] MEDS: HYDROmorphone HCl 0.5 MG/0.5 ML SYRINGE IVPUSH ×7 (03:04→20:56)
[2023-12-25] MEDS: ondansetron HCL 4 MG/2 ML VIAL IVPUSH (04:26)
[2023-12-25 05:28] LABS: Basophils Percent Auto 0.3 % (0-2); Eosinophils Absolute Auto 0.1 X10*3/uL (0.0-0.4); Eosinophils Percent Auto 0.9 % (0-4); Hematocrit 25.9 % (42.0-52.0); Hemoglobin 8.9 g/dl (14.0-18.0); Imm Gran Abs Auto 0.09 X10*3/uL (0.00-0.03); Imm Gran Pct Auto 0.8 % (0.0-0.4); Lymphocytes Absolute Auto 0.2 X10*3/uL (1.2-4.9); MANUAL DIFF FLAG SCAN; Mean Corpuscular HGB Conc 34.4 g/dl (31.0-36.0); Mean Corpuscular Hemoglobin 30.2 pg (27.0-33.0); Mean Corpuscular Volume 87.8 fL (80.0-98.0); Mean Platelet Volume 10.9 fL (9.4-12.4); Monocytes Absolute Auto 0.3 X10*3/uL (0.1-1.2); Monocytes Percent Auto 2.8 % (2-11); Neutrophils Absolute Auto 9.9 x10*3/uL (2.0-8.3); Neutrophils Percent Auto 93.2 % (45-73); Platelet Count 193 X10*3/uL (160-400); Red Blood Count 2.95 X10*6/uL (4.60-5.80); Red Cell Distribution Width 14.7 % (11.0-16.0); SCAN SMEAR FLAG 1; White Blood Count 10.6 X10*3/uL (4.8-10.8)
[2023-12-25 05:31] LABS: VBG Base Excess 6.4 mmol/L; VBG HCO3 29 mmol/L (22-26); VBG pCO2 37 mmHg; VBG pO2 51 mmHg
[2023-12-25 05:33] LABS: Venous Blood Gas Refer to POC result
[2023-12-25 05:45] LABS: Albumin Level 3.3 g/dL (3.5-5.0); Anion Gap 16 (12-20); Blood Urea Nitrogen 34 mg/dL (9-16); Calcium 9.2 mg/dL (8.4-10.2); Carbon Dioxide 24 mmol/L (22-29); Chloride 86 mmol/L (96-108); Creatinine Clr Calc Pharmacy 89.3; Estimated Glomerular Filt Rate > 60; Glucose Random 114 mg/dL (60-115); Magnesium 1.8 mg/dL (1.6-2.6); Phosphorus 3.7 mg/dL (2.7-4.5); Potassium 4.2 mmol/L (3.3-5.1); Sodium 122 mmol/L (135-145)
[2023-12-25 05:55] LABS: SLIDE REVIEW VERIFIED
[2023-12-25] MEDS: Omeprazole 20 MG CAPSULE.DR PO (05:59)
[2023-12-25] MEDS: Furosemide 20 MG/2 ML VIAL IVPUSH ×2 (08:04→16:52)
[2023-12-25] MEDS: 0.9 % Sodium Chloride Flush 3 ML SYRINGE IVFLUSH ×3 (08:05→23:36)
[2023-12-25] MEDS: Bictegrav/Emtricit/Tenofov Ala TABLET 1 TAB PO (08:05)
[2023-12-25] MEDS: Sodium Chloride Tab 1 GM TABLET PO ×3 (08:05→20:35)
[2023-12-25] MEDS: predniSONE 20 MG TABLET PO (08:05)
--- NOTE | 2023-12-25 09:34 | P.PNCC_ITS ---
Subjective Subjective Date of Service: 12/25/23 Interval History: 43-year-old gentleman with underlying AIDS, liver cirrhosis,? Syphilis, 12/09/2023 with dyspnea and acute hypoxic respiratory failure secondary to PCP initially treated with IV Bactrim later transitioned to p.o., however with worsening hypoxia now essentially on maximum high-flow support. Poor response to diuresis. Transferred to intensive care on 12/19/2023. Restarted on IV Bactrim. No events overnight. Slowly improving FiO2 requirements. Critical Care Time (minutes): 45 Physical Exam 2 Vital Signs: Vital Signs: Last Vital Signs Temp 96.9 F 12/25/23 05:59 Pulse 104 H 12/25/23 09:00 Resp 23 H 12/25/23 09:00 BP 116/67 12/25/23 09:00 Pulse Ox 94 12/25/23 09:00 O2 Del Method High Flow Nasal C annula 12/25/23 09:00 O2 Flow Rate 45 12/25/23 09:00 FiO2 75 12/25/23 09:00 Oxygen Flow Rate 15 12/09/23 19:34 BMI result Body Mass Index 20.7 Const: General: no acute distress, alert, awake and ill appearing Eyes: Sclerae: sclerae normal EOM: EOMs intact bilaterally Neck: Neck: Yes no lymphadenopathy, Yes trachea midline and Yes supple Resp: Effort & Inspection: tachypneic Auscultation: crackles (Bilateral) Cardio: Rate: regular rate Rhythm: regular rhythm Heart sounds: no gallops, no murmurs and no rubs GI: Palpation (GI): Soft to palpation and Other GI palpation findings present ( Nontender) Auscultation: normal bowel sounds Extrem: General: Yes no pedal edema, No clubbing and No cyanosis Objective Data Labs 12/25/23 05:15 12/25/23 05:15 Labs: Laboratory Results - last 24 hr 12/25/23 12/25/23 05:15 05:23 WBC 10.6 RBC 2.95 L Hgb 8.9 L Hct 25.9 L MCV 87.8 MCH 30.2 MCHC 34.4 RDW 14.7 Plt Count 193 MPV 10.9 Immature Gran % (Auto) 0.8 H Neut % (Auto) 93.2 H Lymph % (Auto) 2.0 L [place] % (Auto) 2.8 Eos % (Auto) 0.9 Baso % (Auto) 0.3 Lymph # (Auto) 0.2 L [place] # (Auto) 0.3 Eos # (Auto) 0.1 Baso # (Auto) 0.0 Abs Immat Gran (auto) 0.09 H Absolute Neuts (auto) 9.9 H Absolute Nucleated RBC 0.000 Nucleated RBC % (auto) 0.0 Smear Tech's Comments VERIFIED VBG pH 7.50 H VBG pCO2 37 VBG pO2 51 VBG HCO3 29 H VBG O2 Saturation 79.0 VBG Base Excess 6.4 Sodium 122 L Potassium 4.2 Chloride 86 L Carbon Dioxide 24 Anion Gap 16 BUN 34 H Creatinine 1.17 Estim Creat Clear Calc 89.3 Estimated GFR > 60 Random Glucose 114 Calcium 9.2 Phosphorus 3.7 Magnesium 1.8 Albumin 3.3 L Microbiology Microbiology Results: Microbiology 12/10/23 14:48 Sputum - Expectorated Direct Acid Fast Bacilli Smear - Final 12/10/23 14:29 Sputum - Expectorated Direct Acid Fast Bacilli Smear - Final 12/10/23 10:10 Sputum - Expectorated Direct Acid Fast Bacilli Smear - Final 12/10/23 02:04 Blood - Venous Blood Culture - Final No growth after 5 days. 12/10/23 02:04 Blood - Venous Blood Culture - Final No growth after 5 days. 12/09/23 20:11 Blood - Venous Blood Culture - Final No growth after 5 days. 12/09/23 19:51 Blood - Venous Blood Culture - Final No growth after 5 days. 12/10/23 10:10 Sputum - Expectorated Gram Stain - Final 12/10/23 10:10 Sputum - Expectorated Sputum Culture - Final Progress Note: A&P Assessment and plan (1) AIDS: Status: Acute (2) Acute hypoxemic respiratory failure: Status: Acute (3) PCP (pneumocystis jiroveci pneumonia): Status: Acute (4) Pulmonary edema: Status: Acute Plan Assessment: 43-year-old gentleman with AIDS, now acute hypoxic respiratory failure with PCP pneumonia requiring maximum high-flow support Plan: Neuro: No acute issues. Cardiac: No acute issues. Pulmonary: Acute hypoxic respiratory failure secondary to PCP pneumonia with likely contribution of pulmonary edema. Now on high-flow, continue to titrate off as tolerated. Renal: Hyponatremia, started on sodium tabs. Continue to maintain euvolemia. Endo: No acute issues. GI: No acute issues. Underlying cirrhosis with some ascites. Hepatitis negative. ID: IV Bactrim and systemic glucocorticoids for PCP pneumonia, azithromycin prophylaxis for MAC, empiric ceftriaxone/Amphotericin-B. Continue HAART. Heme/Onc: No acute issues. Psych: No acute issues. Miscellaneous: No acute issues. Prophylaxis: Lovenox Diet: Regular Critical care time spent: 45 minutes Quality Stroke Does the patient have a stroke diagnosis?: No VTE Prior VTE?: No VTE Risk Level:: Medical - moderate - high VTE Device Contraindication: Treatment Not Indicated VTE Drug Contraindication: N/A - Med Ordered
[2023-12-25] MEDS: cefTRIAXone sodium 1 GM in 0.9 % Sodium Chloride 50 ML IV (10:05)
[2023-12-25] MEDS: Albumin Human 25 % 100 ML IV ×3 (10:05→20:36)
--- NOTE | 2023-12-25 10:28 | MHC.CLN ---
F/U PO INTAKE 25-50% WT IS STABLE DIET RX: REGULAR 1200CC FLUID RESTRICTION-APPROPRIATE RECEIVING MAGIC CUP AND ENSURE MAX BID TO INCREASE KCALS CONTINUE TO MONITOR PO INTAKE AND ENCOURAGE SUPPLEMENTS
[2023-12-25] MEDS: Azithromycin 250 MG TABLET PO (15:08)
--- NOTE | 2023-12-25 15:20 | MHC.CM.PN ---
EMR REVIEWED. PT REMAINS IN ICU ON HF02. CM WILL CONTINUE TO FOLLOW FOR ANY CHANGE IN DC PLAN/NEEDS.
[2023-12-25] MEDS: Sennosides/Docusate Sodium TABLET 1 TAB PO (20:35)
[2023-12-26] VITALS (38 sets, daily range): BP systolic 98–130; BP diastolic 9–69; PULSE 80–107; RESP 15–31; TEMP 36–36.5; O2SAT 85–95; BMI 20.8
[2023-12-26] MEDS: HYDROmorphone HCl 0.5 MG/0.5 ML SYRINGE IVPUSH ×8 (00:11→21:42)
[2023-12-26] MEDS: Albumin Human 25 % 100 ML IV (01:46)
[2023-12-26] MEDS: Acetaminophen 325 MG TABLET 975 MG PO (02:03)
[2023-12-26] MEDS: guaiFEN/Codeine SF 200/20/10ML 10 ML LIQUID 5 ML PO (02:04)
[2023-12-26] MEDS: ondansetron HCL 4 MG/2 ML VIAL IVPUSH ×2 (05:19→21:23)
[2023-12-26 05:31] LABS: VBG Base Excess 8.7 mmol/L; VBG HCO3 32 mmol/L (22-26); VBG pCO2 41 mmHg; VBG pO2 51 mmHg
[2023-12-26 05:40] LABS: Basophils Percent Auto 0.2 % (0-2); Eosinophils Absolute Auto 0.2 X10*3/uL (0.0-0.4); Eosinophils Percent Auto 2.7 % (0-4); Hematocrit 22.5 % (42.0-52.0); Hemoglobin 7.8 g/dl (14.0-18.0); Imm Gran Abs Auto 0.06 X10*3/uL (0.00-0.03); Imm Gran Pct Auto 0.7 % (0.0-0.4); Lymphocytes Absolute Auto 0.2 X10*3/uL (1.2-4.9); Lymphocytes Percent Auto 2.8 % (20-40); MANUAL DIFF FLAG SCAN; Mean Corpuscular HGB Conc 34.7 g/dl (31.0-36.0); Mean Corpuscular Hemoglobin 29.8 pg (27.0-33.0); Mean Corpuscular Volume 85.9 fL (80.0-98.0); Mean Platelet Volume 10.8 fL (9.4-12.4); Monocytes Absolute Auto 0.2 X10*3/uL (0.1-1.2); Monocytes Percent Auto 2.2 % (2-11); Neutrophils Absolute Auto 7.5 x10*3/uL (2.0-8.3); Neutrophils Percent Auto 91.4 % (45-73); Platelet Count 165 X10*3/uL (160-400); Red Blood Count 2.62 X10*6/uL (4.60-5.80); Red Cell Distribution Width 14.6 % (11.0-16.0); SCAN SMEAR FLAG 1; White Blood Count 8.2 X10*3/uL (4.8-10.8)
[2023-12-26] MEDS: Omeprazole 20 MG CAPSULE.DR PO (05:49)
[2023-12-26 05:55] LABS: Albumin Level 3.6 g/dL (3.5-5.0); Anion Gap 17 (12-20); Blood Urea Nitrogen 29 mg/dL (9-16); Carbon Dioxide 25 mmol/L (22-29); Chloride 84 mmol/L (96-108); Creatinine Clr Calc Pharmacy 89.9; Estimated Glomerular Filt Rate > 60; Glucose Random 96 mg/dL (60-115); Magnesium 1.8 mg/dL (1.6-2.6); Phosphorus 3.2 mg/dL (2.7-4.5); Potassium 4.2 mmol/L (3.3-5.1); Sodium 122 mmol/L (135-145)
[2023-12-26 06:05] LABS: SLIDE REVIEW VERIFIED
[2023-12-26] MEDS: Sodium Chloride Tab 1 GM TABLET PO ×3 (08:32→21:46)
[2023-12-26] MEDS: 0.9 % Sodium Chloride Flush 3 ML SYRINGE IVFLUSH ×3 (08:32→23:22)
[2023-12-26] MEDS: Bictegrav/Emtricit/Tenofov Ala TABLET 1 TAB PO (08:32)
[2023-12-26] MEDS: predniSONE 20 MG TABLET PO (08:32)
[2023-12-26] MEDS: Furosemide 20 MG/2 ML VIAL IVPUSH (08:32)
[2023-12-26] MEDS: Furosemide 20 MG/2 ML VIAL 40 MG IVPUSH ×2 (09:48→17:30)
--- NOTE | 2023-12-26 09:54 | PM.CCPN ---
Subjective Subjective Date of Service: 12/26/23 Interval History: 43-year-old gentleman with underlying AIDS, liver cirrhosis,? Syphilis, 12/09/2023 with dyspnea and acute hypoxic respiratory failure secondary to PCP initially treated with IV Bactrim later transitioned to p.o., however with worsening hypoxia now essentially on maximum high-flow support. Poor response to diuresis. Transferred to intensive care on 12/19/2023. Restarted on IV Bactrim. No events overnight. Continues with slowly improving FiO2 requirements. Critical Care Time (minutes): 45 Physical Exam Vital Signs: Vital Signs: Last Vital Signs Temp 96.9 F 12/26/23 08:00 Pulse 92 12/26/23 09:00 Resp 19 12/26/23 09:44 BP 117/57 L 12/26/23 09:00 Pulse Ox 88 L 12/26/23 09:00 O2 Del Method High Flow Nasal C annula, Non-Rebrea ther Mask 12/26/23 09:00 O2 Flow Rate 40 12/26/23 09:00 FiO2 55 12/26/23 09:00 Oxygen Flow Rate 15 12/09/23 19:34 BMI result Body Mass Index 20.8 Const: General: no acute distress, alert, awake and ill appearing Nutritional Appearance: malnourished Eyes: Sclerae: sclerae normal EOM: EOMs intact bilaterally Neck: Neck: Yes no lymphadenopathy, Yes trachea midline and Yes supple Resp: Effort & Inspection: normal respiratory effort and no respiratory distress Auscultation: clear to auscultation bilaterally Cardio: Rate: regular rate Rhythm: regular rhythm Heart sounds: no gallops, no murmurs and no rubs GI: Palpation (GI): Soft to palpation and Other GI palpation findings present ( Nontender) Auscultation: normal bowel sounds Extrem: General: Yes no pedal edema, No clubbing and No cyanosis Objective Data Labs 12/26/23 05:23 12/26/23 05:23 Labs: Laboratory Results - last 24 hr 12/26/23 12/26/23 05:23 05:25 WBC 8.2 RBC 2.62 L Hgb 7.8 L Hct 22.5 L MCV 85.9 MCH 29.8 MCHC 34.7 RDW 14.6 Plt Count 165 MPV 10.8 Immature Gran % (Auto) 0.7 H Neut % (Auto) 91.4 H Lymph % (Auto) 2.8 L [place] % (Auto) 2.2 Eos % (Auto) 2.7 Baso % (Auto) 0.2 Lymph # (Auto) 0.2 L [place] # (Auto) 0.2 Eos # (Auto) 0.2 Baso # (Auto) 0.0 Abs Immat Gran (auto) 0.06 H Absolute Neuts (auto) 7.5 Absolute Nucleated RBC 0.000 Nucleated RBC % (auto) 0.0 Smear Tech's Comments VERIFIED VBG pH 7.50 H VBG pCO2 41 VBG pO2 51 VBG HCO3 32 H VBG O2 Saturation 79.0 VBG Base Excess 8.7 Sodium 122 L Potassium 4.2 Chloride 84 L Carbon Dioxide 25 Anion Gap 17 BUN 29 H Creatinine 1.10 Estim Creat Clear Calc 89.9 Estimated GFR > 60 Random Glucose 96 Calcium 9.0 Phosphorus 3.2 Magnesium 1.8 Albumin 3.6 Microbiology Microbiology Results: Microbiology 12/10/23 14:48 Sputum - Expectorated Direct Acid Fast Bacilli Smear - Final 12/10/23 14:29 Sputum - Expectorated Direct Acid Fast Bacilli Smear - Final 12/10/23 10:10 Sputum - Expectorated Direct Acid Fast Bacilli Smear - Final 12/10/23 02:04 Blood - Venous Blood Culture - Final No growth after 5 days. 12/10/23 02:04 Blood - Venous Blood Culture - Final No growth after 5 days. 12/09/23 20:11 Blood - Venous Blood Culture - Final No growth after 5 days. 12/09/23 19:51 Blood - Venous Blood Culture - Final No growth after 5 days. 12/10/23 10:10 Sputum - Expectorated Gram Stain - Final 12/10/23 10:10 Sputum - Expectorated Sputum Culture - Final Progress Note: A&P Assessment and plan (1) AIDS: Status: Acute (2) Acute hypoxemic respiratory failure: Status: Acute (3) PCP (pneumocystis jiroveci pneumonia): Status: Acute (4) Pulmonary edema: Status: Acute Plan Assessment: 43-year-old gentleman with AIDS, now acute hypoxic respiratory failure with PCP pneumonia requiring maximum high-flow support Plan: Neuro: No acute issues. Cardiac: No acute issues. Pulmonary: Acute hypoxic respiratory failure secondary to PCP pneumonia with likely contribution of pulmonary edema. Now on high-flow, continue to titrate off as tolerated. Slowly improving. Renal: Hyponatremia, continue on sodium tabs. Continue to maintain euvolemia. Endo: No acute issues. GI: No acute issues. Underlying cirrhosis with some ascites. Hepatitis negative. ID: IV Bactrim and systemic glucocorticoids for PCP pneumonia, azithromycin prophylaxis for MAC, empiric ceftriaxone/Amphotericin-B. Continue HAART. Heme/Onc: No acute issues. Psych: No acute issues. Miscellaneous: No acute issues. Prophylaxis: Lovenox Diet: Regular Critical care time spent: 45 minutes Quality Stroke Does the patient have a stroke diagnosis?: No VTE Prior VTE?: No VTE Risk Level:: Medical - moderate - high VTE Device Contraindication: Treatment Not Indicated VTE Drug Contraindication: N/A - Med Ordered
[2023-12-26] MEDS: cefTRIAXone sodium 1 GM in 0.9 % Sodium Chloride 50 ML IV (09:55)
[2023-12-26 10:13] LABS: Venous Blood Gas Refer to POC result
[2023-12-26] MEDS: Enoxaparin Sodium 40 MG/0.4 ML SYRINGE SUBCUT (11:10)
[2023-12-26] MEDS: Sodium Chloride 0.65 % Nasal 44 ML SPRBTL 1 SPRAY NOSTRIL-B (11:10)
[2023-12-26] MEDS: Azithromycin 250 MG TABLET PO (14:33)
[2023-12-26] MEDS: Sennosides/Docusate Sodium TABLET 1 TAB PO (21:46)
[2023-12-27] VITALS (34 sets, daily range): BP systolic 103–130; BP diastolic 48–72; PULSE 75–96; RESP 13–22; TEMP 36.3–37; O2SAT 87–97; BMI 20.6
[2023-12-27] MEDS: HYDROmorphone HCl 0.5 MG/0.5 ML SYRINGE IVPUSH ×8 (00:15→22:00)
[2023-12-27 05:24] LABS: VBG Base Excess 8.4 mmol/L; VBG HCO3 30 mmol/L (22-26); VBG pCO2 35 mmHg; VBG pH 7.55 (7.32-7.43); VBG pO2 54 mmHg
[2023-12-27 05:38] LABS: Hematocrit 23.1 % (42.0-52.0); Hemoglobin 7.9 g/dl (14.0-18.0); Mean Corpuscular HGB Conc 34.2 g/dl (31.0-36.0); Mean Corpuscular Hemoglobin 29.2 pg (27.0-33.0); Mean Corpuscular Volume 85.2 fL (80.0-98.0); Mean Platelet Volume 10.9 fL (9.4-12.4); Platelet Count 171 X10*3/uL (160-400); Red Blood Count 2.71 X10*6/uL (4.60-5.80); Red Cell Distribution Width 14.6 % (11.0-16.0)
[2023-12-27 05:41] LABS: WBC ABN SCTR FOR CBC 1; White Blood Count 7.3 X10*3/uL (4.8-10.8)
[2023-12-27 05:55] LABS: Alanine Aminotransferase 12 U/L (0-40); Albumin Level 3.3 g/dL (3.5-5.0); Alkaline Phosphatase 87 U/L (39-117); Anion Gap 17 (12-20); Aspartate Amino Transferase 15 U/L (5-37); Bilirubin Total 0.2 mg/dL (0.0-1.0); Blood Urea Nitrogen 28 mg/dL (9-16); Calcium 9.1 mg/dL (8.4-10.2); Carbon Dioxide 24 mmol/L (22-29); Chloride 83 mmol/L (96-108); Creatinine Clr Calc Pharmacy 94.1; Estimated Glomerular Filt Rate > 60; Glucose Random 106 mg/dL (60-115); Magnesium 1.8 mg/dL (1.6-2.6); Phosphorus 3.2 mg/dL (2.7-4.5); Sodium 120 mmol/L (135-145); Total Protein 7.3 g/dL (6.5-8.0)
[2023-12-27 06:01] LABS: Band Neutrophils Percent 0 % (3-5); Eosinophils Absolute Manual 0.1 X10*3/uL (0.0-0.4); Eosinophils Percent Manual 1 % (0-4); Lymphocytes Absolute Manual 0.4 X10*3/uL (1.2-4.9); Lymphocytes Percent Manual 6 % (20-40); Metamyelocytes Absolute 0.1 X10*3/uL; Metamyelocytes Percent 2 %; Neutrophils Absolute Manual 6.6 X10*3/uL (2.0-8.3); Neutrophils Percent Manual 91 % (45-73); Platelet Estimate NORMAL (NORMAL); RBC Morphology NORMAL
[2023-12-27 06:02] LABS: Dohle Bodies PRESENT; Hypochromasia 2+ (15-30) /OIF; Ovalocytes 1+ (5-14) /OIF; Platelet Morphology Comment NORMAL; Toxic Granulation PRESENT; Toxic Vacuolation PRESENT
[2023-12-27 06:03] LABS: Tear Drop Cells 1+ (0-2) /OIF
[2023-12-27 07:37] LABS: Venous Blood Gas Refer to POC result
[2023-12-27] MEDS: Metoclopramide HCl 10 MG/2 ML VIAL IVPUSH ×2 (09:37→16:05)
[2023-12-27] MEDS: ondansetron HCL 4 MG/2 ML VIAL IVPUSH ×2 (09:37→16:05)
[2023-12-27] MEDS: predniSONE 20 MG TABLET PO (09:40)
[2023-12-27] MEDS: Furosemide 20 MG/2 ML VIAL 40 MG IVPUSH ×2 (09:40→18:44)
[2023-12-27] MEDS: Enoxaparin Sodium 40 MG/0.4 ML SYRINGE SUBCUT (09:40)
[2023-12-27] MEDS: Bictegrav/Emtricit/Tenofov Ala TABLET 1 TAB PO (09:40)
[2023-12-27] MEDS: Acetaminophen 325 MG TABLET 975 MG PO (09:40)
[2023-12-27] MEDS: cefTRIAXone sodium 1 GM in 0.9 % Sodium Chloride 50 ML IV (09:41)
[2023-12-27] MEDS: 0.9 % Sodium Chloride Flush 3 ML SYRINGE IVFLUSH ×2 (09:41→15:41)
--- NOTE | 2023-12-27 10:05 | MHC.CM.PN ---
Pt continues care in ICU for PJP Pna and has been restarted on HIV medications. Message left w/Mandy Doyle in financial to inquire on status of [place] [facility] conversion. Pt will need [place] insurance for post d/c care needs including PCP establishment, appointments/services and VNA should he require it. Will await callback.
--- NOTE | 2023-12-27 10:06 | PM.CCPN ---
Subjective Subjective Date of Service: 12/27/23 Interval History: 43-year-old gentleman with underlying AIDS, liver cirrhosis,? Syphilis, 12/09/2023 with dyspnea and acute hypoxic respiratory failure secondary to PCP initially treated with IV Bactrim later transitioned to p.o., however with worsening hypoxia now essentially on maximum high-flow support. Poor response to diuresis. Transferred to intensive care on 12/19/2023. Restarted on IV Bactrim. No events overnight. Critical Care Time (minutes): 45 Physical Exam Vital Signs: Vital Signs: Last Vital Signs Temp 97.3 F 12/27/23 08:00 Pulse 90 12/27/23 10:00 Resp 18 12/27/23 10:00 BP 123/63 12/27/23 10:00 Pulse Ox 94 12/27/23 10:00 O2 Del Method High Flow Nasal C annula 12/27/23 10:00 O2 Flow Rate 45 12/27/23 10:00 FiO2 75 12/27/23 10:00 Oxygen Flow Rate 15 12/09/23 19:34 BMI result Body Mass Index 20.6 Const: General: no acute distress, alert, awake and ill appearing Eyes: Sclerae: sclerae normal EOM: EOMs intact bilaterally Neck: Neck: Yes no lymphadenopathy, Yes trachea midline and Yes supple Resp: Effort & Inspection: normal respiratory effort and no respiratory distress Auscultation: clear to auscultation bilaterally Cardio: Rate: regular rate Rhythm: regular rhythm Heart sounds: no gallops, no murmurs and no rubs GI: Palpation (GI): Soft to palpation and Other GI palpation findings present ( Nontender) Auscultation: normal bowel sounds Extrem: General: Yes no pedal edema, No clubbing and No cyanosis Objective Data Labs 12/27/23 05:10 12/27/23 05:10 Labs: Laboratory Results - last 24 hr 12/27/23 12/27/23 05:10 05:18 WBC 7.3 RBC 2.71 L Hgb 7.9 L Hct 23.1 L MCV 85.2 MCH 29.2 MCHC 34.2 RDW 14.6 Plt Count 171 MPV 10.9 Immature Gran % (Auto) Cancelled Neut % (Auto) Cancelled Lymph % (Auto) Cancelled [place] % (Auto) Cancelled Eos % (Auto) Cancelled Baso % (Auto) Cancelled Lymph # (Auto) Cancelled [place] # (Auto) Cancelled Eos # (Auto) Cancelled Baso # (Auto) Cancelled Abs Immat Gran (auto) Cancelled Absolute Neuts (auto) Cancelled Absolute Nucleated RBC 0.000 Nucleated RBC % (auto) 0.0 Neutrophils % (Manual) 91 H Band Neutrophils % 0 L Lymphocytes % (Manual) 6 L Eosinophils % (Manual) 1 Metamyelocytes % 2 Abs Neuts (Manual) 6.6 Lymphocytes # (Manual) 0.4 L Eosinophils # (Manual) 0.1 Metamyelocytes # 0.1 Toxic Granulation PRESENT Toxic Vacuolation PRESENT Dohle Bodies PRESENT Platelet Estimate NORMAL Plt Morphology Comment NORMAL RBC Morphology NORMAL Hypochromasia 2+ (15-30) Tear Drop Cells 1+ (0-2) Ovalocytes 1+ (5-14) VBG pH 7.55 H VBG pCO2 35 VBG pO2 54 VBG HCO3 30 H VBG O2 Saturation 82.0 VBG Base Excess 8.4 Sodium 120 L* Potassium 4.0 Chloride 83 L Carbon Dioxide 24 Anion Gap 17 BUN 28 H Creatinine 1.06 Estim Creat Clear Calc 94.1 Estimated GFR > 60 Random Glucose 106 Calcium 9.1 Phosphorus 3.2 Magnesium 1.8 Total Bilirubin 0.2 AST 15 ALT 12 Alkaline Phosphatase 87 Total Protein 7.3 Albumin 3.3 L Microbiology Microbiology Results: Microbiology 12/10/23 14:48 Sputum - Expectorated Direct Acid Fast Bacilli Smear - Final 12/10/23 14:29 Sputum - Expectorated Direct Acid Fast Bacilli Smear - Final 12/10/23 10:10 Sputum - Expectorated Direct Acid Fast Bacilli Smear - Final 12/10/23 02:04 Blood - Venous Blood Culture - Final No growth after 5 days. 12/10/23 02:04 Blood - Venous Blood Culture - Final No growth after 5 days. 12/09/23 20:11 Blood - Venous Blood Culture - Final No growth after 5 days. 12/09/23 19:51 Blood - Venous Blood Culture - Final No growth after 5 days. 12/10/23 10:10 Sputum - Expectorated Gram Stain - Final 12/10/23 10:10 Sputum - Expectorated Sputum Culture - Final Progress Note: A&P Assessment and plan (1) AIDS: Status: Acute (2) Acute hypoxemic respiratory failure: Status: Acute (3) PCP (pneumocystis jiroveci pneumonia): Status: Acute Plan Assessment: 43-year-old gentleman with AIDS, now acute hypoxic respiratory failure with PCP pneumonia requiring maximum high-flow support Plan: Neuro: No acute issues. Cardiac: No acute issues. Pulmonary: Acute hypoxic respiratory failure secondary to PCP pneumonia with likely contribution of pulmonary edema. Now on high-flow, continue to titrate off as tolerated. Slowly improving. Renal: Hyponatremia, continue on sodium tabs. Continue to maintain euvolemia. Endo: No acute issues. GI: No acute issues. Underlying cirrhosis with some ascites. Hepatitis negative. ID: IV Bactrim and systemic glucocorticoids for PCP pneumonia, azithromycin prophylaxis for MAC, empiric ceftriaxone. Continue HAART. Heme/Onc: No acute issues. Psych: No acute issues. Miscellaneous: No acute issues. Prophylaxis: Lovenox Diet: Regular Critical care time spent: 45 minutes Quality Stroke Does the patient have a stroke diagnosis?: No VTE Prior VTE?: No VTE Risk Level:: Medical - moderate - high VTE Device Contraindication: Treatment Not Indicated VTE Drug Contraindication: N/A - Med Ordered
[2023-12-27] MEDS: Sodium Chloride Tab 1 GM TABLET 2 GM PO ×2 (15:12→20:23)
[2023-12-27] MEDS: Sennosides/Docusate Sodium TABLET 1 TAB PO (20:24)
[2023-12-27] MEDS: LORazepam 0.5 MG TABLET PO (20:28)
[2023-12-27] MEDS: Alteplase Cath Clear 2 MG/2 ML VIAL INTRACATH (21:10)
[2023-12-28] VITALS (39 sets, daily range): BP systolic 104–121; BP diastolic 50–71; PULSE 80–105; RESP 15–34; TEMP 36.3–36.7; O2SAT 91–97; BMI 20.4
[2023-12-28] MEDS: HYDROmorphone HCl 0.5 MG/0.5 ML SYRINGE IVPUSH ×8 (01:18→23:35)
[2023-12-28] MEDS: 0.9 % Sodium Chloride Flush 3 ML SYRINGE IVFLUSH ×3 (01:25→17:23)
[2023-12-28 05:08] LABS: MANUAL DIFF FLAG NO
[2023-12-28 05:09] LABS: Basophils Percent Auto 0.3 % (0-2); Eosinophils Absolute Auto 0.1 X10*3/uL (0.0-0.4); Eosinophils Percent Auto 1.3 % (0-4); Hematocrit 22.9 % (42.0-52.0); Hemoglobin 7.9 g/dl (14.0-18.0); Imm Gran Abs Auto 0.06 X10*3/uL (0.00-0.03); Imm Gran Pct Auto 0.9 % (0.0-0.4); Lymphocytes Absolute Auto 0.3 X10*3/uL (1.2-4.9); Lymphocytes Percent Auto 3.9 % (20-40); Mean Corpuscular HGB Conc 34.5 g/dl (31.0-36.0); Mean Corpuscular Hemoglobin 30.5 pg (27.0-33.0); Mean Corpuscular Volume 88.4 fL (80.0-98.0); Monocytes Absolute Auto 0.2 X10*3/uL (0.1-1.2); Monocytes Percent Auto 3.6 % (2-11); Platelet Count 158 X10*3/uL (160-400); Red Blood Count 2.59 X10*6/uL (4.60-5.80); Red Cell Distribution Width 14.6 % (11.0-16.0); White Blood Count 6.7 X10*3/uL (4.8-10.8)
[2023-12-28 05:10] LABS: VBG Base Excess 8.1 mmol/L; VBG HCO3 32 mmol/L (22-26); VBG pCO2 42 mmHg; VBG pH 7.48 (7.32-7.43); VBG pO2 49 mmHg
[2023-12-28 05:14] LABS: Venous Blood Gas Refer to POC result
[2023-12-28 05:25] LABS: Alanine Aminotransferase 10 U/L (0-40); Albumin Level 3.3 g/dL (3.5-5.0); Alkaline Phosphatase 86 U/L (39-117); Anion Gap 16 (12-20); Aspartate Amino Transferase 16 U/L (5-37); Bilirubin Total 0.2 mg/dL (0.0-1.0); Blood Urea Nitrogen 29 mg/dL (9-16); Calcium 8.8 mg/dL (8.4-10.2); Carbon Dioxide 26 mmol/L (22-29); Chloride 85 mmol/L (96-108); Creatinine Clr Calc Pharmacy 100.7; Estimated Glomerular Filt Rate > 60; Glucose Random 97 mg/dL (60-115); Magnesium 1.8 mg/dL (1.6-2.6); Phosphorus 3.5 mg/dL (2.7-4.5); Sodium 123 mmol/L (135-145); Total Protein 7.4 g/dL (6.5-8.0)
[2023-12-28] MEDS: Omeprazole 20 MG CAPSULE.DR PO (05:49)
--- NOTE | 2023-12-28 07:50 | PM.CCPN ---
Subjective Subjective Date of Service: 12/28/23 Critical Care Time (minutes): 90 Physical Exam Vital Signs: Vital Signs: Last Vital Signs Temp 98.1 F 12/28/23 04:00 Pulse 92 12/28/23 07:00 Resp 21 H 12/28/23 07:40 BP 116/71 12/28/23 07:00 Pulse Ox 95 12/28/23 07:00 O2 Del Method High Flow Nasal C annula 12/28/23 07:00 O2 Flow Rate 45 12/28/23 07:00 FiO2 75 12/28/23 07:00 Oxygen Flow Rate 15 12/09/23 19:34 BMI result Body Mass Index 20.4 Const: General: cooperative, comfortable, no acute distress, well developed, alert, awake and Physically active Orientation/consciousness: patient oriented x3 HEENT: Head: Yes normal to inspection, Yes normocephalic and Yes atraumatic Eyes: General: appearance normal, both eyes and all related structures Neck: Neck: Yes normal visual inspection and Yes supple Chest: Chest palpation & inspection: normal inspection of the chest Resp: Other: no appreciable rales, rhonchi, wheezing Effort & Inspection: normal respiratory effort and able to speak in complete sentences Cardio: Rate: regular rate Rhythm: regular rhythm GI: Inspection: Yes normal to inspection, No Abdominal wall edema and No distended Palpation (GI): Soft to palpation, not firm, nontender, no guarding and not rigid Skin: General skin exam: no rashes or lesions noted Neuro: General: patient oriented x3, tone normal, moves all extremities and no focal motor deficits Extrem: General: Yes normal to inspection, Yes capillary refill normal and Yes no clubbing, cyanosis or edema Psych: Appearance: grossly normal Objective Data Labs 12/28/23 05:00 12/28/23 05:00 Labs: Laboratory Results - last 24 hr 12/28/23 12/28/23 05:00 05:04 WBC 6.7 RBC 2.59 L Hgb 7.9 L Hct 22.9 L MCV 88.4 MCH 30.5 MCHC 34.5 RDW 14.6 Plt Count 158 L MPV 10.0 Immature Gran % (Auto) 0.9 H Neut % (Auto) 90.0 H Lymph % (Auto) 3.9 L [place] % (Auto) 3.6 Eos % (Auto) 1.3 Baso % (Auto) 0.3 Lymph # (Auto) 0.3 L [place] # (Auto) 0.2 Eos # (Auto) 0.1 Baso # (Auto) 0.0 Abs Immat Gran (auto) 0.06 H Absolute Neuts (auto) 6.0 Absolute Nucleated RBC 0.000 Nucleated RBC % (auto) 0.0 VBG pH 7.48 H VBG pCO2 42 VBG pO2 49 VBG HCO3 32 H VBG O2 Saturation 79.0 VBG Base Excess 8.1 Sodium 123 L Potassium 4.0 Chloride 85 L Carbon Dioxide 26 Anion Gap 16 BUN 29 H Creatinine 0.98 Estim Creat Clear Calc 100.7 Estimated GFR > 60 Random Glucose 97 Calcium 8.8 Phosphorus 3.5 Magnesium 1.8 Total Bilirubin 0.2 AST 16 ALT 10 Alkaline Phosphatase 86 Total Protein 7.4 Albumin 3.3 L Microbiology Microbiology Results: Microbiology 12/10/23 14:48 Sputum - Expectorated Direct Acid Fast Bacilli Smear - Final 12/10/23 14:29 Sputum - Expectorated Direct Acid Fast Bacilli Smear - Final 12/10/23 10:10 Sputum - Expectorated Direct Acid Fast Bacilli Smear - Final 12/10/23 02:04 Blood - Venous Blood Culture - Final No growth after 5 days. 12/10/23 02:04 Blood - Venous Blood Culture - Final No growth after 5 days. 12/09/23 20:11 Blood - Venous Blood Culture - Final No growth after 5 days. 12/09/23 19:51 Blood - Venous Blood Culture - Final No growth after 5 days. 12/10/23 10:10 Sputum - Expectorated Gram Stain - Final 12/10/23 10:10 Sputum - Expectorated Sputum Culture - Final Progress Note: A&P Assessment and plan (1) PCP (pneumocystis jiroveci pneumonia): Status: Acute (2) Acute hypoxemic respiratory failure: Status: Acute (3) AIDS: Status: Acute Plan Patient is a 43 Y M with AIDS, c/b non-compliance, cirrhosis, presenting 12/09 w/ dyspnea, found to be in acute hypoxic respiratory failure 2/2 PCP; hospital course c/b pulmonary edema, persistent acute hypoxic respiratory failure; transferred ICU 12/19 N: intermittent anxiety, improved w/ low-dose lorazepam CV: no acute issues R: PCP c/b acute hypoxic respiratory failure, on HFNC, wean as tolerated GI: no acute issues; PO diet : volume overload, improving; hyponatremia, to encourage PO intake, salt tabs H: no acute issues ID: PCP, on bactrim, ceftriaxone; AIDS, on retro-viral therapy; appreciate ID recommendations E: no acute issues P: anxiety, as described above Quality Stroke Does the patient have a stroke diagnosis?: No VTE Prior VTE?: No VTE Risk Level:: Medical - moderate - high VTE Device Contraindication: Treatment Not Indicated VTE Drug Contraindication: N/A - Med Ordered
[2023-12-28] MEDS: Bictegrav/Emtricit/Tenofov Ala TABLET 1 TAB PO (08:08)
[2023-12-28] MEDS: Sodium Chloride Tab 1 GM TABLET 2 GM PO ×3 (08:08→20:24)
[2023-12-28] MEDS: predniSONE 20 MG TABLET PO (08:08)
[2023-12-28] MEDS: Furosemide 20 MG/2 ML VIAL 40 MG IVPUSH ×2 (08:09→17:23)
[2023-12-28] MEDS: ondansetron HCL 4 MG/2 ML VIAL IVPUSH (08:15)
[2023-12-28] MEDS: Metoclopramide HCl 10 MG/2 ML VIAL IVPUSH ×2 (08:15→20:24)
--- NOTE | 2023-12-28 10:00 | MHC.CLN ---
F/U PO INTAKE VERY POOR PT WITH N/V X 2 DAYS PER NSG NOTED NO BM X 7 DAYS DIET RX: REGULAR 1200CC FLUID RESTRICTION-APPROPRIATE RECEIVING MAGIC CUP AND ENSURE MAX BID TO INCREASE KCALS PT ACCEPTING ENSURE AND WILL D/C AT THIS TIME CONTINUE TO MONITOR PO INTAKE AND ENCOURAGE SUPPLEMENTS IF PO REMAINS POOR X 3 DAYS RECOMMEND NGT OR PPN FOR NUTRITION SUPPORT
[2023-12-28] MEDS: LORazepam 0.5 MG TABLET PO ×2 (10:25→20:24)
[2023-12-28] MEDS: cefTRIAXone sodium 1 GM in 0.9 % Sodium Chloride 50 ML IV (10:25)
[2023-12-28] MEDS: Enoxaparin Sodium 40 MG/0.4 ML SYRINGE SUBCUT (10:26)
[2023-12-28 10:47] LABS: Appearance Urine Turbid; Color Urine Yellow; Glucose Urine UA Negative (Negative); Leukocyte Esterase Urine Negative (Negative); Nitrite Urine Negative (Negative); PH 5.5 (5.0-9.0); Urine Blood Negative (Negative); Urine Ketones Negative (Negative); Urine Protein Negative (Neg-Trace)
[2023-12-28] MEDS: Benzonatate 100 MG CAPSULE PO ×2 (14:20→20:24)
--- NOTE | 2023-12-28 14:47 | MHC.CM.PN ---
EMR REVIEWED AND PER MD ROUNDS, PT REMAINS IN ICU ON HF02. PT REMAINS ANXIOUS AND FATIGUED. CM WILL ATTEMPT TO DO A HCP WITH PT WHEN AWAKE. CM WILL CONTINUE TO FOLLOW FOR DC PLAN. NO WORD YET FROM [facility] [place]ARDING CONVERSION TO .
[2023-12-28] MEDS: Sennosides/Docusate Sodium TABLET 1 TAB PO (20:25)
--- NOTE | 2023-12-28 22:04 | PC.NURSE ---
pt called keno writer/runner to bedside, stated he did not get his pain medication and would like it now, This RN reminded pt pain medication was given at 2030 along with other night time medications, PT states again that he did not get his pain medication and this Rn did not give the pain medication. All medications explained to pt at time of administration. Nursing Staff Forester made aware.
[2023-12-29] VITALS (33 sets, daily range): BP systolic 93–133; BP diastolic 51–77; PULSE 74–109; RESP 14–28; TEMP 36–36.4; O2SAT 90–99; BMI 20.5; BMI 21.1
[2023-12-29] MEDS: Acetaminophen 325 MG TABLET 975 MG PO ×2 (02:03→11:44)
[2023-12-29] MEDS: HYDROmorphone HCl 0.5 MG/0.5 ML SYRINGE IVPUSH ×6 (02:31→22:06)
[2023-12-29] MEDS: Omeprazole 20 MG CAPSULE.DR PO (05:42)
[2023-12-29 06:08] LABS: Basophils Percent Auto 0.3 % (0-2); Eosinophils Absolute Auto 0.1 X10*3/uL (0.0-0.4); Eosinophils Percent Auto 1.5 % (0-4); Hematocrit 22.3 % (42.0-52.0); Hemoglobin 7.5 g/dl (14.0-18.0); Imm Gran Abs Auto 0.08 X10*3/uL (0.00-0.03); Imm Gran Pct Auto 1.2 % (0.0-0.4); Lymphocytes Absolute Auto 0.2 X10*3/uL (1.2-4.9); Lymphocytes Percent Auto 3.2 % (20-40); MANUAL DIFF FLAG SCAN; Mean Corpuscular HGB Conc 33.6 g/dl (31.0-36.0); Mean Corpuscular Hemoglobin 29.2 pg (27.0-33.0); Mean Corpuscular Volume 86.8 fL (80.0-98.0); Monocytes Absolute Auto 0.1 X10*3/uL (0.1-1.2); Monocytes Percent Auto 2.1 % (2-11); Neutrophils Absolute Auto 6.1 x10*3/uL (2.0-8.3); Neutrophils Percent Auto 91.7 % (45-73); Platelet Count 160 X10*3/uL (160-400); Red Blood Count 2.57 X10*6/uL (4.60-5.80); Red Cell Distribution Width 14.6 % (11.0-16.0); SCAN SMEAR FLAG 1; White Blood Count 6.6 X10*3/uL (4.8-10.8)
[2023-12-29 06:25] LABS: SLIDE REVIEW VERIFIED
[2023-12-29 06:26] LABS: Anion Gap 15 (12-20); Blood Urea Nitrogen 25 mg/dL (9-16); Calcium 8.6 mg/dL (8.4-10.2); Carbon Dioxide 27 mmol/L (22-29); Chloride 85 mmol/L (96-108); Creatinine Clr Calc Pharmacy 106.1; Estimated Glomerular Filt Rate > 60; Glucose Random 114 mg/dL (60-115); Potassium 3.7 mmol/L (3.3-5.1); Sodium 123 mmol/L (135-145)
--- NOTE | 2023-12-29 07:36 | P.PNCC_ITS ---
Subjective Subjective Date of Service: 12/29/23 Interval History: no significant overnight events Critical Care Time (minutes): 60 Physical Exam 2 Vital Signs: Vital Signs: Last Vital Signs Temp 96.9 F 12/29/23 03:00 Pulse 86 12/29/23 07:00 Resp 17 12/29/23 07:34 BP 114/56 L 12/29/23 07:00 Pulse Ox 93 12/29/23 07:00 O2 Del Method High Flow Nasal C annula 12/29/23 07:00 O2 Flow Rate 40 12/29/23 07:00 FiO2 80 12/29/23 07:00 Oxygen Flow Rate 15 12/09/23 19:34 BMI result Body Mass Index 21.1 Const: Other: cachectic General: cooperative, comfortable, no acute distress, alert and awake O rientation/consciousness: patient oriented x3 HEENT: Head: Yes normal to inspection, Yes normocephalic and Yes atraumatic Eyes: General: appearance normal, both eyes and all related structures Neck: Neck: Yes normal visual inspection and Yes supple Chest: Chest palpation & inspection: normal inspection of the chest Resp: Other: some appreciable rales, L greater than R; no appreciable rhonchi, wheezing Cardio: Rate: regular rate Rhythm: regular rhythm GI: Inspection: Yes normal to inspection, No Abdominal wall edema and No distended Palpation (GI): Soft to palpation, not firm, nontender, no guarding and not rigid Skin: General skin exam: no rashes or lesions noted Neuro: General: patient oriented x3, tone normal, moves all extremities and no focal motor deficits Extrem: General: Yes normal to inspection, Yes capillary refill normal and Yes no clubbing, cyanosis or edema Psych: Other: appreciable intermittent anxiety Objective Data Labs 12/29/23 05:45 12/29/23 05:57 Labs: Laboratory Results - last 24 hr 12/28/23 12/28/23 12/29/23 08:45 10:31 05:45 WBC 6.6 RBC 2.57 L Hgb 7.5 L Hct 22.3 L MCV 86.8 MCH 29.2 MCHC 33.6 RDW 14.6 Plt Count 160 MPV 11.0 Immature Gran % (Auto) 1.2 H Neut % (Auto) 91.7 H Lymph % (Auto) 3.2 L [place] % (Auto) 2.1 Eos % (Auto) 1.5 Baso % (Auto) 0.3 Lymph # (Auto) 0.2 L [place] # (Auto) 0.1 Eos # (Auto) 0.1 Baso # (Auto) 0.0 Abs Immat Gran (auto) 0.08 H Absolute Neuts (auto) 6.1 Absolute Nucleated RBC 0.000 Nucleated RBC % (auto) 0.0 Smear Tech's Comments VERIFIED Sodium Potassium Chloride Carbon Dioxide Anion Gap BUN Creatinine Estim Creat Clear Calc Estimated GFR Random Glucose Calcium Urine Color Yellow Urine Appearance Turbid Urine pH 5.5 Ur Specific [place] 1.010 Urine Protein Negative Urine Glucose (UA) Negative Urine Ketones Negative Urine Blood Negative Urine Nitrite Negative Ur Leukocyte Esterase Negative Blood Type A Positive Antibody Screen NEGATIVE 12/29/23 05:57 WBC RBC Hgb Hct MCV MCH MCHC RDW Plt Count MPV Immature Gran % (Auto) Neut % (Auto) Lymph % (Auto) [place] % (Auto) Eos % (Auto) Baso % (Auto) Lymph # (Auto) [place] # (Auto) Eos # (Auto) Baso # (Auto) Abs Immat Gran (auto) Absolute Neuts (auto) Absolute Nucleated RBC Nucleated RBC % (auto) Smear Tech's Comments Sodium 123 L Potassium 3.7 Chloride 85 L Carbon Dioxide 27 Anion Gap 15 BUN 25 H Creatinine 0.95 Estim Creat Clear Calc 106.1 Estimated GFR > 60 Random Glucose 114 Calcium 8.6 Urine Color Urine Appearance Urine pH Ur Specific [place] Urine Protein Urine Glucose (UA) Urine Ketones Urine Blood Urine Nitrite Ur Leukocyte Esterase Blood Type Antibody Screen Microbiology Microbiology Results: Microbiology 12/10/23 14:48 Sputum - Expectorated Direct Acid Fast Bacilli Smear - Final 12/10/23 14:29 Sputum - Expectorated Direct Acid Fast Bacilli Smear - Final 12/10/23 10:10 Sputum - Expectorated Direct Acid Fast Bacilli Smear - Final 12/10/23 02:04 Blood - Venous Blood Culture - Final No growth after 5 days. 12/10/23 02:04 Blood - Venous Blood Culture - Final No growth after 5 days. 12/09/23 20:11 Blood - Venous Blood Culture - Final No growth after 5 days. 12/09/23 19:51 Blood - Venous Blood Culture - Final No growth after 5 days. 12/10/23 10:10 Sputum - Expectorated Gram Stain - Final 12/10/23 10:10 Sputum - Expectorated Sputum Culture - Final Progress Note: A&P Assessment and plan (1) PCP (pneumocystis jiroveci pneumonia): Status: Acute (2) Acute hypoxemic respiratory failure: Status: Acute (3) AIDS: Status: Acute Plan Patient is a 43 Y M with AIDS, c/b non-compliance, cirrhosis, presenting 12/09 w/ dyspnea, found to be in acute hypoxic respiratory failure 2/2 PCP; hospital course c/b pulmonary edema, persistent acute hypoxic respiratory failure; transferred ICU 12/19 N: intermittent anxiety, improved w/ low-dose lorazepam CV: no acute issues R: PCP c/b acute hypoxic respiratory failure, on HFNC, wean as tolerated GI: decreased appetite, encourage PO intake, appreciate nutrition recommendations : volume overload, improving; hyponatremia, to encourage PO intake, salt tabs H: no acute issues ID: PCP, on bactrim, ceftriaxone; AIDS, on retro-viral therapy; appreciate ID recommendations E: no acute issues P: anxiety, as described above Quality Stroke Does the patient have a stroke diagnosis?: No VTE Prior VTE?: No VTE Risk Level:: Medical - moderate - high VTE Device Contraindication: Treatment Not Indicated VTE Drug Contraindication: N/A - Med Ordered
[2023-12-29] MEDS: 0.9 % Sodium Chloride Flush 3 ML SYRINGE IVFLUSH ×3 (07:40→22:45)
[2023-12-29] MEDS: Sodium Chloride Tab 1 GM TABLET 2 GM PO ×3 (07:40→20:21)
[2023-12-29] MEDS: Furosemide 20 MG/2 ML VIAL 40 MG IVPUSH (07:40)
[2023-12-29] MEDS: predniSONE 20 MG TABLET PO (07:41)
[2023-12-29] MEDS: Bictegrav/Emtricit/Tenofov Ala TABLET 1 TAB PO (07:43)
[2023-12-29] MEDS: cefTRIAXone sodium 1 GM in 0.9 % Sodium Chloride 50 ML IV (09:43)
[2023-12-29] MEDS: LORazepam 0.5 MG TABLET PO ×2 (09:43→20:21)
[2023-12-29] MEDS: Enoxaparin Sodium 40 MG/0.4 ML SYRINGE SUBCUT (09:43)
[2023-12-29] MEDS: Metoclopramide HCl 10 MG/2 ML VIAL IVPUSH ×2 (14:43→20:14)
--- NOTE | 2023-12-29 14:45 | MHC.CM.PN ---
Pt continues care in ICU: still on hi-flow O2 for PNA treatment: poor po intake. Discussed HCP completion w/pt who stated his mother Beatrice would serve as his agent. Form completed and placed in chart w/copy left w/pt. Finalization of d/c planning ongoing: pt now has [facility] as of 12/14/23. Pt will need to pick a managed plan and then an in network provider. Will relay information to pt and assist as needed. CM to follow for d/c planning needs.
[2023-12-29] MEDS: Furosemide 100 MG/10 ML VIAL 60 MG IVPUSH (17:19)
[2023-12-29] MEDS: Sennosides/Docusate Sodium TABLET 1 TAB PO (20:21)
[2023-12-30] VITALS (30 sets, daily range): BP systolic 101–113; BP diastolic 52–61; PULSE 72–88; RESP 14–22; TEMP 36.5–36.9; O2SAT 85–99; BMI 20.3
[2023-12-30] MEDS: HYDROmorphone HCl 0.5 MG/0.5 ML SYRINGE IVPUSH ×7 (02:23→22:34)
[2023-12-30] MEDS: Omeprazole 20 MG CAPSULE.DR PO (05:38)
[2023-12-30 05:58] LABS: MANUAL DIFF FLAG NO
[2023-12-30 06:00] LABS: Basophils Percent Auto 0.4 % (0-2); Eosinophils Absolute Auto 0.2 X10*3/uL (0.0-0.4); Eosinophils Percent Auto 4.2 % (0-4); Hematocrit 22.4 % (42.0-52.0); Hemoglobin 7.5 g/dl (14.0-18.0); Imm Gran Abs Auto 0.08 X10*3/uL (0.00-0.03); Imm Gran Pct Auto 1.7 % (0.0-0.4); Lymphocytes Absolute Auto 0.2 X10*3/uL (1.2-4.9); Mean Corpuscular HGB Conc 33.5 g/dl (31.0-36.0); Mean Corpuscular Hemoglobin 29.2 pg (27.0-33.0); Mean Corpuscular Volume 87.2 fL (80.0-98.0); Mean Platelet Volume 10.2 fL (9.4-12.4); Monocytes Absolute Auto 0.2 X10*3/uL (0.1-1.2); Monocytes Percent Auto 4.6 % (2-11); Neutrophils Percent Auto 85.1 % (45-73); Platelet Count 147 X10*3/uL (160-400); Red Blood Count 2.57 X10*6/uL (4.60-5.80); Red Cell Distribution Width 14.7 % (11.0-16.0); White Blood Count 4.7 X10*3/uL (4.8-10.8)
[2023-12-30 06:18] LABS: Anion Gap 16 (12-20); Blood Urea Nitrogen 23 mg/dL (9-16); Calcium 8.8 mg/dL (8.4-10.2); Carbon Dioxide 31 mmol/L (22-29); Chloride 83 mmol/L (96-108); Creatinine Clr Calc Pharmacy 103.5; Estimated Glomerular Filt Rate > 60; Glucose Random 102 mg/dL (60-115); Potassium 3.7 mmol/L (3.3-5.1); Sodium 126 mmol/L (135-145)
[2023-12-30] MEDS: predniSONE 20 MG TABLET PO (08:14)
[2023-12-30] MEDS: Bictegrav/Emtricit/Tenofov Ala TABLET 1 TAB PO (08:14)
[2023-12-30] MEDS: 0.9 % Sodium Chloride Flush 3 ML SYRINGE IVFLUSH ×3 (08:14→23:45)
[2023-12-30] MEDS: Sodium Chloride Tab 1 GM TABLET 2 GM PO ×2 (08:14→15:47)
[2023-12-30] MEDS: Furosemide 100 MG/10 ML VIAL 60 MG IVPUSH (08:14)
[2023-12-30] MEDS: LORazepam 0.5 MG TABLET PO ×2 (08:15→21:42)
[2023-12-30] MEDS: Benzonatate 100 MG CAPSULE PO (08:29)
[2023-12-30] MEDS: Metoclopramide HCl 10 MG/2 ML VIAL IVPUSH ×2 (08:29→16:18)
--- NOTE | 2023-12-30 08:54 | P.PNCC_ITS ---
Subjective Subjective Date of Service: 12/30/23 Interval History: no significant overnight events Critical Care Time (minutes): 60 Physical Exam 2 Vital Signs: Vital Signs: Last Vital Signs Temp 98.5 F 12/30/23 08:00 Pulse 82 12/30/23 08:00 Resp 16 12/30/23 08:00 BP 105/56 L 12/30/23 08:00 Pulse Ox 94 12/30/23 08:00 O2 Del Method High Flow Nasal C annula 12/30/23 08:00 O2 Flow Rate 55 12/30/23 08:00 FiO2 100 12/30/23 08:00 Oxygen Flow Rate 15 12/09/23 19:34 BMI result Body Mass Index 20.3 Const: Other: appreciable cachexia General: no acute distress, alert, awake and Physically active O rientation/consciousness: patient oriented x3 HEENT: Head: Yes normal to inspection, Yes normocephalic and Yes atraumatic Eyes: General: appearance normal, both eyes and all related structures Neck: Neck: Yes normal visual inspection, Yes full ROM and Yes supple Chest: Chest palpation & inspection: normal inspection of the chest Resp: Other: some appreciable rales bilaterally; no appreciable rhonchi, wheezing Cardio: Rate: regular rate Rhythm: regular rhythm GI: Inspection: Yes normal to inspection, No Abdominal wall edema and No distended Palpation (GI): Soft to palpation, not firm, nontender, no guarding and not rigid Skin: General skin exam: no rashes or lesions noted Neuro: General: patient oriented x3, tone normal, moves all extremities and no focal motor deficits Psych: Appearance: grossly normal Objective Data Labs 12/30/23 04:26 12/30/23 04:26 Labs: Laboratory Results - last 24 hr 12/30/23 04:26 WBC 4.7 L RBC 2.57 L Hgb 7.5 L Hct 22.4 L MCV 87.2 MCH 29.2 MCHC 33.5 RDW 14.7 Plt Count 147 L MPV 10.2 Immature Gran % (Auto) 1.7 H Neut % (Auto) 85.1 H Lymph % (Auto) 4.0 L [place] % (Auto) 4.6 Eos % (Auto) 4.2 H Baso % (Auto) 0.4 Lymph # (Auto) 0.2 L [place] # (Auto) 0.2 Eos # (Auto) 0.2 Baso # (Auto) 0.0 Abs Immat Gran (auto) 0.08 H Absolute Neuts (auto) 4.0 Absolute Nucleated RBC 0.000 Nucleated RBC % (auto) 0.0 Sodium 126 L Potassium 3.7 Chloride 83 L Carbon Dioxide 31 H Anion Gap 16 BUN 23 H Creatinine 0.94 Estim Creat Clear Calc 103.5 Estimated GFR > 60 Random Glucose 102 Calcium 8.8 Microbiology Microbiology Results: Microbiology 12/10/23 14:48 Sputum - Expectorated Direct Acid Fast Bacilli Smear - Final 12/10/23 14:29 Sputum - Expectorated Direct Acid Fast Bacilli Smear - Final 12/10/23 10:10 Sputum - Expectorated Direct Acid Fast Bacilli Smear - Final 12/10/23 02:04 Blood - Venous Blood Culture - Final No growth after 5 days. 12/10/23 02:04 Blood - Venous Blood Culture - Final No growth after 5 days. 12/09/23 20:11 Blood - Venous Blood Culture - Final No growth after 5 days. 12/09/23 19:51 Blood - Venous Blood Culture - Final No growth after 5 days. 12/10/23 10:10 Sputum - Expectorated Gram Stain - Final 12/10/23 10:10 Sputum - Expectorated Sputum Culture - Final Progress Note: A&P Assessment and plan (1) Pulmonary edema: Status: Acute (2) PCP (pneumocystis jiroveci pneumonia): Status: Acute (3) Acute hypoxemic respiratory failure: Status: Acute (4) AIDS: Status: Acute Plan Patient is a 43 Y M with AIDS, c/b non-compliance, cirrhosis, presenting 12/09 w/ dyspnea, found to be in acute hypoxic respiratory failure 2/2 PCP; hospital course c/b pulmonary edema, persistent acute hypoxic respiratory failure; transferred ICU 12/19 N: intermittent anxiety, improved w/ low-dose lorazepam CV: no acute issues R: PCP c/b acute hypoxic respiratory failure, on HFNC, wean as tolerated GI: decreased appetite, encourage PO intake, appreciate nutrition recommendations : volume overload, to continue diuresis; hyponatremia, to encourage PO intake, salt tabs H: no acute issues ID: PCP, on bactrim, ceftriaxone; AIDS, on retro-viral therapy; appreciate ID recommendations E: no acute issues P: anxiety, as described above Quality Stroke Does the patient have a stroke diagnosis?: No VTE Prior VTE?: No VTE Risk Level:: Medical - moderate - high VTE Device Contraindication: Treatment Not Indicated VTE Drug Contraindication: N/A - Med Ordered
[2023-12-30] MEDS: cefTRIAXone sodium 1 GM in 0.9 % Sodium Chloride 50 ML IV (09:44)
--- NOTE | 2023-12-30 09:51 | MHC.CLN ---
F/U PO INTAKE CONTINUES TO BE VERY POOR PT REPORTED NO APPETITE DIET RX: REGULAR 1200CC FLUID RESTRICTION-APPROPRIATE CONSIDER D/C FLUID RESTRICTION R/T POOR PO RECEIVING MAGIC CUP AND STATED HE DOESN'T LIKE IT -WILL D/C OFFERED PT ALTERNATIVE MEAL CHOICES, FAVORITE FOODS, CAFETERIA OPTIONS PT NOT INTERESTED IN ALTERNATIVE MEAL ITEMS PT RECEPTIVE TO DRINKING CALORIES AND PREFERS VAN[facility]A FLAVORED ENSURE WILL START ENSURE TID TO PROVIDE 1050KCALS, 60G PROTEIN WITH 100% ACCEPTANCE CONTINUE TO MONITOR PO INTAKE AND ENCOURAGE SUPPLEMENTS PT MAY NEED NGT OR CPN IF NOT MEETING NUTRITION NEEDS
--- NOTE | 2023-12-30 15:58 | MHC.CM.PN ---
EMR REVIEWED. PT REMAINS IN ICU ON H02, SOME INCREASED 02 NEED OVERNIGHT. CM WILL CONTINUE TO FOLLOW FOR ANY CHANGE IN DC NEEDS/PLAN. HCP NOW ON FILE.
--- NOTE | 2023-12-30 16:14 | PM.IDPN ---
Subjective Subjective Date of Service: 12/30/23 Critical Care Time (minutes): 15 Comment: he has some nausea,otherwise feels unremarkable Objective Data Labs 12/30/23 04:26 12/30/23 04:26 Labs: Laboratory Results - last 24 hr 12/30/23 04:26 WBC 4.7 L RBC 2.57 L Hgb 7.5 L Hct 22.4 L MCV 87.2 MCH 29.2 MCHC 33.5 RDW 14.7 Plt Count 147 L MPV 10.2 Immature Gran % (Auto) 1.7 H Neut % (Auto) 85.1 H Lymph % (Auto) 4.0 L [place] % (Auto) 4.6 Eos % (Auto) 4.2 H Baso % (Auto) 0.4 Lymph # (Auto) 0.2 L [place] # (Auto) 0.2 Eos # (Auto) 0.2 Baso # (Auto) 0.0 Abs Immat Gran (auto) 0.08 H Absolute Neuts (auto) 4.0 Absolute Nucleated RBC 0.000 Nucleated RBC % (auto) 0.0 Sodium 126 L Potassium 3.7 Chloride 83 L Carbon Dioxide 31 H Anion Gap 16 BUN 23 H Creatinine 0.94 Estim Creat Clear Calc 103.5 Estimated GFR > 60 Random Glucose 102 Calcium 8.8 Microbiology Microbiology Results: Microbiology 12/10/23 14:48 Sputum - Expectorated Direct Acid Fast Bacilli Smear - Final 12/10/23 14:29 Sputum - Expectorated Direct Acid Fast Bacilli Smear - Final 12/10/23 10:10 Sputum - Expectorated Direct Acid Fast Bacilli Smear - Final 12/10/23 02:04 Blood - Venous Blood Culture - Final No growth after 5 days. 12/10/23 02:04 Blood - Venous Blood Culture - Final No growth after 5 days. 12/09/23 20:11 Blood - Venous Blood Culture - Final No growth after 5 days. 12/09/23 19:51 Blood - Venous Blood Culture - Final No growth after 5 days. 12/10/23 10:10 Sputum - Expectorated Gram Stain - Final 12/10/23 10:10 Sputum - Expectorated Sputum Culture - Final Physical Exam Vital Signs: Vital Signs: Last Vital Signs Temp 97.9 F 12/30/23 15:00 Pulse 82 12/30/23 16:00 Resp 21 H 12/30/23 16:00 BP 103/58 L 12/30/23 16:00 Pulse Ox 91 L 12/30/23 16:00 O2 Del Method High Flow Nasal C annula 12/30/23 16:00 O2 Flow Rate 55 12/30/23 16:00 FiO2 100 12/30/23 16:00 Oxygen Flow Rate 15 12/09/23 19:34 BMI result Body Mass Index 20.3 Const: General: cooperative HEENT: Head: Yes normal to inspection Mouth: Normal oral and palatal mucosa present Resp: Effort & Inspection: abnormal respiratory pattern Cardio: Rate: regular rate GI: Inspection: Yes normal to inspection Assessment and Plan Assessment and plan (1) Pulmonary edema: Problem details: He has completed course PJP pneumonia He has nausea maybe due to Bactrim He is still requiring high levels oxygen ?DIP/fibrosis Status: Acute Assessment and Plan: Stop IV Bactrim Continue Biktarvy Steroids prn need Bactrim every ,,Thursday preventive Azithromycin 500 mg weekly YOEL prevention (2) PCP (pneumocystis jiroveci pneumonia): Status: Acute (3) AIDS: Status: Acute Time Spent With Patient Time: Total time managing care of this patient today ____ minutes.
[2023-12-30] MEDS: Furosemide 100 MG/10 ML VIAL 80 MG IVPUSH (17:08)
[2023-12-30] MEDS: Sennosides/Docusate Sodium TABLET 1 TAB PO (21:43)
[2023-12-31] VITALS (31 sets, daily range): BP systolic 90–123; BP diastolic 52–67; PULSE 69–107; RESP 15–29; TEMP 36.3–36.9; O2SAT 91–100; BMI 19.5
[2023-12-31] MEDS: HYDROmorphone HCl 0.5 MG/0.5 ML SYRINGE IVPUSH ×7 (01:38→21:14)
[2023-12-31 04:49] LABS: VBG Base Excess 12.8 mmol/L; VBG HCO3 37 mmol/L (22-26); VBG pCO2 48 mmHg; VBG pH 7.49 (7.32-7.43); VBG pO2 52 mmHg
[2023-12-31 05:07] LABS: Venous Blood Gas Refer to POC result
[2023-12-31 05:26] LABS: MANUAL DIFF FLAG NO
[2023-12-31 05:31] LABS: Basophils Percent Auto 0.6 % (0-2); Eosinophils Absolute Auto 0.1 X10*3/uL (0.0-0.4); Eosinophils Percent Auto 2.5 % (0-4); Hematocrit 23.8 % (42.0-52.0); Hemoglobin 7.8 g/dl (14.0-18.0); Imm Gran Abs Auto 0.09 X10*3/uL (0.00-0.03); Imm Gran Pct Auto 1.7 % (0.0-0.4); Lymphocytes Absolute Auto 0.2 X10*3/uL (1.2-4.9); Lymphocytes Percent Auto 4.2 % (20-40); Mean Corpuscular HGB Conc 32.8 g/dl (31.0-36.0); Mean Corpuscular Hemoglobin 29.1 pg (27.0-33.0); Mean Corpuscular Volume 88.8 fL (80.0-98.0); Mean Platelet Volume 11.2 fL (9.4-12.4); Monocytes Absolute Auto 0.2 X10*3/uL (0.1-1.2); Neutrophils Absolute Auto 4.6 x10*3/uL (2.0-8.3); Platelet Count 154 X10*3/uL (160-400); Red Blood Count 2.68 X10*6/uL (4.60-5.80); Red Cell Distribution Width 14.6 % (11.0-16.0); White Blood Count 5.2 X10*3/uL (4.8-10.8)
[2023-12-31 05:45] LABS: Anion Gap 14 (12-20); Blood Urea Nitrogen 24 mg/dL (9-16); Calcium 8.9 mg/dL (8.4-10.2); Carbon Dioxide 32 mmol/L (22-29); Chloride 84 mmol/L (96-108); Creatinine Clr Calc Pharmacy 95.4; Estimated Glomerular Filt Rate > 60; Glucose Random 99 mg/dL (60-115); Potassium 3.6 mmol/L (3.3-5.1); Sodium 126 mmol/L (135-145)
[2023-12-31] MEDS: Omeprazole 20 MG CAPSULE.DR PO (06:22)
--- NOTE | 2023-12-31 08:19 | P.PNCC_ITS ---
Subjective Subjective Date of Service: 12/31/23 Interval History: no significant overnight events Critical Care Time (minutes): 60 Physical Exam 2 Vital Signs: Vital Signs: Last Vital Signs Temp 97.4 F 12/31/23 03:56 Pulse 78 12/31/23 08:00 Resp 16 12/31/23 08:08 BP 108/59 L 12/31/23 08:00 Pulse Ox 97 12/31/23 08:00 O2 Del Method High Flow Nasal C annula 12/31/23 08:00 O2 Flow Rate 45 12/31/23 08:00 FiO2 65 12/31/23 08:00 Oxygen Flow Rate 15 12/09/23 19:34 BMI result Body Mass Index 19.5 Const: Other: appreciable cachexia General: cooperative, comfortable, no acute distress, alert and awake O rientation/consciousness: patient oriented x3 HEENT: Head: Yes normal to inspection, Yes normocephalic and Yes atraumatic Eyes: General: appearance normal, both eyes and all related structures Neck: Neck: Yes normal visual inspection, Yes no meningeal signs and Yes supple Chest: Chest palpation & inspection: normal inspection of the chest Resp: Other: some appreciable rales; no appreciable rhonchi, wheezing Effort & Inspection: normal respiratory effort Cardio: Rate: regular rate Rhythm: regular rhythm GI: Inspection: Yes normal to inspection, No Abdominal wall edema and No distended Palpation (GI): Soft to palpation, not firm, nontender, no guarding and not rigid Skin: General skin exam: no rashes or lesions noted Neuro: General: patient oriented x3, tone normal, moves all extremities, no meningeal signs and no focal motor deficits Extrem: General: Yes normal to inspection, Yes capillary refill normal and Yes no clubbing, cyanosis or edema Psych: Other: appreciable depressed affect; intermittent anxiety Objective Data Labs 12/31/23 04:30 12/31/23 04:30 Labs: Laboratory Results - last 24 hr 12/31/23 12/31/23 04:30 04:42 WBC 5.2 RBC 2.68 L Hgb 7.8 L Hct 23.8 L MCV 88.8 MCH 29.1 MCHC 32.8 RDW 14.6 Plt Count 154 L MPV 11.2 Immature Gran % (Auto) 1.7 H Neut % (Auto) 87.0 H Lymph % (Auto) 4.2 L [place] % (Auto) 4.0 Eos % (Auto) 2.5 Baso % (Auto) 0.6 Lymph # (Auto) 0.2 L [place] # (Auto) 0.2 Eos # (Auto) 0.1 Baso # (Auto) 0.0 Abs Immat Gran (auto) 0.09 H Absolute Neuts (auto) 4.6 Absolute Nucleated RBC 0.000 Nucleated RBC % (auto) 0.0 VBG pH 7.49 H VBG pCO2 48 VBG pO2 52 VBG HCO3 37 H VBG O2 Saturation 81.0 VBG Base Excess 12.8 Sodium 126 L Potassium 3.6 Chloride 84 L Carbon Dioxide 32 H Anion Gap 14 BUN 24 H Creatinine 1.02 Estim Creat Clear Calc 95.4 Estimated GFR > 60 Random Glucose 99 Calcium 8.9 Microbiology Microbiology Results: Microbiology 12/10/23 14:48 Sputum - Expectorated Direct Acid Fast Bacilli Smear - Final 12/10/23 14:29 Sputum - Expectorated Direct Acid Fast Bacilli Smear - Final 12/10/23 10:10 Sputum - Expectorated Direct Acid Fast Bacilli Smear - Final 12/10/23 02:04 Blood - Venous Blood Culture - Final No growth after 5 days. 12/10/23 02:04 Blood - Venous Blood Culture - Final No growth after 5 days. 12/09/23 20:11 Blood - Venous Blood Culture - Final No growth after 5 days. 12/09/23 19:51 Blood - Venous Blood Culture - Final No growth after 5 days. 12/10/23 10:10 Sputum - Expectorated Gram Stain - Final 12/10/23 10:10 Sputum - Expectorated Sputum Culture - Final Progress Note: A&P Assessment and plan (1) PCP (pneumocystis jiroveci pneumonia): Status: Acute (2) Acute hypoxemic respiratory failure: Status: Acute (3) AIDS: Status: Acute Plan Patient is a 43 Y M with AIDS, c/b non-compliance, cirrhosis, presenting 12/09 w/ dyspnea, found to be in acute hypoxic respiratory failure 2/2 PCP; hospital course c/b pulmonary edema, persistent acute hypoxic respiratory failure; transferred ICU 12/19 N: intermittent anxiety, improved w/ low-dose lorazepam CV: no acute issues R: PCP c/b acute hypoxic respiratory failure, on HFNC, wean as tolerated GI: decreased appetite, encourage PO intake, appreciate nutrition recommendations : volume overload, to continue diuresis; hyponatremia, to encourage PO intake, salt tabs H: no acute issues ID: PCP, on prophylactic bactrim; AIDS, on retro-viral therapy, prophylactic azithromycin; appreciate ID recommendations E: no acute issues P: anxiety, as described above Quality Stroke Does the patient have a stroke diagnosis?: No VTE Prior VTE?: No VTE Risk Level:: Medical - moderate - high VTE Device Contraindication: Treatment Not Indicated VTE Drug Contraindication: N/A - Med Ordered
[2023-12-31] MEDS: Furosemide 100 MG/10 ML VIAL 80 MG IVPUSH ×2 (08:29→18:09)
[2023-12-31] MEDS: Bictegrav/Emtricit/Tenofov Ala TABLET 1 TAB PO (08:30)
[2023-12-31] MEDS: LORazepam 0.5 MG TABLET PO ×2 (08:30→22:55)
[2023-12-31] MEDS: Azithromycin 500 MG TABLET PO (08:30)
[2023-12-31] MEDS: 0.9 % Sodium Chloride Flush 3 ML SYRINGE IVFLUSH ×3 (08:33→21:21)
--- NOTE | 2023-12-31 09:29 | MHC.CLN ---
RE: CONSULT PT IS MODERATELY MALNOURISHED PT WITH MILDLY DEPLETED SUBCUTANEOUS FAT AND MUSCLE MASS WITH CHRONIC POOR PO INTAKE R/T HOMELESSNESS WITH RECENT INCREASED NUTRITION NEEDS R/T ACUTE ILLNESSES WITH UNTREATED HIV PT WITH RECENT POOR PO INTAKE X 5 DAYS AND REQUIRES PPN FOR NUTRITION SUPPORT DIET RX: REGULAR 1200ML FLUIDS RESTRICTION-APPROPRIATE PT RECEIVING ENSURE TID PROVIDES 1050KCALS, 60G PROTEIN WITH 100% ACCEPTANCE PT REPORTS ENSURE CAUSED VOMITING THIS MORNING, HOWEVER PT DID STATE HE IS CRAVING FOODS AND ORDERED OTHER FOODS ITEMS TODAY. OBSERVED MEAL TRAY UPON INTERVIEW WITH ONLY SIPS/BITES CONSUMED MONITOR PO INTAKE AND ENCOURAGE SUPPLEMENTS PPN TO START R/T INCREASED RISK R/T MALNUTRITION RECOMMEND PPN AT 50ML/HR TO PROVIDE 612KCALS, 120G DEXTROSE, 51G PROTEIN DISCUSSED WITH PT, PHARMACY AND PROVIDER REPLETE LYTES NEEDED SEE ALSO FULL CLINICAL NUTRITION ASSESSMENT
--- NOTE | 2023-12-31 09:34 | MHC.CM.PN ---
Pt continues care in ICU: slow wean from HFNC. Pt very withdrawn/depressed/very reduced po intake. Discussed psych eval with care team to maximize functional ability. Pt may start on PPN for nutitional support secondary to anorexia. Pt has [facility] as of 12/14/22. CM to follow.
[2023-12-31 10:01] LABS: Magnesium 1.8 mg/dL (1.6-2.6); Phosphorus 3.5 mg/dL (2.7-4.5)
[2023-12-31] MEDS: Enoxaparin Sodium 40 MG/0.4 ML SYRINGE SUBCUT (11:49)
[2023-12-31] MEDS: Sennosides/Docusate Sodium TABLET 1 TAB PO (21:11)
[2023-12-31] MEDS: Parenteral Nutrition 1,200 ML 50 ML IV (21:19)
[2024-01-01] VITALS (31 sets, daily range): BP systolic 96–150; BP diastolic 49–81; PULSE 80–108; RESP 15–98; TEMP 36.1–37; O2SAT 90–100; BMI 19.5
[2024-01-01] MEDS: HYDROmorphone HCl 0.5 MG/0.5 ML SYRINGE IVPUSH ×8 (00:22→23:59)
[2024-01-01 05:28] LABS: Basophils Percent Auto 0.5 % (0-2); Eosinophils Absolute Auto 0.2 X10*3/uL (0.0-0.4); Eosinophils Percent Auto 5.6 % (0-4); Hematocrit 22.9 % (42.0-52.0); Hemoglobin 7.7 g/dl (14.0-18.0); Imm Gran Abs Auto 0.14 X10*3/uL (0.00-0.03); Imm Gran Pct Auto 3.6 % (0.0-0.4); Lymphocytes Absolute Auto 0.3 X10*3/uL (1.2-4.9); Lymphocytes Percent Auto 6.6 % (20-40); MANUAL DIFF FLAG SCAN; Mean Corpuscular HGB Conc 33.6 g/dl (31.0-36.0); Mean Corpuscular Volume 89.1 fL (80.0-98.0); Mean Platelet Volume 9.2 fL (9.4-12.4); Monocytes Absolute Auto 0.2 X10*3/uL (0.1-1.2); Monocytes Percent Auto 4.8 % (2-11); Neutrophils Absolute Auto 3.1 x10*3/uL (2.0-8.3); Neutrophils Percent Auto 78.9 % (45-73); Platelet Count 116 X10*3/uL (160-400); Red Blood Count 2.57 X10*6/uL (4.60-5.80); Red Cell Distribution Width 14.6 % (11.0-16.0); SCAN SMEAR FLAG 1; White Blood Count 3.9 X10*3/uL (4.8-10.8)
[2024-01-01 05:31] LABS: VBG Base Excess 17.2 mmol/L; VBG HCO3 41 mmol/L (22-26); VBG pCO2 48 mmHg; VBG pH 7.54 (7.32-7.43); VBG pO2 44 mmHg
[2024-01-01 05:34] LABS: Venous Blood Gas Refer to POC result
[2024-01-01 05:46] LABS: Albumin Level 2.9 g/dL (3.5-5.0); Anion Gap 12 (12-20); Blood Urea Nitrogen 28 mg/dL (9-16); Calcium 9.2 mg/dL (8.4-10.2); Carbon Dioxide 35 mmol/L (22-29); Chloride 83 mmol/L (96-108); Creatinine Clr Calc Pharmacy 96.4; Estimated Glomerular Filt Rate > 60; Glucose Random 136 mg/dL (60-115); Magnesium 1.7 mg/dL (1.6-2.6); Phosphorus 3.6 mg/dL (2.7-4.5); Potassium 3.8 mmol/L (3.3-5.1); Sodium 126 mmol/L (135-145)
[2024-01-01 05:57] LABS: SLIDE REVIEW VERIFIED
[2024-01-01] MEDS: Omeprazole 20 MG CAPSULE.DR PO (06:54)
--- NOTE | 2024-01-01 07:41 | P.PNCC_ITS ---
Subjective Subjective Date of Service: 01/01/24 Interval History: no significant overnight events Critical Care Time (minutes): 60 Physical Exam 2 Vital Signs: Vital Signs: Last Vital Signs Temp 98.6 F 01/01/24 07:00 Pulse 85 01/01/24 07:00 Resp 15 01/01/24 07:00 BP 105/58 L 01/01/24 07:00 Pulse Ox 96 01/01/24 07:00 O2 Del Method High Flow Nasal C annula 01/01/24 07:00 O2 Flow Rate 45 01/01/24 07:00 FiO2 65 01/01/24 07:00 Oxygen Flow Rate 15 12/09/23 19:34 BMI result Body Mass Index 19.5 Const: Other: appreciable cachexia General: cooperative, healthy appearing, comfortable, no acute distress, well developed, alert, awake and Physically active Orientation/consciousness: patient oriented x3 HEENT: Head: Yes normal to inspection, Yes normocephalic and Yes atraumatic Eyes: General: appearance normal, both eyes and all related structures Neck: Neck: Yes normal visual inspection, Yes no meningeal signs and Yes supple Chest: Chest palpation & inspection: normal inspection of the chest Resp: Other: some appreciable rales, improved from yesterday; no appreciable rhonchi, wheezing Effort & Inspection: normal respiratory effort Cardio: Rate: regular rate Rhythm: regular rhythm GI: Inspection: Yes normal to inspection, No Abdominal wall edema and No distended Palpation (GI): Soft to palpation, not firm, nontender, no guarding and not rigid Skin: General skin exam: no rashes or lesions noted Neuro: General: patient oriented x3, tone normal, moves all extremities, no meningeal signs and no focal motor deficits Extrem: General: Yes normal to inspection, Yes capillary refill normal and Yes no clubbing, cyanosis or edema Psych: Appearance: grossly normal Objective Data Labs 01/01/24 05:16 01/01/24 05:16 Labs: Laboratory Results - last 24 hr 12/31/23 01/01/24 01/01/24 04:30 05:16 05:22 WBC 3.9 L RBC 2.57 L Hgb 7.7 L Hct 22.9 L MCV 89.1 MCH 30.0 MCHC 33.6 RDW 14.6 Plt Count 116 L MPV 9.2 L Immature Gran % (Auto) 3.6 H Neut % (Auto) 78.9 H Lymph % (Auto) 6.6 L [place] % (Auto) 4.8 Eos % (Auto) 5.6 H Baso % (Auto) 0.5 Lymph # (Auto) 0.3 L [place] # (Auto) 0.2 Eos # (Auto) 0.2 Baso # (Auto) 0.0 Abs Immat Gran (auto) 0.14 H Absolute Neuts (auto) 3.1 Absolute Nucleated RBC 0.000 Nucleated RBC % (auto) 0.0 Smear Tech's Comments VERIFIED VBG pH 7.54 H VBG pCO2 48 VBG pO2 44 VBG HCO3 41 H VBG O2 Saturation 74.0 VBG Base Excess 17.2 Sodium 126 L Potassium 3.8 Chloride 83 L Carbon Dioxide 35 H Anion Gap 12 BUN 28 H Creatinine 0.97 Estim Creat Clear Calc 96.4 Estimated GFR > 60 Random Glucose 136 H Calcium 9.2 Phosphorus 3.5 3.6 Magnesium 1.8 1.7 Albumin 2.9 L Microbiology Microbiology Results: Microbiology 12/10/23 14:48 Sputum - Expectorated Direct Acid Fast Bacilli Smear - Final 12/10/23 14:29 Sputum - Expectorated Direct Acid Fast Bacilli Smear - Final 12/10/23 10:10 Sputum - Expectorated Direct Acid Fast Bacilli Smear - Final 12/10/23 02:04 Blood - Venous Blood Culture - Final No growth after 5 days. 12/10/23 02:04 Blood - Venous Blood Culture - Final No growth after 5 days. 12/09/23 20:11 Blood - Venous Blood Culture - Final No growth after 5 days. 12/09/23 19:51 Blood - Venous Blood Culture - Final No growth after 5 days. 12/10/23 10:10 Sputum - Expectorated Gram Stain - Final 12/10/23 10:10 Sputum - Expectorated Sputum Culture - Final Progress Note: A&P Assessment and plan (1) PCP (pneumocystis jiroveci pneumonia): Status: Acute (2) Acute hypoxemic respiratory failure: Status: Acute (3) AIDS: Status: Acute Plan Patient is a 43 Y M with AIDS, c/b non-compliance, cirrhosis, presenting 12/09 w/ dyspnea, found to be in acute hypoxic respiratory failure 2/2 PCP; hospital course c/b pulmonary edema, persistent acute hypoxic respiratory failure; transferred ICU 12/19 N: intermittent anxiety, improved w/ low-dose lorazepam CV: no acute issues R: PCP c/b acute hypoxic respiratory failure, on HFNC, wean as tolerated GI: decreased appetite, initiated on PPN 12/31, encourage PO intake, appreciate nutrition recommendations : volume overload, to continue diuresis; hyponatremia, to encourage PO intake, salt tabs H: no acute issues ID: PCP, on prophylactic bactrim; AIDS, on retro-viral therapy, prophylactic azithromycin; appreciate ID recommendations E: no acute issues P: anxiety, as described above Quality Stroke Does the patient have a stroke diagnosis?: No VTE Prior VTE?: No VTE Risk Level:: Medical - moderate - high VTE Device Contraindication: Treatment Not Indicated VTE Drug Contraindication: N/A - Med Ordered
[2024-01-01] MEDS: Sulfamethox/Trimeth 800/160 TABLET 1 TAB PO (07:50)
[2024-01-01] MEDS: Bictegrav/Emtricit/Tenofov Ala TABLET 1 TAB PO (07:50)
[2024-01-01] MEDS: Furosemide 100 MG/10 ML VIAL 80 MG IVPUSH ×2 (07:50→18:03)
[2024-01-01] MEDS: 0.9 % Sodium Chloride Flush 3 ML SYRINGE IVFLUSH ×3 (07:50→21:07)
[2024-01-01] MEDS: Sodium Chloride Tab 1 GM TABLET PO ×3 (07:51→21:01)
--- NOTE | 2024-01-01 10:09 | MHC.CLN ---
F/U PT IS MODERATELY MALNOURISHED PT WITH RECENT POOR PO INTAKE X >5 DAYS AND REQUIRES PPN FOR NUTRITION SUPPORT SEE FULL CLINICAL NUTRITION ASSESSMENT DATED 12/31/23 DIET RX: REGULAR 1200ML FLUIDS RESTRICTION-APPROPRIATE PT RECEIVING ENSURE TID PROVIDES 1050KCALS, 60G PROTEIN (PT NOT TAKING CONSISTENTLY) PER NSG PT CONSUMED A MEAL DELIVERED FROM [employer] YESTERDAY-UNKNOWN AMOUNT MONITOR PO INTAKE AND ENCOURAGE SUPPLEMENTS PPN TO CONTINUE R/T INCREASED RISK R/T MALNUTRITION AND PT CONSUMING 1 MEAL PER DAY OF POOR FOOD CHOICES PT RECEIVED PPN AT 50ML/HR PROVIDED 612KCALS, 120G DEXTROSE, 51G PROTEIN DISCUSSED WITH PHARMACY RECOMMEND INCREASING PPN TO 70ML/HR TO PROVIDE 857KCALS, 168G DEXTROSE, 71G PROTEIN CHECK TRIGS REPLETE LYTES NEEDED ON 01/02/24: RECOMMEND INCREASING PPN TO GOAL 85ML/HR WITH 103G LIPIDS (1.4G/KG) TO PROVIDE 2070 TOTAL KCALS (28KCALS/KG), 204G DEXTROSE, 87G PROTEIN (1.2G/KG) REPLETE LYTES NEEDED CONSULT RD VIA [facility] DURING OFF HOURS IF NEEDED
[2024-01-01 10:36] LABS: Triglycerides 79 mg/dL (<150)
[2024-01-01] MEDS: Enoxaparin Sodium 40 MG/0.4 ML SYRINGE SUBCUT (10:38)
--- NOTE | 2024-01-01 13:58 | HO.SKINPHOTO ---
Location: Sacrum/coccyx
--- NOTE | 2024-01-01 14:34 | MHC.CM.PN ---
Met with pt to discuss preliminary post acute care needs: Pt aware he now has [facility]: provided the [facility] contact phone number and list of PCP offices accepting new pts. Instructed pt to call office to become a new pt, book an appointment for a new pt visit, then call [facility] to inform them of the PCP. Pt verbalized understanding - has a working cell at bedside. Pt has new orders for PT/OT eval and goals of care are for pt to get OOB and participate more in ADL's in anticipation for a return to home. It is not known if pt will require home O2 but this will be assessed closer to d/c. CM to follow for finalization with d/c planning.
--- NOTE | 2024-01-01 16:23 | HO.WOUND ---
Wound Consult: Initial 43yr old M? admitted to [facility] on - See progress notes and H&P for detailed history.? Wound consult placed for Coccyx / sacral wounds.? Patient agreeable to assessment and photo documentation however at the bedside patient oxygenation dropped and direct care team was working with patient in attempts to bring up his oxygenation once appropriate oxygenation returned agreed to turn and reposition at future date and time. Pt is ill appearing, appears cachectic and malnourished - of note nutrition is following and recommendations in place. The patient does appear to have psoriatic type rash noted on both upper extremities similar to rash noted in photo of coccyx / sacrum. It is unclear if the coccyx wound is related to MASD (Moisture Associated Skin Damage )vs Pressure Injury Development this will require direct assessment. Will attempt future assessment when patient is able to tolerate roll and reposition. Direct care team advised to continue to use ANJU, off loading with pillows and or wedges and currently in place is Triad with foam covering. Sacrum and coccyx 01/01/24 - Photo review Sacrum Coccyx 12/24/23 Etiology: ??MASD Wound Bed: scattered areas of red moist wound bed consistent with Moisture and friction Jenifer wound: ? dry desquamation with irregular rash - Rash noted by direct care team to be psoriasis and noted to bilateral upper extremities Goals of Treatment: ? Off Load Pressure and Triad and Foam to allow for autolytic healing and protect from friction and moisture Recommendations: 1. Turn and Reposition every 2 hours and as needed for patient comfort.? Use pillows or wedges to support off loading positions. 2. Off Load all bony prominences with use of pillows and heel boots if needed.? Apply Preventative foams where needed. ? 3. Monitor for incontinence and moisture control, use barrier creams when needed for prevention and treatment. 4. Provide adequate and supplemental nutrition.? 5. Order or Continue low air loss mattress. 6. When applicable maintain blood glucose levels per Providers order. 7. Sacrum and Coccyx - Off Load Pressure - Cleanse with PH balance spray or wipes, pat dry. ?Apply thin layer of Triad to wound bed. Do not remove all of paste between applications as this may cause further skin damage.? Cover with foam dressing to aid in off loading and protection from friction. Re-consult wound care Nurse for wound deterioration or wound changes.
[2024-01-01] MEDS: Sennosides/Docusate Sodium TABLET 1 TAB PO (21:01)
[2024-01-01] MEDS: LORazepam 0.5 MG TABLET PO (21:01)
[2024-01-01] MEDS: Parenteral Nutrition 1,680 ML 70 ML IV (21:03)
[2024-01-02] VITALS (28 sets, daily range): BP systolic 101–140; BP diastolic 43–78; PULSE 85–104; RESP 15–33; TEMP 36.3–37.1; O2SAT 88–100; BMI 19.4
[2024-01-02] MEDS: HYDROmorphone HCl 0.5 MG/0.5 ML SYRINGE IVPUSH ×6 (04:20→21:45)
[2024-01-02 04:52] LABS: Hematocrit 23.3 % (42.0-52.0); Hemoglobin 7.7 g/dl (14.0-18.0); Mean Corpuscular Hemoglobin 29.1 pg (27.0-33.0); Mean Corpuscular Volume 87.9 fL (80.0-98.0); Platelet Count 150 X10*3/uL (160-400); Red Blood Count 2.65 X10*6/uL (4.60-5.80); Red Cell Distribution Width 14.9 % (11.0-16.0); White Blood Count 4.2 X10*3/uL (4.8-10.8)
[2024-01-02 05:06] LABS: Albumin Level 2.8 g/dL (3.5-5.0); Anion Gap 15 (12-20); Blood Urea Nitrogen 29 mg/dL (9-16); Calcium 9.7 mg/dL (8.4-10.2); Carbon Dioxide 31 mmol/L (22-29); Chloride 85 mmol/L (96-108); Creatinine Clr Calc Pharmacy 121.1; Estimated Glomerular Filt Rate > 60; Glucose Random 117 mg/dL (60-115); Magnesium 1.6 mg/dL (1.6-2.6); Phosphorus 4.9 mg/dL (2.7-4.5); Potassium 4.1 mmol/L (3.3-5.1); Sodium 127 mmol/L (135-145)
[2024-01-02 05:18] LABS: Band Neutrophils Percent 2 % (3-5); Basophils Abs Manual 0.1 X10*3/uL (0.0-0.2); Basophils Percent Manual 2 % (0-2); Eosinophils Absolute Manual 0.3 X10*3/uL (0.0-0.4); Eosinophils Percent Manual 7 % (0-4); Lymphocytes Absolute Manual 0.3 X10*3/uL (1.2-4.9); Lymphocytes Percent Manual 8 % (20-40); Metamyelocytes Percent 1 %; Monocytes Absolute Manual 0.3 X10*3/uL (0.1-1.2); Monocytes Percent Manual 6 % (2-11); Neutrophils Absolute Manual 3.2 X10*3/uL (2.0-8.3); Neutrophils Percent Manual 74 % (45-73)
[2024-01-02 05:20] LABS: Hypochromasia 1+ (5-14) /OIF; Ovalocytes 1+ (5-14) /OIF; Platelet Estimate SLIGHTLY DECREASED (NORMAL); RBC Morphology NOTED; Schistocytes 1+ (0-2) /OIF; Tear Drop Cells 1+ (0-2) /OIF; Toxic Vacuolation PRESENT
[2024-01-02 05:21] LABS: Large Platelet PRESENT
[2024-01-02 05:23] LABS: Toxic Granulation PRESENT
[2024-01-02 05:24] LABS: Microcytosis 1+ (5-14) /OIF; Platelet Morphology Comment NOTE
[2024-01-02] MEDS: Omeprazole 20 MG CAPSULE.DR PO (06:19)
[2024-01-02] MEDS: Sodium Chloride Tab 1 GM TABLET PO ×3 (07:33→19:56)
[2024-01-02] MEDS: Furosemide 100 MG/10 ML VIAL 80 MG IVPUSH ×2 (07:33→18:01)
[2024-01-02] MEDS: Bictegrav/Emtricit/Tenofov Ala TABLET 1 TAB PO (07:33)
[2024-01-02] MEDS: 0.9 % Sodium Chloride Flush 3 ML SYRINGE IVFLUSH (07:34)
--- NOTE | 2024-01-02 08:31 | PM.CCPN ---
Subjective Subjective Date of Service: 01/02/24 Interval History: no significant overnight events Critical Care Time (minutes): 60 Physical Exam Vital Signs: Vital Signs: Last Vital Signs Temp 98.7 F 01/02/24 07:59 Pulse 92 01/02/24 07:59 Resp 22 H 01/02/24 07:59 BP 117/65 01/02/24 07:59 Pulse Ox 100 01/02/24 07:59 O2 Del Method High Flow Nasal C annula 01/02/24 07:59 O2 Flow Rate 45 01/02/24 07:59 FiO2 65 01/02/24 07:59 Oxygen Flow Rate 15 12/09/23 19:34 BMI result Body Mass Index 19.4 Const: Other: resting comfortably General: cooperative, healthy appearing, comfortable, no acute distress, well developed, alert, awake and Physically active Orientation/consciousness: patient oriented x3 HEENT: Head: Yes normal to inspection, Yes normocephalic and Yes atraumatic Eyes: General: appearance normal, both eyes and all related structures Neck: Neck: Yes normal visual inspection, Yes no meningeal signs and Yes supple Chest: Chest palpation & inspection: normal inspection of the chest Resp: Other: appreciable diffuse reales; no appreciable rhonchi, wheezing Effort & Inspection: normal respiratory effort Cardio: Rate: regular rate Rhythm: regular rhythm GI: Inspection: Yes normal to inspection, No Abdominal wall edema and No distended Palpation (GI): Soft to palpation, not firm, nontender, no guarding and not rigid Skin: General skin exam: no rashes or lesions noted Neuro: General: patient oriented x3, tone normal, moves all extremities, no meningeal signs and no focal motor deficits Extrem: General: Yes normal to inspection, Yes capillary refill normal and Yes no clubbing, cyanosis or edema Psych: Other: intermittent anxiety, agitation Appearance: grossly normal Objective Data Labs 01/02/24 04:40 01/02/24 04:40 Labs: Laboratory Results - last 24 hr 01/01/24 01/02/24 05:16 04:40 WBC 4.2 L RBC 2.65 L Hgb 7.7 L Hct 23.3 L MCV 87.9 MCH 29.1 MCHC 33.0 RDW 14.9 Plt Count 150 L D MPV 11.0 Immature Gran % (Auto) Cancelled Neut % (Auto) Cancelled Lymph % (Auto) Cancelled [place] % (Auto) Cancelled Eos % (Auto) Cancelled Baso % (Auto) Cancelled Lymph # (Auto) Cancelled [place] # (Auto) Cancelled Eos # (Auto) Cancelled Baso # (Auto) Cancelled Abs Immat Gran (auto) Cancelled Absolute Neuts (auto) Cancelled Absolute Nucleated RBC 0.000 Nucleated RBC % (auto) 0.0 Neutrophils % (Manual) 74 H Band Neutrophils % 2 L Lymphocytes % (Manual) 8 L Monocytes % (Manual) 6 Eosinophils % (Manual) 7 H Basophils % (Manual) 2 Metamyelocytes % 1 Abs Neuts (Manual) 3.2 Lymphocytes # (Manual) 0.3 L Monocytes # (Manual) 0.3 Eosinophils # (Manual) 0.3 Basophils # (Manual) 0.1 Toxic Granulation PRESENT Toxic Vacuolation PRESENT Platelet Estimate SLIGHTLY DECREASED Large Platelets PRESENT Plt Morphology Comment NOTE RBC Morphology NOTED Hypochromasia 1+ (5-14) Microcytosis 1+ (5-14) Tear Drop Cells 1+ (0-2) Ovalocytes 1+ (5-14) Schistocytes 1+ (0-2) Sodium 127 L Potassium 4.1 Chloride 85 L Carbon Dioxide 31 H Anion Gap 15 BUN 29 H Creatinine 0.77 Estim Creat Clear Calc 121.1 Estimated GFR > 60 Random Glucose 117 H Calcium 9.7 Phosphorus 4.9 H Magnesium 1.6 Albumin 2.8 L Triglycerides 79 Microbiology Microbiology Results: Microbiology 12/10/23 14:48 Sputum - Expectorated Direct Acid Fast Bacilli Smear - Final 12/10/23 14:29 Sputum - Expectorated Direct Acid Fast Bacilli Smear - Final 12/10/23 10:10 Sputum - Expectorated Direct Acid Fast Bacilli Smear - Final 12/10/23 02:04 Blood - Venous Blood Culture - Final No growth after 5 days. 12/10/23 02:04 Blood - Venous Blood Culture - Final No growth after 5 days. 12/09/23 20:11 Blood - Venous Blood Culture - Final No growth after 5 days. 12/09/23 19:51 Blood - Venous Blood Culture - Final No growth after 5 days. 12/10/23 10:10 Sputum - Expectorated Gram Stain - Final 12/10/23 10:10 Sputum - Expectorated Sputum Culture - Final Progress Note: A&P Assessment and plan (1) PCP (pneumocystis jiroveci pneumonia): Status: Acute (2) Acute hypoxemic respiratory failure: Status: Acute (3) AIDS: Status: Acute Plan Patient is a 43 Y M with AIDS, c/b non-compliance, cirrhosis, presenting 12/09 w/ dyspnea, found to be in acute hypoxic respiratory failure 2/2 PCP; hospital course c/b pulmonary edema, persistent acute hypoxic respiratory failure; transferred ICU 12/19 N: intermittent anxiety, improved w/ low-dose lorazepam CV: no acute issues R: PCP c/b acute hypoxic respiratory failure, on HFNC, wean as tolerated GI: decreased appetite, initiated on PPN 12/31, encourage PO intake, appreciate nutrition recommendations : volume overload, to continue diuresis; hyponatremia, salt tabs, improving H: no acute issues ID: PCP, on prophylactic bactrim; AIDS, on retro-viral therapy, prophylactic azithromycin; appreciate ID recommendations E: no acute issues P: anxiety, as described above Quality Stroke Does the patient have a stroke diagnosis?: No VTE Prior VTE?: No VTE Risk Level:: Medical - moderate - high VTE Device Contraindication: Treatment Not Indicated VTE Drug Contraindication: N/A - Med Ordered
[2024-01-02] MEDS: Enoxaparin Sodium 40 MG/0.4 ML SYRINGE SUBCUT (12:37)
[2024-01-02] MEDS: LORazepam 0.5 MG TABLET PO ×2 (12:37→19:55)
[2024-01-02] MEDS: Parenteral Nutrition 2,040 ML 85 ML IV (20:36)
[2024-01-03] VITALS (15 sets, daily range): BP systolic 110–132; BP diastolic 56–69; PULSE 87–123; RESP 18–32; TEMP 36–36.7; O2SAT 96–100; BMI 21.9
[2024-01-03] MEDS: 0.9 % Sodium Chloride Flush 3 ML SYRINGE IVFLUSH ×4 (00:12→19:56)
[2024-01-03] MEDS: HYDROmorphone HCl 0.5 MG/0.5 ML SYRINGE IVPUSH ×8 (00:44→21:57)
[2024-01-03] MEDS: Omeprazole 20 MG CAPSULE.DR PO (06:12)
[2024-01-03 06:26] LABS: Hematocrit 22.4 % (42.0-52.0); Hemoglobin 7.3 g/dl (14.0-18.0); Mean Corpuscular HGB Conc 32.6 g/dl (31.0-36.0); Mean Corpuscular Hemoglobin 29.2 pg (27.0-33.0); Mean Corpuscular Volume 89.6 fL (80.0-98.0); Mean Platelet Volume 11.3 fL (9.4-12.4); Platelet Count 160 X10*3/uL (160-400); White Blood Count 4.3 X10*3/uL (4.8-10.8)
[2024-01-03 06:37] LABS: Albumin Level 2.7 g/dL (3.5-5.0); Anion Gap 12 (12-20); Blood Urea Nitrogen 28 mg/dL (9-16); Calcium 9.2 mg/dL (8.4-10.2); Carbon Dioxide 30 mmol/L (22-29); Chloride 92 mmol/L (96-108); Creatinine Clr Calc Pharmacy 128.8; Estimated Glomerular Filt Rate > 60; Glucose Random 138 mg/dL (60-115); Magnesium 1.7 mg/dL (1.6-2.6); Phosphorus 3.7 mg/dL (2.7-4.5); Potassium 3.8 mmol/L (3.3-5.1); Sodium 130 mmol/L (135-145)
[2024-01-03 06:50] LABS: Band Neutrophils Percent 1 % (3-5); Eosinophils Absolute Manual 0.3 X10*3/uL (0.0-0.4); Eosinophils Percent Manual 8 % (0-4); Lymphocytes Absolute Manual 0.3 X10*3/uL (1.2-4.9); Lymphocytes Percent Manual 6 % (20-40); Metamyelocytes Absolute 0.1 X10*3/uL; Metamyelocytes Percent 2 %; Monocytes Absolute Manual 0.5 X10*3/uL (0.1-1.2); Monocytes Percent Manual 12 % (2-11); Neutrophils Absolute Manual 3.1 X10*3/uL (2.0-8.3); Neutrophils Percent Manual 71 % (45-73)
[2024-01-03 06:51] LABS: Large Platelet PRESENT; Microcytosis 1+ (5-14) /OIF; Ovalocytes 1+ (5-14) /OIF; Platelet Estimate NORMAL (NORMAL); Platelet Morphology Comment NOTED; RBC Morphology NOTED; Schistocytes 1+ (0-2) /OIF
[2024-01-03 06:52] LABS: Hypersegmented Neutrophils PRESENT; Hypochromasia 1+ (5-14) /OIF; Rouleau PRESENT; Tear Drop Cells 1+ (0-2) /OIF
[2024-01-03] MEDS: Acetaminophen 325 MG TABLET 975 MG PO (09:16)
--- NOTE | 2024-01-03 09:18 | HO.PM.IMPN ---
Subjective Subjective Date of Service: 01/03/24 Interval History: sob while eating, otherwise much improved Physical Exam Vital Signs: Vital Signs: Last Vital Signs Temp 98.0 F 01/03/24 07:19 Pulse 87 01/03/24 07:19 Resp 26 H 01/03/24 07:19 BP 117/56 L 01/03/24 07:19 Pulse Ox 99 01/03/24 07:19 O2 Del Method Nasal Cannula 01/03/24 07:19 O2 Flow Rate 10 01/03/24 07:19 FiO2 60 01/02/24 13:00 Oxygen Flow Rate 15 12/09/23 19:34 BMI result Body Mass Index 21.9 Const: Other: resting comfortably General: cooperative, healthy appearing, comfortable, no acute distress, well developed, alert, awake and Physically active Orientation/consciousness: patient oriented x3 HEENT: Head: Yes normal to inspection, Yes normocephalic and Yes atraumatic Eyes: General: appearance normal, both eyes and all related structures Neck: Neck: Yes normal visual inspection, Yes no meningeal signs and Yes supple Chest: Chest palpation & inspection: normal inspection of the chest Resp: Other: appreciable diffuse reales; no appreciable rhonchi, wheezing Effort & Inspection: normal respiratory effort Cardio: Rate: regular rate Rhythm: regular rhythm GI: Inspection: Yes normal to inspection, No Abdominal wall edema and No distended Palpation (GI): Soft to palpation, not firm, nontender, no guarding and not rigid Skin: General skin exam: no rashes or lesions noted Neuro: General: patient oriented x3, tone normal, moves all extremities, no meningeal signs and no focal motor deficits Extrem: General: Yes normal to inspection, Yes capillary refill normal and Yes no clubbing, cyanosis or edema Psych: Other: intermittent anxiety, agitation Appearance: grossly normal Objective Data Active Medications Acetaminophen (Acetaminophen 325 Mg Tablet) 975 mg PO Q8H PRN PRN Reason: Fever >100.4 Last Admin: 01/03/24 09:16 Dose: 975 mg Documented By: LIANA Comments: approved use for pain Azithromycin (Azithromycin 500 Mg Tablet) 500 mg PO Q7D [facility] Last Admin: 12/31/23 08:30 Dose: 500 mg Documented By: MARK Benzonatate (Benzonatate 100 Mg Capsule) 100 mg PO TID PRN PRN Reason: Cough Last Admin: 12/30/23 08:29 Dose: 100 mg Documented By: BRODY Bictegravir/Emtricitabine/Tenofovir (Bictegrav/Emtricit/Tenofov Ala Tablet) 1 tab PO DAILY [facility] Last Admin: 01/02/24 07:33 Dose: 1 tab Documented By: BRODY Enoxaparin Sodium (Enoxaparin Sodium 40 Mg/0.4 Ml Syringe) 40 mg SUBCUT Q24H [facility] Last Admin: 01/02/24 12:37 Dose: 40 mg Documented By: BRODY Hydromorphone HCl (Hydromorphone Hcl 0.5 Mg/0.5 Ml Syringe) 0.5 mg IVPUSH Q3H PRN; Protocol PRN Reason: Pain, Moderate(Pain Scale 4-6) Last Admin: 01/03/24 06:47 Dose: 0.5 mg Documented By: SANDRA Nutrition (Parenteral) (Parenteral Nutrition) 2,040 mls @ 85 mls/hr IV .Q24H [facility]; Protocol Stop: 01/03/24 20:59 Last Admin: 01/02/24 20:36 Dose: 85 mls/hr Documented By: ISAMAR Lorazepam (Lorazepam 0.5 Mg Tablet) 0.5 mg PO BID PRN PRN Reason: anxiety/restlessness Last Admin: 01/02/24 19:55 Dose: 0.5 mg Documented By: ISAMAR Metoclopramide HCl (Metoclopramide Hcl 10 Mg/2 Ml Vial) 10 mg IVPUSH Q6H PRN PRN Reason: Nausea and Vomiting Last Admin: 12/30/23 16:18 Dose: 10 mg Documented By: BRODY Omeprazole (Omeprazole 20 Mg Capsule.Dr) 20 mg PO DAILY@0630 [facility] Last Admin: 01/03/24 06:12 Dose: 20 mg Documented By: SANDRA Pharmacy Consult (Consult Rx Parenteral Nutrition Ordering) 1 each MISCELLANE DAILY PRN PRN Reason: Consult order Senna/Docusate Sodium (Sennosides/Docusate Sodium Tablet) 1 tab PO BEDTIME [facility] Last Admin: 01/02/24 20:00 Dose: Not Given Documented By: ISAMAR Non-Admin Reason: multiple loose stools Sodium Chloride (0.9 % Sodium Chloride Flush 3 Ml Syringe) 3 ml IVFLUSH QSHIFT [facility] Last Admin: 01/03/24 00:12 Dose: 3 ml Documented By: SANDRA Sodium Chloride (Sodium Chloride 0.65 % Nasal 44 Ml Sprbtl) 1 spray NOSTRIL-B Q1H PRN PRN Reason: nasal dryness Last Admin: 12/26/23 11:10 Dose: 1 spray Documented By: MAXIMO Sodium Chloride (Sodium Chloride Tab 1 Gm Tablet) 1 gm PO TID [facility] Last Admin: 01/02/24 19:56 Dose: 1 gm Documented By: ISAMAR Trimethoprim/Sulfamethoxazole (Sulfamethox/Trimeth 800/160 Tablet) 1 tab PO MoWeFr [facility] Last Admin: 01/01/24 07:50 Dose: 1 tab Documented By: CTORRZ Labs 01/03/24 05:52 01/03/24 05:52 Labs: Laboratory Results - last 24 hr 01/03/24 05:52 MCV 89.6 MCH 29.2 MCHC 32.6 RDW 15.0 Plt Count 160 MPV 11.3 Immature Gran % (Auto) Cancelled Neut % (Auto) Cancelled Lymph % (Auto) Cancelled [place] % (Auto) Cancelled Eos % (Auto) Cancelled Baso % (Auto) Cancelled Lymph # (Auto) Cancelled [place] # (Auto) Cancelled Eos # (Auto) Cancelled Baso # (Auto) Cancelled Abs Immat Gran (auto) Cancelled Absolute Neuts (auto) Cancelled Absolute Nucleated RBC 0.000 Nucleated RBC % (auto) 0.0 Neutrophils % (Manual) 71 Band Neutrophils % 1 L Lymphocytes % (Manual) 6 L Monocytes % (Manual) 12 H Eosinophils % (Manual) 8 H Metamyelocytes % 2 Abs Neuts (Manual) 3.1 Lymphocytes # (Manual) 0.3 L Monocytes # (Manual) 0.5 Eosinophils # (Manual) 0.3 Metamyelocytes # 0.1 Hypersegmented Neuts PRESENT Platelet Estimate NORMAL Large Platelets PRESENT Plt Morphology Comment NOTED RBC Morphology NOTED Hypochromasia 1+ (5-14) Microcytosis 1+ (5-14) Tear Drop Cells 1+ (0-2) Ovalocytes 1+ (5-14) Rouleaux PRESENT Schistocytes 1+ (0-2) Anion Gap 12 Estim Creat Clear Calc 128.8 Estimated GFR > 60 Random Glucose 138 H Calcium 9.2 Phosphorus 3.7 Magnesium 1.7 Albumin 2.7 L Assessment and Plan (1) PCP (pneumocystis jiroveci pneumonia): Status: Acute Plan 43M PMH HIV - non compliant, unspecified compensated liver cirrhosis, presented 12/09/23 with sob, found to have acute hypoxic respiratory failure due to pneumocystitis pneumonia, pulm edema, transferred to icu 12/19/23, after treatement with bactrim, azitrho, diuresis, patient o2 requiriements improved, downgraded to c 01/02/24 sepsis, acute hypoxic respiratory failure due to pneumocystis pneumonia in HIV/aids continue bactrim, azitrho, biktarvy wean o2 as tolerated moderate protein calorie malnutrition on tpn wean as po intake increases acute hfpef diuresed well, will dc iv lasix dvt prophylaxis - lovenox full code reason for continued hospitalization: hypoxia Quality Stroke Does the patient have a stroke diagnosis?: No VTE Prior VTE?: No VTE Risk Level:: Medical - moderate - high VTE Device Contraindication: Treatment Not Indicated VTE Drug Contraindication: N/A - Med Ordered
[2024-01-03] MEDS: Bictegrav/Emtricit/Tenofov Ala TABLET 1 TAB PO (09:57)
[2024-01-03] MEDS: Sodium Chloride Tab 1 GM TABLET PO ×3 (09:57→19:56)
[2024-01-03] MEDS: Enoxaparin Sodium 40 MG/0.4 ML SYRINGE SUBCUT (09:58)
[2024-01-03] MEDS: LORazepam 0.5 MG TABLET PO ×2 (16:17→23:51)
[2024-01-03 21:15] LABS: CDiff Gene PCR NEGATIVE (Negative)
[2024-01-03] MEDS: HYDROmorphone HCl 1 MG/ML SYRINGE IVPUSH (23:51)
[2024-01-04] VITALS (12 sets, daily range): BP systolic 104–133; BP diastolic 58–63; PULSE 74–96; RESP 15–24; TEMP 36.1–36.9; O2SAT 97–100; BMI 19.2
[2024-01-04] MEDS: HYDROmorphone HCl 1 MG/ML SYRINGE IVPUSH ×10 (01:57→22:21)
--- NOTE | 2024-01-04 05:37 | PC.NURSE ---
Pt continues with HFNC 50L 80%, dyspnea with minimal exertion. Using NRB for recuse as needed. Dilaudid 0.5mg given as ordered PRN. Pt continues to request c/o plueritic chest pain before next dose can be given. MD notified. Dose increased to 1mg, patient stated relief lasting longer than previous dose. Continues to moan out and yell out to staff. Incontinent multiple times of loose/mucous filled BMs. C-Diff spec sent and results negative. NSR to ST on shuttler. See shift assessment for further details.
[2024-01-04] MEDS: Omeprazole 20 MG CAPSULE.DR PO (05:57)
[2024-01-04 07:00] LABS: Hematocrit 22.5 % (42.0-52.0); Hemoglobin 7.2 g/dl (14.0-18.0); Mean Corpuscular Hemoglobin 29.3 pg (27.0-33.0); Mean Corpuscular Volume 91.5 fL (80.0-98.0); Mean Platelet Volume 10.4 fL (9.4-12.4); Platelet Count 175 X10*3/uL (160-400); Red Blood Count 2.46 X10*6/uL (4.60-5.80); Red Cell Distribution Width 15.5 % (11.0-16.0); White Blood Count 5.2 X10*3/uL (4.8-10.8)
[2024-01-04 07:01] LABS: Hematocrit 22.5 % (42.0-52.0); Hemoglobin 7.3 g/dl (14.0-18.0); Mean Corpuscular HGB Conc 32.4 g/dl (31.0-36.0); Mean Corpuscular Hemoglobin 29.8 pg (27.0-33.0); Mean Corpuscular Volume 91.8 fL (80.0-98.0); Mean Platelet Volume 10.6 fL (9.4-12.4); Platelet Count 174 X10*3/uL (160-400); Red Blood Count 2.45 X10*6/uL (4.60-5.80); Red Cell Distribution Width 15.6 % (11.0-16.0); White Blood Count 5.1 X10*3/uL (4.8-10.8)
[2024-01-04 07:15] LABS: Albumin Level 2.7 g/dL (3.5-5.0); Anion Gap 10 (12-20); Blood Urea Nitrogen 22 mg/dL (9-16); Calcium 8.8 mg/dL (8.4-10.2); Carbon Dioxide 30 mmol/L (22-29); Chloride 98 mmol/L (96-108); Creatinine Clr Calc Pharmacy 135.2; Estimated Glomerular Filt Rate > 60; Glucose Fasting 105 mg/dL (60-99); Magnesium 1.8 mg/dL (1.6-2.6); Phosphorus 3.2 mg/dL (2.7-4.5); Potassium 4.2 mmol/L (3.3-5.1); Sodium 134 mmol/L (135-145)
[2024-01-04 08:17] LABS: Atypical Lymph Absolute Manual 0.1 x10*3/uL; Atypical Lymphs Percent Manual 2 % (0-6); Band Neutrophils Percent 0 % (3-5); Basophils Abs Manual 0.1 X10*3/uL (0.0-0.2); Basophils Percent Manual 2 % (0-2); Eosinophils Absolute Manual 0.2 X10*3/uL (0.0-0.4); Eosinophils Percent Manual 3 % (0-4); Lymphocytes Absolute Manual 0.4 X10*3/uL (1.2-4.9); Lymphocytes Percent Manual 8 % (20-40); Monocytes Absolute Manual 0.6 X10*3/uL (0.1-1.2); Monocytes Percent Manual 11 % (2-11); Neutrophils Absolute Manual 3.8 X10*3/uL (2.0-8.3); Neutrophils Percent Manual 74 % (45-73)
[2024-01-04 08:19] LABS: Platelet Estimate NORMAL (NORMAL); Platelet Morphology Comment NORMAL; Polychromasia 1+ (0-2) /OIF; RBC Morphology NOTED; Schistocytes 1+ (0-2) /OIF
[2024-01-04] MEDS: Bictegrav/Emtricit/Tenofov Ala TABLET 1 TAB PO (09:07)
[2024-01-04] MEDS: Sulfamethox/Trimeth 800/160 TABLET 1 TAB PO (09:08)
[2024-01-04] MEDS: Sodium Chloride Tab 1 GM TABLET PO ×3 (09:08→22:25)
[2024-01-04] MEDS: LORazepam 0.5 MG TABLET PO (09:09)
[2024-01-04] MEDS: Enoxaparin Sodium 40 MG/0.4 ML SYRINGE SUBCUT (09:10)
[2024-01-04] MEDS: 0.9 % Sodium Chloride Flush 3 ML SYRINGE IVFLUSH ×2 (09:18→16:05)
--- NOTE | 2024-01-04 09:54 | P.PNIM_ITS ---
Subjective Subjective Date of Service: 01/04/24 Interval History: episodic symptomatic hypoxia, placed back on high flow Physical Exam 2 Vital Signs: Vital Signs: Last Vital Signs Temp 98.3 F 01/04/24 07:44 Pulse 87 01/04/24 07:44 Resp 15 01/04/24 07:51 BP 127/58 L 01/04/24 07:44 Pulse Ox 100 01/04/24 07:44 O2 Del Method High Flow Nasal C annula 01/04/24 07:44 O2 Flow Rate 50 01/04/24 07:44 FiO2 78 01/04/24 07:44 Oxygen Flow Rate 15 12/09/23 19:34 BMI result Body Mass Index 19.2 Const: Other: resting comfortably General: cooperative, healthy appearing, comfortable, no acute distress, well developed, alert, awake and Physically active Orientation/consciousness: patient oriented x3 HEENT: Head: Yes normal to inspection, Yes normocephalic and Yes atraumatic Eyes: General: appearance normal, both eyes and all related structures Neck: Neck: Yes normal visual inspection, Yes no meningeal signs and Yes supple Chest: Chest palpation & inspection: normal inspection of the chest Resp: Other: appreciable diffuse reales; no appreciable rhonchi, wheezing Effort & Inspection: normal respiratory effort Cardio: Rate: regular rate Rhythm: regular rhythm GI: Inspection: Yes normal to inspection, No Abdominal wall edema and No distended Palpation (GI): Soft to palpation, not firm, nontender, no guarding and not rigid Skin: General skin exam: no rashes or lesions noted Neuro: General: patient oriented x3, tone normal, moves all extremities, no meningeal signs and no focal motor deficits Extrem: General: Yes normal to inspection, Yes capillary refill normal and Yes no clubbing, cyanosis or edema Psych: Other: intermittent anxiety, agitation Appearance: grossly normal Objective Data Active Medications Acetaminophen (Acetaminophen 325 Mg Tablet) 975 mg PO Q8H PRN PRN Reason: Fever >100.4 Last Admin: 01/03/24 09:16 Dose: 975 mg Documented By: LIANA Comments: approved use for pain Azithromycin (Azithromycin 500 Mg Tablet) 500 mg PO Q7D [facility] Last Admin: 12/31/23 08:30 Dose: 500 mg Documented By: MARK Benzonatate (Benzonatate 100 Mg Capsule) 100 mg PO TID PRN PRN Reason: Cough Last Admin: 12/30/23 08:29 Dose: 100 mg Documented By: BRODY Bictegravir/Emtricitabine/Tenofovir (Bictegrav/Emtricit/Tenofov Ala Tablet) 1 tab PO DAILY [facility] Last Admin: 01/04/24 09:07 Dose: 1 tab Documented By: CORRIE Enoxaparin Sodium (Enoxaparin Sodium 40 Mg/0.4 Ml Syringe) 40 mg SUBCUT Q24H [facility] Last Admin: 01/04/24 09:10 Dose: 40 mg Documented By: CORRIE Hydromorphone HCl (Hydromorphone Hcl 1 Mg/Ml Syringe) 1 mg IVPUSH Q2H PRN; Protocol PRN Reason: Pain, Moderate(Pain Scale 4-6) Last Admin: 01/04/24 08:39 Dose: 1 mg Documented By: NISREEN Lorazepam (Lorazepam 0.5 Mg Tablet) 0.5 mg PO BID PRN PRN Reason: anxiety/restlessness Last Admin: 01/04/24 09:09 Dose: 0.5 mg Documented By: CORRIE Metoclopramide HCl (Metoclopramide Hcl 10 Mg/2 Ml Vial) 10 mg IVPUSH Q6H PRN PRN Reason: Nausea and Vomiting Last Admin: 12/30/23 16:18 Dose: 10 mg Documented By: BRODY Omeprazole (Omeprazole 20 Mg Capsule.Dr) 20 mg PO DAILY@0630 [facility] Last Admin: 01/04/24 05:57 Dose: 20 mg Documented By: RUTHANN Pharmacy Consult (Consult Rx Parenteral Nutrition Ordering) 1 each MISCELLANE DAILY PRN PRN Reason: Consult order Senna/Docusate Sodium (Sennosides/Docusate Sodium Tablet) 1 tab PO BEDTIME [facility] Last Admin: 01/03/24 19:52 Dose: Not Given Documented By: RUTHANN Non-Admin Reason: pt has diarrhea Sodium Chloride (0.9 % Sodium Chloride Flush 3 Ml Syringe) 3 ml IVFLUSH QSHIFT [facility] Last Admin: 01/04/24 09:18 Dose: 3 ml Documented By: CORRIE Sodium Chloride (Sodium Chloride 0.65 % Nasal 44 Ml Sprbtl) 1 spray NOSTRIL-B Q1H PRN PRN Reason: nasal dryness Last Admin: 12/26/23 11:10 Dose: 1 spray Documented By: MAXIMO Sodium Chloride (Sodium Chloride Tab 1 Gm Tablet) 1 gm PO TID [facility] Last Admin: 01/04/24 09:08 Dose: 1 gm Documented By: CORRIE Trimethoprim/Sulfamethoxazole (Sulfamethox/Trimeth 800/160 Tablet) 1 tab PO MoWeFr [facility] Last Admin: 01/04/24 09:08 Dose: 1 tab Documented By: CORRIE Labs 01/04/24 06:21 01/04/24 06:21 Labs: Laboratory Results - last 24 hr 01/03/24 01/04/24 01/04/24 20:04 06:21 06:21 MCV 91.8 91.5 MCH 29.8 MCHC RDW Plt Count MPV Immature Gran % (Auto) Neut % (Auto) Lymph % (Auto) [place] % (Auto) Eos % (Auto) Baso % (Auto) Lymph # (Auto) [place] # (Auto) Eos # (Auto) Baso # (Auto) Abs Immat Gran (auto) Absolute Neuts (auto) Absolute Nucleated RBC Nucleated RBC % (auto) Neutrophils % (Manual) Band Neutrophils % Lymphocytes % (Manual) Atypical Lymphs % (Man) Monocytes % (Manual) Eosinophils % (Manual) Basophils % (Manual) Abs Neuts (Manual) Lymphocytes # (Manual) Atyp Lymphs # (Manual) Monocytes # (Manual) Eosinophils # (Manual) Basophils # (Manual) Platelet Estimate Plt Morphology Comment RBC Morphology Polychromasia Schistocytes Anion Gap Estim Creat Clear Calc Estimated GFR Fasting Glucose Calcium Phosphorus Magnesium Albumin C. difficile Tox B Gene NEGATIVE 01/04/24 01/04/24 01/04/24 06:21 06:21 06:21 MCV MCH 29.3 MCHC 32.4 32.0 RDW 15.6 15.5 Plt Count 174 MPV Immature Gran % (Auto) Neut % (Auto) Lymph % (Auto) [place] % (Auto) Eos % (Auto) Baso % (Auto) Lymph # (Auto) [place] # (Auto) Eos # (Auto) Baso # (Auto) Abs Immat Gran (auto) Absolute Neuts (auto) Absolute Nucleated RBC Nucleated RBC % (auto) Neutrophils % (Manual) Band Neutrophils % Lymphocytes % (Manual) Atypical Lymphs % (Man) Monocytes % (Manual) Eosinophils % (Manual) Basophils % (Manual) Abs Neuts (Manual) Lymphocytes # (Manual) Atyp Lymphs # (Manual) Monocytes # (Manual) Eosinophils # (Manual) Basophils # (Manual) Platelet Estimate Plt Morphology Comment RBC Morphology Polychromasia Schistocytes Anion Gap Estim Creat Clear Calc Estimated GFR Fasting Glucose Calcium Phosphorus Magnesium Albumin C. difficile Tox B Gene 01/04/24 01/04/24 01/04/24 06:21 06:21 06:21 MCV MCH MCHC RDW Plt Count 175 MPV 10.6 10.4 Immature Gran % (Auto) Cancelled Neut % (Auto) Cancelled Lymph % (Auto) Cancelled [place] % (Auto) Cancelled Eos % (Auto) Cancelled Baso % (Auto) Cancelled Lymph # (Auto) Cancelled [place] # (Auto) Cancelled Eos # (Auto) Cancelled Baso # (Auto) Cancelled Abs Immat Gran (auto) Cancelled Absolute Neuts (auto) Cancelled Absolute Nucleated RBC 0.000 0.000 Nucleated RBC % (auto) 0.0 Neutrophils % (Manual) Band Neutrophils % Lymphocytes % (Manual) Atypical Lymphs % (Man) Monocytes % (Manual) Eosinophils % (Manual) Basophils % (Manual) Abs Neuts (Manual) Lymphocytes # (Manual) Atyp Lymphs # (Manual) Monocytes # (Manual) Eosinophils # (Manual) Basophils # (Manual) Platelet Estimate Plt Morphology Comment RBC Morphology Polychromasia Schistocytes Anion Gap Estim Creat Clear Calc Estimated GFR Fasting Glucose Calcium Phosphorus Magnesium Albumin C. difficile Tox B Gene 01/04/24 06:21 MCV MCH MCHC RDW Plt Count MPV Immature Gran % (Auto) Neut % (Auto) Lymph % (Auto) [place] % (Auto) Eos % (Auto) Baso % (Auto) Lymph # (Auto) [place] # (Auto) Eos # (Auto) Baso # (Auto) Abs Immat Gran (auto) Absolute Neuts (auto) Absolute Nucleated RBC Nucleated RBC % (auto) 0.0 Neutrophils % (Manual) 74 H Band Neutrophils % 0 L Lymphocytes % (Manual) 8 L Atypical Lymphs % (Man) 2 Monocytes % (Manual) 11 Eosinophils % (Manual) 3 Basophils % (Manual) 2 Abs Neuts (Manual) 3.8 Lymphocytes # (Manual) 0.4 L Atyp Lymphs # (Manual) 0.1 Monocytes # (Manual) 0.6 Eosinophils # (Manual) 0.2 Basophils # (Manual) 0.1 Platelet Estimate NORMAL Plt Morphology Comment NORMAL RBC Morphology NOTED Polychromasia 1+ (0-2) Schistocytes 1+ (0-2) Anion Gap 10 L Estim Creat Clear Calc 135.2 Estimated GFR > 60 Fasting Glucose 105 H Calcium 8.8 Phosphorus 3.2 Magnesium 1.8 Albumin 2.7 L C. difficile Tox B Gene Assessment and Plan (1) PCP (pneumocystis jiroveci pneumonia): Status: Acute Plan 43M PMH HIV - non compliant, unspecified compensated liver cirrhosis, presented 12/09/23 with sob, found to have acute hypoxic respiratory failure due to pneumocystitis pneumonia, pulm edema, transferred to icu 12/19/23, after treatement with bactrim, azitrho, diuresis, patient o2 requiriements improved, downgraded to imc 01/02/24 sepsis, acute hypoxic respiratory failure due to pneumocystis pneumonia in HIV/aids continue bactrim, azitrho, biktarvy now back on high flow, wean o2 as tolerated moderate protein calorie malnutrition now off tpn, encourage po intake acute hfpef diuresed well, now off diuretics, monitor dvt prophylaxis - lovenox full code reason for continued hospitalization: hypoxia Quality Stroke Does the patient have a stroke diagnosis?: No VTE Prior VTE?: No VTE Risk Level:: Medical - moderate - high VTE Device Contraindication: Treatment Not Indicated VTE Drug Contraindication: N/A - Med Ordered
--- NOTE | 2024-01-04 10:22 | MHC.CM.PN ---
Pt is still acute, he requires high flow O2. CM will follow and assist with DC plan. PT rec STR, OT rec. actute rehab.
--- NOTE | 2024-01-04 11:18 | MHC.CLN ---
F/U PT IS MODERATELY MALNOURISHED PO INTAKE 100% X 2 MEALS YESTERDAY REVIEWED LABS-SERUM NA IMPROVING DIET RX: REGULAR 1200ML FLUIDS RESTRICTION-APPROPRIATE PT RECEIVING ENSURE TID PROVIDES 1050KCALS, 60G PROTEIN (PT NOT DRINKING SUPP CONSISTENTLY) PT RECEIVED PPN YESTERDAY AT GOAL 85ML/HR WITH 103G LIPIDS (1.4G/KG) PROVIDED 2070 TOTAL KCALS (28KCALS/KG), 204G DEXTROSE, 87G PROTEIN (1.2G/KG) PPN D/C PER MD TODAY MONITOR PO INTAKE AND ENCOURAGE SUPPLEMENTS
[2024-01-04] MEDS: polyethylene glycoL 3350 17 GM POWD.PACK PO (14:19)
--- NOTE | 2024-01-04 16:56 | HO.WOUND ---
Wound Consult: Follow up 43yr old M? admitted to [facility] [place] on - See progress notes and H&P for detailed history.? Wound consult placed for Coccyx / sacral wounds.? Patient agreeable to assessment and photo documentation. Pt is ill appearing, appears cachectic and malnourished - of note nutrition is following and recommendations in place. The patient does appear to have psoriatic type rash noted on both upper and lower extremities similar to rash noted to sacrum. Todays assessment reveals sacral wound is MASD -IAD (Moisture Associated Skin Damage - Incontinence Associated Dermatitis) - does not appear to be pressure related as tissue remains blanchable. Direct care team advised to continue to use ANJU, off loading with pillows and or wedges and currently in place is Triad with foam covering. Sacrum and coccyx 01/04/24 Etiology: ??MASD -IAD Wound Bed: scattered areas of red moist wound bed consistent with Moisture and friction Jenifer wound: ? dry desquamation with irregular rash - Rash noted by direct care team to be psoriasis and noted to bilateral upper and lower extremities Goals of Treatment: ? Off Load Pressure and Triad and Foam to allow for autolytic healing and protect from friction and moisture Recommendations: 1. Turn and Reposition every 2 hours and as needed for patient comfort.? Use pillows or wedges to support off loading positions. 2. Off Load all bony prominences with use of pillows and heel boots if needed.? Apply Preventative foams where needed. ? 3. Monitor for incontinence and moisture control, use barrier creams when needed for prevention and treatment. 4. Provide adequate and supplemental nutrition.? 5. Order or Continue low air loss mattress. 6. When applicable maintain blood glucose levels per Providers order. 7. Sacrum and Coccyx - Off Load Pressure - Cleanse with PH balance spray or wipes, pat dry. ?Apply thin layer of Triad to wound bed. Do not remove all of paste between applications as this may cause further skin damage.? Cover with foam dressing to aid in off loading and protection from friction. Re-consult wound care Nurse for wound deterioration or wound changes.
[2024-01-05] VITALS (15 sets, daily range): BP systolic 95–133; BP diastolic 53–70; PULSE 84–112; RESP 18–94; TEMP 36.1–36.6; O2SAT 90–99
[2024-01-05] MEDS: HYDROmorphone HCl 1 MG/ML SYRINGE IVPUSH ×10 (00:29→21:50)
[2024-01-05] MEDS: 0.9 % Sodium Chloride Flush 3 ML SYRINGE IVFLUSH ×4 (01:32→21:09)
[2024-01-05] MEDS: Omeprazole 20 MG CAPSULE.DR PO (04:49)
[2024-01-05] MEDS: Bictegrav/Emtricit/Tenofov Ala TABLET 1 TAB PO (07:33)
[2024-01-05] MEDS: Sodium Chloride Tab 1 GM TABLET PO ×3 (07:33→21:08)
[2024-01-05 08:07] LABS: Albumin Level 2.6 g/dL (3.5-5.0); Magnesium 1.5 mg/dL (1.6-2.6); Phosphorus 4.3 mg/dL (2.7-4.5)
[2024-01-05] MEDS: Metoclopramide HCl 10 MG/2 ML VIAL IVPUSH (08:34)
[2024-01-05] MEDS: LORazepam 0.5 MG TABLET PO ×2 (09:01→21:08)
--- NOTE | 2024-01-05 09:05 | PC.NURSE ---
Medicated at 0733 per EMAR for 06/08 chronic chest/thoracic pain - w/ reassessment patient reports pain down to 02/06. 0830 - call bed ringing and this RN at bedside. Patient reports feeling SOB stating I cant breath, Im nauseous . - Patient Medicated with Reglan & Ativan per EMAR. O2 sat maintaining 94-96%. RT at bedside for breathing treatment and MD notified.
--- NOTE | 2024-01-05 09:46 | P.PNIM_ITS ---
Subjective Subjective Date of Service: 01/05/24 Interval History: sob Physical Exam 2 Vital Signs: Vital Signs: Last Vital Signs Temp 97.8 F 01/05/24 07:47 Pulse 99 01/05/24 07:47 Resp 20 01/05/24 07:50 BP 111/58 L 01/05/24 07:47 Pulse Ox 99 01/05/24 07:47 O2 Del Method High Flow Nasal C annula, Non-Rebrea ther Mask 01/05/24 07:47 O2 Flow Rate 40 01/05/24 07:47 FiO2 70 01/05/24 07:47 Oxygen Flow Rate 15 12/09/23 19:34 BMI result Body Mass Index 19.2 Const: Other: resting comfortably General: cooperative, healthy appearing, comfortable, no acute distress, well developed, alert, awake and Physically active Orientation/consciousness: patient oriented x3 HEENT: Head: Yes normal to inspection, Yes normocephalic and Yes atraumatic Eyes: General: appearance normal, both eyes and all related structures Neck: Neck: Yes normal visual inspection, Yes no meningeal signs and Yes supple Chest: Chest palpation & inspection: normal inspection of the chest Resp: Other: appreciable diffuse reales; no appreciable rhonchi, wheezing Effort & Inspection: normal respiratory effort Cardio: Rate: regular rate Rhythm: regular rhythm GI: Inspection: Yes normal to inspection, No Abdominal wall edema and No distended Palpation (GI): Soft to palpation, not firm, nontender, no guarding and not rigid Skin: General skin exam: no rashes or lesions noted Neuro: General: patient oriented x3, tone normal, moves all extremities, no meningeal signs and no focal motor deficits Extrem: General: Yes normal to inspection, Yes capillary refill normal and Yes no clubbing, cyanosis or edema Psych: Other: intermittent anxiety, agitation Appearance: grossly normal Objective Data Active Medications Acetaminophen (Acetaminophen 325 Mg Tablet) 975 mg PO Q8H PRN PRN Reason: Fever >100.4 Last Admin: 01/03/24 09:16 Dose: 975 mg Documented By: LIANA Comments: approved use for pain Azithromycin (Azithromycin 500 Mg Tablet) 500 mg PO Q7D [facility] Last Admin: 12/31/23 08:30 Dose: 500 mg Documented By: MARK Benzonatate (Benzonatate 100 Mg Capsule) 100 mg PO TID PRN PRN Reason: Cough Last Admin: 12/30/23 08:29 Dose: 100 mg Documented By: BRODY Bictegravir/Emtricitabine/Tenofovir (Bictegrav/Emtricit/Tenofov Ala Tablet) 1 tab PO DAILY [facility] Last Admin: 01/05/24 07:33 Dose: 1 tab Documented By: IZAIAH Enoxaparin Sodium (Enoxaparin Sodium 40 Mg/0.4 Ml Syringe) 40 mg SUBCUT Q24H [facility] Last Admin: 01/04/24 09:10 Dose: 40 mg Documented By: CORRIE Hydromorphone HCl (Hydromorphone Hcl 1 Mg/Ml Syringe) 1 mg IVPUSH Q2H PRN; Protocol PRN Reason: Pain, Moderate(Pain Scale 4-6) Last Admin: 01/04/24 14:15 Dose: 1 mg Documented By: YOEL Sodium Chloride (Ns) 100 mls @ 100 mls/hr IV ONCE ONE Stop: 01/05/24 10:44 Lorazepam (Lorazepam 0.5 Mg Tablet) 0.5 mg PO BID PRN PRN Reason: anxiety/restlessness Last Admin: 01/05/24 09:01 Dose: 0.5 mg Documented By: IZAIAH Metoclopramide HCl (Metoclopramide Hcl 10 Mg/2 Ml Vial) 10 mg IVPUSH Q6H PRN PRN Reason: Nausea and Vomiting Last Admin: 01/05/24 08:34 Dose: 10 mg Documented By: IZAIAH Omeprazole (Omeprazole 20 Mg Capsule.) 20 mg PO DAILY@0630 [facility] Last Admin: 01/05/24 04:49 Dose: 20 mg Documented By: ANTLUIS CARLOS Pharmacy Consult (Consult Rx Parenteral Nutrition Ordering) 1 each MISCELLANE DAILY PRN PRN Reason: Consult order Senna/Docusate Sodium (Sennosides/Docusate Sodium Tablet) 1 tab PO BEDTIME [facility] Last Admin: 01/04/24 22:26 Dose: Not Given Documented By: TEOFILO Non-Admin Reason: Patient Refused Sodium Chloride (0.9 % Sodium Chloride Flush 3 Ml Syringe) 3 ml IVFLUSH QSHIFT [facility] Last Admin: 01/05/24 07:32 Dose: 3 ml Documented By: IZAIAH Sodium Chloride (Sodium Chloride 0.65 % Nasal 44 Ml Sprbtl) 1 spray NOSTRIL-B Q1H PRN PRN Reason: nasal dryness Last Admin: 12/26/23 11:10 Dose: 1 spray Documented By: MAXIMO Sodium Chloride (Sodium Chloride Tab 1 Gm Tablet) 1 gm PO TID [facility] Last Admin: 01/05/24 07:33 Dose: 1 gm Documented By: IZAIAH Trimethoprim/Sulfamethoxazole (Sulfamethox/Trimeth 800/160 Tablet) 1 tab PO MoWeFr [facility] Last Admin: 01/04/24 09:08 Dose: 1 tab Documented By: CORRIE Labs 01/04/24 06:21 01/04/24 06:21 Labs: Laboratory Results - last 24 hr 01/05/24 06:57 Phosphorus 4.3 Magnesium 1.5 L Albumin 2.6 L Assessment and Plan (1) PCP (pneumocystis jiroveci pneumonia): Status: Acute Plan 43M PMH HIV - non compliant, unspecified compensated liver cirrhosis, presented 12/09/23 with sob, found to have acute hypoxic respiratory failure due to pneumocystitis pneumonia, pulm edema, transferred to icu 12/19/23, after treatement with bactrim, azitrho, diuresis, patient o2 requiriements improved, downgraded to imc 01/02/24 sepsis, acute hypoxic respiratory failure due to pneumocystis pneumonia in HIV/aids completed iv bactrim course continue bactrim and azitrho prophylaxis, biktarvy now back on high flow, wean o2 as tolerated subacute inflammatory anemia will transfuse 1 unit prbc monitor hgb moderate protein calorie malnutrition now off tpn, encourage po intake acute hfpef diuresed well, now off diuretics, monitor dvt prophylaxis - lovenox full code reason for continued hospitalization: hypoxia Quality Stroke Does the patient have a stroke diagnosis?: No VTE Prior VTE?: No VTE Risk Level:: Medical - moderate - high VTE Device Contraindication: Treatment Not Indicated VTE Drug Contraindication: N/A - Med Ordered
[2024-01-05] MEDS: Enoxaparin Sodium 40 MG/0.4 ML SYRINGE SUBCUT (10:24)
[2024-01-05] MEDS: Benzonatate 100 MG CAPSULE PO (21:08)
[2024-01-06] VITALS (18 sets, daily range): BP systolic 102–133; BP diastolic 53–65; PULSE 94–116; RESP 14–36; TEMP 36.6–37.7; O2SAT 30–99; BMI 21.3
[2024-01-06] MEDS: HYDROmorphone HCl 1 MG/ML SYRINGE IVPUSH ×11 (00:08→22:14)
[2024-01-06] MEDS: Omeprazole 20 MG CAPSULE.DR PO (05:08)
[2024-01-06 06:55] LABS: Albumin Level 2.5 g/dL (3.5-5.0); Anion Gap 12 (12-20); Blood Urea Nitrogen 12 mg/dL (9-16); Carbon Dioxide 26 mmol/L (22-29); Chloride 103 mmol/L (96-108); Creatinine Clr Calc Pharmacy 147.6; Estimated Glomerular Filt Rate > 60; Glucose Fasting 148 mg/dL (60-99); Magnesium 1.6 mg/dL (1.6-2.6); Potassium 3.9 mmol/L (3.3-5.1); Sodium 137 mmol/L (135-145)
[2024-01-06] MEDS: LORazepam 0.5 MG TABLET PO ×2 (07:17→19:09)
[2024-01-06 08:58] LABS: ABG Base Excess 7.2 mmol/L; ABG HCO3 31 mmol/L (22-26); ABG pCO2 41 mmHg (32-45); ABG pH 7.48 (7.35-7.45); ABG pO2 89 mmHg (83-108)
[2024-01-06] MEDS: Sodium Chloride Tab 1 GM TABLET PO (09:12)
[2024-01-06] MEDS: Bictegrav/Emtricit/Tenofov Ala TABLET 1 TAB PO (09:12)
[2024-01-06] MEDS: Sulfamethox/Trimeth 800/160 TABLET 1 TAB PO (09:13)
[2024-01-06 09:47] LABS: Hematocrit 24.2 % (42.0-52.0); Hemoglobin 7.8 g/dl (14.0-18.0); Mean Corpuscular HGB Conc 32.2 g/dl (31.0-36.0); Mean Corpuscular Hemoglobin 30.1 pg (27.0-33.0); Mean Corpuscular Volume 93.4 fL (80.0-98.0); Mean Platelet Volume 10.5 fL (9.4-12.4); Platelet Count 183 X10*3/uL (160-400); Red Blood Count 2.59 X10*6/uL (4.60-5.80); Red Cell Distribution Width 15.9 % (11.0-16.0); White Blood Count 5.4 X10*3/uL (4.8-10.8)
[2024-01-06 10:06] LABS: D Dimer High Sensitivity 624 NG/ML
[2024-01-06] MEDS: Midazolam HCl/PF 2 MG/2 ML VIAL IVPUSH (10:19)
[2024-01-06 10:22] LABS: B Type Natriuretic Peptide 135 pg/mL (<100)
[2024-01-06 11:43] LABS: ABG Refer to POC result
[2024-01-06] MEDS: Enoxaparin Sodium 40 MG/0.4 ML SYRINGE SUBCUT (12:01)
[2024-01-06] MEDS: Furosemide 20 MG/2 ML VIAL IVPUSH ×2 (12:01→17:31)
[2024-01-06] MEDS: Albumin Human 25 % 100 ML IV ×2 (12:01→17:31)
--- NOTE | 2024-01-06 12:48 | P.PNIM_ITS ---
Subjective Subjective Date of Service: 01/06/24 Interval History: Seen and evaluated this morning Feels dyspneic and anxious denies fever or chills no other overnight events still on High flow O2 Review of Systems Review of Systems: Yes all other systems are reviewed and are negative Physical Exam 2 Vital Signs: Vital Signs: Last Vital Signs Temp 98.2 F 01/06/24 11:12 Pulse 95 01/06/24 11:12 Resp 20 01/06/24 11:38 BP 102/57 L 01/06/24 11:12 Pulse Ox 96 01/06/24 11:12 O2 Del Method High Flow Nasal C annula 01/06/24 11:12 O2 Flow Rate 40 01/06/24 11:12 FiO2 60 01/06/24 11:12 Oxygen Flow Rate 15 12/09/23 19:34 BMI result Body Mass Index 21.3 Const: Other: Constitutional : Awake, interactive, not in distress Neck : Normal inspection, Supple Cardiovascular : RRR, no JVP, trace lower extremity edema Respiratory : fair bilateral air entry decreased at the basis, no crackles, no significant wheezes Gastrointestinal: soft, lax, Normal bowel sounds, Non tender Skin : Warm, Dry Neurological : Alert & oriented x3, No focal deficit Objective Data Active Medications Acetaminophen (Acetaminophen 325 Mg Tablet) 975 mg PO Q8H PRN PRN Reason: Fever >100.4 Last Admin: 01/03/24 09:16 Dose: 975 mg Documented By: LIANA Comments: approved use for pain Azithromycin (Azithromycin 500 Mg Tablet) 500 mg PO Q7D [facility] Last Admin: 12/31/23 08:30 Dose: 500 mg Documented By: MARK Benzonatate (Benzonatate 100 Mg Capsule) 100 mg PO TID PRN PRN Reason: Cough Last Admin: 01/05/24 21:08 Dose: 100 mg Documented By: ALISSON Bictegravir/Emtricitabine/Tenofovir (Bictegrav/Emtricit/Tenofov Ala Tablet) 1 tab PO DAILY [facility] Last Admin: 01/06/24 09:12 Dose: 1 tab Documented By: BRODY Enoxaparin Sodium (Enoxaparin Sodium 40 Mg/0.4 Ml Syringe) 40 mg SUBCUT Q24H [facility] Last Admin: 01/06/24 12:01 Dose: 40 mg Documented By: BRODY Furosemide (Furosemide 20 Mg/2 Ml Vial) 20 mg IVPUSH ONCE ONE; Protocol Stop: 01/06/24 13:01 Last Admin: 01/06/24 12:01 Dose: 20 mg Documented By: BRODY Hydromorphone HCl (Hydromorphone Hcl 1 Mg/Ml Syringe) 1 mg IVPUSH Q2H PRN; Protocol PRN Reason: severe pain Last Admin: 01/06/24 12:01 Dose: 1 mg Documented By: BRODY Albumin Human (Kedbumin 25 %) 100 mls @ 100 mls/hr IV Q6H [facility] Stop: 01/07/24 06:44 Last Admin: 01/06/24 12:01 Dose: 100 mls/hr Documented By: BRODY Lorazepam (Lorazepam 0.5 Mg Tablet) 0.5 mg PO TID PRN PRN Reason: anxiety/restlessness Metoclopramide HCl (Metoclopramide Hcl 10 Mg/2 Ml Vial) 10 mg IVPUSH Q6H PRN PRN Reason: Nausea and Vomiting Last Admin: 01/05/24 08:34 Dose: 10 mg Documented By: IZAIAH Midazolam HCl (Midazolam Hcl/Pf 2 Mg/2 Ml Vial) 2 mg IVPUSH ONCE PRN PRN Reason: anxiety/restlessness Last Admin: 01/06/24 10:19 Dose: 2 mg Documented By: BRODY Omeprazole (Omeprazole 20 Mg Capsule.Dr) 20 mg PO DAILY@0630 [facility] Last Admin: 01/06/24 05:08 Dose: 20 mg Documented By: ALISSON Pharmacy Consult (Consult Rx Parenteral Nutrition Ordering) 1 each MISCELLANE DAILY PRN PRN Reason: Consult order Senna/Docusate Sodium (Sennosides/Docusate Sodium Tablet) 1 tab PO BEDTIME [facility] Last Admin: 01/05/24 20:34 Dose: Not Given Documented By: ALISSON Non-Admin Reason: Patient Refused Sodium Chloride (0.9 % Sodium Chloride Flush 3 Ml Syringe) 3 ml IVFLUSH QSHIFT [facility] Last Admin: 01/06/24 09:06 Dose: Not Given Documented By: BRODY Non-Admin Reason: Previously Administered Sodium Chloride (Sodium Chloride 0.65 % Nasal 44 Ml Sprbtl) 1 spray NOSTRIL-B Q1H PRN PRN Reason: nasal dryness Last Admin: 12/26/23 11:10 Dose: 1 spray Documented By: MAXIMO Sodium Chloride (Sodium Chloride Tab 1 Gm Tablet) 1 gm PO TID [facility] Last Admin: 01/06/24 09:12 Dose: 1 gm Documented By: BRODY Trimethoprim/Sulfamethoxazole (Sulfamethox/Trimeth 800/160 Tablet) 1 tab PO MoWeFr [facility] Last Admin: 01/06/24 09:13 Dose: 1 tab Documented By: BRODY Labs 01/06/24 06:11 01/06/24 06:11 Labs: Laboratory Results - last 24 hr 01/05/24 01/06/24 01/06/24 10:47 06:11 08:51 MCV 93.4 MCH 30.1 MCHC 32.2 RDW 15.9 Plt Count 183 MPV 10.5 Absolute Nucleated RBC 0.000 Nucleated RBC % (auto) 0.0 D-Dimer High Sensitivty O2 Saturation 97.0 ABG pH at Pt Temp 7.48 H ABG pCO2 at Pt Temp 41 ABG pO2 at Pt Temp 89 ABG HCO3 31 H ABG Base Excess (Actual) 7.2 Anion Gap 12 Estim Creat Clear Calc 147.6 Estimated GFR > 60 Fasting Glucose 148 H Calcium 9.0 Magnesium 1.6 B-Natriuretic Peptide Albumin 2.5 L Crossmatch See Detail 01/06/24 09:14 MCV MCH MCHC RDW Plt Count MPV Absolute Nucleated RBC Nucleated RBC % (auto) D-Dimer High Sensitivty 624 O2 Saturation ABG pH at Pt Temp ABG pCO2 at Pt Temp ABG pO2 at Pt Temp ABG HCO3 ABG Base Excess (Actual) Anion Gap Estim Creat Clear Calc Estimated GFR Fasting Glucose Calcium Magnesium B-Natriuretic Peptide 135 H Albumin Crossmatch Assessment and Plan (1) Pulmonary edema: Status: Acute (2) PCP (pneumocystis jiroveci pneumonia): Status: Acute (3) Acute hypoxemic respiratory failure: Status: Acute (4) AIDS: Status: Acute Plan 43M PMH HIV - non compliant, unspecified compensated liver cirrhosis, presented 12/09/23 with sob, found to have acute hypoxic respiratory failure due to pneumocystitis pneumonia, pulm edema, transferred to icu 12/19/23, after treatement with bactrim, azitrho, diuresis, patient o2 requiriements improved, downgraded to imc 01/02/24 sepsis, acute hypoxic respiratory failure due to pneumocystis pneumonia in HIV/aids completed iv bactrim course continue bactrim and azitrho prophylaxis along with biktarvy on high flow, wean o2 as tolerated DC Salt tablets IV lasix w Albumin Pulm consult subacute inflammatory anemia transfused 1 unit prbc monitor hgb moderate protein calorie malnutrition off tpn, encourage po intake acute hfpef diuresed well, now off diuretics, monitor dvt prophylaxis - lovenox full code reason for continued hospitalization: hypoxia pending clinical improvement and weaning off O2 Quality Stroke Does the patient have a stroke diagnosis?: No VTE Prior VTE?: No VTE Risk Level:: Medical - moderate - high VTE Device Contraindication: Treatment Not Indicated VTE Drug Contraindication: N/A - Med Ordered
--- NOTE | 2024-01-06 13:21 | MHC.CLN ---
F/U PT IS MODERATELY MALNOURISHED PO INTAKE 75-100% REVIEWED LABS-SERUM NA -WNL DIET RX: REGULAR 1200ML FLUIDS RESTRICTION-CAN LIBERALIZE FLUID RESTRICTION PT RECEIVING ENSURE TID PROVIDES 1050KCALS, 60G PROTEIN (PT NOT DRINKING SUPP CONSISTENTLY) MONITOR PO INTAKE AND ENCOURAGE SUPPLEMENTS
--- NOTE | 2024-01-06 14:29 | P.PNPL_ITS ---
Subjective Subjective Date of Service: 01/06/24 Principal diagnosis: AIDS, PCP Interval history: Somewhat improved, but still high FiO2 requirements. Objective Data Labs 01/06/24 06:11 01/06/24 06:11 Labs: Laboratory Results - last 24 hr 01/05/24 01/06/24 01/06/24 10:47 06:11 08:51 WBC 5.4 RBC 2.59 L Hgb 7.8 L Hct 24.2 L MCV 93.4 MCH 30.1 MCHC 32.2 RDW 15.9 Plt Count 183 MPV 10.5 Absolute Nucleated RBC 0.000 Nucleated RBC % (auto) 0.0 D-Dimer High Sensitivty O2 Saturation 97.0 ABG pH at Pt Temp 7.48 H ABG pCO2 at Pt Temp 41 ABG pO2 at Pt Temp 89 ABG HCO3 31 H ABG Base Excess (Actual) 7.2 Sodium 137 Potassium 3.9 Chloride 103 Carbon Dioxide 26 Anion Gap 12 BUN 12 Creatinine 0.69 Estim Creat Clear Calc 147.6 Estimated GFR > 60 Fasting Glucose 148 H Calcium 9.0 Magnesium 1.6 B-Natriuretic Peptide Albumin 2.5 L Crossmatch See Detail 01/06/24 09:14 WBC RBC Hgb Hct MCV MCH MCHC RDW Plt Count MPV Absolute Nucleated RBC Nucleated RBC % (auto) D-Dimer High Sensitivty 624 O2 Saturation ABG pH at Pt Temp ABG pCO2 at Pt Temp ABG pO2 at Pt Temp ABG HCO3 ABG Base Excess (Actual) Sodium Potassium Chloride Carbon Dioxide Anion Gap BUN Creatinine Estim Creat Clear Calc Estimated GFR Fasting Glucose Calcium Magnesium B-Natriuretic Peptide 135 H Albumin Crossmatch Microbiology Microbiology Results: Microbiology 12/10/23 14:48 Sputum - Expectorated Direct Acid Fast Bacilli Smear - Final 12/10/23 14:29 Sputum - Expectorated Direct Acid Fast Bacilli Smear - Final 12/10/23 10:10 Sputum - Expectorated Direct Acid Fast Bacilli Smear - Final 12/10/23 02:04 Blood - Venous Blood Culture - Final No growth after 5 days. 12/10/23 02:04 Blood - Venous Blood Culture - Final No growth after 5 days. 12/09/23 20:11 Blood - Venous Blood Culture - Final No growth after 5 days. 12/09/23 19:51 Blood - Venous Blood Culture - Final No growth after 5 days. 12/10/23 10:10 Sputum - Expectorated Gram Stain - Final 12/10/23 10:10 Sputum - Expectorated Sputum Culture - Final Review of Systems Cardiovascular: Reports dyspnea Respiratory: Denies cough, Denies excessive phlegm production and Reports dyspnea Physical Exam 2 Vital Signs: Vital Signs: Last Vital Signs Temp 98.2 F 01/06/24 11:12 Pulse 95 01/06/24 11:12 Resp 20 01/06/24 11:38 BP 102/57 L 01/06/24 11:12 Pulse Ox 96 01/06/24 11:12 O2 Del Method High Flow Nasal C annula 01/06/24 11:12 O2 Flow Rate 40 01/06/24 11:12 FiO2 60 01/06/24 11:12 Oxygen Flow Rate 15 12/09/23 19:34 BMI result Body Mass Index 21.3 Const: General: no acute distress, alert and awake Eyes: Sclerae: sclerae normal EOM: EOMs intact bilaterally Neck: Neck: Yes no lymphadenopathy, Yes trachea midline and Yes supple Resp: Effort & Inspection: normal respiratory effort and no respiratory distress Auscultation: clear to auscultation bilaterally Cardio: Rate: regular rate Rhythm: regular rhythm Heart sounds: no gallops, no murmurs and no rubs GI: Palpation (GI): Soft to palpation and Other GI palpation findings present ( Nontender) Auscultation: normal bowel sounds Extrem: General: Yes no pedal edema, No clubbing and No cyanosis Procedures Date of Service Date of Service: 01/06/24 Assessment and Plan Assessment and plan (1) Pulmonary fibrosis: Status: Acute (2) Pulmonary edema: Status: Acute (3) AIDS: Status: Acute (4) Acute hypoxemic respiratory failure: Status: Acute Plan Impression: 43-year-old gentleman with underlying AIDS admitted with acute hypoxic respiratory failure with PCP pneumonia, now also with recurrent pulmonary edema and early fibrosis. Patient has been medium dose steroids during his initial PCP treatment, now his fibrosis in post acute phase and unlikely to be steroid responsive. Recommendations: Continue to titrate of supplemental oxygen as tolerated. Continue with judicious diuresis. Time Spent With Patient Time: Total time managing care of this patient today ____ minutes. Progress Note: Quality Stroke Does the patient have a stroke diagnosis?: No
--- NOTE | 2024-01-06 14:45 | MHC.CM.PN ---
EMR reviewed and per MD rounds, pt is not medically cleared for D/C due to remaining on hi-flow. CM will continue to follow.
[2024-01-06] MEDS: 0.9 % Sodium Chloride Flush 3 ML SYRINGE IVFLUSH (16:16)
[2024-01-07] VITALS (14 sets, daily range): BP systolic 102–114; BP diastolic 54–64; PULSE 92–108; RESP 20–30; TEMP 36.1–37.6; O2SAT 95–100; BMI 21.3
[2024-01-07] MEDS: HYDROmorphone HCl 1 MG/ML SYRINGE IVPUSH ×11 (00:08→22:41)
[2024-01-07] MEDS: Albumin Human 25 % 100 ML IV ×2 (00:10→05:07)
[2024-01-07] MEDS: 0.9 % Sodium Chloride Flush 3 ML SYRINGE IVFLUSH ×3 (00:16→17:34)
[2024-01-07] MEDS: Omeprazole 20 MG CAPSULE.DR PO (05:07)
[2024-01-07 07:38] LABS: B Type Natriuretic Peptide 137 pg/mL (<100)
[2024-01-07] MEDS: Enoxaparin Sodium 40 MG/0.4 ML SYRINGE SUBCUT (08:42)
[2024-01-07] MEDS: LORazepam 0.5 MG TABLET PO ×3 (08:42→19:50)
[2024-01-07] MEDS: Bictegrav/Emtricit/Tenofov Ala TABLET 1 TAB PO (08:42)
[2024-01-07] MEDS: Azithromycin 500 MG TABLET PO (08:45)
--- NOTE | 2024-01-07 12:17 | P.PNIM_ITS ---
Subjective Subjective Date of Service: 01/07/24 Interval History: Seen and evaluated this morning Feels dyspneic and anxious decrease O2 requirement but still on High flow no other overnight events Review of Systems Review of Systems: Yes all other systems are reviewed and are negative Physical Exam 2 Vital Signs: Vital Signs: Last Vital Signs Temp 97.6 F 01/07/24 11:31 Pulse 96 01/07/24 11:31 Resp 22 H 01/07/24 11:34 BP 108/57 L 01/07/24 11:31 Pulse Ox 98 01/07/24 11:31 O2 Del Method High Flow Nasal C annula, Oxymask 01/07/24 11:31 O2 Flow Rate 45 01/07/24 11:31 FiO2 66.1 01/07/24 11:31 Oxygen Flow Rate 15 12/09/23 19:34 BMI result Body Mass Index 21.3 Const: Other: Constitutional : Awake, interactive, not in distress Neck : Normal inspection, Supple Cardiovascular : RRR, no JVP, trace lower extremity edema Respiratory : fair bilateral air entry decreased at the basis, no crackles, no significant wheezes Gastrointestinal: soft, lax, Normal bowel sounds, Non tender Skin : Warm, Dry Neurological : Alert & oriented x3, No focal deficit Objective Data Active Medications Acetaminophen (Acetaminophen 325 Mg Tablet) 975 mg PO Q8H PRN PRN Reason: Fever >100.4 Last Admin: 01/03/24 09:16 Dose: 975 mg Documented By: LIANA Comments: approved use for pain Azithromycin (Azithromycin 500 Mg Tablet) 500 mg PO Q7D [facility] Last Admin: 01/07/24 08:45 Dose: 500 mg Documented By: COLT Benzonatate (Benzonatate 100 Mg Capsule) 100 mg PO TID PRN PRN Reason: Cough Last Admin: 01/05/24 21:08 Dose: 100 mg Documented By: ALISSON Bictegravir/Emtricitabine/Tenofovir (Bictegrav/Emtricit/Tenofov Ala Tablet) 1 tab PO DAILY [facility] Last Admin: 01/07/24 08:42 Dose: 1 tab Documented By: COLT Enoxaparin Sodium (Enoxaparin Sodium 40 Mg/0.4 Ml Syringe) 40 mg SUBCUT Q24H [facility] Last Admin: 01/07/24 08:42 Dose: 40 mg Documented By: COLT Hydromorphone HCl (Hydromorphone Hcl 1 Mg/Ml Syringe) 1 mg IVPUSH Q2H PRN; Protocol PRN Reason: severe pain Last Admin: 01/07/24 10:59 Dose: 1 mg Documented By: COLT Lorazepam (Lorazepam 0.5 Mg Tablet) 0.5 mg PO TID PRN PRN Reason: anxiety/restlessness Last Admin: 01/07/24 08:42 Dose: 0.5 mg Documented By: COLT Metoclopramide HCl (Metoclopramide Hcl 10 Mg/2 Ml Vial) 10 mg IVPUSH Q6H PRN PRN Reason: Nausea and Vomiting Last Admin: 01/05/24 08:34 Dose: 10 mg Documented By: IZAIAH Midazolam HCl (Midazolam Hcl/Pf 2 Mg/2 Ml Vial) 2 mg IVPUSH ONCE PRN PRN Reason: anxiety/restlessness Last Admin: 01/06/24 10:19 Dose: 2 mg Documented By: BRODY Omeprazole (Omeprazole 20 Mg Capsule.Dr) 20 mg PO DAILY@0630 [facility] Last Admin: 01/07/24 05:07 Dose: 20 mg Documented By: MAGDALENA Pharmacy Consult (Consult Rx Parenteral Nutrition Ordering) 1 each MISCELLANE DAILY PRN PRN Reason: Consult order Senna/Docusate Sodium (Sennosides/Docusate Sodium Tablet) 1 tab PO BEDTIME [facility] Last Admin: 01/06/24 20:17 Dose: Not Given Documented By: MAGDALENA Non-Admin Reason: Patient Refused Sodium Chloride (0.9 % Sodium Chloride Flush 3 Ml Syringe) 3 ml IVFLUSH QSHIFT [facility] Last Admin: 01/07/24 08:39 Dose: 3 ml Documented By: COLT Sodium Chloride (Sodium Chloride 0.65 % Nasal 44 Ml Sprbtl) 1 spray NOSTRIL-B Q1H PRN PRN Reason: nasal dryness Last Admin: 12/26/23 11:10 Dose: 1 spray Documented By: MAXIMO Trimethoprim/Sulfamethoxazole (Sulfamethox/Trimeth 800/160 Tablet) 1 tab PO MoWeFr [facility] Last Admin: 01/06/24 09:13 Dose: 1 tab Documented By: BRODY Labs 01/06/24 06:11 01/06/24 06:11 Labs: Laboratory Results - last 24 hr 01/07/24 06:42 B-Natriuretic Peptide 137 H Assessment and Plan (1) Pulmonary fibrosis: Status: Acute (2) Pulmonary edema: Status: Acute (3) PCP (pneumocystis jiroveci pneumonia): Status: Acute (4) Acute hypoxemic respiratory failure: Status: Acute Plan 43M PMH HIV - non compliant, unspecified compensated liver cirrhosis, presented 12/09/23 with sob, found to have acute hypoxic respiratory failure due to pneumocystitis pneumonia, pulm edema, transferred to icu 12/19/23, after treatement with bactrim, azitrho, diuresis, patient o2 requiriements improved, downgraded to imc 01/02/24 sepsis, acute hypoxic respiratory failure due to pneumocystis pneumonia in HIV/aids completed iv bactrim course continue bactrim and azitrho prophylaxis along with biktarvy on high flow, wean o2 as tolerated DC Salt tablets IV lasix w Albumin Pulm input appreciated wean down as tolerated Leukocytosis secondary to steroids not infection subacute inflammatory anemia transfused 1 unit prbc monitor hgb moderate protein calorie malnutrition off tpn, encourage po intake acute hfpef diuresed well, now off diuretics, monitor dvt prophylaxis - lovenox full code reason for continued hospitalization: hypoxia pending clinical improvement and weaning off O2 Quality Stroke Does the patient have a stroke diagnosis?: No VTE Prior VTE?: No VTE Risk Level:: Medical - moderate - high VTE Device Contraindication: Treatment Not Indicated VTE Drug Contraindication: N/A - Med Ordered
[2024-01-07] MEDS: Furosemide 20 MG/2 ML VIAL IVPUSH (13:59)
--- NOTE | 2024-01-07 14:45 | MHC.CM.PN ---
EMR reviewed and per MD rounds, pt is not medically cleared for D/C due to management of hypoxia, pt remains on hi-flow. CM will continue to follow.
--- NOTE | 2024-01-07 15:44 | HO.SKINPHOTO ---
Location:Coccyx Category PI Stage:I Location: b/l buttocks Moisture associated injury to b/l buttocks
[2024-01-07] MEDS: Penicillin G Benzathine 2,400,000 UNIT/4 ML SYRINGE 2400000 UNIT IM (17:40)
--- NOTE | 2024-01-07 17:43 | P.CNPS_ITS ---
History of Present Illness Date of Service: 01/07/24 Chief Complaint: Hypoxic Respiratory Failure Reason for Consult: anxiety and depression for medication advice. Requesting physician: Leno Voss Sources of Information: patient interviewed and chart reviewed HPI Narrative: Patient is a 43 year old male with PMH HIV - non compliant, unspecified compensated liver cirrhosis, presented 12/09/23 with sob, found to have acute hypoxic respiratory failure due to pneumocystitis pneumonia, pulm edema, transferred to icu 12/19/23, after treatement with bactrim, azitrho, diuresis, patient o2 requirements improved, downgraded to imc 01/02/24. Psychiatric consult placed for: anxiety and depression for medication advice. During assessment, pt presents alert and oriented, calm/cooperative. Pt reports feeling anxious today; pt stated, I've been here for six weeks because I couldn't breathe. I'm not depressed anymore than I should been since I've been here for this long. I get panic attacks since they changed my oxygen level. I can't breathe, then I get a panic attack. I've always had anxiety to some level but it's definitely heighten here . denies SI/HI/VH/AH. pt denies depressive symptoms. He reports hx of ETOH abuse; has been sober for a year. denies hx of psychiatric medications or hospitalizations. denies ever seeing a therapist, going to a psychiatrist or rehab for ETOH abuse. Past Psychiatric History: denies Medical Evaluation Reviewed: Yes [facility] Medical History Gout Arthritis Family History: unknown Social History: Lives with mother. No children. Single. Substance History: ETOH abuse; reports being sober for a year. Trauma History: yes Diagnostics Vital Signs (24Hr): Vital Signs - 24 hr 01/06/24 19:13 01/06/24 19:54 01/06/24 21:04 Temperature 98.5 F Pulse Rate 102 H Respiratory Rate 16 16 24 H Blood Pressure 127/65 Pulse Oximetry 95 Oxygen Delivery Method High Flow Nasal Cannula Oxygen Flow Rate 30 Fraction of Inspired Oxygen 50 01/06/24 23:15 01/06/24 23:47 01/07/24 04:00 Temperature 99.8 F 99.7 F Pulse Rate 99 92 Respiratory Rate 26 H 22 H 26 H Blood Pressure 113/53 L 114/64 Pulse Oximetry 99 100 Oxygen Delivery Method High Flow Nasal Cannula High Flow Nasal Cannula Oxymask Oxygen Flow Rate 45 45 Fraction of Inspired Oxygen 70 90 01/07/24 04:48 01/07/24 06:20 01/07/24 07:15 Temperature 96.9 F Pulse Rate 92 Respiratory Rate 26 H 30 H 24 H Blood Pressure 110/59 L Pulse Oximetry 98 Oxygen Delivery Method High Flow Nasal Cannula Oxymask Oxygen Flow Rate 50 Fraction of Inspired Oxygen 74.3 01/07/24 08:04 01/07/24 11:31 01/07/24 11:34 Temperature 97.6 F Pulse Rate 96 Respiratory Rate 24 H 24 H 22 H Blood Pressure 108/57 L Pulse Oximetry 98 Oxygen Delivery Method High Flow Nasal Cannula Oxymask Oxygen Flow Rate 45 Fraction of Inspired Oxygen 66.1 01/07/24 15:35 01/07/24 15:49 Temperature 98.8 F Pulse Rate 104 H Respiratory Rate 20 20 Blood Pressure 102/60 Pulse Oximetry 97 Oxygen Delivery Method High Flow Nasal Cannula Oxymask Oxygen Flow Rate 40 Fraction of Inspired Oxygen 60 BMI result Body Mass Index 21.3 Labs 01/06/24 06:11 01/06/24 06:11 Labs: Laboratory Results - last 48 hr 01/06/24 01/06/24 01/06/24 06:11 08:51 09:14 WBC 5.4 RBC 2.59 L Hgb 7.8 L Hct 24.2 L MCV 93.4 MCH 30.1 MCHC 32.2 RDW 15.9 Plt Count 183 MPV 10.5 Absolute Nucleated RBC 0.000 Nucleated RBC % (auto) 0.0 D-Dimer High Sensitivty 624 O2 Saturation 97.0 ABG pH at Pt Temp 7.48 H ABG pCO2 at Pt Temp 41 ABG pO2 at Pt Temp 89 ABG HCO3 31 H ABG Base Excess (Actual) 7.2 Sodium 137 Potassium 3.9 Chloride 103 Carbon Dioxide 26 Anion Gap 12 BUN 12 Creatinine 0.69 Estim Creat Clear Calc 147.6 Estimated GFR > 60 Fasting Glucose 148 H Calcium 9.0 Magnesium 1.6 B-Natriuretic Peptide 135 H Albumin 2.5 L 01/07/24 06:42 WBC RBC Hgb Hct MCV MCH MCHC RDW Plt Count MPV Absolute Nucleated RBC Nucleated RBC % (auto) D-Dimer High Sensitivty O2 Saturation ABG pH at Pt Temp ABG pCO2 at Pt Temp ABG pO2 at Pt Temp ABG HCO3 ABG Base Excess (Actual) Sodium Potassium Chloride Carbon Dioxide Anion Gap BUN Creatinine Estim Creat Clear Calc Estimated GFR Fasting Glucose Calcium Magnesium B-Natriuretic Peptide 137 H Albumin Imaging Radiology Impressions: ITS Impressions Chest X-Ray 12/09/23 20:25 IMPRESSION: There are bilateral patchy infiltrates, left greater than right. These are likely infectious in etiology. Recommend continued radiographic follow-up to clearance. Chest CT 12/09/23 22:37 IMPRESSION: 1. Extensive regions of irregular groundglass opacification with interlobular and intralobular septal thickening throughout the bilateral lungs. Findings are nonspecific but may be seen in the setting of an atypical/viral infections, inflammatory processes, or diffuse alveolar hemorrhage in the appropriate clinical settings. 2. The main pulmonary artery appears mildly enlarged, measuring 3.4 cm in diameter. 3. Nonspecific splenomegaly. Abdomen Ultrasound 12/10/23 13:45 IMPRESSION: 1. Consistent with the provided history of cirrhosis, there is increase in hepatic echotexture. No biliary ductal dilatation is seen. 2. Four hyperechoic, circumscribed masses are seen within the liver, the appearances characteristic of benign hemangiomas. These are of doubtful clinical significance; however, given the history of cirrhosis, further consideration may be given to more definitive characterization with dynamic MRI. 3. There is cholelithiasis. 4. There is mild right hydronephrosis. 4. Technically limited ultrasound examination of the abdominal great vessels and the left kidney. Chest X-Ray 12/16/23 11:00 IMPRESSION: Diffuse groundglass patchy opacity seen throughout both lungs likely inflammatory or infectious etiology. Atypical viral, toxic inhalation or autoimmune disease can have same picture. Overall no change from CT chest 12/09/2023. Venous Duplex 12/16/23 12:58 IMPRESSION: No DVT demonstrated in the bilateral lower extremity. Subcentimeter short axis bilateral inguinal nodes which maintain normal hilar architecture, and may be reactive. Chest CT 12/19/23 22:24 IMPRESSION: Extensive bilateral multilobar groundglass opacities with intralobular and interlobular septal thickening with mild interval progression compared to prior. Findings are again nonspecific and may be seen with infectious or inflammatory process. Fleischner guidelines were followed. Chest X-Ray 12/28/23 08:21 IMPRESSION: Diffuse patchy opacity in both lungs suggestive of multi lobar infiltrate. Chest CT 01/06/24 11:07 IMPRESSION: 1. Trace left-sided pneumothorax. This appears new from previous. 2. Diffuse groundglass opacities throughout both lungs appearing more confluent than on the prior study. There is decreased appearance of the septal thickening/reticulation. There is likely a component of fibrosis with bronchiectasis associated with chronic infectious/inflammatory process. Fleischner guidelines were followed. The report will be called to the ordering clinician by a [facility] Workflow Coordinator. Mental Status Exam Mental Status Exam Narrative: Pt is alert and oriented; behavior is cooperative and calm; dressed in hospital attire; mood is described as anxious ; eye contact appropriate; Speech is normal rate and not pressured; thought process is organized; Thought content is on tx; otherwise pertinent to relevant topics and without any delusional content, paranoid ideations or grandiosity; denies SI/HI/AH/VH. Medications Medications Current Medications Acetaminophen (Acetaminophen 325 Mg Tablet) 975 mg PO Q8H PRN PRN Reason: Fever >100.4 Last Admin: 01/03/24 09:16 Dose: 975 mg Azithromycin (Azithromycin 500 Mg Tablet) 500 mg PO Q7D [facility] Last Admin: 01/07/24 08:45 Dose: 500 mg Benzonatate (Benzonatate 100 Mg Capsule) 100 mg PO TID PRN PRN Reason: Cough Last Admin: 01/05/24 21:08 Dose: 100 mg Bictegravir/Emtricitabine/Tenofovir (Bictegrav/Emtricit/Tenofov Ala Tablet) 1 tab PO DAILY [facility] [place] Last Admin: 01/07/24 08:42 Dose: 1 tab Enoxaparin Sodium (Enoxaparin Sodium 40 Mg/0.4 Ml Syringe) 40 mg SUBCUT Q24H COMPA Last Admin: 01/07/24 08:42 Dose: 40 mg Hydromorphone HCl (Hydromorphone Hcl 1 Mg/Ml Syringe) 1 mg IVPUSH Q2H PRN; Protocol PRN Reason: severe pain Last Admin: 01/07/24 17:33 Dose: 1 mg Lorazepam (Lorazepam 0.5 Mg Tablet) 0.5 mg PO TID PRN PRN Reason: anxiety/restlessness Last Admin: 01/07/24 17:34 Dose: 0.5 mg Metoclopramide HCl (Metoclopramide Hcl 10 Mg/2 Ml Vial) 10 mg IVPUSH Q6H PRN PRN Reason: Nausea and Vomiting Last Admin: 01/05/24 08:34 Dose: 10 mg Midazolam HCl (Midazolam Hcl/Pf 2 Mg/2 Ml Vial) 2 mg IVPUSH ONCE PRN PRN Reason: anxiety/restlessness Last Admin: 01/06/24 10:19 Dose: 2 mg Omeprazole (Omeprazole 20 Mg Capsule.Dr) 20 mg PO DAILY@0630 [facility] [place] Last Admin: 01/07/24 05:07 Dose: 20 mg Pharmacy Consult (Consult Rx Parenteral Nutrition Ordering) 1 each MISCELLANE DAILY PRN PRN Reason: Consult order Senna/Docusate Sodium (Sennosides/Docusate Sodium Tablet) 1 tab PO BEDTIME [facility] [place] Last Admin: 01/06/24 20:17 Dose: Not Given Sodium Chloride (0.9 % Sodium Chloride Flush 3 Ml Syringe) 3 ml IVFLUSH QSHIFT [facility] [place] Last Admin: 01/07/24 17:34 Dose: 3 ml Sodium Chloride (Sodium Chloride 0.65 % Nasal 44 Ml Sprbtl) 1 spray NOSTRIL-B Q1H PRN PRN Reason: nasal dryness Last Admin: 12/26/23 11:10 Dose: 1 spray Trimethoprim/Sulfamethoxazole (Sulfamethox/Trimeth 800/160 Tablet) 1 tab PO MoWeFr [facility] [place] Last Admin: 01/06/24 09:13 Dose: 1 tab Allergies Allergies Allergy/AdvReac Type Severity Reaction Status Date / Time No Known Allergies Allergy Verified 12/09/23 19:32 Assessment & Plan Assessment & Plan (1) Anxiety about health: Status: Acute Code(s): R45.89 - Other symptoms and signs involving emotional state Plan Psychiatric consult placed for: anxiety and depression for medication advice. During assessment, pt presents alert and oriented, calm/cooperative. Pt reports feeling anxious today; pt stated, I've been here for six weeks because I couldn't breathe. I'm not depressed anymore than I should been since I've been here for this long. I get panic attacks since they changed my oxygen level. I can't breathe, then I get a panic attack. I've always had anxiety to some level but it's definitely heighten here . denies SI/HI/VH/AH. pt denies depressive symptoms. He reports hx of ETOH abuse; has been sober for a year. denies hx of psychiatric medications or hospitalizations. denies ever seeing a therapist, going to a psychiatrist or rehab for ETOH abuse. Recommendation: Schedule Ativan 0.5mg PO TID while hospitalized. SSRI not needed at this time since patient reports his anxiety is controlled when not in the hospital. Total time managing care of this patient today _30___ minutes. Patient educated on: diagnosis, medication risk/benefits and therapeutic strategies Informed Consent: understands
[2024-01-07] MEDS: Sennosides/Docusate Sodium TABLET 1 TAB PO (19:50)
[2024-01-08] VITALS (10 sets, daily range): BP systolic 101–129; BP diastolic 55–69; PULSE 84–112; RESP 16–22; TEMP 36.2–37.3; O2SAT 91–99; BMI 21.2
[2024-01-08] MEDS: HYDROmorphone HCl 1 MG/ML SYRINGE IVPUSH ×10 (01:04→22:30)
[2024-01-08] MEDS: Omeprazole 20 MG CAPSULE.DR PO (05:45)
[2024-01-08 07:00] LABS: Hematocrit 24.6 % (42.0-52.0); Mean Corpuscular HGB Conc 32.5 g/dl (31.0-36.0); Mean Corpuscular Hemoglobin 30.5 pg (27.0-33.0); Mean Corpuscular Volume 93.9 fL (80.0-98.0); Platelet Count 202 X10*3/uL (160-400); Red Blood Count 2.62 X10*6/uL (4.60-5.80); Red Cell Distribution Width 15.8 % (11.0-16.0); White Blood Count 5.3 X10*3/uL (4.8-10.8)
[2024-01-08 07:20] LABS: Anion Gap 14 (12-20); Blood Urea Nitrogen 19 mg/dL (9-16); Calcium 9.5 mg/dL (8.4-10.2); Carbon Dioxide 28 mmol/L (22-29); Chloride 99 mmol/L (96-108); Creatinine Clr Calc Pharmacy 111.5; Estimated Glomerular Filt Rate > 60; Glucose Random 109 mg/dL (60-115); Potassium 3.5 mmol/L (3.3-5.1); Sodium 137 mmol/L (135-145)
[2024-01-08] MEDS: LORazepam 0.5 MG TABLET PO ×3 (08:27→22:31)
[2024-01-08] MEDS: 0.9 % Sodium Chloride Flush 3 ML SYRINGE IVFLUSH ×3 (08:27→22:31)
[2024-01-08] MEDS: Bictegrav/Emtricit/Tenofov Ala TABLET 1 TAB PO (08:27)
[2024-01-08] MEDS: Enoxaparin Sodium 40 MG/0.4 ML SYRINGE SUBCUT (08:27)
[2024-01-08] MEDS: Sulfamethox/Trimeth 800/160 TABLET 1 TAB PO (08:29)
--- NOTE | 2024-01-08 11:40 | MHC.CLN ---
F/U PT IS MODERATELY MALNOURISHED PO INTAKE REMAINS 75-100% DIET RX: REGULAR 1200ML FLUIDS RESTRICTION-CAN LIBERALIZE FLUID RESTRICTION PT RECEIVING ENSURE TID PROVIDES 1050KCALS, 60G PROTEIN (PT NOT DRINKING SUPP CONSISTENTLY) MONITOR PO INTAKE AND ENCOURAGE SUPPLEMENTS
[2024-01-08] MEDS: Ketorolac Tromethamine 15 MG/ML VIAL IVPUSH (12:39)
[2024-01-08] MEDS: Acetaminophen 325 MG TABLET 975 MG PO (12:39)
[2024-01-08] MEDS: Lidocaine 4 % Patch ADH..PATCH 1 PATCH TRANSDERMA (12:40)
--- NOTE | 2024-01-08 12:56 | MHC.CM.PN ---
Pt is not yet ready for DC, he is requiring high flow O2. CM to follow and assist with DC plan.
--- NOTE | 2024-01-08 14:13 | P.PNIM_ITS ---
Subjective Subjective Date of Service: 01/08/24 Interval History: Seen and evaluated this morning Feels dyspneic and anxious still on High flow and NRB no other overnight events Review of Systems Review of Systems: Yes all other systems are reviewed and are negative Physical Exam 2 Vital Signs: Vital Signs: Last Vital Signs Temp 97.2 F 01/08/24 12:00 Pulse 89 01/08/24 12:00 Resp 17 01/08/24 12:00 BP 101/58 L 01/08/24 12:00 Pulse Ox 94 01/08/24 12:00 O2 Del Method High Flow Nasal C annula 01/08/24 12:00 O2 Flow Rate 45 01/08/24 12:00 FiO2 65 01/08/24 12:00 Oxygen Flow Rate 15 12/09/23 19:34 BMI result Body Mass Index 21.2 Const: Other: Constitutional : Awake, interactive, not in distress Neck : Normal inspection, Supple Cardiovascular : RRR, no JVP, trace lower extremity edema Respiratory :decreased bilateral air entry decreased at the basis, no crackles, no significant wheezes Gastrointestinal: soft, lax, Normal bowel sounds, Non tender Skin : Warm, Dry Neurological : Alert & oriented x3, No focal deficit Objective Data Active Medications Acetaminophen (Acetaminophen 325 Mg Tablet) 975 mg PO Q8H PRN PRN Reason: Pain\Fever Last Admin: 01/08/24 12:39 Dose: 975 mg Documented By: AURORA Azithromycin (Azithromycin 500 Mg Tablet) 500 mg PO Q7D [facility] Last Admin: 01/07/24 08:45 Dose: 500 mg Documented By: COLT Benzonatate (Benzonatate 100 Mg Capsule) 100 mg PO TID PRN PRN Reason: Cough Last Admin: 01/05/24 21:08 Dose: 100 mg Documented By: ALISSON Bictegravir/Emtricitabine/Tenofovir (Bictegrav/Emtricit/Tenofov Ala Tablet) 1 tab PO DAILY [facility] Last Admin: 01/08/24 08:27 Dose: 1 tab Documented By: AURORA Enoxaparin Sodium (Enoxaparin Sodium 40 Mg/0.4 Ml Syringe) 40 mg SUBCUT Q24H [facility] Last Admin: 01/08/24 08:27 Dose: 40 mg Documented By: AURORA Hydromorphone HCl (Hydromorphone Hcl 1 Mg/Ml Syringe) 1 mg IVPUSH Q2H PRN; Protocol PRN Reason: severe pain Last Admin: 01/08/24 13:11 Dose: 1 mg Documented By: AURORA Lidocaine (Lidocaine 4 % Patch Adh..Patch) 1 patch TRANSDERMA DAILY [facility]; Protocol Last Admin: 01/08/24 12:40 Dose: 1 patch Documented By: AURORA Lorazepam (Lorazepam 0.5 Mg Tablet) 0.5 mg PO TID [facility] Last Admin: 01/08/24 08:27 Dose: 0.5 mg Documented By: AURORA Metoclopramide HCl (Metoclopramide Hcl 10 Mg/2 Ml Vial) 10 mg IVPUSH Q6H PRN PRN Reason: Nausea and Vomiting Last Admin: 01/05/24 08:34 Dose: 10 mg Documented By: IZAIAH Midazolam HCl (Midazolam Hcl/Pf 2 Mg/2 Ml Vial) 2 mg IVPUSH ONCE PRN PRN Reason: anxiety/restlessness Last Admin: 01/06/24 10:19 Dose: 2 mg Documented By: BRODY Omeprazole (Omeprazole 20 Mg Capsule.Dr) 20 mg PO DAILY@0630 [facility] Last Admin: 01/08/24 05:45 Dose: 20 mg Documented By: CLAUDE Pharmacy Consult (Consult Rx Parenteral Nutrition Ordering) 1 each MISCELLANE DAILY PRN PRN Reason: Consult order Senna/Docusate Sodium (Sennosides/Docusate Sodium Tablet) 1 tab PO BEDTIME [facility] Last Admin: 01/07/24 19:50 Dose: 1 tab Documented By: RHIANNON Sodium Chloride (0.9 % Sodium Chloride Flush 3 Ml Syringe) 3 ml IVFLUSH QSHIFT [facility] Last Admin: 01/08/24 08:27 Dose: 3 ml Documented By: AURORA Sodium Chloride (Sodium Chloride 0.65 % Nasal 44 Ml Sprbtl) 1 spray NOSTRIL-B Q1H PRN PRN Reason: nasal dryness Last Admin: 12/26/23 11:10 Dose: 1 spray Documented By: MAXIMO Trimethoprim/Sulfamethoxazole (Sulfamethox/Trimeth 800/160 Tablet) 1 tab PO MoWeFr [facility] Last Admin: 01/08/24 08:29 Dose: 1 tab Documented By: AURORA Labs 01/08/24 06:42 01/08/24 06:42 Labs: Laboratory Results - last 24 hr 01/08/24 06:42 MCV 93.9 MCH 30.5 MCHC 32.5 RDW 15.8 Plt Count 202 MPV 10.0 Absolute Nucleated RBC 0.000 Nucleated RBC % (auto) 0.0 Anion Gap 14 Estim Creat Clear Calc 111.5 Estimated GFR > 60 Random Glucose 109 Calcium 9.5 Assessment and Plan (1) Anxiety about health: Status: Acute (2) Pulmonary fibrosis: Status: Acute (3) Pulmonary edema: Status: Acute (4) Acute hypoxemic respiratory failure: Status: Acute Plan 43M PMH HIV - non compliant, unspecified compensated liver cirrhosis, presented 12/09/23 with sob, found to have acute hypoxic respiratory failure due to pneumocystitis pneumonia, pulm edema, transferred to icu 12/19/23, after treatement with bactrim, azitrho, diuresis, patient o2 requiriements improved, downgraded to imc 01/02/24 sepsis, acute hypoxic respiratory failure due to pneumocystis pneumonia in HIV/aids completed iv bactrim course continue bactrim and azitrho prophylaxis along with biktarvy DC Salt tablets IV lasix w Albumin on high flow, wean o2 as tolerated Pulm input appreciated, Give Solumedrol high dose for 3 days wean down as tolerated Leukocytosis secondary to steroids not infection subacute inflammatory anemia transfused 1 unit prbc monitor hgb moderate protein calorie malnutrition off tpn, encourage po intake acute hfpef diuresed well, now off diuretics, monitor dvt prophylaxis - lovenox full code reason for continued hospitalization: hypoxia pending clinical improvement and weaning off O2 Quality Stroke Does the patient have a stroke diagnosis?: No VTE Prior VTE?: No VTE Risk Level:: Medical - moderate - high VTE Device Contraindication: Treatment Not Indicated VTE Drug Contraindication: N/A - Med Ordered
[2024-01-08] MEDS: Furosemide 20 MG/2 ML VIAL IVPUSH (14:54)
[2024-01-08] MEDS: methylPREDNISolone Sod Succ 125 MG/2 ML VIAL IVPUSH ×2 (14:54→22:30)
--- NOTE | 2024-01-08 16:26 | P.PNID_ITS ---
Subjective Subjective Date of Service: 01/08/24 Critical Care Time (minutes): 15 Comment: he is still SOB high flow CT shows tiny left pneumothorax and pulmonary fibrosis Objective Data Labs 01/08/24 06:42 01/08/24 06:42 Labs: Laboratory Results - last 24 hr 01/08/24 06:42 WBC 5.3 RBC 2.62 L Hgb 8.0 L Hct 24.6 L MCV 93.9 MCH 30.5 MCHC 32.5 RDW 15.8 Plt Count 202 MPV 10.0 Absolute Nucleated RBC 0.000 Nucleated RBC % (auto) 0.0 Sodium 137 Potassium 3.5 Chloride 99 Carbon Dioxide 28 Anion Gap 14 BUN 19 H Creatinine 0.91 Estim Creat Clear Calc 111.5 Estimated GFR > 60 Random Glucose 109 Calcium 9.5 Microbiology Microbiology Results: Microbiology 12/10/23 14:48 Sputum - Expectorated Direct Acid Fast Bacilli Smear - Final 12/10/23 14:29 Sputum - Expectorated Direct Acid Fast Bacilli Smear - Final 12/10/23 10:10 Sputum - Expectorated Direct Acid Fast Bacilli Smear - Final 12/10/23 02:04 Blood - Venous Blood Culture - Final No growth after 5 days. 12/10/23 02:04 Blood - Venous Blood Culture - Final No growth after 5 days. 12/09/23 20:11 Blood - Venous Blood Culture - Final No growth after 5 days. 12/09/23 19:51 Blood - Venous Blood Culture - Final No growth after 5 days. 12/10/23 10:10 Sputum - Expectorated Gram Stain - Final 12/10/23 10:10 Sputum - Expectorated Sputum Culture - Final Physical Exam 2 Vital Signs: Vital Signs: Last Vital Signs Temp 97.8 F 01/08/24 16:00 Pulse 84 01/08/24 16:00 Resp 16 01/08/24 16:00 BP 108/55 L 01/08/24 16:00 Pulse Ox 96 01/08/24 16:00 O2 Del Method High Flow Nasal C annula 01/08/24 16:00 O2 Flow Rate 45 01/08/24 16:00 FiO2 65 01/08/24 16:00 Oxygen Flow Rate 15 12/09/23 19:34 BMI result Body Mass Index 21.2 Const: General: cooperative HEENT: Head: Yes normal to inspection Face and sinus: Yes normal facial exam Mouth: Normal oral and palatal mucosa present Teeth and gingiva: d entition normal Eyes: General: appearance normal, both eyes and all related structures P upils: Equal, round and reactive pupils present Resp: Other: difficulty breathing Cardio: Rate: regular rate Rhythm: regular rhythm GI: Palpation (GI): Soft to palpation and nontender : General: Yes no CVA tenderness Back/Spine/Pelvis: Back: no CVA tenderness Skin: General skin exam: no rashes or lesions noted Neuro: General: moves all extremities Cranial nerves: Yes Equal, round and reactive pupils present Extrem: General: Yes normal to inspection Psych: Appearance: grossly normal Assessment and Plan Assessment and plan (1) Anxiety about health: Status: Acute (2) Pulmonary fibrosis: Problem details: He has received multiple antibiotics,antifungal ,antiviral. Possible BOOP ,ILD,CHF Treated for syphilis as well and PE being ruled out. Pulmonary evalution Status: Acute (3) Pulmonary edema: Status: Acute (4) PCP (pneumocystis jiroveci pneumonia): Status: Acute (5) AIDS: Status: Acute Time Spent With Patient Time: Total time managing care of this patient today ____ minutes.
[2024-01-09] VITALS (15 sets, daily range): BP systolic 95–113; BP diastolic 50–64; PULSE 74–106; RESP 15–28; TEMP 36.1–37.2; O2SAT 92–100; BMI 21.2
--- NOTE | 2024-01-09 00:12 | PC.RT ---
Pt desaturated during movement, Pt placed on non rebreather mask until he was able to recover and pt is now refusing to remove mask. Pt educated on the reason the mask is no longer indicated but pt still refused. Unable to wean pt at this time. RN aware
[2024-01-09] MEDS: HYDROmorphone HCl 1 MG/ML SYRINGE IVPUSH ×10 (02:13→22:55)
[2024-01-09] MEDS: Omeprazole 20 MG CAPSULE.DR PO (05:43)
[2024-01-09] MEDS: methylPREDNISolone Sod Succ 125 MG/2 ML VIAL IVPUSH (06:40)
[2024-01-09] MEDS: Bictegrav/Emtricit/Tenofov Ala TABLET 1 TAB PO (09:15)
[2024-01-09] MEDS: Lidocaine 4 % Patch ADH..PATCH 1 PATCH TRANSDERMA (09:15)
[2024-01-09] MEDS: LORazepam 0.5 MG TABLET PO ×3 (09:15→20:53)
[2024-01-09] MEDS: Enoxaparin Sodium 40 MG/0.4 ML SYRINGE SUBCUT (09:15)
[2024-01-09] MEDS: Furosemide 20 MG/2 ML VIAL IVPUSH (09:15)
[2024-01-09] MEDS: 0.9 % Sodium Chloride Flush 3 ML SYRINGE IVFLUSH ×3 (09:16→23:48)
--- NOTE | 2024-01-09 11:31 | P.PNPL_ITS ---
Subjective Subjective Date of Service: 01/09/24 Principal diagnosis: AIDS, PCP Interval history: No significant changes in FiO2 requirements. Objective Data Labs 01/08/24 06:42 01/08/24 06:42 Microbiology Microbiology Results: Microbiology 12/10/23 14:48 Sputum - Expectorated Direct Acid Fast Bacilli Smear - Final 12/10/23 14:29 Sputum - Expectorated Direct Acid Fast Bacilli Smear - Final 12/10/23 10:10 Sputum - Expectorated Direct Acid Fast Bacilli Smear - Final 12/10/23 02:04 Blood - Venous Blood Culture - Final No growth after 5 days. 12/10/23 02:04 Blood - Venous Blood Culture - Final No growth after 5 days. 12/09/23 20:11 Blood - Venous Blood Culture - Final No growth after 5 days. 12/09/23 19:51 Blood - Venous Blood Culture - Final No growth after 5 days. 12/10/23 10:10 Sputum - Expectorated Gram Stain - Final 12/10/23 10:10 Sputum - Expectorated Sputum Culture - Final Physical Exam 2 Vital Signs: Vital Signs: Last Vital Signs Temp 97.7 F 01/09/24 07:17 Pulse 78 01/09/24 09:15 Resp 18 01/09/24 11:10 BP 113/64 01/09/24 09:15 Pulse Ox 100 01/09/24 07:17 O2 Del Method High Flow Nasal C annula 01/09/24 07:17 O2 Flow Rate 45 01/09/24 07:17 FiO2 65 01/09/24 07:17 Oxygen Flow Rate 15 12/09/23 19:34 BMI result Body Mass Index 21.2 Const: General: no acute distress, alert, awake and ill appearing Eyes: Sclerae: sclerae normal EOM: EOMs intact bilaterally Neck: Neck: Yes no lymphadenopathy, Yes trachea midline and Yes supple Resp: Effort & Inspection: normal respiratory effort Auscultation: crackles Cardio: Rate: regular rate Rhythm: regular rhythm Heart sounds: no gallops, no murmurs and no rubs GI: Palpation (GI): Soft to palpation and Other GI palpation findings present ( Nontender) Auscultation: normal bowel sounds Extrem: General: Yes no pedal edema, No clubbing and No cyanosis Procedures Date of Service Date of Service: 01/09/24 Assessment and Plan Assessment and plan (1) Pulmonary fibrosis: Status: Acute (2) Pulmonary edema: Status: Acute (3) Acute hypoxemic respiratory failure: Status: Acute (4) AIDS: Status: Acute Plan Impression: 43-year-old gentleman with underlying AIDS admitted with acute hypoxic respiratory failure with PCP pneumonia, now also with recurrent pulmonary edema and early fibrosis. Patient has been medium dose steroids during his initial PCP treatment, now his fibrosis in post acute phase and unlikely to be steroid responsive. Recommendations: Continue to titrate of supplemental oxygen as tolerated. Continue with judicious diuresis. Will try empiric high-dose steroids for 3 days with hopes to arrest/reverse underlying fibrosis. Time Spent With Patient Time: Total time managing care of this patient today ____ minutes. Progress Note: Quality Stroke Does the patient have a stroke diagnosis?: No
--- NOTE | 2024-01-09 12:07 | HO.PM.IMPN ---
Subjective Subjective Date of Service: 01/09/24 Interval History: Seen and evaluated this morning Feels little better still on High flow without NRB no other overnight events Review of Systems Review of Systems: Yes all other systems are reviewed and are negative Physical Exam Vital Signs: Vital Signs: Last Vital Signs Temp 98.0 F 01/09/24 11:44 Pulse 95 01/09/24 11:44 Resp 18 01/09/24 11:44 BP 111/64 01/09/24 11:44 Pulse Ox 92 01/09/24 11:44 O2 Del Method High Flow Nasal C annula 01/09/24 07:17 O2 Flow Rate 45 01/09/24 11:44 FiO2 65 01/09/24 11:44 Oxygen Flow Rate 15 12/09/23 19:34 BMI result Body Mass Index 21.2 Const: Other: Constitutional : Awake, interactive, not in distress Neck : Normal inspection, Supple Cardiovascular : RRR, no JVP, trace lower extremity edema Respiratory :decreased bilateral air entry decreased at the basis, no crackles, no significant wheezes Gastrointestinal: soft, lax, Normal bowel sounds, Non tender Skin : Warm, Dry Neurological : Alert & oriented x3, No focal deficit Objective Data Active Medications Acetaminophen (Acetaminophen 325 Mg Tablet) 975 mg PO Q8H PRN PRN Reason: Pain\Fever Last Admin: 01/08/24 12:39 Dose: 975 mg Documented By: AURORA Azithromycin (Azithromycin 500 Mg Tablet) 500 mg PO Q7D [facility] Last Admin: 01/07/24 08:45 Dose: 500 mg Documented By: COLT Benzonatate (Benzonatate 100 Mg Capsule) 100 mg PO TID PRN PRN Reason: Cough Last Admin: 01/05/24 21:08 Dose: 100 mg Documented By: ALISSON Bictegravir/Emtricitabine/Tenofovir (Bictegrav/Emtricit/Tenofov Ala Tablet) 1 tab PO DAILY [facility] Last Admin: 01/09/24 09:15 Dose: 1 tab Documented By: ALISSON Enoxaparin Sodium (Enoxaparin Sodium 40 Mg/0.4 Ml Syringe) 40 mg SUBCUT Q24H [facility] Last Admin: 01/09/24 09:15 Dose: 40 mg Documented By: ALISSON Furosemide (Furosemide 20 Mg/2 Ml Vial) 20 mg IVPUSH DAILY [facility]; Protocol Last Admin: 01/09/24 09:15 Dose: 20 mg Documented By: ALISSON Hydromorphone HCl (Hydromorphone Hcl 1 Mg/Ml Syringe) 1 mg IVPUSH Q2H PRN; Protocol PRN Reason: severe pain Last Admin: 01/09/24 11:15 Dose: 1 mg Documented By: ALISSON Methylprednisolone Sodium Succinate 250 mg/ Sodium Chloride 54 mls @ 108 mls/hr IV Q6H [facility] Stop: 01/12/24 11:34 Lidocaine (Lidocaine 4 % Patch Adh..Patch) 1 patch TRANSDERMA DAILY [facility]; Protocol Last Admin: 01/09/24 09:15 Dose: 1 patch Documented By: ALISSON Lorazepam (Lorazepam 0.5 Mg Tablet) 0.5 mg PO TID [facility] Last Admin: 01/09/24 09:15 Dose: 0.5 mg Documented By: ALISSON Metoclopramide HCl (Metoclopramide Hcl 10 Mg/2 Ml Vial) 10 mg IVPUSH Q6H PRN PRN Reason: Nausea and Vomiting Last Admin: 01/05/24 08:34 Dose: 10 mg Documented By: IZAIAH Midazolam HCl (Midazolam Hcl/Pf 2 Mg/2 Ml Vial) 2 mg IVPUSH ONCE PRN PRN Reason: anxiety/restlessness Last Admin: 01/06/24 10:19 Dose: 2 mg Documented By: BRODY Omeprazole (Omeprazole 20 Mg Capsule.Dr) 20 mg PO DAILY@0630 [facility] Last Admin: 01/09/24 05:43 Dose: 20 mg Documented By: SOLEDAD Pharmacy Consult (Consult Rx Parenteral Nutrition Ordering) 1 each MISCELLANE DAILY PRN PRN Reason: Consult order Senna/Docusate Sodium (Sennosides/Docusate Sodium Tablet) 1 tab PO BEDTIME [facility] Last Admin: 01/08/24 22:19 Dose: Not Given Documented By: SOLEDAD Non-Admin Reason: See Note Sodium Chloride (0.9 % Sodium Chloride Flush 3 Ml Syringe) 3 ml IVFLUSH QSHIFT [facility] Last Admin: 01/09/24 09:16 Dose: 3 ml Documented By: ALISSON Sodium Chloride (Sodium Chloride 0.65 % Nasal 44 Ml Sprbtl) 1 spray NOSTRIL-B Q1H PRN PRN Reason: nasal dryness Last Admin: 12/26/23 11:10 Dose: 1 spray Documented By: MAXIMO Trimethoprim/Sulfamethoxazole (Sulfamethox/Trimeth 800/160 Tablet) 1 tab PO MoWeFr [facility] Last Admin: 01/08/24 08:29 Dose: 1 tab Documented By: AZORRZ Labs 01/08/24 06:42 01/08/24 06:42 Assessment and Plan (1) Pulmonary fibrosis: Status: Acute (2) Pulmonary edema: Status: Acute (3) Acute hypoxemic respiratory failure: Status: Acute Plan 43M PMH HIV - non compliant, unspecified compensated liver cirrhosis, presented 12/09/23 with sob, found to have acute hypoxic respiratory failure due to pneumocystitis pneumonia, pulm edema, transferred to icu 12/19/23, after treatement with bactrim, azitrho, diuresis, patient o2 requiriements improved, downgraded to imc 01/02/24 sepsis, acute hypoxic respiratory failure due to pneumocystis pneumonia in HIV/aids completed iv bactrim course continue bactrim and azitrho prophylaxis along with biktarvy DC Salt tablets IV lasix w Albumin on high flow, wean o2 as tolerated Pulm input appreciated, Give pulse Solumedrol high dose for 3 days wean down as tolerated Leukocytosis secondary to steroids not infection subacute inflammatory anemia transfused 1 unit prbc monitor hgb moderate protein calorie malnutrition off tpn, encourage po intake acute hfpef diuresed well, now off diuretics, monitor dvt prophylaxis - lovenox full code reason for continued hospitalization: hypoxia pending clinical improvement and weaning off O2 Quality Stroke Does the patient have a stroke diagnosis?: No VTE Prior VTE?: No VTE Risk Level:: Medical - moderate - high VTE Device Contraindication: Treatment Not Indicated VTE Drug Contraindication: N/A - Med Ordered
--- NOTE | 2024-01-09 14:54 | PC.NURSE ---
Pt up to recliner with 1 assist. Oxygen maintaining 95-97% while transferring.
[2024-01-10] VITALS (15 sets, daily range): BP systolic 101–114; BP diastolic 52–66; PULSE 60–98; RESP 16–24; TEMP 36.2–37.8; O2SAT 86–100; BMI 21.4
[2024-01-10] MEDS: HYDROmorphone HCl 1 MG/ML SYRINGE IVPUSH ×4 (01:22→08:33)
[2024-01-10] MEDS: Omeprazole 20 MG CAPSULE.DR PO (05:53)
[2024-01-10] MEDS: 0.9 % Sodium Chloride Flush 3 ML SYRINGE IVFLUSH ×2 (08:32→15:16)
[2024-01-10] MEDS: Bictegrav/Emtricit/Tenofov Ala TABLET 1 TAB PO (08:33)
[2024-01-10] MEDS: LORazepam 0.5 MG TABLET PO ×3 (08:33→21:37)
[2024-01-10] MEDS: Furosemide 20 MG/2 ML VIAL IVPUSH (08:34)
[2024-01-10] MEDS: Lidocaine 4 % Patch ADH..PATCH 1 PATCH TRANSDERMA (08:35)
[2024-01-10] MEDS: Enoxaparin Sodium 40 MG/0.4 ML SYRINGE SUBCUT (08:51)
--- NOTE | 2024-01-10 09:56 | P.PNPL_ITS ---
Subjective Subjective Date of Service: 01/10/24 Principal diagnosis: AIDS, PCP Interval history: FiO2 requirements improving with high-dose glucocorticoids. Objective Data Labs 01/08/24 06:42 01/08/24 06:42 Microbiology Microbiology Results: Microbiology 12/10/23 14:48 Sputum - Expectorated Direct Acid Fast Bacilli Smear - Final 12/10/23 14:29 Sputum - Expectorated Direct Acid Fast Bacilli Smear - Final 12/10/23 10:10 Sputum - Expectorated Direct Acid Fast Bacilli Smear - Final 12/10/23 02:04 Blood - Venous Blood Culture - Final No growth after 5 days. 12/10/23 02:04 Blood - Venous Blood Culture - Final No growth after 5 days. 12/09/23 20:11 Blood - Venous Blood Culture - Final No growth after 5 days. 12/09/23 19:51 Blood - Venous Blood Culture - Final No growth after 5 days. 12/10/23 10:10 Sputum - Expectorated Gram Stain - Final 12/10/23 10:10 Sputum - Expectorated Sputum Culture - Final Physical Exam 2 Vital Signs: Vital Signs: Last Vital Signs Temp 97.2 F 01/10/24 07:26 Pulse 86 01/10/24 07:26 Resp 16 01/10/24 08:34 BP 109/60 01/10/24 07:26 Pulse Ox 100 01/10/24 07:26 O2 Del Method High Flow Nasal C annula 01/10/24 07:26 O2 Flow Rate 45 01/10/24 07:26 FiO2 45 01/10/24 07:26 Oxygen Flow Rate 15 12/09/23 19:34 BMI result Body Mass Index 21.4 Const: General: no acute distress, alert and awake Eyes: Sclerae: sclerae normal EOM: EOMs intact bilaterally Neck: Neck: Yes no lymphadenopathy, Yes trachea midline and Yes supple Resp: Effort & Inspection: normal respiratory effort and no respiratory distress Auscultation: crackles bilateral Cardio: Rate: regular rate Rhythm: regular rhythm Heart sounds: no gallops, no murmurs and no rubs GI: Palpation (GI): Soft to palpation and Other GI palpation findings present ( Nontender) Auscultation: normal bowel sounds Extrem: General: Yes no pedal edema, No clubbing and No cyanosis Procedures Date of Service Date of Service: 01/10/24 Assessment and Plan Assessment and plan (1) Pulmonary fibrosis: Status: Acute (2) Pulmonary edema: Status: Acute (3) Acute hypoxemic respiratory failure: Status: Acute Plan Impression: 43-year-old gentleman with underlying AIDS admitted with acute hypoxic respiratory failure with PCP pneumonia, now also with recurrent pulmonary edema and early fibrosis. Patient has been on medium dose steroids during his initial PCP treatment, now with improvement on high-dose steroids. Recommendations: Continue to titrate of supplemental oxygen as tolerated. Continue with judicious diuresis. Continue high-dose steroids for 3 days total, then with taper. Time Spent With Patient Time: Total time managing care of this patient today ____ minutes. Progress Note: Quality Stroke Does the patient have a stroke diagnosis?: No
[2024-01-10] MEDS: HYDROmorphone HCl 2 MG TABLET PO ×3 (11:06→20:45)
--- NOTE | 2024-01-10 12:13 | HO.PM.IMPN ---
Subjective Subjective Date of Service: 01/10/24 Interval History: Seen and evaluated this morning Feels little better, requiring less O2 on High flow tolerating diet anxiety better controlled no other overnight events Review of Systems Review of Systems: Yes all other systems are reviewed and are negative Physical Exam Vital Signs: Vital Signs: Last Vital Signs Temp 97.2 F 01/10/24 07:26 Pulse 86 01/10/24 07:26 Resp 16 01/10/24 11:28 BP 109/60 01/10/24 07:26 Pulse Ox 100 01/10/24 07:26 O2 Del Method High Flow Nasal C annula 01/10/24 07:26 O2 Flow Rate 45 01/10/24 07:26 FiO2 45 01/10/24 07:26 Oxygen Flow Rate 15 12/09/23 19:34 BMI result Body Mass Index 21.4 Const: Other: Constitutional : Awake, interactive, not in distress Neck : Normal inspection, Supple Cardiovascular : RRR, no JVP, trace lower extremity edema Respiratory :decreased bilateral air entry decreased at the basis, no crackles, no significant wheezes on High flow O2 Gastrointestinal: soft, lax, Normal bowel sounds, Non tender Skin : Warm, Dry Neurological : Alert & oriented x3, No focal deficit Objective Data Active Medications Acetaminophen (Acetaminophen 325 Mg Tablet) 975 mg PO Q8H PRN PRN Reason: Pain\Fever Last Admin: 01/08/24 12:39 Dose: 975 mg Documented By: AURORA Benzonatate (Benzonatate 100 Mg Capsule) 100 mg PO TID PRN PRN Reason: Cough Last Admin: 01/05/24 21:08 Dose: 100 mg Documented By: ALISSON Bictegravir/Emtricitabine/Tenofovir (Bictegrav/Emtricit/Tenofov Ala Tablet) 1 tab PO DAILY [facility] Last Admin: 01/10/24 08:33 Dose: 1 tab Documented By: MARTY Enoxaparin Sodium (Enoxaparin Sodium 40 Mg/0.4 Ml Syringe) 40 mg SUBCUT Q24H [facility] Last Admin: 01/10/24 08:51 Dose: 40 mg Documented By: MARTY Furosemide (Furosemide 20 Mg/2 Ml Vial) 20 mg IVPUSH DAILY [facility]; Protocol Last Admin: 01/10/24 08:34 Dose: 20 mg Documented By: MARTY Hydromorphone HCl (Hydromorphone Hcl 2 Mg Tablet) 2 mg PO Q4H PRN PRN Reason: Pain, Severe (Pain Scale 7-10) Last Admin: 01/10/24 11:06 Dose: 2 mg Documented By: MARTY Methylprednisolone Sodium Succinate 250 mg/ Sodium Chloride 54 mls @ 108 mls/hr IV Q6H [facility] Stop: 01/12/24 11:30 Last Infusion: 01/10/24 06:51 Dose: Infused Documented By: SOLEDAD Lidocaine (Lidocaine 4 % Patch Adh..Patch) 1 patch TRANSDERMA DAILY [facility]; Protocol Last Admin: 01/10/24 08:35 Dose: 1 patch Documented By: MARTY Lorazepam (Lorazepam 0.5 Mg Tablet) 0.5 mg PO TID [facility] Last Admin: 01/10/24 08:33 Dose: 0.5 mg Documented By: MARTY Metoclopramide HCl (Metoclopramide Hcl 10 Mg/2 Ml Vial) 10 mg IVPUSH Q6H PRN PRN Reason: Nausea and Vomiting Last Admin: 01/05/24 08:34 Dose: 10 mg Documented By: IZAIAH Midazolam HCl (Midazolam Hcl/Pf 2 Mg/2 Ml Vial) 2 mg IVPUSH ONCE PRN PRN Reason: anxiety/restlessness Last Admin: 01/06/24 10:19 Dose: 2 mg Documented By: BRODY Omeprazole (Omeprazole 20 Mg Capsule.Dr) 20 mg PO DAILY@0630 [facility] Last Admin: 01/10/24 05:53 Dose: 20 mg Documented By: SOLEDAD Senna/Docusate Sodium (Sennosides/Docusate Sodium Tablet) 1 tab PO BEDTIME [facility] Last Admin: 01/09/24 22:10 Dose: Not Given Documented By: SOLEDAD Non-Admin Reason: loose stools Sodium Chloride (0.9 % Sodium Chloride Flush 3 Ml Syringe) 3 ml IVFLUSH QSHIFT [facility] Last Admin: 01/10/24 08:32 Dose: 3 ml Documented By: MARTY Sodium Chloride (Sodium Chloride 0.65 % Nasal 44 Ml Sprbtl) 1 spray NOSTRIL-B Q1H PRN PRN Reason: nasal dryness Last Admin: 12/26/23 11:10 Dose: 1 spray Documented By: MAXIMO Trimethoprim/Sulfamethoxazole (Sulfamethox/Trimeth 800/160 Tablet) 1 tab PO MoWeFr [facility] Last Admin: 01/08/24 08:29 Dose: 1 tab Documented By: AURORA Labs 01/08/24 06:42 01/08/24 06:42 Assessment and Plan (1) Acute hypoxemic respiratory failure: Status: Acute (2) PCP (pneumocystis jiroveci pneumonia): Status: Acute (3) Pulmonary edema: Status: Acute (4) Pulmonary fibrosis: Status: Acute Plan 43M PMH HIV - non compliant, unspecified compensated liver cirrhosis, presented 12/09/23 with sob, found to have acute hypoxic respiratory failure due to pneumocystitis pneumonia, pulm edema, transferred to icu 12/19/23, after treatement with bactrim, azitrho, diuresis, patient o2 requiriements improved, downgraded to imc 01/02/24 sepsis, acute hypoxic respiratory failure due to pneumocystis pneumonia in HIV/aids completed iv bactrim course continue bactrim and azitrho prophylaxis along with biktarvy DC Salt tablets IV lasix on high flow, wean o2 as tolerated Pulm input appreciated, Give pulse Solumedrol high dose for 3 days wean down as tolerated Leukocytosis secondary to steroids not infection subacute inflammatory anemia transfused 1 unit prbc monitor hgb moderate protein calorie malnutrition off tpn, encourage po intake acute hfpef diuresed well, now off diuretics, monitor dvt prophylaxis - lovenox full code reason for continued hospitalization: hypoxia pending clinical improvement and weaning off O2 Quality Stroke Does the patient have a stroke diagnosis?: No VTE Prior VTE?: No VTE Risk Level:: Medical - moderate - high VTE Device Contraindication: Treatment Not Indicated VTE Drug Contraindication: N/A - Med Ordered
[2024-01-10] MEDS: Sennosides/Docusate Sodium TABLET 1 TAB PO (20:45)
[2024-01-10] MEDS: Acetaminophen 325 MG TABLET 975 MG PO (20:45)
[2024-01-11] VITALS (11 sets, daily range): BP systolic 98–122; BP diastolic 54–72; PULSE 58–89; RESP 17–24; TEMP 36.3–36.9; O2SAT 88–99; BMI 21.5
[2024-01-11] MEDS: HYDROmorphone HCl 2 MG TABLET PO ×5 (03:04→20:52)
[2024-01-11] MEDS: 0.9 % Sodium Chloride Flush 3 ML SYRINGE IVFLUSH ×3 (03:07→16:48)
[2024-01-11] MEDS: Bictegrav/Emtricit/Tenofov Ala TABLET 1 TAB PO (08:11)
[2024-01-11] MEDS: LORazepam 0.5 MG TABLET PO ×3 (08:12→20:52)
[2024-01-11] MEDS: Furosemide 20 MG/2 ML VIAL IVPUSH (08:12)
[2024-01-11] MEDS: Enoxaparin Sodium 40 MG/0.4 ML SYRINGE SUBCUT (08:13)
--- NOTE | 2024-01-11 08:47 | HO.THORCONS ---
History of Present Illness Consult details Consult date: 01/11/24 Narrative: Thoracic consult for the evaluation of a small left apical pneumothorax, incidental finding on sequential CT scan films. Patient has a plethora of significant medical problems including AIDS, pulmonary fibrosis, pulmonary edema, PCP. The patient is being treated for his respiratory issues. Chart was reviewed and patient evaluated [facility] Past Medical History Medical History Gout Arthritis Family History Family history: reviewed and not pertinent Social History Social History (Updated 12/27/23 @ 14:15 by Freda Taylor RN) Household Members: Family Housing: Apartment Do you presently have visiting nurse or other home services: No Patient Tobacco Use Status: Current everyday Tobacco user Tobacco use type: Cigarette Cigarette Packs Per Day: 0.5 Cigarettes Per Day: 10.0 service: No Meds Allergies Allergy/AdvReac Type Severity Reaction Status Date / Time No Known Allergies Allergy Verified 12/09/23 19:32 Active Medications: Current Medications Acetaminophen (Acetaminophen 325 Mg Tablet) 975 mg PO Q8H PRN PRN Reason: Pain\Fever Last Admin: 01/10/24 20:45 Dose: 975 mg Benzonatate (Benzonatate 100 Mg Capsule) 100 mg PO TID PRN PRN Reason: Cough Last Admin: 01/05/24 21:08 Dose: 100 mg Bictegravir/Emtricitabine/Tenofovir (Bictegrav/Emtricit/Tenofov Ala Tablet) 1 tab PO DAILY [facility] Last Admin: 01/11/24 08:11 Dose: 1 tab Enoxaparin Sodium (Enoxaparin Sodium 40 Mg/0.4 Ml Syringe) 40 mg SUBCUT Q24H [facility] Last Admin: 01/11/24 08:13 Dose: 40 mg Furosemide (Furosemide 20 Mg/2 Ml Vial) 20 mg IVPUSH DAILY [facility]; Protocol Last Admin: 01/11/24 08:12 Dose: 20 mg Hydromorphone HCl (Hydromorphone Hcl 2 Mg Tablet) 2 mg PO Q4H PRN PRN Reason: Pain, Severe (Pain Scale 7-10) Last Admin: 01/11/24 08:11 Dose: 2 mg Methylprednisolone Sodium Succinate 250 mg/ Sodium Chloride 54 mls @ 108 mls/hr IV Q6H [facility] Stop: 01/12/24 11:30 Last Admin: 01/11/24 08:18 Dose: 108 mls/hr Lidocaine (Lidocaine 4 % Patch Adh..Patch) 1 patch TRANSDERMA DAILY [facility]; Protocol Last Admin: 01/11/24 08:13 Dose: Not Given Lorazepam (Lorazepam 0.5 Mg Tablet) 0.5 mg PO TID [facility] Last Admin: 01/11/24 08:12 Dose: 0.5 mg Metoclopramide HCl (Metoclopramide Hcl 10 Mg/2 Ml Vial) 10 mg IVPUSH Q6H PRN PRN Reason: Nausea and Vomiting Last Admin: 01/05/24 08:34 Dose: 10 mg Midazolam HCl (Midazolam Hcl/Pf 2 Mg/2 Ml Vial) 2 mg IVPUSH ONCE PRN PRN Reason: anxiety/restlessness Last Admin: 01/06/24 10:19 Dose: 2 mg Omeprazole (Omeprazole 20 Mg Capsule.Dr) 20 mg PO DAILY@0630 [facility] Last Admin: 01/11/24 07:09 Dose: Not Given Senna/Docusate Sodium (Sennosides/Docusate Sodium Tablet) 1 tab PO BEDTIME [facility] Last Admin: 01/10/24 20:45 Dose: 1 tab Sodium Chloride (0.9 % Sodium Chloride Flush 3 Ml Syringe) 3 ml IVFLUSH QSHIFT [facility] Last Admin: 01/11/24 08:11 Dose: 3 ml Sodium Chloride (Sodium Chloride 0.65 % Nasal 44 Ml Sprbtl) 1 spray NOSTRIL-B Q1H PRN PRN Reason: nasal dryness Last Admin: 12/26/23 11:10 Dose: 1 spray Trimethoprim/Sulfamethoxazole (Sulfamethox/Trimeth 800/160 Tablet) 1 tab PO MoWeFr [facility] Last Admin: 01/08/24 08:29 Dose: 1 tab Home Medications Medication Instructions Recorded Confirmed Last Taken Type No Known Home Meds 12/10/23 12/10/23 Unknown History Physical Exam Vital Signs: Vital Signs: Last Vital Signs Temp 98.2 F 01/11/24 07:30 Pulse 58 01/11/24 07:30 Resp 20 01/11/24 07:30 BP 114/71 01/11/24 07:30 Pulse Ox 99 01/11/24 07:30 O2 Del Method High Flow Nasal C annula 01/11/24 07:30 O2 Flow Rate 45 01/11/24 07:30 FiO2 45 01/11/24 07:30 Oxygen Flow Rate 15 12/09/23 19:34 BMI result Body Mass Index 21.5 Const: Other: Very thin ill-appearing patient. Patient had CPAP mask on very early this morning when evaluated. Chest: Other: Decreased breath sounds bilaterally. Diminished air entry. Results Labs 01/08/24 06:42 01/08/24 06:42 Labs: Urine 12/09/23 12/28/23 Range/Units 22:36 10:31 Urine Color Dark Yellow Yellow Urine Appearance Cloudy Turbid Urine pH 5.5 5.5 (5.0-9.0) Ur Specific [place] 1.025 1.010 (1.005-1.025) Urine Protein 100 (2+) H Negative (Neg-Trace) mg/dL Urine Glucose (UA) Negative Negative (Negative) mg/dL All other labs normal. Assessment and Plan (1) Pulmonary fibrosis: Status: Acute (2) Pulmonary edema: Status: Acute (3) PCP (pneumocystis jiroveci pneumonia): Status: Acute (4) AIDS: Status: Acute (5) Pneumothorax: Status: Acute Plan At the present time, patient has had no progression of his pneumothorax based on sequential x-rays. Will order chest x-ray today to confirm this. Procedures Date of Service Date of Service: 01/11/24
--- NOTE | 2024-01-11 08:53 | P.PNIM_ITS ---
Subjective Subjective Date of Service: 01/11/24 Interval History: Seen and evaluated this morning Feels little better but get anxious easily, requiring less O2 on High flow tolerating diet no other overnight events Review of Systems Review of Systems: Yes all other systems are reviewed and are negative Physical Exam 2 Vital Signs: Vital Signs: Last Vital Signs Temp 98.2 F 01/11/24 07:30 Pulse 58 01/11/24 07:30 Resp 24 H 01/11/24 08:47 BP 114/71 01/11/24 07:30 Pulse Ox 99 01/11/24 07:30 O2 Del Method High Flow Nasal C annula 01/11/24 07:30 O2 Flow Rate 45 01/11/24 07:30 FiO2 45 01/11/24 07:30 Oxygen Flow Rate 15 12/09/23 19:34 BMI result Body Mass Index 21.5 Const: Other: Constitutional : Awake, interactive, not in distress Neck : Normal inspection, Supple Cardiovascular : RRR, no JVP, trace lower extremity edema Respiratory :decreased bilateral air entry decreased at the basis, no crackles, no significant wheezes on High flow O2 Gastrointestinal: soft, lax, Normal bowel sounds, Non tender Skin : Warm, Dry Neurological : Alert & oriented x3, No focal deficit Objective Data Active Medications Acetaminophen (Acetaminophen 325 Mg Tablet) 975 mg PO Q8H PRN PRN Reason: Pain\Fever Last Admin: 01/10/24 20:45 Dose: 975 mg Documented By: SIDRA Benzonatate (Benzonatate 100 Mg Capsule) 100 mg PO TID PRN PRN Reason: Cough Last Admin: 01/05/24 21:08 Dose: 100 mg Documented By: ALISSON Bictegravir/Emtricitabine/Tenofovir (Bictegrav/Emtricit/Tenofov Ala Tablet) 1 tab PO DAILY [facility] Last Admin: 01/11/24 08:11 Dose: 1 tab Documented By: HOMER Enoxaparin Sodium (Enoxaparin Sodium 40 Mg/0.4 Ml Syringe) 40 mg SUBCUT Q24H [facility] Last Admin: 01/11/24 08:13 Dose: 40 mg Documented By: HOMER Furosemide (Furosemide 20 Mg/2 Ml Vial) 20 mg IVPUSH DAILY [facility]; Protocol Last Admin: 01/11/24 08:12 Dose: 20 mg Documented By: HOMER Hydromorphone HCl (Hydromorphone Hcl 2 Mg Tablet) 2 mg PO Q4H PRN PRN Reason: Pain, Severe (Pain Scale 7-10) Last Admin: 01/11/24 08:11 Dose: 2 mg Documented By: HOMER Methylprednisolone Sodium Succinate 250 mg/ Sodium Chloride 54 mls @ 108 mls/hr IV Q6H [facility] Stop: 01/12/24 11:30 Last Admin: 01/11/24 08:18 Dose: 108 mls/hr Documented By: HOMER Lidocaine (Lidocaine 4 % Patch Adh..Patch) 1 patch TRANSDERMA DAILY [facility]; Protocol Last Admin: 01/11/24 08:13 Dose: Not Given Documented By: HOMER Non-Admin Reason: Patient Refused Lorazepam (Lorazepam 0.5 Mg Tablet) 0.5 mg PO TID [facility] Last Admin: 01/11/24 08:12 Dose: 0.5 mg Documented By: HOMER Metoclopramide HCl (Metoclopramide Hcl 10 Mg/2 Ml Vial) 10 mg IVPUSH Q6H PRN PRN Reason: Nausea and Vomiting Last Admin: 01/05/24 08:34 Dose: 10 mg Documented By: IZAIAH Midazolam HCl (Midazolam Hcl/Pf 2 Mg/2 Ml Vial) 2 mg IVPUSH ONCE PRN PRN Reason: anxiety/restlessness Last Admin: 01/06/24 10:19 Dose: 2 mg Documented By: BRODY Omeprazole (Omeprazole 20 Mg Capsule.) 20 mg PO DAILY@0630 [facility] Last Admin: 01/11/24 07:09 Dose: Not Given Documented By: SIDRA Non-Admin Reason: Patient Asleep Senna/Docusate Sodium (Sennosides/Docusate Sodium Tablet) 1 tab PO BEDTIME [facility] Last Admin: 01/10/24 20:45 Dose: 1 tab Documented By: SIDRA Sodium Chloride (0.9 % Sodium Chloride Flush 3 Ml Syringe) 3 ml IVFLUSH QSHIFT [facility] Last Admin: 01/11/24 08:11 Dose: 3 ml Documented By: HOMER Sodium Chloride (Sodium Chloride 0.65 % Nasal 44 Ml Sprbtl) 1 spray NOSTRIL-B Q1H PRN PRN Reason: nasal dryness Last Admin: 12/26/23 11:10 Dose: 1 spray Documented By: MAXIMO Trimethoprim/Sulfamethoxazole (Sulfamethox/Trimeth 800/160 Tablet) 1 tab PO MoWeFr [facility] Last Admin: 01/08/24 08:29 Dose: 1 tab Documented By: AZORRZ Labs 01/08/24 06:42 01/08/24 06:42 Assessment and Plan (1) Pneumothorax: Status: Acute (2) Pulmonary fibrosis: Status: Acute (3) Pulmonary edema: Status: Acute (4) PCP (pneumocystis jiroveci pneumonia): Status: Acute (5) Acute hypoxemic respiratory failure: Status: Acute Plan 43M PMH HIV - non compliant, unspecified compensated liver cirrhosis, presented 12/09/23 with sob, found to have acute hypoxic respiratory failure due to pneumocystitis pneumonia, pulm edema, transferred to icu 12/19/23, after treatement with bactrim, azitrho, diuresis, patient o2 requiriements improved, downgraded to imc 01/02/24 sepsis, acute hypoxic respiratory failure due to pneumocystis pneumonia in HIV/aids completed iv bactrim course continue bactrim and azitrho prophylaxis along with biktarvy DC Salt tablets Daily IV lasix on high flow, wean o2 as tolerated Pulm input appreciated, pulse Solumedrol high dose for 3 days wean down as tolerated Pneumothorax stable on multiple images Thoracic surgery eval Leukocytosis secondary to steroids not infection subacute inflammatory anemia transfused 1 unit prbc monitor hgb moderate protein calorie malnutrition off tpn, encourage po intake acute hfpef diuresed well, now off diuretics, monitor dvt prophylaxis - lovenox full code reason for continued hospitalization: hypoxia pending clinical improvement and weaning off O2 Quality Stroke Does the patient have a stroke diagnosis?: No VTE Prior VTE?: No VTE Risk Level:: Medical - moderate - high VTE Device Contraindication: Treatment Not Indicated VTE Drug Contraindication: N/A - Med Ordered
[2024-01-11] MEDS: Sulfamethox/Trimeth 800/160 TABLET 1 TAB PO (10:14)
--- NOTE | 2024-01-11 10:26 | MHC.CLN ---
F/U PT IS MODERATELY MALNOURISHED PO INTAKE REMAINS SLIGHTLY VARIABLE WITH OCCASIONAL REFUSALS OF MEALS SECONDARY TO ANXIETY BUT TYPICALLY 75-100% DIET RX: REGULAR 1800ML FLUIDS RESTRICTION-CAN LIBERALIZE FLUID RESTRICTION ABLE (SERUM NA WNL) PT STATED HE CAN NOT AT TIMES BECUASE IT AFFECTS HIS BREATHING WITH INCREASED ANXIETY PT RECEIVING ENSURE TID PROVIDES 1050KCALS, 60G PROTEIN MONITOR PO INTAKE AND ENCOURAGE SUPPLEMENTS
--- NOTE | 2024-01-11 11:10 | MHC.CM.PN ---
Pt is not yet ready for DC. Referrals out for STR, [facility] is following.
[2024-01-11] MEDS: Acetaminophen 325 MG TABLET 975 MG PO (16:48)
[2024-01-11] MEDS: Omeprazole 40 MG CAPSULE.DR PO (16:49)
[2024-01-11] MEDS: Ibuprofen 400 MG TABLET PO (18:20)
[2024-01-11] MEDS: Benzonatate 100 MG CAPSULE PO (20:52)
[2024-01-11] MEDS: Sennosides/Docusate Sodium TABLET 1 TAB PO (20:52)
[2024-01-12] VITALS (16 sets, daily range): BP systolic 104–134; BP diastolic 57–75; PULSE 58–90; RESP 15–28; TEMP 36.1–37.3; O2SAT 83–99; BMI 22.0
[2024-01-12] MEDS: HYDROmorphone HCl 2 MG TABLET PO ×5 (01:18→22:47)
--- NOTE | 2024-01-12 01:40 | ECG_ITS ---
Test Reason : CP Blood Pressure : / mmHG Vent. Rate : 073 BPM Atrial Rate : 073 BPM P-R Int : 150 ms QRS Dur : 104 ms QT Int : 412 ms P-R-T Axes : 070 027 064 degrees QTc Int : 453 ms Normal sinus rhythm Normal ECG When compared with ECG of 12-JAN-2024 01:39, No significant change was found Referred By: Leno Voss Electronically Signed By:Jaime Don
--- NOTE | 2024-01-12 02:05 | PM.EVENT ---
Event Note Date of Service: 01/12/24 Event Note: Rapid response was called as patient with chest discomfort. Stated that he has midsternal chest discomfort, nonradiating with mild dyspnea. He was satting 95% on high-flow nasal cannula. Blood pressure within normal limits. Will obtain EKG, chest x-ray and troponin Time Spent With Patient Time: Total time managing care of this patient today ____ minutes.
--- NOTE | 2024-01-12 02:17 | PC.NURSE ---
at 0145 patient is c/o chest pain after he was medicated at 0118 with po 2 mg dilaudid. states his pain is 10/10 and sharp on left side and is difficult to breath . RR was called vs 02 96% on 50% 35 Lbp 117/69 HR72 EKG done, order for chest- xray, labs troponin and pain med will reassess after
[2024-01-12] MEDS: Morphine Sulfate 4 MG/ML CARTRIDGE IVPUSH (02:31)
[2024-01-12 03:11] LABS: Troponin-I High Sensitivity < 2.7 ng/L (<3.5-35.0)
[2024-01-12] MEDS: Omeprazole 40 MG CAPSULE.DR PO ×2 (05:25→15:52)
[2024-01-12 07:29] LABS: Mean Corpuscular HGB Conc 32.9 g/dl (31.0-36.0); Mean Corpuscular Hemoglobin 30.5 pg (27.0-33.0); Mean Corpuscular Volume 92.8 fL (80.0-98.0); Mean Platelet Volume 10.1 fL (9.4-12.4); Platelet Count 201 X10*3/uL (160-400); Red Blood Count 2.23 X10*6/uL (4.60-5.80); Red Cell Distribution Width 15.7 % (11.0-16.0); White Blood Count 9.5 X10*3/uL (4.8-10.8)
[2024-01-12 07:45] LABS: Hemoglobin 6.8 g/dl (14.0-18.0)
[2024-01-12 07:46] LABS: Anion Gap 10 (12-20); Blood Urea Nitrogen 36 mg/dL (9-16); Calcium 6.9 mg/dL (8.4-10.2); Carbon Dioxide 26 mmol/L (22-29); Chloride 106 mmol/L (96-108); Creatinine Clr Calc Pharmacy 140.7; Estimated Glomerular Filt Rate > 60; Glucose Random 126 mg/dL (60-115); Hematocrit 20.7 % (42.0-52.0); Potassium 3.4 mmol/L (3.3-5.1); Sodium 139 mmol/L (135-145)
[2024-01-12] MEDS: Acetaminophen 325 MG TABLET 975 MG PO ×3 (09:07→23:05)
[2024-01-12] MEDS: Bictegrav/Emtricit/Tenofov Ala TABLET 1 TAB PO (09:08)
[2024-01-12] MEDS: Furosemide 20 MG/2 ML VIAL IVPUSH (09:09)
[2024-01-12] MEDS: LORazepam 0.5 MG TABLET PO ×3 (09:09→20:22)
[2024-01-12] MEDS: Enoxaparin Sodium 40 MG/0.4 ML SYRINGE SUBCUT (09:09)
[2024-01-12] MEDS: 0.9 % Sodium Chloride Flush 3 ML SYRINGE IVFLUSH ×2 (09:10→16:38)
[2024-01-12] MEDS: HYDROmorphone HCl 1 MG/ML SYRINGE IVPUSH (10:27)
[2024-01-12] MEDS: Ibuprofen 400 MG TABLET PO (11:59)
--- NOTE | 2024-01-12 12:07 | P.PNIM_ITS ---
Subjective Subjective Date of Service: 01/12/24 Interval History: Seen and evaluated this morning Feels little better , requiring less O2 on High flow , weaning down get anxious easily no other overnight events Review of Systems Review of Systems: Yes all other systems are reviewed and are negative Physical Exam 2 Vital Signs: Vital Signs: Last Vital Signs Temp 97.5 F 01/12/24 11:21 Pulse 85 01/12/24 11:21 Resp 26 H 01/12/24 11:28 BP 134/72 01/12/24 11:21 Pulse Ox 97 01/12/24 11:21 O2 Del Method High Flow Nasal C annula 01/12/24 11:21 O2 Flow Rate 35 01/12/24 11:21 FiO2 38.9 01/12/24 11:21 Oxygen Flow Rate 15 12/09/23 19:34 BMI result Body Mass Index 22.0 Const: Other: Constitutional : Awake, interactive, not in distress Neck : Normal inspection, Supple Cardiovascular : RRR, no JVP, trace lower extremity edema Respiratory :decreased bilateral air entry decreased at the basis, no crackles, no significant wheezes on High flow O2 40L 40% Gastrointestinal: soft, lax, Normal bowel sounds, Non tender Skin : Warm, Dry Neurological : Alert & oriented x3, No focal deficit Objective Data Active Medications Acetaminophen (Acetaminophen 325 Mg Tablet) 975 mg PO QSHIFT [facility] Last Admin: 01/12/24 09:07 Dose: 975 mg Documented By: HOMER Benzonatate (Benzonatate 100 Mg Capsule) 100 mg PO TID PRN PRN Reason: Cough Last Admin: 01/11/24 20:52 Dose: 100 mg Documented By: EVITA Bictegravir/Emtricitabine/Tenofovir (Bictegrav/Emtricit/Tenofov Ala Tablet) 1 tab PO DAILY [facility] Last Admin: 01/12/24 09:08 Dose: 1 tab Documented By: HOMER Enoxaparin Sodium (Enoxaparin Sodium 40 Mg/0.4 Ml Syringe) 40 mg SUBCUT Q24H [facility] Last Admin: 01/12/24 09:09 Dose: 40 mg Documented By: HOMER Furosemide (Furosemide 20 Mg/2 Ml Vial) 20 mg IVPUSH DAILY [facility]; Protocol Last Admin: 01/12/24 09:09 Dose: 20 mg Documented By: HOMER Hydromorphone HCl (Hydromorphone Hcl 2 Mg Tablet) 2 mg PO Q4H PRN PRN Reason: Pain, Severe (Pain Scale 7-10) Last Admin: 01/12/24 12:02 Dose: 2 mg Documented By: HOMER Ibuprofen (Ibuprofen 400 Mg Tablet) 400 mg PO TIDWM [facility] Last Admin: 01/12/24 11:59 Dose: 400 mg Documented By: HOMER Lidocaine (Lidocaine 4 % Patch Adh..Patch) 1 patch TRANSDERMA DAILY [facility]; Protocol Last Admin: 01/12/24 09:10 Dose: Not Given Documented By: HOMER Non-Admin Reason: Patient Refused Lorazepam (Lorazepam 0.5 Mg Tablet) 0.5 mg PO TID [facility] Last Admin: 01/12/24 09:09 Dose: 0.5 mg Documented By: HOMER Metoclopramide HCl (Metoclopramide Hcl 10 Mg/2 Ml Vial) 10 mg IVPUSH Q6H PRN PRN Reason: Nausea and Vomiting Last Admin: 01/05/24 08:34 Dose: 10 mg Documented By: IZAIAH Omeprazole (Omeprazole 40 Mg Capsule.Dr) 40 mg PO BID@0630,1630 [facility] Last Admin: 01/12/24 05:25 Dose: 40 mg Documented By: EVITA Senna/Docusate Sodium (Sennosides/Docusate Sodium Tablet) 1 tab PO BEDTIME [facility] Last Admin: 01/11/24 20:52 Dose: 1 tab Documented By: EVITA Sodium Chloride (0.9 % Sodium Chloride Flush 3 Ml Syringe) 3 ml IVFLUSH QSHIFT [facility] Last Admin: 01/12/24 09:10 Dose: 3 ml Documented By: HOMER Sodium Chloride (Sodium Chloride 0.65 % Nasal 44 Ml Sprbtl) 1 spray NOSTRIL-B Q1H PRN PRN Reason: nasal dryness Last Admin: 12/26/23 11:10 Dose: 1 spray Documented By: MAXIMO Trimethoprim/Sulfamethoxazole (Sulfamethox/Trimeth 800/160 Tablet) 1 tab PO MoWeFr [facility] Last Admin: 01/11/24 10:14 Dose: 1 tab Documented By: HOMER Labs 01/12/24 06:41 01/12/24 06:41 Labs: Laboratory Results - last 24 hr 01/12/24 01/12/24 01/12/24 02:46 06:41 08:13 MCV 92.8 MCH 30.5 MCHC 32.9 RDW 15.7 Plt Count 201 MPV 10.1 Absolute Nucleated RBC 0.000 Nucleated RBC % (auto) 0.0 Anion Gap 10 L Estim Creat Clear Calc 140.7 Estimated GFR > 60 Random Glucose 126 H Calcium 6.9 L D Troponin I High Sens < 2.7 D Blood Type A Positive Crossmatch See Detail Blood Bank Comment Technical Assessment and Plan (1) Pneumothorax: Status: Acute (2) Pulmonary fibrosis: Status: Acute (3) Pulmonary edema: Status: Acute (4) PCP (pneumocystis jiroveci pneumonia): Status: Acute (5) Acute hypoxemic respiratory failure: Status: Acute Plan 43M PMH HIV - non compliant, unspecified compensated liver cirrhosis, presented 12/09/23 with sob, found to have acute hypoxic respiratory failure due to pneumocystitis pneumonia, pulm edema, transferred to icu 12/19/23, after treatement with bactrim, azitrho, diuresis, patient o2 requiriements improved, downgraded to imc 01/02/24 sepsis, acute hypoxic respiratory failure due to pneumocystis pneumonia in HIV/aids completed iv bactrim course continue bactrim and azitrho prophylaxis along with biktarvy DC Salt tablets Daily IV lasix Pulm input appreciated, Finished pulse Solumedrol high dose for 3 days on high flow, wean o2 as tolerated now at 40L 40% Pneumothorax stable on multiple images Thoracic surgery eval Leukocytosis secondary to steroids not infection subacute inflammatory anemia transfused 1 unit prbc monitor hgb moderate protein calorie malnutrition off tpn, encourage po intake acute hfpef diuresed well, now off diuretics, monitor dvt prophylaxis - lovenox full code reason for continued hospitalization: hypoxia pending clinical improvement and weaning off O2 Quality Stroke Does the patient have a stroke diagnosis?: No VTE Prior VTE?: No VTE Risk Level:: Medical - moderate - high VTE Device Contraindication: Treatment Not Indicated VTE Drug Contraindication: N/A - Med Ordered
--- NOTE | 2024-01-12 14:50 | P.PNPL_ITS ---
Subjective Subjective Date of Service: 01/12/24 Principal diagnosis: AIDS, PCP Interval history: FiO2 requirements continue to improve. Objective Data Labs 01/12/24 06:41 01/12/24 06:41 Labs: Laboratory Results - last 24 hr 01/12/24 01/12/24 01/12/24 02:46 06:41 08:13 WBC 9.5 RBC 2.23 L Hgb 6.8 L* Hct 20.7 L* MCV 92.8 MCH 30.5 MCHC 32.9 RDW 15.7 Plt Count 201 MPV 10.1 Absolute Nucleated RBC 0.000 Nucleated RBC % (auto) 0.0 Sodium 139 Potassium 3.4 Chloride 106 Carbon Dioxide 26 Anion Gap 10 L BUN 36 H Creatinine 0.75 Estim Creat Clear Calc 140.7 Estimated GFR > 60 Random Glucose 126 H Calcium 6.9 L D Troponin I High Sens < 2.7 D Blood Type A Positive Antibody Screen POSITIVE Antibody Identification Anti-Leb Crossmatch See Detail Crossmatch (AHG) See Detail Blood Bank Comment Technical Microbiology Microbiology Results: Microbiology 12/10/23 14:48 Sputum - Expectorated Direct Acid Fast Bacilli Smear - Final 12/10/23 14:29 Sputum - Expectorated Direct Acid Fast Bacilli Smear - Final 12/10/23 10:10 Sputum - Expectorated Direct Acid Fast Bacilli Smear - Final 12/10/23 02:04 Blood - Venous Blood Culture - Final No growth after 5 days. 12/10/23 02:04 Blood - Venous Blood Culture - Final No growth after 5 days. 12/09/23 20:11 Blood - Venous Blood Culture - Final No growth after 5 days. 12/09/23 19:51 Blood - Venous Blood Culture - Final No growth after 5 days. 12/10/23 10:10 Sputum - Expectorated Gram Stain - Final 12/10/23 10:10 Sputum - Expectorated Sputum Culture - Final Physical Exam 2 Vital Signs: Vital Signs: Last Vital Signs Temp 97.0 F 01/12/24 13:22 Pulse 80 01/12/24 13:22 Resp 20 01/12/24 13:22 BP 127/75 01/12/24 13:22 Pulse Ox 97 01/12/24 11:21 O2 Del Method High Flow Nasal C annula 01/12/24 11:21 O2 Flow Rate 35 01/12/24 11:21 FiO2 38.9 02/13/24 11:21 Oxygen Flow Rate 15 12/09/23 19:34 BMI result Body Mass Index 22.0 Const: General: no acute distress, alert and awake Eyes: Sclerae: sclerae normal EOM: EOMs intact bilaterally Neck: Neck: Yes no lymphadenopathy, Yes trachea midline and Yes supple Resp: Effort & Inspection: normal respiratory effort and no respiratory distress Auscultation: clear to auscultation bilaterally Cardio: Rate: regular rate Rhythm: regular rhythm Heart sounds: no gallops, no murmurs and no rubs GI: Palpation (GI): Soft to palpation and Other GI palpation findings present ( Nontender) Auscultation: normal bowel sounds Extrem: General: Yes no pedal edema, No clubbing and No cyanosis Procedures Date of Service Date of Service: 01/12/24 Assessment and Plan Assessment and plan (1) Pulmonary fibrosis: Status: Acute (2) Pulmonary edema: Status: Acute (3) Acute hypoxemic respiratory failure: Status: Acute (4) AIDS: Status: Acute Plan Impression: 43-year-old gentleman with underlying AIDS admitted with acute hypoxic respiratory failure with PCP pneumonia, now also with recurrent pulmonary edema and early fibrosis. Patient has been on medium dose steroids during his initial PCP treatment, now with significant improvement on high-dose steroids. Recommendations: Continue to titrate off supplemental oxygen as tolerated. Continue with judicious diuresis. Taper down prednisone starting at 40 mg daily and going down by 10 mg every 3 days. Time Spent With Patient Time: Total time managing care of this patient today ____ minutes. Progress Note: Quality Stroke Does the patient have a stroke diagnosis?: No
[2024-01-12] MEDS: Sennosides/Docusate Sodium TABLET 1 TAB PO (20:22)
--- NOTE | 2024-01-12 21:21 | PC.NURSE ---
Pt incontinent of stools, refusing care multiple times reported to this nurse by SPECIALIZED LANGUAGE INSTRUCTOR, this nurse offered to assist patient and SPECIALIZED LANGUAGE INSTRUCTOR with care and to transfer him from chair to bed, patient continued to refuse states I've been waiting all day since this morning to get cleaned up I would like to speak to patient advocacy in the morning I don't need help right now . SPECIALIZED LANGUAGE INSTRUCTOR and nurse will check in with patient and attempt to assist with care in 30 minutes.
[2024-01-13] VITALS (8 sets, daily range): BP systolic 99–161; BP diastolic 58–78; PULSE 59–86; RESP 18–22; TEMP 36.1–37.1; O2SAT 91–100; BMI 21.9
[2024-01-13] MEDS: HYDROmorphone HCl 2 MG TABLET PO ×5 (04:51→21:32)
[2024-01-13] MEDS: Omeprazole 40 MG CAPSULE.DR PO ×2 (04:51→17:27)
[2024-01-13 07:28] LABS: Hematocrit 29.8 % (42.0-52.0); Hemoglobin 10.4 g/dl (14.0-18.0); Mean Corpuscular HGB Conc 34.9 g/dl (31.0-36.0); Mean Corpuscular Hemoglobin 32.7 pg (27.0-33.0); Mean Corpuscular Volume 93.7 fL (80.0-98.0); Mean Platelet Volume 10.1 fL (9.4-12.4); NRBC Pct Auto 0.2 /100WBC (0.0-0.2); Platelet Count 224 X10*3/uL (160-400); Red Blood Count 3.18 X10*6/uL (4.60-5.80); Red Cell Distribution Width 15.8 % (11.0-16.0)
[2024-01-13 07:44] LABS: Anion Gap 10 (12-20); Blood Urea Nitrogen 39 mg/dL (9-16); Calcium 8.4 mg/dL (8.4-10.2); Carbon Dioxide 30 mmol/L (22-29); Chloride 99 mmol/L (96-108); Creatinine Clr Calc Pharmacy 143.5; Estimated Glomerular Filt Rate > 60; Glucose Random 75 mg/dL (60-115); Potassium 3.6 mmol/L (3.3-5.1); Sodium 135 mmol/L (135-145)
[2024-01-13] MEDS: Acetaminophen 325 MG TABLET 975 MG PO ×2 (09:18→17:27)
[2024-01-13] MEDS: Enoxaparin Sodium 40 MG/0.4 ML SYRINGE SUBCUT (09:18)
[2024-01-13] MEDS: predniSONE 20 MG TABLET 40 MG PO (09:18)
[2024-01-13] MEDS: Ibuprofen 400 MG TABLET PO ×3 (09:18→17:27)
[2024-01-13] MEDS: LORazepam 0.5 MG TABLET PO ×3 (09:19→20:08)
[2024-01-13] MEDS: 0.9 % Sodium Chloride Flush 3 ML SYRINGE IVFLUSH ×2 (09:19→20:09)
[2024-01-13] MEDS: Bictegrav/Emtricit/Tenofov Ala TABLET 1 TAB PO (09:19)
[2024-01-13] MEDS: Furosemide 20 MG/2 ML VIAL IVPUSH (09:19)
[2024-01-13] MEDS: Benzonatate 100 MG CAPSULE PO (09:26)
[2024-01-13] MEDS: Sulfamethox/Trimeth 800/160 TABLET 1 TAB PO (09:30)
--- NOTE | 2024-01-13 10:48 | MHC.CLN ---
F/U PT IS MODERATELY MALNOURISHED PO INTAKE 100% X3 MEALS WT TRENDING UP DIET RX: REGULAR 1800ML FLUIDS RESTRICTION-RECOMMEND REMOVING FLUID RESTRICTION (SERUM NA WNL) PT RECEIVING ENSURE TID PROVIDES 1050KCALS, 60G PROTEIN MONITOR PO INTAKE AND ENCOURAGE SUPPLEMENTS D/C FLUIDS RESTRICTION
--- NOTE | 2024-01-13 11:02 | P.PNIM_ITS ---
Subjective Subjective Date of Service: 01/13/24 Interval History: worsening left chest pain, sob Physical Exam 2 Vital Signs: Vital Signs: Last Vital Signs Temp 97.6 F 01/13/24 07:04 Pulse 72 01/13/24 07:04 Resp 20 01/13/24 07:55 BP 102/58 L 01/13/24 07:04 Pulse Ox 96 01/13/24 07:04 O2 Del Method High Flow Nasal C annula 01/13/24 07:04 O2 Flow Rate 35 01/13/24 07:04 FiO2 45 01/13/24 07:04 Oxygen Flow Rate 15 12/09/23 19:34 BMI result Body Mass Index 21.9 Const: General: no acute distress, alert and awake Eyes: Sclerae: sclerae normal EOM: EOMs intact bilaterally Neck: Neck: Yes no lymphadenopathy, Yes trachea midline and Yes supple Resp: Effort & Inspection: normal respiratory effort and no respiratory distress Auscultation: clear to auscultation bilaterally Cardio: Rate: regular rate Rhythm: regular rhythm Heart sounds: no gallops, no murmurs and no rubs GI: Palpation (GI): Soft to palpation and Other GI palpation findings present ( Nontender) Auscultation: normal bowel sounds Extrem: General: Yes no pedal edema, No clubbing and No cyanosis Objective Data Active Medications Acetaminophen (Acetaminophen 325 Mg Tablet) 975 mg PO QSHIFT [facility] Last Admin: 01/13/24 09:18 Dose: 975 mg Documented By: ALISSON Benzonatate (Benzonatate 100 Mg Capsule) 100 mg PO TID PRN PRN Reason: Cough Last Admin: 01/13/24 09:26 Dose: 100 mg Documented By: ALISSON Bictegravir/Emtricitabine/Tenofovir (Bictegrav/Emtricit/Tenofov Ala Tablet) 1 tab PO DAILY [facility] Last Admin: 01/13/24 09:19 Dose: 1 tab Documented By: ALISSON Enoxaparin Sodium (Enoxaparin Sodium 40 Mg/0.4 Ml Syringe) 40 mg SUBCUT Q24H [facility] Last Admin: 01/13/24 09:18 Dose: 40 mg Documented By: ALISSON Furosemide (Furosemide 20 Mg/2 Ml Vial) 20 mg IVPUSH DAILY [facility]; Protocol Last Admin: 01/13/24 09:19 Dose: 20 mg Documented By: ALISSON Hydromorphone HCl (Hydromorphone Hcl 2 Mg Tablet) 2 mg PO Q4H PRN PRN Reason: Pain, Severe (Pain Scale 7-10) Last Admin: 01/13/24 09:18 Dose: 2 mg Documented By: ALISSON Ibuprofen (Ibuprofen 400 Mg Tablet) 400 mg PO TIDWM [facility] Last Admin: 01/13/24 09:18 Dose: 400 mg Documented By: ALISSON Lidocaine (Lidocaine 4 % Patch Adh..Patch) 1 patch TRANSDERMA DAILY [facility]; Protocol Last Admin: 01/13/24 09:19 Dose: Not Given Documented By: ALISSON Non-Admin Reason: Patient Refused Lorazepam (Lorazepam 0.5 Mg Tablet) 0.5 mg PO TID [facility] Last Admin: 01/13/24 09:19 Dose: 0.5 mg Documented By: ALISSON Metoclopramide HCl (Metoclopramide Hcl 10 Mg/2 Ml Vial) 10 mg IVPUSH Q6H PRN PRN Reason: Nausea and Vomiting Last Admin: 01/05/24 08:34 Dose: 10 mg Documented By: IZAIAH Omeprazole (Omeprazole 40 Mg Capsule.Dr) 40 mg PO BID@0630,1630 [facility] Last Admin: 01/13/24 04:51 Dose: 40 mg Documented By: YESSENIA Prednisone (Prednisone 20 Mg Tablet) 40 mg PO DAILY [facility] Stop: 01/16/24 08:59 Last Admin: 01/13/24 09:18 Dose: 40 mg Documented By: ALISSON Senna/Docusate Sodium (Sennosides/Docusate Sodium Tablet) 1 tab PO BEDTIME [facility] Last Admin: 01/12/24 20:22 Dose: 1 tab Documented By: SHARONA Sodium Chloride (0.9 % Sodium Chloride Flush 3 Ml Syringe) 3 ml IVFLUSH QSHIFT [facility] Last Admin: 01/13/24 09:19 Dose: 3 ml Documented By: ALISSON Sodium Chloride (Sodium Chloride 0.65 % Nasal 44 Ml Sprbtl) 1 spray NOSTRIL-B Q1H PRN PRN Reason: nasal dryness Last Admin: 12/26/23 11:10 Dose: 1 spray Documented By: MAXIMO Trimethoprim/Sulfamethoxazole (Sulfamethox/Trimeth 800/160 Tablet) 1 tab PO MoWeFr [facility] Last Admin: 01/13/24 09:30 Dose: 1 tab Documented By: ALISSON Labs 01/13/24 06:45 01/13/24 06:45 Labs: Laboratory Results - last 24 hr 01/12/24 01/12/24 01/13/24 06:41 08:13 06:45 MCV 93.7 MCH 32.7 MCHC 34.9 RDW 15.8 Plt Count 224 MPV 10.1 Absolute Nucleated RBC 0.020 H Nucleated RBC % (auto) 0.2 Smear Path Review SEE NOTE Anion Gap 10 L Estim Creat Clear Calc 143.5 Estimated GFR > 60 Random Glucose 75 Calcium 8.4 D Blood Type A Positive Antibody Screen POSITIVE Antibody Identification Anti-Leb Crossmatch See Detail Crossmatch (AHG) See Detail Blood Bank Comment Technical Assessment and Plan (1) Pneumothorax: Status: Acute (2) Pulmonary fibrosis: Status: Acute (3) Pulmonary edema: Status: Acute (4) PCP (pneumocystis jiroveci pneumonia): Status: Acute (5) Acute hypoxemic respiratory failure: Status: Acute Plan 43M PMH HIV - non compliant, unspecified compensated liver cirrhosis, presented 12/09/23 with sob, found to have acute hypoxic respiratory failure due to pneumocystitis pneumonia, pulm edema, transferred to icu 12/19/23, after treatement with bactrim, azitrho, diuresis, patient o2 requiriements improved, downgraded to c 01/02/24 sepsis, acute hypoxic respiratory failure due to pneumocystis pneumonia in HIV/aids now complicated by moderate to large left pneumothorax completed iv bactrim course continue bactrim and azitrho prophylaxis along with biktarvy DCed Salt tablets Daily IV lasix Pulm input appreciated, Finished pulse Solumedrol high dose for 3 days transitioned off high flow plan for pigtail chest tube Leukocytosis secondary to steroids not infection subacute inflammatory anemia transfused 2 units prbc total monitor hgb moderate protein calorie malnutrition off tpn, encourage po intake acute hfpef on lasix iv 20mg daily dvt prophylaxis - lovenox full code reason for continued hospitalization: hypoxia pending clinical improvement and weaning off O2 Quality Stroke Does the patient have a stroke diagnosis?: No VTE Prior VTE?: No VTE Risk Level:: Medical - moderate - high VTE Device Contraindication: Treatment Not Indicated VTE Drug Contraindication: N/A - Med Ordered
--- NOTE | 2024-01-13 11:40 | PM.EVENT ---
Event Note Date of Service: 01/13/24 Event Note: Procedure Note: CT left chest tube Indication: Left pneumothorax 10 fr drain placed under CT. No immediate complications Terry DORNATES Interventional Radiology Time Spent With Patient Time: Total time managing care of this patient today ____ minutes.
--- NOTE | 2024-01-13 11:46 | MHC.CM.PN ---
Pt still requiring acute care. PT rec STR, referrals have been sent, pt.'s insurance does not have STR benefit. CM to follow and assist with DC plan.
[2024-01-13] MEDS: Lidocaine HCl 1 % MPF 30 ML VIAL 10 ML SUBCUT (11:55)
--- NOTE | 2024-01-13 12:29 | PM.PNTS ---
Subjective Subjective Date of Service: 01/13/24 Interval history: Patient in baseline significant respiratory distress secondary to PCP pneumonia , pulmonary fibrosis, pulmonary edema etc.. A.m. chest x-ray shows marked increase of left pneumothorax. Physical Exam Vital Signs: Vital Signs: Last Vital Signs Temp 97.6 F 01/13/24 12:00 Pulse 75 01/13/24 12:00 Resp 20 01/13/24 12:00 BP 103/59 L 01/13/24 12:00 Pulse Ox 95 01/13/24 12:00 O2 Del Method Oxymask 01/13/24 12:00 O2 Flow Rate 10 01/13/24 12:00 FiO2 45 01/13/24 07:04 Oxygen Flow Rate 15 12/09/23 19:34 BMI result Body Mass Index 21.9 Chest: Other: Decreased breath sounds left. Procedures Date of Service Date of Service: 01/13/24 Progress Note: A&P Assessment and plan (1) Pneumothorax: Status: Acute (2) Pulmonary fibrosis: Status: Acute (3) PCP (pneumocystis jiroveci pneumonia): Status: Acute Plan We will arrange for IR chest tube placement for today. Time Spent With Patient Time: Total time managing care of this patient today ____ minutes. Quality Stroke Does the patient have a stroke diagnosis?: No VTE Prior VTE?: No VTE Risk Level:: Medical - moderate - high VTE Device Contraindication: Treatment Not Indicated VTE Drug Contraindication: N/A - Med Ordered
[2024-01-13] MEDS: Sennosides/Docusate Sodium TABLET 1 TAB PO (20:08)
[2024-01-14] VITALS (7 sets, daily range): BP systolic 104–132; BP diastolic 50–69; PULSE 60–73; RESP 16–20; TEMP 36.2–37.2; O2SAT 95–100; BMI 21.7
[2024-01-14] MEDS: Acetaminophen 325 MG TABLET 975 MG PO ×3 (00:50→17:25)
[2024-01-14] MEDS: HYDROmorphone HCl 2 MG TABLET PO ×2 (02:29→06:39)
[2024-01-14 04:29] LABS: OBS Int Ctl Valid YES; OBS1 POSITIVE (NEGATIVE)
[2024-01-14] MEDS: Omeprazole 40 MG CAPSULE.DR PO ×2 (05:42→18:45)
[2024-01-14 07:10] LABS: Hematocrit 30.8 % (42.0-52.0); Hemoglobin 10.1 g/dl (14.0-18.0); Mean Corpuscular HGB Conc 32.8 g/dl (31.0-36.0); Mean Corpuscular Hemoglobin 30.4 pg (27.0-33.0); Mean Corpuscular Volume 92.8 fL (80.0-98.0); Mean Platelet Volume 10.1 fL (9.4-12.4); Platelet Count 198 X10*3/uL (160-400); Red Blood Count 3.32 X10*6/uL (4.60-5.80); Red Cell Distribution Width 15.8 % (11.0-16.0); White Blood Count 9.8 X10*3/uL (4.8-10.8)
[2024-01-14 07:31] LABS: Anion Gap 8 (12-20); Blood Urea Nitrogen 32 mg/dL (9-16); Calcium 8.2 mg/dL (8.4-10.2); Carbon Dioxide 30 mmol/L (22-29); Chloride 101 mmol/L (96-108); Creatinine Clr Calc Pharmacy 152.7; Estimated Glomerular Filt Rate > 60; Glucose Fasting 83 mg/dL (60-99); Potassium 3.8 mmol/L (3.3-5.1); Sodium 135 mmol/L (135-145)
--- NOTE | 2024-01-14 08:55 | P.PNIM_ITS ---
Subjective Subjective Date of Service: 01/14/24 Interval History: chest pain from chest tube Physical Exam 2 Vital Signs: Vital Signs: Last Vital Signs Temp 97.6 F 01/14/24 07:03 Pulse 60 01/14/24 07:03 Resp 20 01/14/24 07:03 BP 108/66 01/14/24 07:03 Pulse Ox 99 01/14/24 07:03 O2 Del Method Oxymask 01/14/24 07:03 O2 Flow Rate 6 01/14/24 07:03 FiO2 45 01/13/24 07:04 Oxygen Flow Rate 15 12/09/23 19:34 BMI result Body Mass Index 21.[address] Objective Data Active Medications Acetaminophen (Acetaminophen 325 Mg Tablet) 975 mg PO QSHIFT [facility] Last Admin: 01/14/24 00:50 Dose: 975 mg Documented By: TEOFILO Benzonatate (Benzonatate 100 Mg Capsule) 100 mg PO TID PRN PRN Reason: Cough Last Admin: 01/13/24 09:26 Dose: 100 mg Documented By: ALISSON Bictegravir/Emtricitabine/Tenofovir (Bictegrav/Emtricit/Tenofov Ala Tablet) 1 tab PO DAILY [facility] Last Admin: 01/13/24 09:19 Dose: 1 tab Documented By: ALISSON Enoxaparin Sodium (Enoxaparin Sodium 40 Mg/0.4 Ml Syringe) 40 mg SUBCUT Q24H [facility] Last Admin: 01/13/24 09:18 Dose: 40 mg Documented By: ALISSON Furosemide (Furosemide 20 Mg/2 Ml Vial) 20 mg IVPUSH DAILY [facility]; Protocol Last Admin: 01/13/24 09:19 Dose: 20 mg Documented By: ALISSON Hydromorphone HCl (Hydromorphone Hcl 2 Mg Tablet) 2 mg PO Q4H PRN PRN Reason: Pain, Severe (Pain Scale 7-10) Last Admin: 01/14/24 06:39 Dose: 2 mg Documented By: TEOFILO Ibuprofen (Ibuprofen 400 Mg Tablet) 400 mg PO TIDWM [facility] Last Admin: 01/13/24 17:27 Dose: 400 mg Documented By: KYLE Lidocaine (Lidocaine 4 % Patch Adh..Patch) 1 patch TRANSDERMA DAILY [facility]; Protocol Last Admin: 01/13/24 09:19 Dose: Not Given Documented By: ALISSON Non-Admin Reason: Patient Refused Lorazepam (Lorazepam 0.5 Mg Tablet) 0.5 mg PO TID [facility] Last Admin: 01/13/24 20:08 Dose: 0.5 mg Documented By: TEOFILO Metoclopramide HCl (Metoclopramide Hcl 10 Mg/2 Ml Vial) 10 mg IVPUSH Q6H PRN PRN Reason: Nausea and Vomiting Last Admin: 01/05/24 08:34 Dose: 10 mg Documented By: IZAIAH Omeprazole (Omeprazole 40 Mg Capsule.Dr) 40 mg PO BID@0630,1630 [facility] Last Admin: 01/14/24 05:42 Dose: 40 mg Documented By: BAMBI Prednisone (Prednisone 20 Mg Tablet) 40 mg PO DAILY [facility] Stop: 01/16/24 08:59 Last Admin: 01/13/24 09:18 Dose: 40 mg Documented By: ALISSON Senna/Docusate Sodium (Sennosides/Docusate Sodium Tablet) 1 tab PO BEDTIME [facility] Last Admin: 01/13/24 20:08 Dose: 1 tab Documented By: TEOFILO Sodium Chloride (0.9 % Sodium Chloride Flush 3 Ml Syringe) 3 ml IVFLUSH QSHIFT [facility] Last Admin: 01/13/24 20:09 Dose: 3 ml Documented By: TEOFILO Sodium Chloride (Sodium Chloride 0.65 % Nasal 44 Ml Sprbtl) 1 spray NOSTRIL-B Q1H PRN PRN Reason: nasal dryness Last Admin: 12/26/23 11:10 Dose: 1 spray Documented By: MAXIMO Trimethoprim/Sulfamethoxazole (Sulfamethox/Trimeth 800/160 Tablet) 1 tab PO MoWeFr [facility] Last Admin: 01/13/24 09:30 Dose: 1 tab Documented By: ALISSON Labs 01/14/24 06:58 01/14/24 06:58 Labs: Laboratory Results - last 24 hr 01/14/24 01/14/24 03:56 06:58 MCV 92.8 MCH 30.4 MCHC 32.8 RDW 15.8 Plt Count 198 MPV 10.1 Absolute Nucleated RBC 0.000 Nucleated RBC % (auto) 0.0 Anion Gap 8 L Estim Creat Clear Calc 152.7 Estimated GFR > 60 Fasting Glucose 83 Calcium 8.2 L Stool Occult Blood POSITIVE Assessment and Plan (1) Pneumothorax: Status: Acute (2) Pulmonary fibrosis: Status: Acute (3) Pulmonary edema: Status: Acute (4) PCP (pneumocystis jiroveci pneumonia): Status: Acute (5) Acute hypoxemic respiratory failure: Status: Acute Plan 43M PMH HIV - non compliant, unspecified compensated liver cirrhosis, presented 12/09/23 with sob, found to have acute hypoxic respiratory failure due to pneumocystitis pneumonia, pulm edema, transferred to icu 12/19/23, after treatement with bactrim, azitrho, diuresis, patient o2 requiriements improved, downgraded to imc 01/02/24 sepsis, acute hypoxic respiratory failure due to pneumocystis pneumonia in HIV/aids now complicated by moderate to large left pneumothorax completed iv bactrim course continue bactrim and azitrho prophylaxis along with biktarvy DCed Salt tablets Daily IV lasix Pulm input appreciated, Finished pulse Solumedrol high dose for 3 days transitioned off high flow chest tube placed 01/13/24, repeat cxr much improved Leukocytosis secondary to steroids not infection subacute inflammatory anemia transfused 2 units prbc total monitor hgb moderate protein calorie malnutrition off tpn, encourage po intake acute hfpef on lasix iv 20mg daily dvt prophylaxis - lovenox full code reason for continued hospitalization: hypoxia pending clinical improvement and weaning off O2 Quality Stroke Does the patient have a stroke diagnosis?: No VTE Prior VTE?: No VTE Risk Level:: Medical - moderate - high VTE Device Contraindication: Treatment Not Indicated VTE Drug Contraindication: N/A - Med Ordered
[2024-01-14] MEDS: Enoxaparin Sodium 40 MG/0.4 ML SYRINGE SUBCUT (09:19)
[2024-01-14] MEDS: predniSONE 20 MG TABLET 40 MG PO (09:20)
[2024-01-14] MEDS: LORazepam 0.5 MG TABLET PO ×3 (09:20→20:58)
[2024-01-14] MEDS: Ibuprofen 400 MG TABLET PO ×3 (09:20→17:19)
[2024-01-14] MEDS: Bictegrav/Emtricit/Tenofov Ala TABLET 1 TAB PO (09:20)
[2024-01-14] MEDS: Furosemide 20 MG/2 ML VIAL IVPUSH (09:21)
[2024-01-14] MEDS: 0.9 % Sodium Chloride Flush 3 ML SYRINGE IVFLUSH ×2 (09:24→17:27)
[2024-01-14] MEDS: HYDROmorphone HCl 2 MG TABLET 3 MG PO ×2 (12:06→20:49)
--- NOTE | 2024-01-14 14:49 | PM.PNTS ---
Subjective Subjective Date of Service: 01/14/24 Interval history: Feels a little better this morning. Remains on oxymask. Physical Exam Vital Signs: Vital Signs: Last Vital Signs Temp 98.2 F 01/14/24 11:06 Pulse 73 01/14/24 11:06 Resp 20 01/14/24 11:06 BP 110/64 01/14/24 11:06 Pulse Ox 97 01/14/24 11:06 O2 Del Method Oxymask 01/14/24 11:06 O2 Flow Rate 8 01/14/24 11:06 FiO2 45 01/13/24 07:04 Oxygen Flow Rate 15 12/09/23 19:34 BMI result Body Mass Index 21.7 Const: Other: uncomfortable appearing General: alert Orientation/consciousness: patient oriented x3 Chest: Other: chest tube with serous drainage, no air leak Resp: Other: slight increased work of breathing Effort & Inspection: no respiratory distress Skin: General skin exam: no rashes or lesions noted Neuro: General: patient oriented x3 Procedures Date of Service Date of Service: 01/14/24 Progress Note: A&P Assessment and plan (1) Pneumothorax: Status: Acute Plan S/p left chest tube placement in IR yesterday for worsening pneumothorax. Morning CXR significantly improved. Keep chest tube in place for now. OOB/IS use encouraged. PO intake encouraged. Time Spent With Patient Time: Total time managing care of this patient today ____ minutes. Quality Stroke Does the patient have a stroke diagnosis?: No VTE Prior VTE?: No VTE Risk Level:: Medical - moderate - high VTE Device Contraindication: Treatment Not Indicated VTE Drug Contraindication: N/A - Med Ordered
[2024-01-15] MEDS: Acetaminophen 325 MG TABLET 975 MG PO ×3 (01:17→15:39)
[2024-01-15] MEDS: 0.9 % Sodium Chloride Flush 3 ML SYRINGE IVFLUSH ×3 (01:17→15:41)
[2024-01-15] MEDS: HYDROmorphone HCl 2 MG TABLET 3 MG PO ×4 (01:18→20:23)
[2024-01-15 03:47] VITALS: BP 106/62; PULSE 62; RESP 16; TEMP 37; O2SAT 97
[2024-01-15] MEDS: Omeprazole 40 MG CAPSULE.DR PO ×2 (05:53→15:41)
[2024-01-15 06:00] VITALS: BMI 23.3
[2024-01-15 07:51] VITALS: BP 111/71; PULSE 66; RESP 20; TEMP 36.9; O2SAT 100
[2024-01-15 09:16] VITALS: BP 111/71; PULSE 66; O2SAT 100
--- NOTE | 2024-01-15 09:56 | HO.PM.IMPN ---
Subjective Subjective Date of Service: 01/15/24 Interval History: imprvoing sob Physical Exam Vital Signs: Vital Signs: Last Vital Signs Temp 98.5 F 01/15/24 07:51 Pulse 66 01/15/24 09:16 Resp 20 01/15/24 07:51 BP 111/71 01/15/24 09:16 Pulse Ox 100 01/15/24 09:16 O2 Del Method Oxymask 01/15/24 07:51 O2 Flow Rate 10 01/15/24 07:51 FiO2 45 01/13/24 07:04 Oxygen Flow Rate 15 12/09/23 19:34 BMI result Body Mass Index 23.3 Const: Other: uncomfortable appearing General: alert Orientation/consciousness: patient oriented x3 Chest: Other: chest tube with serous drainage, no air leak Resp: Other: slight increased work of breathing Effort & Inspection: no respiratory distress Skin: General skin exam: no rashes or lesions noted Neuro: General: patient oriented x3 Objective Data Active Medications Acetaminophen (Acet[facility] 325 Mg Tablet) [facility] Admin: 01/15/24 01:17 Dose: 975 mg Documented By: BAMBI Benzonatate (Benzonatate 100 Mg Capsule) 100 mg PO TID PRN PRN Reason: Cough Last Admin: 01/13/24 09:26 Dose: 100 mg Documented By: ALISSON Bictegravir/Emtricitabine/Tenofovir (Bictegrav/Emtricit/Tenofov Ala Tablet) 1 tab PO DAILY [facility] Last Admin: 01/14/24 09:20 Dose: 1 tab Documented By: ANU Enoxaparin Sodium (Enoxaparin Sodium 40 Mg/0.4 Ml Syringe) 40 mg SUBCUT Q24H [facility] Last Admin: 01/14/24 09:19 Dose: 40 mg Documented By: ANU Furosemide (Furosemide 20 Mg/2 Ml Vial) 20 mg IVPUSH DAILY [facility]; Protocol Last Admin: 01/14/24 09:21 Dose: 20 mg Documented By: ANU Hydromorphone HCl (Hydromorphone Hcl 2 Mg Tablet) 3 mg PO Q4H PRN PRN Reason: Pain, Severe (Pain Scale 7-10) Last Admin: 01/15/24 05:53 Dose: 3 mg Documented By: BAMBI Ibuprofen (Ibuprofen 400 Mg Tablet) 400 mg PO TIDWM [facility] Last Admin: 01/14/24 17:19 Dose: 400 mg Documented By: ANU Lidocaine (Lidocaine 4 % Patch Adh..Patch) 1 patch TRANSDERMA DAILY [facility]; Protocol Last Admin: 01/14/24 09:24 Dose: Not Given Documented By: ANU Non-Admin Reason: Patient Refused Lorazepam (Lorazepam 0.5 Mg Tablet) 0.5 mg PO TID [facility] Last Admin: 01/14/24 20:58 Dose: 0.5 mg Documented By: TEOFILO Metoclopramide HCl (Metoclopramide Hcl 10 Mg/2 Ml Vial) 10 mg IVPUSH Q6H PRN PRN Reason: Nausea and Vomiting Last Admin: 01/05/24 08:34 Dose: 10 mg Documented By: IZAIAH Omeprazole (Omeprazole 40 Mg Capsule.Dr) 40 mg PO BID@0630,1630 [facility] Last Admin: 01/15/24 05:53 Dose: 40 mg Documented By: BAMBI Prednisone (Prednisone 20 Mg Tablet) 40 mg PO DAILY [facility] Stop: 01/16/24 08:59 Last Admin: 01/14/24 09:20 Dose: 40 mg Documented By: ANU Senna/Docusate Sodium (Sennosides/Docusate Sodium Tablet) 1 tab PO BEDTIME [facility] Last Admin: 01/14/24 20:59 Dose: Not Given Documented By: TEOFILO Non-Admin Reason: pt having multiple soft stools per day Sodium Chloride (0.9 % Sodium Chloride Flush 3 Ml Syringe) 3 ml IVFLUSH QSHIFT [facility] Last Admin: 01/15/24 01:17 Dose: 3 ml Documented By: BAMBI Sodium Chloride (Sodium Chloride 0.65 % Nasal 44 Ml Sprbtl) 1 spray NOSTRIL-B Q1H PRN PRN Reason: nasal dryness Last Admin: 12/26/23 11:10 Dose: 1 spray Documented By: MAXIMO Trimethoprim/Sulfamethoxazole (Sulfamethox/Trimeth 800/160 Tablet) 1 tab PO MoWeFr [facility] Last Admin: 01/13/24 09:30 Dose: 1 tab Documented By: ALISSON Labs 01/14/24 06:58 01/14/24 06:58 Assessment and Plan (1) Pneumothorax: Status: Acute (2) Pulmonary fibrosis: Status: Acute (3) Pulmonary edema: Status: Acute (4) PCP (pneumocystis jiroveci pneumonia): Status: Acute (5) Acute hypoxemic respiratory failure: Status: Acute Plan 43M PMH HIV - non compliant, unspecified compensated liver cirrhosis, presented 12/09/23 with sob, found to have acute hypoxic respiratory failure due to pneumocystitis pneumonia, pulm edema, transferred to icu 12/19/23, after treatement with bactrim, azitrho, diuresis, patient o2 requiriements improved, downgraded to imc 01/02/24 sepsis, acute hypoxic respiratory failure due to pneumocystis pneumonia in HIV/aids now complicated by moderate to large left pneumothorax completed iv bactrim course continue bactrim and azitrho prophylaxis along with biktarvy DCed Salt tablets Pulm input appreciated, Finished pulse Solumedrol high dose for 3 days transitioned off high flow chest tube placed 01/13/24, repeat cxr much improved subacute inflammatory anemia transfused 2 units prbc total monitor hgb moderate protein calorie malnutrition off tpn, encourage po intake acute hfpef will change to oral maintenance dvt prophylaxis - lovenox full code reason for continued hospitalization: hypoxia pending clinical improvement and weaning off O2 Quality Stroke Does the patient have a stroke diagnosis?: No VTE Prior VTE?: No VTE Risk Level:: Medical - moderate - high VTE Device Contraindication: Treatment Not Indicated VTE Drug Contraindication: N/A - Med Ordered
[2024-01-15] MEDS: predniSONE 20 MG TABLET 40 MG PO (10:30)
[2024-01-15] MEDS: Enoxaparin Sodium 40 MG/0.4 ML SYRINGE SUBCUT (10:30)
[2024-01-15] MEDS: Ibuprofen 400 MG TABLET PO ×3 (10:30→18:06)
[2024-01-15] MEDS: Bictegrav/Emtricit/Tenofov Ala TABLET 1 TAB PO (10:31)
[2024-01-15] MEDS: LORazepam 0.5 MG TABLET PO ×3 (10:31→20:07)
[2024-01-15] MEDS: Sulfamethox/Trimeth 800/160 TABLET 1 TAB PO (10:41)
--- NOTE | 2024-01-15 11:41 | HO.WOUND ---
Wound Consult: Follow up 43yr old M? admitted [place] [facility] [place]09 - See progress notes and H&P for detailed history.? Wound consult follow up for Coccyx / sacral wounds.? Patient agreeable to assessment and photo documentation. Pt is ill appearing, appears cachectic and malnourished - of note nutrition is following and recommendations in place. The patient does appear to have psoriatic type rash noted on both upper and lower extremities similar to rash noted to sacrum. Todays assessment reveals sacral wound is MASD -IAD (Moisture Associated Skin Damage - Incontinence Associated Dermatitis) - does not appear to be pressure related as tissue remains blanchable. Direct care team advised to continue to use ANJU, off loading with pillows and or wedges and currently in place is Triad with foam covering. No new topical recommendations needed at this time. Sacrum and coccyx 01/04/24 Coccyx - Perianal area - remains MASD Sacrum - remains MASD Etiology: ??MASD -IAD Wound Bed: scattered areas of red moist wound bed consistent with Moisture and friction - to the sacrum there is a small thin loosly adherent yellow slough Jenifer wound: ? resolving dry desquamation with irregular rash - Rash noted by direct care team to be psoriasis and noted to bilateral upper and lower extremities Goals of Treatment: ? Off Load Pressure and Triad and Foam to allow for autolytic healing and protect from friction and moisture No new topical recommendations needed at this time. Recommendations: 1. Turn and Reposition every 2 hours and as needed for patient comfort.? Use pillows or wedges to support off loading positions. 2. Off Load all bony prominences with use of pillows and heel boots if needed.? Apply Preventative foams where needed. ? 3. Monitor for incontinence and moisture control, use barrier creams when needed for prevention and treatment. 4. Provide adequate and supplemental nutrition.? 5. Order or Continue low air loss mattress. 6. When applicable maintain blood glucose levels per Providers order. 7. Sacrum and Coccyx - Off Load Pressure - Cleanse with PH balance spray or wipes, pat dry. ?Apply thin layer of Triad to wound bed. Do not remove all of paste between applications as this may cause further skin damage.? Cover with foam dressing to aid in off loading and protection from friction. Re-consult wound care Nurse for wound deterioration or wound changes.
[2024-01-15 11:59] VITALS: BP 121/75; PULSE 83; RESP 20; TEMP 36.6; O2SAT 97
--- NOTE | 2024-01-15 15:20 | MHC.CM.PN ---
EMR reviewed and per MD rounds, pt is not medically cleared for D/C due to management of hypoxia, pt weaning from O2, now wearing an oxymask, and chest tube is in place. CM will continue to follow.
[2024-01-15 16:00] VITALS: BP 102/55; PULSE 66; RESP 18; TEMP 36.1; O2SAT 98
[2024-01-15 19:03] VITALS: BP 105/65; PULSE 72; RESP 18; TEMP 36.3; O2SAT 99
--- NOTE | 2024-01-15 20:08 | PC.NURSE ---
Pt refused Senokot reports loose stools
--- NOTE | 2024-01-15 23:36 | PC.NURSE ---
RAOUL PICC line drsg due to be changed,RN Coretta made aware
[2024-01-16] VITALS: BP 117/69; PULSE 74; RESP 18; TEMP 36.6; O2SAT 97
[2024-01-16] MEDS: 0.9 % Sodium Chloride Flush 3 ML SYRINGE IVFLUSH ×4 (00:31→21:04)
[2024-01-16] MEDS: HYDROmorphone HCl 2 MG TABLET 3 MG PO ×5 (00:37→21:04)
[2024-01-16 04:00] VITALS: BP 110/71; PULSE 69; RESP 18; TEMP 36; O2SAT 99
[2024-01-16] MEDS: Omeprazole 40 MG CAPSULE.DR PO ×2 (04:41→16:35)
[2024-01-16 05:31] VITALS: BMI 23.6
[2024-01-16 07:51] VITALS: BP 106/67; PULSE 62; RESP 20; TEMP 36; O2SAT 100
--- NOTE | 2024-01-16 09:13 | HO.PM.IMPN ---
Subjective Subjective Date of Service: 01/16/24 Interval History: improving Physical Exam Vital Signs: Vital Signs: Last Vital Signs Temp 96.8 F 01/16/24 07:51 Pulse 62 01/16/24 07:51 Resp 20 01/16/24 07:51 BP 106/67 01/16/24 07:51 Pulse Ox 100 01/16/24 07:51 O2 Del Method Oxymask 01/16/24 07:51 O2 Flow Rate 7 01/16/24 07:51 FiO2 45 01/13/24 07:04 Oxygen Flow Rate 15 12/09/23 19:34 BMI result Body Mass Index 23.6 Const: Other: uncomfortable appearing General: alert Orientation/consciousness: patient oriented x3 Chest: Other: chest tube with serous drainage, no air leak Resp: Other: slight increased work of breathing Effort & Inspection: no respiratory distress Skin: General skin exam: no rashes or lesions noted Neuro: General: patient oriented x3 Objective Data Active Medications Acetaminophen (Acetaminophen 325 Mg Tablet) 975 mg PO QSHIFT [facility] Last Admin: 01/16/24 00:32 Dose: Not Given Documented By: SANDRA Non-Admin Reason: Patient Refused Benzonatate (Benzonatate 100 Mg Capsule) 100 mg PO TID PRN PRN Reason: Cough Last Admin: 01/13/24 09:26 Dose: 100 mg Documented By: ALISSON Bictegravir/Emtricitabine/Tenofovir (Bictegrav/Emtricit/Tenofov Ala Tablet) 1 tab PO DAILY [facility] Last Admin: 01/15/24 10:31 Dose: 1 tab Documented By: ANU Enoxaparin Sodium (Enoxaparin Sodium 40 Mg/0.4 Ml Syringe) 40 mg SUBCUT Q24H [facility] Last Admin: 01/15/24 10:30 Dose: 40 mg Documented By: ANU Furosemide (Furosemide 20 Mg Tablet) 20 mg PO DAILY [facility]; Protocol Hydromorphone HCl (Hydromorphone Hcl 2 Mg Tablet) 3 mg PO Q4H PRN PRN Reason: Pain, Severe (Pain Scale 7-10) Last Admin: 01/16/24 04:41 Dose: 3 mg Documented By: SANDRA Ibuprofen (Ibuprofen 400 Mg Tablet) 400 mg PO TIDWM [facility] Last Admin: 01/15/24 18:06 Dose: 400 mg Documented By: ANU Lidocaine (Lidocaine 4 % Patch Adh..Patch) 1 patch TRANSDERMA DAILY [facility]; Protocol Last Admin: 01/15/24 10:38 Dose: Not Given Documented By: ANU Non-Admin Reason: Patient Refused Lorazepam (Lorazepam 0.5 Mg Tablet) 0.5 mg PO TID [facility] Last Admin: 01/15/24 20:07 Dose: 0.5 mg Documented By: SUSHMA Metoclopramide HCl (Metoclopramide Hcl 10 Mg/2 Ml Vial) 10 mg IVPUSH Q6H PRN PRN Reason: Nausea and Vomiting Last Admin: 01/05/24 08:34 Dose: 10 mg Documented By: IZAIAH Omeprazole (Omeprazole 40 Mg Capsule.) 40 mg PO BID@0630,1630 [facility] Last Admin: 01/16/24 04:41 Dose: 40 mg Documented By: SANDRA Senna/Docusate Sodium (Sennosides/Docusate Sodium Tablet) 1 tab PO BEDTIME [facility] Last Admin: 01/15/24 20:08 Dose: Not Given Documented By: SUSHMA Non-Admin Reason: Patient Refused Sodium Chloride (0.9 % Sodium Chloride Flush 3 Ml Syringe) 3 ml IVFLUSH QSHIFT [facility] Last Admin: 01/16/24 00:31 Dose: 3 ml Documented By: SANDRA Sodium Chloride (Sodium Chloride 0.65 % Nasal 44 Ml Sprbtl) 1 spray NOSTRIL-B Q1H PRN PRN Reason: nasal dryness Last Admin: 12/26/23 11:10 Dose: 1 spray Documented By: MAXIOM Trimethoprim/Sulfamethoxazole (Sulfamethox/Trimeth 800/160 Tablet) 1 tab PO MoWeFr [facility] Last Admin: 01/15/24 10:41 Dose: 1 tab Documented By: ANU Labs 01/14/24 06:58 01/14/24 06:58 Assessment and Plan (1) Pneumothorax: Status: Acute (2) Pulmonary fibrosis: Status: Acute (3) Pulmonary edema: Status: Acute (4) PCP (pneumocystis jiroveci pneumonia): Status: Acute (5) Acute hypoxemic respiratory failure: Status: Acute Plan 43M PMH HIV - non compliant, unspecified compensated liver cirrhosis, presented 12/09/23 with sob, found to have acute hypoxic respiratory failure due to pneumocystitis pneumonia, pulm edema, transferred to icu 12/19/23, after treatement with bactrim, azitrho, diuresis, patient o2 requiriements improved, downgraded to imc 01/02/24 sepsis, acute hypoxic respiratory failure due to pneumocystis pneumonia in HIV/aids now complicated by moderate to large left pneumothorax completed iv bactrim course continue bactrim and azitrho prophylaxis along with biktarvy DCed Salt tablets Pulm input appreciated, Finished pulse Solumedrol high dose for 3 days transitioned off high flow chest tube placed 01/13/24, repeat cxr much improved weaning o2, now on 5L subacute inflammatory anemia transfused 2 units prbc total monitor hgb moderate protein calorie malnutrition off tpn, encourage po intake acute hfpef will change to oral maintenance dvt prophylaxis - lovenox full code reason for continued hospitalization: hypoxia pending clinical improvement and weaning off O2 Quality Stroke Does the patient have a stroke diagnosis?: No VTE Prior VTE?: No VTE Risk Level:: Medical - moderate - high VTE Device Contraindication: Treatment Not Indicated VTE Drug Contraindication: N/A - Med Ordered
[2024-01-16] MEDS: Furosemide 20 MG TABLET PO (10:10)
[2024-01-16] MEDS: LORazepam 0.5 MG TABLET PO ×3 (10:10→21:04)
[2024-01-16] MEDS: Ibuprofen 400 MG TABLET PO ×3 (10:10→16:34)
[2024-01-16] MEDS: Acetaminophen 325 MG TABLET 975 MG PO ×2 (10:10→16:34)
[2024-01-16] MEDS: Bictegrav/Emtricit/Tenofov Ala TABLET 1 TAB PO (10:10)
[2024-01-16 11:25] VITALS: BP 112/68; PULSE 75; RESP 20; TEMP 36.4; O2SAT 99
[2024-01-16] MEDS: Enoxaparin Sodium 40 MG/0.4 ML SYRINGE SUBCUT (11:40)
[2024-01-16 15:51] VITALS: BP 121/77; PULSE 76; RESP 18; TEMP 36.2; O2SAT 96
[2024-01-16 19:22] VITALS: BP 99/56; PULSE 72; RESP 15; TEMP 36.3; O2SAT 99
[2024-01-17] VITALS (7 sets, daily range): BP systolic 108–160; BP diastolic 62–78; PULSE 72–84; RESP 17–92; TEMP 36.1–37.1; O2SAT 91–99; BMI 23.6
[2024-01-17] MEDS: Acetaminophen 325 MG TABLET 975 MG PO ×3 (01:22→16:45)
[2024-01-17] MEDS: HYDROmorphone HCl 2 MG TABLET 3 MG PO ×5 (01:23→21:14)
[2024-01-17] MEDS: Omeprazole 40 MG CAPSULE.DR PO ×2 (05:17→16:46)
[2024-01-17 07:08] LABS: Hematocrit 31.7 % (42.0-52.0); Hemoglobin 10.5 g/dl (14.0-18.0); Mean Corpuscular HGB Conc 33.1 g/dl (31.0-36.0); Mean Corpuscular Hemoglobin 31.3 pg (27.0-33.0); Mean Corpuscular Volume 94.6 fL (80.0-98.0); Mean Platelet Volume 9.8 fL (9.4-12.4); Platelet Count 175 X10*3/uL (160-400); Red Blood Count 3.35 X10*6/uL (4.60-5.80); Red Cell Distribution Width 16.4 % (11.0-16.0); White Blood Count 10.3 X10*3/uL (4.8-10.8)
[2024-01-17 07:18] LABS: Anion Gap 8 (12-20); Blood Urea Nitrogen 21 mg/dL (9-16); Calcium 8.7 mg/dL (8.4-10.2); Carbon Dioxide 31 mmol/L (22-29); Chloride 100 mmol/L (96-108); Creatinine Clr Calc Pharmacy 176.9; Estimated Glomerular Filt Rate > 60; Glucose Fasting 85 mg/dL (60-99); Sodium 135 mmol/L (135-145)
[2024-01-17] MEDS: Metoclopramide HCl 10 MG/2 ML VIAL IVPUSH (07:52)
[2024-01-17] MEDS: Furosemide 20 MG TABLET PO (07:54)
[2024-01-17] MEDS: LORazepam 0.5 MG TABLET PO ×2 (07:55→15:12)
[2024-01-17] MEDS: Ibuprofen 400 MG TABLET PO ×3 (07:55→16:45)
[2024-01-17] MEDS: Bictegrav/Emtricit/Tenofov Ala TABLET 1 TAB PO (07:55)
[2024-01-17] MEDS: 0.9 % Sodium Chloride Flush 3 ML SYRINGE IVFLUSH ×2 (07:56→16:46)
--- NOTE | 2024-01-17 09:08 | HO.PM.IMPN ---
Subjective Subjective Date of Service: 01/17/24 Interval History: improving Physical Exam Vital Signs: Vital Signs: Last Vital Signs Temp 97.5 F 01/17/24 08:00 Pulse 84 01/17/24 08:00 Resp 24 H 01/17/24 08:00 BP 160/78 H 01/17/24 08:00 Pulse Ox 91 L 01/17/24 08:00 O2 Del Method Oxymask 01/17/24 08:00 O2 Flow Rate 5 01/17/24 08:00 FiO2 45 01/13/24 07:04 Oxygen Flow Rate 15 12/09/23 19:34 BMI result Body Mass Index 23.6 Const: Other: uncomfortable appearing General: alert Orientation/consciousness: patient oriented x3 Chest: Other: chest tube with serous drainage, no air leak Resp: Other: slight increased work of breathing Effort & Inspection: no respiratory distress Skin: General skin exam: no rashes or lesions noted Neuro: General: patient oriented x3 Objective Data Active Medications Acetaminophen (Acetaminophen 325 Mg Tablet) [facility] [place] Last Admin: 01/17/24 07:55 Dose: 975 mg Documented By: JAYLIN Benzonatate (Benzonatate 100 Mg Capsule) 100 mg PO TID PRN PRN Reason: Cough Last Admin: 01/13/24 09:26 Dose: 100 mg Documented By: ALISSON Bictegravir/Emtricitabine/Tenofovir (Bictegrav/Emtricit/Tenofov Ala Tablet) 1 tab PO DAILY [facility] Last Admin: 01/17/24 07:55 Dose: 1 tab Documented By: JAYLIN Enoxaparin Sodium (Enoxaparin Sodium 40 Mg/0.4 Ml Syringe) 40 mg SUBCUT Q24H [facility] Last Admin: 01/16/24 11:40 Dose: 40 mg Documented By: JAYLIN Furosemide (Furosemide 20 Mg Tablet) 20 mg PO DAILY [facility]; Protocol Last Admin: 01/17/24 07:54 Dose: 20 mg Documented By: JAYLIN Hydromorphone HCl (Hydromorphone Hcl 2 Mg Tablet) 3 mg PO Q4H PRN PRN Reason: Pain, Severe (Pain Scale 7-10) Last Admin: 01/17/24 05:17 Dose: 3 mg Documented By: SANDRA Ibuprofen (Ibuprofen 400 Mg Tablet) 400 mg PO TIDWM [facility] Last Admin: 01/17/24 07:55 Dose: 400 mg Documented By: JAYLIN Lidocaine (Lidocaine 4 % Patch Adh..Patch) 1 patch TRANSDERMA DAILY [facility]; Protocol Last Admin: 01/16/24 10:12 Dose: Not Given Documented By: JAYLIN Non-Admin Reason: Patient Refused Comments: md morales Lorazepam (Lorazepam 0.5 Mg Tablet) 0.5 mg PO TID [facility] Last Admin: 01/17/24 07:55 Dose: 0.5 mg Documented By: JAYLIN Metoclopramide HCl (Metoclopramide Hcl 10 Mg/2 Ml Vial) 10 mg IVPUSH Q6H PRN PRN Reason: Nausea and Vomiting Last Admin: 01/17/24 07:52 Dose: 10 mg Documented By: JAYLIN Omeprazole (Omeprazole 40 Mg Capsule.Dr) 40 mg PO BID@0630,1630 [facility] Last Admin: 01/17/24 05:17 Dose: 40 mg Documented By: SANDRA Senna/Docusate Sodium (Sennosides/Docusate Sodium Tablet) 1 tab PO BEDTIME [facility] Last Admin: 01/16/24 20:58 Dose: Not Given Documented By: RIRI Non-Admin Reason: Patient Refused Sodium Chloride (0.9 % Sodium Chloride Flush 3 Ml Syringe) 3 ml IVFLUSH QSHIFT [facility] Last Admin: 01/17/24 07:56 Dose: 3 ml Documented By: JAYLIN Sodium Chloride (Sodium Chloride 0.65 % Nasal 44 Ml Sprbtl) 1 spray NOSTRIL-B Q1H PRN PRN Reason: nasal dryness Last Admin: 12/26/23 11:10 Dose: 1 spray Documented By: MAXIMO Trimethoprim/Sulfamethoxazole (Sulfamethox/Trimeth 800/160 Tablet) 1 tab PO MoWeFr [facility] Last Admin: 01/15/24 10:41 Dose: 1 tab Documented By: ANU Labs 01/17/24 06:42 01/17/24 06:42 Labs: Laboratory Results - last 24 hr 01/17/24 06:42 MCV 94.6 MCH 31.3 MCHC 33.1 RDW 16.4 H Plt Count 175 MPV 9.8 Absolute Nucleated RBC 0.000 Nucleated RBC % (auto) 0.0 Anion Gap 8 L Estim Creat Clear Calc 176.9 Estimated GFR > 60 Fasting Glucose 85 Calcium 8.7 D Assessment and Plan (1) Pneumothorax: Status: Acute (2) Pulmonary fibrosis: Status: Acute (3) Pulmonary edema: Status: Acute (4) PCP (pneumocystis jiroveci pneumonia): Status: Acute (5) Acute hypoxemic respiratory failure: Status: Acute Plan 43M PMH HIV - non compliant, unspecified compensated liver cirrhosis, presented 12/09/23 with sob, found to have acute hypoxic respiratory failure due to pneumocystitis pneumonia, pulm edema, transferred to icu 12/19/23, after treatement with bactrim, azitrho, diuresis, patient o2 requiriements improved, downgraded to imc 01/02/24 sepsis, acute hypoxic respiratory failure due to pneumocystis pneumonia in HIV/aids now complicated by moderate to large left pneumothorax completed iv bactrim course continue bactrim and azitrho prophylaxis along with biktarvy DCed Salt tablets Pulm input appreciated, Finished pulse Solumedrol high dose for 3 days transitioned off high flow chest tube placed 01/13/24, repeat cxr much improved weaning o2, now on 4L subacute inflammatory anemia transfused 2 units prbc total monitor hgb moderate protein calorie malnutrition off tpn, encourage po intake acute hfpef improved changed to oral maintenance dvt prophylaxis - lovenox full code reason for continued hospitalization: hypoxia pending clinical improvement and weaning off O2 Quality Stroke Does the patient have a stroke diagnosis?: No VTE Prior VTE?: No VTE Risk Level:: Medical - moderate - high VTE Device Contraindication: Treatment Not Indicated VTE Drug Contraindication: N/A - Med Ordered
[2024-01-17] MEDS: Enoxaparin Sodium 40 MG/0.4 ML SYRINGE SUBCUT (11:22)
[2024-01-18] MEDS: Acetaminophen 325 MG TABLET 975 MG PO ×3 (00:30→15:01)
--- NOTE | 2024-01-18 01:13 | P.PNID_ITS ---
Subjective Subjective Date of Service: 01/17/24 Critical Care Time (minutes): 15 Comment: He appears more interactive and less shortness of breath. Objective Data Labs 01/17/24 06:42 01/17/24 06:42 Labs: Laboratory Results - last 24 hr 01/17/24 06:42 WBC 10.3 RBC 3.35 L Hgb 10.5 L Hct 31.7 L MCV 94.6 MCH 31.3 MCHC 33.1 RDW 16.4 H Plt Count 175 MPV 9.8 Absolute Nucleated RBC 0.000 Nucleated RBC % (auto) 0.0 Sodium 135 Potassium 4.0 Chloride 100 Carbon Dioxide 31 H Anion Gap 8 L BUN 21 H Creatinine 0.63 Estim Creat Clear Calc 176.9 Estimated GFR > 60 Fasting Glucose 85 Calcium 8.7 D Microbiology Microbiology Results: Microbiology 12/10/23 14:48 Sputum - Expectorated Direct Acid Fast Bacilli Smear - Final 12/10/23 14:29 Sputum - Expectorated Direct Acid Fast Bacilli Smear - Final 12/10/23 10:10 Sputum - Expectorated Direct Acid Fast Bacilli Smear - Final 12/10/23 02:04 Blood - Venous Blood Culture - Final No growth after 5 days. 12/10/23 02:04 Blood - Venous Blood Culture - Final No growth after 5 days. 12/09/23 20:11 Blood - Venous Blood Culture - Final No growth after 5 days. 12/09/23 19:51 Blood - Venous Blood Culture - Final No growth after 5 days. 12/10/23 10:10 Sputum - Expectorated Gram Stain - Final 12/10/23 10:10 Sputum - Expectorated Sputum Culture - Final Physical Exam 2 Vital Signs: Vital Signs: Last Vital Signs Temp 98.7 F 01/17/24 23:36 Pulse 77 01/17/24 23:36 Resp 18 01/17/24 23:36 BP 116/70 01/17/24 23:36 Pulse Ox 98 01/17/24 23:36 O2 Del Method Oxymask 01/17/24 23:36 O2 Flow Rate 3 01/17/24 23:36 FiO2 45 01/13/24 07:04 Oxygen Flow Rate 15 12/09/23 19:34 BMI result Body Mass Index 23.6 Const: General: cooperative HEENT: Head: Yes normal to inspection Mouth: Normal oral and palatal mucosa present Resp: Effort & Inspection: normal respiratory effort Cardio: Rate: regular rate Rhythm: regular rhythm GI: Inspection: Yes normal to inspection Extrem: General: Yes normal to inspection Assessment and Plan Assessment and plan (1) Pneumothorax: Problem details: He is improving Status: Acute Assessment and Plan: Continue Biktarvy Bactrim Outpatient f/u HHC (let me know on discharge). (2) Pulmonary fibrosis: Status: Acute (3) PCP (pneumocystis jiroveci pneumonia): Status: Acute (4) AIDS: Status: Acute Time Spent With Patient Time: Total time managing care of this patient today ____ minutes.
[2024-01-18] MEDS: HYDROmorphone HCl 2 MG TABLET 3 MG PO ×5 (03:31→22:00)
[2024-01-18 03:38] VITALS: BP 115/66; PULSE 73; RESP 20; TEMP 36.6; O2SAT 98
[2024-01-18 04:31] VITALS: RESP 18
[2024-01-18 05:29] VITALS: BMI 23.2
[2024-01-18] MEDS: Omeprazole 40 MG CAPSULE.DR PO ×2 (05:56→15:02)
[2024-01-18 07:42] VITALS: BP 112/72; PULSE 70; RESP 20; TEMP 36.5; O2SAT 100
[2024-01-18] MEDS: Furosemide 20 MG TABLET PO (08:24)
[2024-01-18] MEDS: Bictegrav/Emtricit/Tenofov Ala TABLET 1 TAB PO (08:25)
[2024-01-18] MEDS: Ibuprofen 400 MG TABLET PO ×3 (08:25→16:33)
[2024-01-18] MEDS: Enoxaparin Sodium 40 MG/0.4 ML SYRINGE SUBCUT (08:25)
[2024-01-18] MEDS: 0.9 % Sodium Chloride Flush 3 ML SYRINGE IVFLUSH ×3 (08:28→20:02)
--- NOTE | 2024-01-18 09:45 | HO.PM.IMPN ---
Subjective Subjective Date of Service: 01/18/24 Interval History: improving Physical Exam Vital Signs: Vital Signs: Last Vital Signs Temp 97.7 F 01/18/24 07:42 Pulse 70 01/18/24 07:42 Resp 20 01/18/24 07:42 BP 112/72 01/18/24 07:42 Pulse Ox 100 01/18/24 07:42 O2 Del Method Oxymask 01/18/24 07:42 O2 Flow Rate 3.5 01/18/24 07:42 FiO2 45 01/13/24 07:04 Oxygen Flow Rate 15 12/09/23 19:34 BMI result Body Mass Index 23.2 Const: General: cooperative HEENT: Head: Yes normal to inspection Mouth: Normal oral and palatal mucosa present Resp: Effort & Inspection: normal respiratory effort Cardio: Rate: regular rate Rhythm: regular rhythm GI: Inspection: Yes normal to inspection Extrem: General: Yes normal to inspection Objective Data Active Medications Acetaminophen (Acet[facility] 325 Mg Tablet) [facility] Last Admin: 01/18/24 08:24 Dose: 975 mg Documented By: ANU Benzonatate (Benzonatate 100 Mg Capsule) 100 mg PO TID PRN PRN Reason: Cough Last Admin: 01/13/24 09:26 Dose: 100 mg Documented By: ALISSON Bictegravir/Emtricitabine/Tenofovir (Bictegrav/Emtricit/Tenofov Ala Tablet) 1 tab PO DAILY [facility] Last Admin: 01/18/24 08:25 Dose: 1 tab Documented By: ANU Enoxaparin Sodium (Enoxaparin Sodium 40 Mg/0.4 Ml Syringe) 40 mg SUBCUT Q24H [facility] Last Admin: 01/18/24 08:25 Dose: 40 mg Documented By: ANU Furosemide (Furosemide 20 Mg Tablet) 20 mg PO DAILY [facility]; Protocol Last Admin: 01/18/24 08:24 Dose: 20 mg Documented By: ANU Hydromorphone HCl (Hydromorphone Hcl 2 Mg Tablet) 3 mg PO Q4H PRN PRN Reason: Pain, Severe (Pain Scale 7-10) Last Admin: 01/18/24 08:23 Dose: 3 mg Documented By: ANU Ibuprofen (Ibuprofen 400 Mg Tablet) 400 mg PO TIDWM [facility] Last Admin: 01/18/24 08:25 Dose: 400 mg Documented By: ANU Lidocaine (Lidocaine 4 % Patch Adh..Patch) 1 patch TRANSDERMA DAILY [facility]; Protocol Last Admin: 01/17/24 09:15 Dose: Not Given Documented By: JAYLIN Non-Admin Reason: Patient Refused Metoclopramide HCl (Metoclopramide Hcl 10 Mg/2 Ml Vial) 10 mg IVPUSH Q6H PRN PRN Reason: Nausea and Vomiting Last Admin: 01/17/24 07:52 Dose: 10 mg Documented By: JAYLIN Omeprazole (Omeprazole 40 Mg Capsule.Dr) 40 mg PO BID@0630,1630 [facility] Last Admin: 01/18/24 05:56 Dose: 40 mg Documented By: BO Senna/Docusate Sodium (Sennosides/Docusate Sodium Tablet) 1 tab PO BEDTIME [facility] Last Admin: 01/17/24 20:41 Dose: Not Given Documented By: SHARONA Non-Admin Reason: Patient Refused Sodium Chloride (0.9 % Sodium Chloride Flush 3 Ml Syringe) 3 ml IVFLUSH QSHIFT [facility] Last Admin: 01/18/24 08:28 Dose: 3 ml Documented By: ANU Sodium Chloride (Sodium Chloride 0.65 % Nasal 44 Ml Sprbtl) 1 spray NOSTRIL-B Q1H PRN PRN Reason: nasal dryness Last Admin: 12/26/23 11:10 Dose: 1 spray Documented By: MAXIMO Trimethoprim/Sulfamethoxazole (Sulfamethox/Trimeth 800/160 Tablet) 1 tab PO MoWeFr [facility] Last Admin: 01/15/24 10:41 Dose: 1 tab Documented By: ANU Labs 01/17/24 06:42 01/17/24 06:42 Assessment and Plan (1) Pneumothorax: Status: Acute (2) Pulmonary fibrosis: Status: Acute (3) Pulmonary edema: Status: Acute (4) PCP (pneumocystis jiroveci pneumonia): Status: Acute (5) Acute hypoxemic respiratory failure: Status: Acute Plan 43M PMH HIV - non compliant, unspecified compensated liver cirrhosis, presented 12/09/23 with sob, found to have acute hypoxic respiratory failure due to pneumocystitis pneumonia, pulm edema, transferred to icu 12/19/23, after treatement with bactrim, azitrho, diuresis, patient o2 requiriements improved, downgraded to imc 01/02/24 sepsis, acute hypoxic respiratory failure due to pneumocystis pneumonia in HIV/aids now complicated by moderate to large left pneumothorax completed iv bactrim course continue bactrim and azitrho prophylaxis along with biktarvy DCed Salt tablets Pulm input appreciated, Finished pulse Solumedrol high dose for 3 days transitioned off high flow chest tube placed 01/13/24, repeat cxr much improved weaning o2, now on 2L subacute inflammatory anemia transfused 2 units prbc total monitor hgb moderate protein calorie malnutrition off tpn, encourage po intake acute hfpef improved changed to oral maintenance dvt prophylaxis - lovenox full code reason for continued hospitalization: hypoxia pending clinical improvement and weaning off O2 Quality Stroke Does the patient have a stroke diagnosis?: No VTE Prior VTE?: No VTE Risk Level:: Medical - moderate - high VTE Device Contraindication: Treatment Not Indicated VTE Drug Contraindication: N/A - Med Ordered
[2024-01-18] MEDS: Metoclopramide HCl 10 MG/2 ML VIAL IVPUSH (10:38)
[2024-01-18 11:09] VITALS: BP 98/68; PULSE 75; RESP 20; TEMP 36.7; O2SAT 100
[2024-01-18] MEDS: Sulfamethox/Trimeth 800/160 TABLET 1 TAB PO (15:08)
--- NOTE | 2024-01-18 15:31 | PM.PNTS ---
Subjective Subjective Date of Service: 01/18/24 Interval history: Patient looking much better from a respiratory perspective. Weaning down O2. Tolerating diet. No acute respiratory symptoms Pleur-evac minimal output, no air leak Physical Exam Vital Signs: Vital Signs: Last Vital Signs Temp 98.0 F 01/18/24 11:09 Pulse 75 01/18/24 11:09 Resp 20 01/18/24 11:09 BP 98/68 01/18/24 11:09 Pulse Ox 100 01/18/24 11:09 O2 Del Method Nasal Cannula 01/18/24 11:09 O2 Flow Rate 5 01/18/24 11:09 FiO2 45 01/13/24 07:04 Oxygen Flow Rate 15 12/09/23 19:34 BMI result Body Mass Index 23.2 Chest: Other: Chest tube dressing site clean dry and intact. Procedures Date of Service Date of Service: 01/18/24 Progress Note: A&P Assessment and plan (1) Pneumothorax: Status: Acute (2) Pulmonary fibrosis: Status: Acute (3) PCP (pneumocystis jiroveci pneumonia): Status: Acute Plan Chest tube to water seal. Early a.m. chest x-ray. If x-ray is good with no air leak, DC chest tube. Time Spent With Patient Time: Total time managing care of this patient today ____ minutes. Quality Stroke Does the patient have a stroke diagnosis?: No VTE Prior VTE?: No VTE Risk Level:: Medical - moderate - high VTE Device Contraindication: Treatment Not Indicated VTE Drug Contraindication: N/A - Med Ordered
[2024-01-18 15:42] VITALS: BP 122/75; PULSE 76; RESP 20; TEMP 36.3; O2SAT 100
--- NOTE | 2024-01-18 17:40 | PC.NURSE ---
Dr Gaona disconnected chest tube from the sxn this afternoon, chest tube to the water seal ,pt tolerating well
--- NOTE | 2024-01-18 19:01 | PC.NURSE ---
PICC line dressing changed nicole
[2024-01-18 20:00] VITALS: BP 136/75; PULSE 78; RESP 20; TEMP 36.6; O2SAT 92
[2024-01-18] MEDS: LORazepam 0.5 MG TABLET PO (20:27)
[2024-01-19] MEDS: Acetaminophen 325 MG TABLET 975 MG PO ×3 (01:38→16:39)
[2024-01-19 02:42] VITALS: BP 125/76; PULSE 78; RESP 20; TEMP 36.6; O2SAT 99
[2024-01-19] MEDS: HYDROmorphone HCl 2 MG TABLET 3 MG PO ×5 (02:45→22:45)
[2024-01-19 05:22] VITALS: RESP 20
[2024-01-19 06:00] VITALS: BMI 23.3
[2024-01-19] MEDS: Omeprazole 40 MG CAPSULE.DR PO ×2 (06:34→16:39)
[2024-01-19 07:09] VITALS: BP 107/70; PULSE 78; RESP 20; TEMP 36.6; O2SAT 98
--- NOTE | 2024-01-19 08:26 | HO.PM.IMPN ---
Subjective Subjective Date of Service: 01/19/24 Interval History: stable, some left sided pain, breathing better Physical Exam Vital Signs: Vital Signs: Last Vital Signs Temp 97.8 F 01/19/24 07:09 Pulse 78 01/19/24 07:09 Resp 20 01/19/24 07:09 BP 107/70 01/19/24 07:09 Pulse Ox 98 01/19/24 07:09 O2 Del Method Nasal Cannula 01/19/24 07:09 O2 Flow Rate 3 01/19/24 07:09 FiO2 45 01/13/24 07:04 Oxygen Flow Rate 15 12/09/23 19:34 BMI result Body Mass Index 23.3 Chest: Other: Chest tube dressing site clean dry and intact. Objective Data Active Medications Acetaminophen (Acetaminophen 325 Mg Tablet) 975 mg PO QSHIFT [facility] Last Admin: 01/19/24 01:38 Dose: 975 mg Documented By: SANTA Benzonatate (Benzonatate 100 Mg Capsule) 100 mg PO TID PRN PRN Reason: Cough Last Admin: 01/13/24 09:26 Dose: 100 mg Documented By: ALISSON Bictegravir/Emtricitabine/Tenofovir (Bictegrav/Emtricit/Tenofov Ala Tablet) 1 tab PO DAILY [facility] Last Admin: 01/18/24 08:25 Dose: 1 tab Documented By: ANU Enoxaparin Sodium (Enoxaparin Sodium 40 Mg/0.4 Ml Syringe) 40 mg SUBCUT Q24H [facility] Last Admin: 01/18/24 08:25 Dose: 40 mg Documented By: ANU Furosemide (Furosemide 20 Mg Tablet) 20 mg PO DAILY [facility]; Protocol Last Admin: 01/18/24 08:24 Dose: 20 mg Documented By: ANU Hydromorphone HCl (Hydromorphone Hcl 2 Mg Tablet) 3 mg PO Q4H PRN PRN Reason: Pain, Severe (Pain Scale 7-10) Last Admin: 01/19/24 06:34 Dose: 3 mg Documented By: SANTA Ibuprofen (Ibuprofen 400 Mg Tablet) 400 mg PO TIDWM [facility] Last Admin: 01/18/24 16:33 Dose: 400 mg Documented By: YENNIFER Lidocaine (Lidocaine 4 % Patch Adh..Patch) 1 patch TRANSDERMA DAILY [facility]; Protocol Last Admin: 01/18/24 12:44 Dose: Not Given Documented By: ANU Non-Admin Reason: Patient Refused Metoclopramide HCl (Metoclopramide Hcl 10 Mg/2 Ml Vial) 10 mg IVPUSH Q6H PRN PRN Reason: Nausea and Vomiting Last Admin: 01/18/24 10:38 Dose: 10 mg Documented By: ANU Omeprazole (Omeprazole 40 Mg Capsule.Dr) 40 mg PO BID@0630,1630 [facility] Last Admin: 01/19/24 06:34 Dose: 40 mg Documented By: SANTA Senna/Docusate Sodium (Sennosides/Docusate Sodium Tablet) 1 tab PO BEDTIME [facility] Last Admin: 01/18/24 20:01 Dose: Not Given Documented By: SANTA Non-Admin Reason: Loose BM Sodium Chloride (0.9 % Sodium Chloride Flush 3 Ml Syringe) 3 ml IVFLUSH QSHIFT [facility] Last Admin: 01/18/24 20:02 Dose: 3 ml Documented By: SANTA Sodium Chloride (Sodium Chloride 0.65 % Nasal 44 Ml Sprbtl) 1 spray NOSTRIL-B Q1H PRN PRN Reason: nasal dryness Last Admin: 12/26/23 11:10 Dose: 1 spray Documented By: MAXIMO Trimethoprim/Sulfamethoxazole (Sulfamethox/Trimeth 800/160 Tablet) 1 tab PO MoWeFr [facility] Last Admin: 01/18/24 15:08 Dose: 1 tab Documented By: ANU Labs 01/17/24 06:42 01/17/24 06:42 Assessment and Plan (1) Pneumothorax: Status: Acute (2) Pulmonary fibrosis: Status: Acute (3) Pulmonary edema: Status: Acute (4) PCP (pneumocystis jiroveci pneumonia): Status: Acute (5) Acute hypoxemic respiratory failure: Status: Acute Plan 43M PMH HIV - non compliant, unspecified compensated liver cirrhosis, presented 12/09/23 with sob, found to have acute hypoxic respiratory failure due to pneumocystitis pneumonia, pulm edema, transferred to icu 12/19/23, after treatement with bactrim, azitrho, diuresis, patient o2 requirements improved, downgraded to imc 01/02/24, course then complicated by pneumothorax, chest tube placed 01/13/24. sepsis, acute hypoxic respiratory failure due to pneumocystis pneumonia in HIV/aids complicated by left pneumothorax completed iv bactrim course continue bactrim and azitrho prophylaxis along with biktarvy Finished pulse Solumedrol high dose for 3 days transitioned off high flow chest tube placed 01/13/24, repeat cxr initially much improved, cxr 01/19/24 with recurrence of pneumothorax thoracic following weaning o2, now on 3L NC subacute inflammatory anemia transfused 2 units prbc total monitor hgb, currently stable moderate protein calorie malnutrition off tpn, encourage po intake acute hfpef improved changed to oral maintenance dvt prophylaxis - lovenox full code reason for continued hospitalization: still with pneumothorax on cxr Quality Stroke Does the patient have a stroke diagnosis?: No VTE Prior VTE?: No VTE Risk Level:: Medical - moderate - high VTE Device Contraindication: Treatment Not Indicated VTE Drug Contraindication: N/A - Med Ordered
[2024-01-19] MEDS: Furosemide 20 MG TABLET PO (08:34)
[2024-01-19] MEDS: Bictegrav/Emtricit/Tenofov Ala TABLET 1 TAB PO (08:34)
[2024-01-19] MEDS: Ibuprofen 400 MG TABLET PO ×3 (08:34→16:38)
[2024-01-19] MEDS: Enoxaparin Sodium 40 MG/0.4 ML SYRINGE SUBCUT (08:34)
[2024-01-19] MEDS: 0.9 % Sodium Chloride Flush 3 ML SYRINGE IVFLUSH ×3 (08:35→22:42)
[2024-01-19 10:52] VITALS: BP 110/68; PULSE 87; RESP 20; TEMP 36.6; O2SAT 95
[2024-01-19] MEDS: LORazepam 0.5 MG TABLET PO ×2 (11:44→20:44)
--- NOTE | 2024-01-19 12:37 | MHC.CM.PN ---
EMR reviewed and per MD rounds, pt is not medically cleared for D/C due to chest x-ray showing pneumothorax today, chest tube is in place and pt is on supplemental O2 via NC. CM will continue to follow.
[2024-01-19 15:24] VITALS: BP 120/67; PULSE 88; RESP 18; TEMP 36.6; O2SAT 94
[2024-01-19 19:43] VITALS: BP 123/81; PULSE 87; RESP 16; TEMP 36.8; O2SAT 92
[2024-01-20] MEDS: Acetaminophen 325 MG TABLET 975 MG PO ×3 (02:52→15:58)
[2024-01-20] MEDS: HYDROmorphone HCl 2 MG TABLET 3 MG PO ×4 (02:53→18:39)
[2024-01-20 02:58] VITALS: BP 115/69; PULSE 85; RESP 20; TEMP 36.6; O2SAT 93
[2024-01-20 06:00] VITALS: BMI 23.3
[2024-01-20] MEDS: Omeprazole 40 MG CAPSULE.DR PO ×2 (06:39→15:58)
[2024-01-20] MEDS: LORazepam 0.5 MG TABLET PO ×2 (06:39→17:23)
[2024-01-20 07:41] VITALS: BP 102/59; PULSE 84; RESP 18; TEMP 36.4; O2SAT 99
[2024-01-20] MEDS: Furosemide 20 MG TABLET PO (09:22)
[2024-01-20] MEDS: Ibuprofen 400 MG TABLET PO ×3 (09:23→17:20)
[2024-01-20] MEDS: Bictegrav/Emtricit/Tenofov Ala TABLET 1 TAB PO (09:23)
[2024-01-20] MEDS: Enoxaparin Sodium 40 MG/0.4 ML SYRINGE SUBCUT (09:23)
[2024-01-20] MEDS: 0.9 % Sodium Chloride Flush 3 ML SYRINGE IVFLUSH ×2 (09:33→16:04)
--- NOTE | 2024-01-20 10:24 | MHC.CLN ---
F/U DIET=REGULAR. INTAKE AT [facility], WITH [id number]%. SHOWS FAVORABLE 13% WEIGHT GAIN SINCE ADMISSION. BMI=23.3 AND IS 95% OF IBW. SUPPLEMENT CHANGED TO ENSURE MAX PROTEIN BID. PROVIDES 300 KCALS, [address] TO FOLLOW UP WEEKLY.
--- NOTE | 2024-01-20 11:51 | HO.PM.IMPN ---
Subjective Subjective Date of Service: 01/20/24 Interval History: Seen and evaluated this morning looks comfortable on 4L NC chest tube placed on left side again repeat CXR no other overnight events Review of Systems Review of Systems: Yes all other systems are reviewed and are negative Physical Exam Vital Signs: Vital Signs: Last Vital Signs Temp 97.6 F 01/20/24 07:41 Pulse 84 01/20/24 07:41 Resp 18 01/20/24 07:41 BP 102/59 L 01/20/24 07:41 Pulse Ox 99 01/20/24 07:41 O2 Del Method Room Air 01/20/24 07:41 O2 Flow Rate 3 01/20/24 07:41 FiO2 45 01/13/24 07:04 Oxygen Flow Rate 15 12/09/23 19:34 BMI result Body Mass Index 23.3 Const: Other: Constitutional : Awake, interactive, not in distress Neck : Normal inspection, Supple Cardiovascular : RRR, no JVP, trace lower extremity edema Respiratory :improved bilateral air entry decreased at the basis, no crackles, no significant wheezes on NC Gastrointestinal: soft, lax, Normal bowel sounds, Non tender Skin : Warm, Dry Neurological : Alert & oriented x3, No focal deficit Objective Data Active Medications Acetaminophen (Acetaminophen 325 Mg Tablet) 975 mg PO QSHIFT [facility] Last Admin: 01/20/24 09:22 Dose: 975 mg Documented By: MARLYN Benzonatate (Benzonatate 100 Mg Capsule) 100 mg PO TID PRN PRN Reason: Cough Last Admin: 01/13/24 09:26 Dose: 100 mg Documented By: ALISSON Bictegravir/Emtricitabine/Tenofovir (Bictegrav/Emtricit/Tenofov Ala Tablet) 1 tab PO DAILY [facility] Last Admin: 01/20/24 09:23 Dose: 1 tab Documented By: MARLYN Enoxaparin Sodium (Enoxaparin Sodium 40 Mg/0.4 Ml Syringe) 40 mg SUBCUT Q24H [facility] Last Admin: 01/20/24 09:23 Dose: 40 mg Documented By: MARLYN Furosemide (Furosemide 20 Mg Tablet) 20 mg PO DAILY [facility]; Protocol Last Admin: 01/20/24 09:22 Dose: 20 mg Documented By: MARLYN Hydromorphone HCl (Hydromorphone Hcl 2 Mg Tablet) 3 mg PO Q4H PRN PRN Reason: Pain, Severe (Pain Scale 7-10) Last Admin: 01/20/24 09:21 Dose: 3 mg Documented By: MARLYN Ibuprofen (Ibuprofen 400 Mg Tablet) 400 mg PO TIDWM [facility] Last Admin: 01/20/24 09:23 Dose: 400 mg Documented By: MARLYN Lidocaine (Lidocaine 4 % Patch Adh..Patch) 1 patch TRANSDERMA DAILY [facility]; Protocol Last Admin: 01/20/24 09:34 Dose: Not Given Documented By: MARLYN Non-Admin Reason: Patient Refused Lorazepam (Lorazepam 0.5 Mg Tablet) 0.5 mg PO Q8H PRN PRN Reason: Anxiety Last Admin: 01/20/24 06:39 Dose: 0.5 mg Documented By: KATERINE Metoclopramide HCl (Metoclopramide Hcl 10 Mg/2 Ml Vial) 10 mg IVPUSH Q6H PRN PRN Reason: Nausea and Vomiting Last Admin: 01/18/24 10:38 Dose: 10 mg Documented By: ANU Omeprazole (Omeprazole 40 Mg Capsule.Dr) 40 mg PO BID@0630,1630 [facility] Last Admin: 01/20/24 06:39 Dose: 40 mg Documented By: KATERINE Senna/Docusate Sodium (Sennosides/Docusate Sodium Tablet) 1 tab PO BEDTIME [facility] Last Admin: 01/19/24 21:00 Dose: Not Given Documented By: SIDRA Non-Admin Reason: Patient Refused Sodium Chloride (0.9 % Sodium Chloride Flush 3 Ml Syringe) 3 ml IVFLUSH QSHIFT [facility] Last Admin: 01/20/24 09:33 Dose: 3 ml Documented By: MARLYN Sodium Chloride (Sodium Chloride 0.65 % Nasal 44 Ml Sprbtl) 1 spray NOSTRIL-B Q1H PRN PRN Reason: nasal dryness Last Admin: 12/26/23 11:10 Dose: 1 spray Documented By: MAXIMO Labs 01/17/24 06:42 01/17/24 06:42 Assessment and Plan (1) Pneumothorax: Status: Acute (2) Acute hypoxemic respiratory failure: Status: Acute (3) AIDS: Status: Acute Plan 43M PMH HIV - non compliant, unspecified compensated liver cirrhosis, presented 12/09/23 with sob, found to have acute hypoxic respiratory failure due to pneumocystitis pneumonia, pulm edema, transferred to icu 12/19/23, after treatement with bactrim, azitrho, diuresis, patient o2 requirements improved, downgraded to imc 01/02/24, course then complicated by pneumothorax, chest tube placed 01/13/24. sepsis, acute hypoxic respiratory failure due to pneumocystis pneumonia in HIV/aids complicated by left pneumothorax completed iv bactrim course. Finished pulse Solumedrol high dose for 3 days continue bactrim and azitrho prophylaxis along with biktarvy transitioned off high flow chest tube placed 01/13/24, repeat cxr initially much improved, cxr 01/19/24 with recurrence of pneumothorax and placement of new chest tube thoracic following weaning o2, now on 3L NC subacute inflammatory anemia transfused 2 units prbc total monitor hgb, currently stable moderate protein calorie malnutrition off tpn, encourage po intake acute hfpef improved changed to oral maintenance dvt prophylaxis - lovenox full code reason for continued hospitalization: still with pneumothorax on cxr pending clinical improvement Quality Stroke Does the patient have a stroke diagnosis?: No VTE Prior VTE?: No VTE Risk Level:: Medical - moderate - high VTE Device Contraindication: Treatment Not Indicated VTE Drug Contraindication: N/A - Med Ordered
--- NOTE | 2024-01-20 12:20 | MHC.CM.PN ---
Addendum entered by Marisol Jenkins 01/20/24 14:12: Discussed D/C plan with pt and his mother, explained that there are no local bed offers. Referral expanded in a state-wide search at this time. Original Note: This CM met with pt to discuss D/C plans, he is looking forward to leaving the hospital potentially soon. This CM explained that we have no local bed offers for [facility] at this time, and we would need to expand on the referral to look further away. The pt requested that this CM call his mother Beatrice to discuss this at about 1pm today. CM will call pts mother Beatrice this afternoon to discuss D/C plans.
--- NOTE | 2024-01-20 12:59 | PM.PNTS ---
Subjective Subjective Date of Service: 01/19/24 Interval history: Chest x-ray this morning demonstrates significant left pneumothorax after patient was on water seal overnight. No significant air leak demonstrated. Physical Exam Vital Signs: Vital Signs: Last Vital Signs Temp 97.6 F 01/20/24 07:41 Pulse 84 01/20/24 07:41 Resp 18 01/20/24 07:41 BP 102/59 L 01/20/24 07:41 Pulse Ox 99 01/20/24 07:41 O2 Del Method Room Air 01/20/24 07:41 O2 Flow Rate 3 01/20/24 07:41 FiO2 45 01/13/24 07:04 Oxygen Flow Rate 15 12/09/23 19:34 BMI result Body Mass Index 23.3 Chest: Other: Chest tube dressing clean dry and intact. Pleur-evac as noted above Procedures Date of Service Date of Service: 01/20/24 Progress Note: A&P Assessment and plan (1) Pneumothorax: Status: Acute (2) Pulmonary fibrosis: Status: Acute (3) PCP (pneumocystis jiroveci pneumonia): Status: Acute Plan Return chest tube to wall suction. A.m. chest x-ray 01/20. Time Spent With Patient Time: Total time managing care of this patient today ____ minutes. Quality Stroke Does the patient have a stroke diagnosis?: No VTE Prior VTE?: No VTE Risk Level:: Medical - moderate - high VTE Device Contraindication: Treatment Not Indicated VTE Drug Contraindication: N/A - Med Ordered
[2024-01-20 13:20] LABS: Adenovirus F 40/41 Not Detected (Not Detect.); Astrovirus Not Detected (Not Detect.); Campylobacter Not Detected (Not Detect.); Cryptosporidium Not Detected (Not Detect.); Cyclospora cayetanensis Not Detected (Not Detect.); E. coli EAEC Not Detected (Not Detect.); E. coli EPEC Not Detected (Not Detect.); E. coli ETEC Not Detected (Not Detect.); E. coli STEC Not Detected (Not Detect.); Entamoeba histolytica Not Detected (Not Detect.); Giardia lamblia Not Detected (Not Detect.); Norovirus GI/GII Not Detected (Not Detect.); Plesiomonas shigelloides Not Detected (Not Detect.); Rotavirus A Not Detected (Not Detect.); Salmonella Not Detected (Not Detect.); Sapovirus Not Detected (Not Detect.); Shigella sp./EIEC Not Detected (Not Detect.); Vibrio Not Detected (Not Detect.); Vibrio Cholerae Not Detected (Not Detect.); Yersinia enterocolitica Not Detected (Not Detect.)
[2024-01-20] MEDS: Sulfamethox/Trimeth 800/160 TABLET 1 TAB PO (13:31)
[2024-01-20] MEDS: Azithromycin 500 MG TABLET 1200 MG PO (13:31)
--- NOTE | 2024-01-20 13:33 | PM.PNTS ---
Subjective Subjective Date of Service: 01/20/24 Interval history: Chest tube placed back to suction yesterday. He reports some improvement in his shortness of breath. Tolerating solid diet. Physical Exam Vital Signs: Vital Signs: Last Vital Signs Temp 97.6 F 01/20/24 07:41 Pulse 84 01/20/24 07:41 Resp 18 01/20/24 07:41 BP 102/59 L 01/20/24 07:41 Pulse Ox 99 01/20/24 07:41 O2 Del Method Room Air 01/20/24 07:41 O2 Flow Rate 3 01/20/24 07:41 FiO2 45 01/13/24 07:04 Oxygen Flow Rate 15 12/09/23 19:34 BMI result Body Mass Index 23.3 Const: General: no acute distress and alert Nutritional Appearance: thin Orientation/consciousness: patient oriented x3 Chest: Other: chest tube in place left anterior chest, dressing intact chest tube with scant output, no air leak Resp: Effort & Inspection: normal respiratory effort, able to speak in complete sentences and no respiratory distress Cardio: Rate: regular rate Neuro: General: patient oriented x3 and moves all extremities Procedures Date of Service Date of Service: 01/20/24 Progress Note: A&P Assessment and plan (1) Pneumothorax: Status: Acute (2) PCP (pneumocystis jiroveci pneumonia): Status: Acute Plan AM CXR shows improvement in the pneumothorax. Cont chest tube to suction, repeat CXR in am 01/21. Continue to wean O2 as tolerated. Time Spent With Patient Time: Total time managing care of this patient today ____ minutes. Quality Stroke Does the patient have a stroke diagnosis?: No VTE Prior VTE?: No VTE Risk Level:: Medical - moderate - high VTE Device Contraindication: Treatment Not Indicated VTE Drug Contraindication: N/A - Med Ordered
[2024-01-20 13:44] VITALS: BP 106/59; PULSE 95; O2SAT 95
--- NOTE | 2024-01-20 13:46 | MHC.CM.PN ---
HCP completed with pt, now on file.
[2024-01-20 15:14] VITALS: BP 111/60; PULSE 72; RESP 18; TEMP 36.3; O2SAT 100
[2024-01-20] MEDS: Loperamide HCl 2 MG CAPSULE PO (18:39)
[2024-01-20 20:00] VITALS: BP 137/77; PULSE 85; RESP 19; TEMP 36.8; O2SAT 95
[2024-01-20 23:47] VITALS: BP 118/63; PULSE 80; RESP 18; TEMP 37; O2SAT 97
[2024-01-21] MEDS: HYDROmorphone HCl 2 MG TABLET 3 MG PO ×5 (00:13→21:32)
[2024-01-21] MEDS: Acetaminophen 325 MG TABLET 975 MG PO ×3 (00:14→17:21)
[2024-01-21] MEDS: LORazepam 0.5 MG TABLET PO ×3 (02:41→20:56)
[2024-01-21 04:00] VITALS: BP 124/67; PULSE 74; RESP 20; TEMP 37.1; O2SAT 98
[2024-01-21 04:50] VITALS: PULSE 70
[2024-01-21 05:51] VITALS: BMI 22.7
[2024-01-21] MEDS: Omeprazole 40 MG CAPSULE.DR PO ×2 (06:09→17:21)
[2024-01-21 07:46] VITALS: BP 102/59; PULSE 72; RESP 15; TEMP 36.7; O2SAT 100
[2024-01-21] MEDS: 0.9 % Sodium Chloride Flush 3 ML SYRINGE IVFLUSH ×2 (08:42→16:50)
[2024-01-21] MEDS: Enoxaparin Sodium 40 MG/0.4 ML SYRINGE SUBCUT (08:43)
[2024-01-21] MEDS: Bictegrav/Emtricit/Tenofov Ala TABLET 1 TAB PO (08:43)
[2024-01-21] MEDS: Furosemide 20 MG TABLET PO (08:43)
[2024-01-21] MEDS: Ibuprofen 400 MG TABLET PO ×3 (08:43→17:21)
[2024-01-21 11:49] VITALS: BP 118/74; PULSE 86; RESP 16; TEMP 36.8; O2SAT 98
--- NOTE | 2024-01-21 12:28 | P.PNIM_ITS ---
Subjective Subjective Date of Service: 01/21/24 Interval History: Seen and evaluated this morning looks comfortable on 4L NC chest tube on left side repeat CXR showing mild improvement no other overnight events Review of Systems Review of Systems: Yes all other systems are reviewed and are negative Physical Exam 2 Vital Signs: Vital Signs: Last Vital Signs Temp 98.2 F 01/21/24 11:49 Pulse 86 01/21/24 11:49 Resp 16 01/21/24 11:49 BP 118/74 01/21/24 11:49 Pulse Ox 98 01/21/24 11:49 O2 Del Method Nasal Cannula 01/21/24 11:49 O2 Flow Rate 4 01/21/24 11:49 FiO2 45 01/13/24 07:04 Oxygen Flow Rate 15 12/09/23 19:34 BMI result Body Mass Index 22.7 Const: Other: Constitutional : Awake, interactive, not in distress Neck : Normal inspection, Supple Cardiovascular : RRR, no JVP, trace lower extremity edema Respiratory :improved bilateral air entry decreased at the basis, no crackles, no significant wheezes on NC, chest tube on left side Gastrointestinal: soft, lax, Normal bowel sounds, Non tender Skin : Warm, Dry Neurological : Alert & oriented x3, No focal deficit Objective Data Active Medications Acetaminophen (Acetaminophen 325 Mg Tablet) 975 mg PO QSHIFT [facility] Last Admin: 01/21/24 08:42 Dose: 975 mg Documented By: AURORA Azithromycin (Azithromycin 500 Mg Tablet) 1,200 mg PO Q7D [facility] Stop: 12/28/24 12:01 Last Admin: 01/20/24 13:31 Dose: 1,200 mg Documented By: MARLYN Benzonatate (Benzonatate 100 Mg Capsule) 100 mg PO TID PRN PRN Reason: Cough Last Admin: 01/13/24 09:26 Dose: 100 mg Documented By: ALISSON Bictegravir/Emtricitabine/Tenofovir (Bictegrav/Emtricit/Tenofov Ala Tablet) 1 tab PO DAILY [facility] Last Admin: 01/21/24 08:43 Dose: 1 tab Documented By: AURORA Enoxaparin Sodium (Enoxaparin Sodium 40 Mg/0.4 Ml Syringe) 40 mg SUBCUT Q24H [facility] Last Admin: 01/21/24 08:43 Dose: 40 mg Documented By: AURORA Furosemide (Furosemide 20 Mg Tablet) 20 mg PO DAILY [facility]; Protocol Last Admin: 01/21/24 08:43 Dose: 20 mg Documented By: AURORA Hydromorphone HCl (Hydromorphone Hcl 2 Mg Tablet) 3 mg PO Q4H PRN PRN Reason: Pain, Severe (Pain Scale 7-10) Last Admin: 01/21/24 10:38 Dose: 3 mg Documented By: AURORA Ibuprofen (Ibuprofen 400 Mg Tablet) 400 mg PO TIDWM [facility] Last Admin: 01/21/24 08:43 Dose: 400 mg Documented By: AURORA Lidocaine (Lidocaine 4 % Patch Adh..Patch) 1 patch TRANSDERMA DAILY [facility]; Protocol Last Admin: 01/21/24 08:54 Dose: Not Given Documented By: AURORA Non-Admin Reason: Patient Refused Loperamide HCl (Loperamide Hcl 2 Mg Capsule) 2 mg PO Q4H PRN PRN Reason: Diarrhea Lorazepam (Lorazepam 0.5 Mg Tablet) 0.5 mg PO Q8H PRN PRN Reason: Anxiety Last Admin: 01/21/24 10:41 Dose: 0.5 mg Documented By: AURORA Metoclopramide HCl (Metoclopramide Hcl 10 Mg/2 Ml Vial) 10 mg IVPUSH Q6H PRN PRN Reason: Nausea and Vomiting Last Admin: 01/18/24 10:38 Dose: 10 mg Documented By: ANU Omeprazole (Omeprazole 40 Mg Capsule.) 40 mg PO BID@0630,1630 [facility] Last Admin: 01/21/24 06:09 Dose: 40 mg Documented By: EFFIE Senna/Docusate Sodium (Sennosides/Docusate Sodium Tablet) 1 tab PO BEDTIME [facility] Last Admin: 01/20/24 20:22 Dose: Not Given Documented By: YENNIFER Non-Admin Reason: loose stools Sodium Chloride (0.9 % Sodium Chloride Flush 3 Ml Syringe) 3 ml IVFLUSH QSHIFT [facility] Last Admin: 01/21/24 08:42 Dose: 3 ml Documented By: AURORA Sodium Chloride (Sodium Chloride 0.65 % Nasal 44 Ml Sprbtl) 1 spray NOSTRIL-B Q1H PRN PRN Reason: nasal dryness Last Admin: 12/26/23 11:10 Dose: 1 spray Documented By: MAXIMO Trimethoprim/Sulfamethoxazole (Sulfamethox/Trimeth 800/160 Tablet) 1 tab PO Q24H [facility] Last Admin: 01/20/24 13:31 Dose: 1 tab Documented By: MARLYN Labs 01/17/24 06:42 01/17/24 06:42 Labs: Laboratory Results - last 24 hr 01/20/24 09:55 Stl C. cayetanensis PCR Not Detected Stool Rotavirus A PCR Not Detected Stl Adenov F 40/41 PCR Not Detected Stool Astrovirus (PCR) Not Detected Stool Campylobacter PCR Not Detected Stool Cryptosporidium PCR Not Detected Stl Sh Tox Pr E STEC PCR Not Detected Stool E coli O157 PCR Not applicable Stl Enterotoxigenic E PCR Not Detected Stool EPEC (PCR) Not Detected Stool EAEC (PCR) Not Detected Stl E. histolytica PCR Not Detected Stool Giardia Lamblia PCR Not Detected Stl P. shigelloides PCR Not Detected Stool Salmonella PCR Not Detected Stool Sapovirus (PCR) Not Detected Stl Shigella/EIEC PCR Not Detected St Y.enterocolitica PCR Not Detected Stool Vibrio (PCR) Not Detected Stl Vibrio cholerae PCR Not Detected Stl Norovirus GI/GII PCR Not Detected Assessment and Plan (1) Pneumothorax: Status: Acute (2) Pulmonary fibrosis: Status: Acute (3) PCP (pneumocystis jiroveci pneumonia): Status: Acute Plan 43M PMH HIV - non compliant, unspecified compensated liver cirrhosis, presented 12/09/23 with sob, found to have acute hypoxic respiratory failure due to pneumocystitis pneumonia, pulm edema, transferred to icu 12/19/23, after treatement with bactrim, azitrho, diuresis, patient o2 requirements improved, downgraded to imc 01/02/24, course then complicated by pneumothorax, chest tube placed 01/13/24. sepsis, acute hypoxic respiratory failure due to pneumocystis pneumonia in HIV/aids complicated by left pneumothorax completed iv bactrim course. Finished pulse Solumedrol high dose for 3 days continue bactrim and azitrho prophylaxis along with biktarvy transitioned off high flow chest tube placed 01/13/24, repeat cxr initially much improved, cxr 01/19/24 with recurrence of pneumothorax while on waterseal, placed back on suction thoracic surgery following; might take long time before we are able to remove the tube, might end up placing a valve weaning o2, now on 3-4L NC subacute inflammatory anemia transfused 2 units prbc total monitor hgb, currently stable moderate protein calorie malnutrition off tpn, encourage po intake acute hfpef improved changed to oral maintenance dvt prophylaxis - lovenox full code reason for continued hospitalization: still with pneumothorax on cxr pending clinical improvement Quality Stroke Does the patient have a stroke diagnosis?: No VTE Prior VTE?: No VTE Risk Level:: Medical - moderate - high VTE Device Contraindication: Treatment Not Indicated VTE Drug Contraindication: N/A - Med Ordered
[2024-01-21] MEDS: Sulfamethox/Trimeth 800/160 TABLET 1 TAB PO (13:19)
[2024-01-21] MEDS: Loperamide HCl 2 MG CAPSULE PO (13:19)
[2024-01-21 15:33] VITALS: BP 119/68; PULSE 79; RESP 20; TEMP 36.6; O2SAT 95
[2024-01-21 20:00] VITALS: BP 117/69; PULSE 74; RESP 19; TEMP 36.7; O2SAT 96
[2024-01-22] MEDS: Acetaminophen 325 MG TABLET 975 MG PO ×3 (01:13→16:29)
[2024-01-22] MEDS: 0.9 % Sodium Chloride Flush 3 ML SYRINGE IVFLUSH ×3 (01:13→23:40)
[2024-01-22 03:42] VITALS: BP 109/65; PULSE 78; RESP 18; TEMP 36.8; O2SAT 96
[2024-01-22] MEDS: HYDROmorphone HCl 2 MG TABLET 3 MG PO ×3 (04:24→20:36)
[2024-01-22] MEDS: Omeprazole 40 MG CAPSULE.DR PO ×2 (06:12→16:29)
[2024-01-22 07:50] VITALS: BP 113/72; PULSE 71; RESP 16; TEMP 36.4; O2SAT 98
[2024-01-22 07:56] VITALS: BMI 22.8
[2024-01-22] MEDS: Furosemide 20 MG TABLET PO (07:58)
[2024-01-22] MEDS: Ibuprofen 400 MG TABLET PO ×3 (07:58→16:29)
[2024-01-22] MEDS: Bictegrav/Emtricit/Tenofov Ala TABLET 1 TAB PO (07:58)
[2024-01-22] MEDS: Loperamide HCl 2 MG CAPSULE PO (07:58)
[2024-01-22] MEDS: LORazepam 0.5 MG TABLET PO ×2 (07:58→20:06)
[2024-01-22] MEDS: Lidocaine 4 % Patch ADH..PATCH 1 PATCH TRANSDERMA (08:00)
--- NOTE | 2024-01-22 08:44 | PM.PNTS ---
Subjective Subjective Date of Service: 01/21/24 Interval history: No new respiratory issues. Chest x-ray demonstrates slight increase in pneumothorax. No obvious air leak. Dressing clean dry and intact Physical Exam Vital Signs: Vital Signs: Last Vital Signs Temp 97.5 F 01/22/24 07:50 Pulse 71 01/22/24 07:50 Resp 16 01/22/24 07:50 BP 113/72 01/22/24 07:50 Pulse Ox 98 01/22/24 07:50 O2 Del Method Oxymask 01/22/24 07:50 O2 Flow Rate 4 01/22/24 07:50 FiO2 45 01/13/24 07:04 Oxygen Flow Rate 15 12/09/23 19:34 BMI result Body Mass Index 22.8 Chest: Other: Chest tube dressing clean dry and intact. No obvious air leak and Pleur-evac Procedures Date of Service Date of Service: 01/22/24 Progress Note: A&P Assessment and plan (1) Pneumothorax: Status: Acute (2) Pulmonary fibrosis: Status: Acute (3) PCP (pneumocystis jiroveci pneumonia): Status: Acute Plan Continue current plan. A.m. chest x-ray, incentive spirometry, out of bed, encourage p.o. as tolerated Time Spent With Patient Time: Total time managing care of this patient today ____ minutes. Quality Stroke Does the patient have a stroke diagnosis?: No VTE Prior VTE?: No VTE Risk Level:: Medical - moderate - high VTE Device Contraindication: Treatment Not Indicated VTE Drug Contraindication: N/A - Med Ordered
--- NOTE | 2024-01-22 08:46 | PM.PNTS ---
Subjective Subjective Date of Service: 01/22/24 Interval history: No respiratory issues. X-ray this morning demonstrates improvement of pneumothorax with chest tube on wall suction. Physical Exam Vital Signs: Vital Signs: Last Vital Signs Temp 97.5 F 01/22/24 07:50 Pulse 71 01/22/24 07:50 Resp 16 01/22/24 07:50 BP 113/72 01/22/24 07:50 Pulse Ox 98 01/22/24 07:50 O2 Del Method Oxymask 01/22/24 07:50 O2 Flow Rate 4 01/22/24 07:50 FiO2 45 01/13/24 07:04 Oxygen Flow Rate 15 12/09/23 19:34 BMI result Body Mass Index 22.8 Chest: Other: Chest tube dressing clean dry and intact. Pleur-evac minimal output. No obvious air leak. Procedures Date of Service Date of Service: 01/22/24 Progress Note: A&P Assessment and plan (1) Pneumothorax: Status: Acute (2) PCP (pneumocystis jiroveci pneumonia): Status: Acute (3) Pulmonary fibrosis: Status: Acute Plan Continue current plan. Incentive spirometry, out of bed, serial x-rays Time Spent With Patient Time: Total time managing care of this patient today ____ minutes. Quality Stroke Does the patient have a stroke diagnosis?: No VTE Prior VTE?: No VTE Risk Level:: Medical - moderate - high VTE Device Contraindication: Treatment Not Indicated VTE Drug Contraindication: N/A - Med Ordered
[2024-01-22] MEDS: Enoxaparin Sodium 40 MG/0.4 ML SYRINGE SUBCUT (11:47)
[2024-01-22] MEDS: Sulfamethox/Trimeth 800/160 TABLET 1 TAB PO (11:47)
[2024-01-22 12:00] VITALS: BP 108/64; PULSE 84; RESP 17; TEMP 37.1; O2SAT 99
--- NOTE | 2024-01-22 12:02 | P.PNIM_ITS ---
Subjective Subjective Date of Service: 01/22/24 Interval History: Seen and evaluated this morning looks comfortable on 4L O2 chest tube on left side repeat CXR showing mild improvement today no other overnight events Review of Systems Review of Systems: Yes all other systems are reviewed and are negative Physical Exam 2 Vital Signs: Vital Signs: Last Vital Signs Temp 97.5 F 01/22/24 07:50 Pulse 71 01/22/24 07:50 Resp 16 01/22/24 07:50 BP 113/72 01/22/24 07:50 Pulse Ox 98 01/22/24 07:50 O2 Del Method Oxymask 01/22/24 07:50 O2 Flow Rate 4 01/22/24 07:50 FiO2 45 01/13/24 07:04 Oxygen Flow Rate 15 12/09/23 19:34 BMI result Body Mass Index 22.8 Const: Other: Constitutional : Awake, interactive, not in distress Neck : Normal inspection, Supple Cardiovascular : RRR, no JVP, trace lower extremity edema Respiratory :improved bilateral air entry decreased at the basis, no crackles, no significant wheezes on NC, chest tube on left side Gastrointestinal: soft, lax, Normal bowel sounds, Non tender Skin : Warm, Dry Neurological : Alert & oriented x3, No focal deficit Objective Data Active Medications Acetaminophen (Acetaminophen 325 Mg Tablet) 975 mg PO QSHIFT [facility] Last Admin: 01/22/24 07:57 Dose: 975 mg Documented By: MAXIMO Azithromycin (Azithromycin 500 Mg Tablet) 1,200 mg PO Q7D [facility] Stop: 12/28/24 12:01 Last Admin: 01/20/24 13:31 Dose: 1,200 mg Documented By: MARLYN Benzonatate (Benzonatate 100 Mg Capsule) 100 mg PO TID PRN PRN Reason: Cough Last Admin: 01/13/24 09:26 Dose: 100 mg Documented By: ALISSON Bictegravir/Emtricitabine/Tenofovir (Bictegrav/Emtricit/Tenofov Ala Tablet) 1 tab PO DAILY [facility] Last Admin: 01/22/24 07:58 Dose: 1 tab Documented By: MAXIMO Enoxaparin Sodium (Enoxaparin Sodium 40 Mg/0.4 Ml Syringe) 40 mg SUBCUT Q24H [facility] Last Admin: 01/22/24 11:47 Dose: 40 mg Documented By: MAXIMO Furosemide (Furosemide 20 Mg Tablet) 20 mg PO DAILY [facility]; Protocol Last Admin: 01/22/24 07:58 Dose: 20 mg Documented By: MAXIMO Hydromorphone HCl (Hydromorphone Hcl 2 Mg Tablet) 3 mg PO Q4H PRN PRN Reason: Pain, Severe (Pain Scale 7-10) Last Admin: 01/22/24 04:24 Dose: 3 mg Documented By: MICHEAL Ibuprofen (Ibuprofen 400 Mg Tablet) 400 mg PO TIDWM [facility] Last Admin: 01/22/24 11:47 Dose: 400 mg Documented By: MAXIMO Lidocaine (Lidocaine 4 % Patch Adh..Patch) 1 patch TRANSDERMA DAILY [facility]; Protocol Last Admin: 01/22/24 08:00 Dose: 1 patch Documented By: MAXIMO Loperamide HCl (Loperamide Hcl 2 Mg Capsule) 2 mg PO Q4H PRN PRN Reason: Diarrhea Last Admin: 01/22/24 07:58 Dose: 2 mg Documented By: MAXIMO Lorazepam (Lorazepam 0.5 Mg Tablet) 0.5 mg PO Q8H PRN PRN Reason: Anxiety Last Admin: 01/22/24 07:58 Dose: 0.5 mg Documented By: MAXIMO Metoclopramide HCl (Metoclopramide Hcl 10 Mg/2 Ml Vial) 10 mg IVPUSH Q6H PRN PRN Reason: Nausea and Vomiting Last Admin: 01/18/24 10:38 Dose: 10 mg Documented By: ANU Omeprazole (Omeprazole 40 Mg Capsule.Dr) 40 mg PO BID@0630,1630 [facility] Last Admin: 01/22/24 06:12 Dose: 40 mg Documented By: MICHEAL Senna/Docusate Sodium (Sennosides/Docusate Sodium Tablet) 1 tab PO BEDTIME [facility] Last Admin: 01/21/24 19:54 Dose: Not Given Documented By: MICHEAL Non-Admin Reason: loose stools Sodium Chloride (0.9 % Sodium Chloride Flush 3 Ml Syringe) 3 ml IVFLUSH QSHIFT [facility] Last Admin: 01/22/24 07:58 Dose: 3 ml Documented By: MAXIMO Sodium Chloride (Sodium Chloride 0.65 % Nasal 44 Ml Sprbtl) 1 spray NOSTRIL-B Q1H PRN PRN Reason: nasal dryness Last Admin: 12/26/23 11:10 Dose: 1 spray Documented By: MAXIMO Trimethoprim/Sulfamethoxazole (Sulfamethox/Trimeth 800/160 Tablet) 1 tab PO Q24H [facility] Last Admin: 01/22/24 11:47 Dose: 1 tab Documented By: MAXIMO Labs 01/17/24 06:42 01/17/24 06:42 Assessment and Plan (1) Pneumothorax: Status: Acute (2) Acute hypoxemic respiratory failure: Status: Acute Plan 43M PMH HIV - non compliant, unspecified compensated liver cirrhosis, presented 12/09/23 with sob, found to have acute hypoxic respiratory failure due to pneumocystitis pneumonia, pulm edema, transferred to icu 12/19/23, after treatement with bactrim, azitrho, diuresis, patient o2 requirements improved, downgraded to imc 01/02/24, course then complicated by pneumothorax, chest tube placed 01/13/24. sepsis, acute hypoxic respiratory failure due to pneumocystis pneumonia in HIV/aids complicated by left pneumothorax completed iv bactrim course. Finished pulse Solumedrol high dose for 3 days continue bactrim and azitrho prophylaxis along with biktarvy chest tube placed 01/13/24, repeat cxr initially much improved, cxr 01/19/24 with recurrence of pneumothorax while on waterseal, placed back on suction thoracic surgery following; might take long time before we are able to remove the tube, might end up placing a valve weaning o2, now on 3-4L O2 Incentive spirometry CXR daily subacute inflammatory anemia transfused 2 units prbc total monitor hgb, currently stable moderate protein calorie malnutrition off tpn, encourage po intake acute hfpef improved changed to oral maintenance dvt prophylaxis - lovenox full code reason for continued hospitalization: still with pneumothorax on cxr pending clinical improvement Quality Stroke Does the patient have a stroke diagnosis?: No VTE Prior VTE?: No VTE Risk Level:: Medical - moderate - high VTE Device Contraindication: Treatment Not Indicated VTE Drug Contraindication: N/A - Med Ordered
--- NOTE | 2024-01-22 13:08 | MHC.CM.PN ---
EMR reviewed and per MD rounds, pt is not medically cleared for D/C du to chest tube in place and awaiting clinical improvement of pneumothorax. Anticipate D/C on Thursday or Thursday. This CM discussed insurance issues with [facility] financial counselor Liyah. Per Liyah she was able to call [facility] and add on a standard plan for him due to medical frailness. With the standard plan he will be eligible for LTC. Standard ID # [id number]. Referrals updated in [facility] with new standard info.
[2024-01-22 16:00] VITALS: BP 122/78; PULSE 76; RESP 17; TEMP 37.2; O2SAT 98
[2024-01-22 20:00] VITALS: BP 126/67; PULSE 69; RESP 20; TEMP 36.8; O2SAT 96
[2024-01-22 23:38] VITALS: BP 109/66; PULSE 72; RESP 20; TEMP 36.7; O2SAT 93
[2024-01-23] VITALS (7 sets, daily range): BP systolic 96–125; BP diastolic 56–72; PULSE 65–77; RESP 20–22; TEMP 36.3–37.1; O2SAT 96–100; BMI 22.8
[2024-01-23] MEDS: HYDROmorphone HCl 2 MG TABLET 3 MG PO ×2 (01:59→08:19)
[2024-01-23] MEDS: Omeprazole 40 MG CAPSULE.DR PO ×2 (05:24→14:59)
[2024-01-23] MEDS: Loperamide HCl 2 MG CAPSULE PO ×3 (05:24→21:03)
[2024-01-23] MEDS: LORazepam 0.5 MG TABLET PO ×3 (05:25→18:30)
[2024-01-23] MEDS: Metoclopramide HCl 10 MG/2 ML VIAL IVPUSH (05:52)
[2024-01-23] MEDS: Furosemide 20 MG TABLET PO (08:20)
[2024-01-23] MEDS: Acetaminophen 325 MG TABLET 975 MG PO ×2 (08:20→14:59)
[2024-01-23] MEDS: Ibuprofen 400 MG TABLET PO ×3 (08:20→18:22)
[2024-01-23] MEDS: Enoxaparin Sodium 40 MG/0.4 ML SYRINGE SUBCUT (08:20)
[2024-01-23] MEDS: 0.9 % Sodium Chloride Flush 3 ML SYRINGE IVFLUSH ×2 (08:21→15:02)
[2024-01-23] MEDS: Bictegrav/Emtricit/Tenofov Ala TABLET 1 TAB PO (08:21)
[2024-01-23] MEDS: Sulfamethox/Trimeth 800/160 TABLET 1 TAB PO (10:48)
--- NOTE | 2024-01-23 11:32 | HO.PM.IMPN ---
Subjective Subjective Date of Service: 01/23/24 Interval History: Seen and evaluated this morning comfortable on 4L O2, mildly anxious chest tube on left side no other overnight events Review of Systems Review of Systems: Yes all other systems are reviewed and are negative Physical Exam Vital Signs: Vital Signs: Last Vital Signs Temp 97.9 F 01/23/24 08:00 Pulse 75 01/23/24 08:00 Resp 20 01/23/24 08:00 BP 109/67 01/23/24 08:00 Pulse Ox 100 01/23/24 08:00 O2 Del Method Oxymask 01/23/24 08:00 O2 Flow Rate 15 01/23/24 08:00 FiO2 45 01/13/24 07:04 Oxygen Flow Rate 15 12/09/23 19:34 BMI result Body Mass Index 22.8 Const: Other: Constitutional : Awake, interactive, not in distress Neck : Normal inspection, Supple Cardiovascular : RRR, no JVP, trace lower extremity edema Respiratory :improved bilateral air entry decreased at the basis, no crackles, no significant wheezes on NC, chest tube on left side Gastrointestinal: soft, lax, Normal bowel sounds, Non tender Skin : Warm, Dry Neurological : Alert & oriented x3, No focal deficit Objective Data Active Medications Acetaminophen (Acetaminophen 325 Mg Tablet) 975 mg PO QSHIFT [facility] Last Admin: 01/23/24 08:20 Dose: 975 mg Documented By: RASHEEDA Azithromycin (Azithromycin 500 Mg Tablet) 1,200 mg PO Q7D [facility] Stop: 12/28/24 12:01 Last Admin: 01/20/24 13:31 Dose: 1,200 mg Documented By: MARLYN Benzonatate (Benzonatate 100 Mg Capsule) 100 mg PO TID PRN PRN Reason: Cough Last Admin: 01/13/24 09:26 Dose: 100 mg Documented By: ALISSON Bictegravir/Emtricitabine/Tenofovir (Bictegrav/Emtricit/Tenofov Ala Tablet) 1 tab PO DAILY [facility] Last Admin: 01/23/24 08:21 Dose: 1 tab Documented By: RASHEEDA Enoxaparin Sodium (Enoxaparin Sodium 40 Mg/0.4 Ml Syringe) 40 mg SUBCUT Q24H [facility] Last Admin: 01/23/24 08:20 Dose: 40 mg Documented By: RASHEEDA Furosemide (Furosemide 20 Mg Tablet) 20 mg PO DAILY [facility]; Protocol Last Admin: 01/23/24 08:20 Dose: 20 mg Documented By: RASHEEDA Ibuprofen (Ibuprofen 400 Mg Tablet) 400 mg PO TIDWM [facility] Last Admin: 01/23/24 10:48 Dose: 400 mg Documented By: RASHEEDA Lidocaine (Lidocaine 4 % Patch Adh..Patch) 1 patch TRANSDERMA DAILY [facility]; Protocol Last Admin: 01/23/24 08:21 Dose: Not Given Documented By: RASHEEDA Non-Admin Reason: Patient Refused Loperamide HCl (Loperamide Hcl 2 Mg Capsule) 2 mg PO Q4H PRN PRN Reason: Diarrhea Last Admin: 01/23/24 05:24 Dose: 2 mg Documented By: JORDAN Lorazepam (Lorazepam 0.5 Mg Tablet) 0.5 mg PO Q8H PRN PRN Reason: Anxiety Last Admin: 01/23/24 05:25 Dose: 0.5 mg Documented By: JORDAN Metoclopramide HCl (Metoclopramide Hcl 10 Mg/2 Ml Vial) 10 mg IVPUSH Q6H PRN PRN Reason: Nausea and Vomiting Last Admin: 01/23/24 05:52 Dose: 10 mg Documented By: JORDAN Omeprazole (Omeprazole 40 Mg Capsule.) 40 mg PO BID@0630,1630 [facility] Last Admin: 01/23/24 05:24 Dose: 40 mg Documented By: JORDAN Senna/Docusate Sodium (Sennosides/Docusate Sodium Tablet) 1 tab PO BEDTIME [facility] Last Admin: 01/22/24 20:08 Dose: Not Given Documented By: SOLEDAD Non-Admin Reason: See Note Sodium Chloride (0.9 % Sodium Chloride Flush 3 Ml Syringe) 3 ml IVFLUSH QSHIFT [facility] Last Admin: 01/23/24 08:21 Dose: 3 ml Documented By: RASHEEDA Sodium Chloride (Sodium Chloride 0.65 % Nasal 44 Ml Sprbtl) 1 spray NOSTRIL-B Q1H PRN PRN Reason: nasal dryness Last Admin: 12/26/23 11:10 Dose: 1 spray Documented By: MAXIMO Trimethoprim/Sulfamethoxazole (Sulfamethox/Trimeth 800/160 Tablet) 1 tab PO Q24H [facility] Last Admin: 01/23/24 10:48 Dose: 1 tab Documented By: RASHEEDA Labs 01/17/24 06:42 01/17/24 06:42 Assessment and Plan (1) Pneumothorax: Status: Acute (2) Anxiety about health: Status: Acute (3) PCP (pneumocystis jiroveci pneumonia): Status: Acute (4) Acute hypoxemic respiratory failure: Status: Acute Plan 43M PMH HIV - non compliant, unspecified compensated liver cirrhosis, presented 12/09/23 with sob, found to have acute hypoxic respiratory failure due to pneumocystitis pneumonia, pulm edema, transferred to icu 12/19/23, after treatement with bactrim, azitrho, diuresis, patient o2 requirements improved, downgraded to imc 01/02/24, course then complicated by pneumothorax, chest tube placed 01/13/24. sepsis, acute hypoxic respiratory failure due to pneumocystis pneumonia in HIV/aids complicated by left pneumothorax completed iv bactrim course. Finished pulse Solumedrol high dose for 3 days On bactrim and azitrho prophylaxis along with biktarvy chest tube placed 01/13/24, repeat cxr initially much improved, cxr 01/19/24 with recurrence of pneumothorax while on waterseal, placed back on suction thoracic surgery following; might take long time before we are able to remove the tube, might end up placing a valve weaning o2, now on 3-4L O2 Incentive spirometry CXR daily subacute inflammatory anemia transfused 2 units prbc total monitor hgb, currently stable moderate protein calorie malnutrition off tpn, encourage po intake acute hfpef improved changed to oral maintenance dvt prophylaxis - lovenox full code reason for continued hospitalization: still with pneumothorax on cxr pending clinical improvement Quality Stroke Does the patient have a stroke diagnosis?: No VTE Prior VTE?: No VTE Risk Level:: Medical - moderate - high VTE Device Contraindication: Treatment Not Indicated VTE Drug Contraindication: N/A - Med Ordered
[2024-01-23] MEDS: HYDROmorphone HCl 2 MG TABLET PO ×2 (14:59→21:02)
[2024-01-24] VITALS (8 sets, daily range): BP systolic 107–155; BP diastolic 60–86; PULSE 64–72; RESP 16–22; TEMP 36.4–37; O2SAT 98–100; BMI 22.5
--- NOTE | 2024-01-24 00:11 | ECG_ITS ---
Test Reason : CP Blood Pressure : / mmHG Vent. Rate : 074 BPM Atrial Rate : 074 BPM P-R Int : 160 ms QRS Dur : 108 ms QT Int : 386 ms P-R-T Axes : 057 -11 051 degrees QTc Int : 428 ms Normal sinus rhythm Possible Left atrial enlargement Incomplete right bundle branch block Borderline ECG When compared with ECG of 24-JAN-2024 00:10, ST no longer depressed in Inferior leads T wave inversion no longer evident in Inferior leads Referred By: Leno Voss Electronically Signed By:DEJAH DUONG MD
[2024-01-24] MEDS: Acetaminophen 325 MG TABLET 975 MG PO ×4 (01:00→23:41)
[2024-01-24] MEDS: 0.9 % Sodium Chloride Flush 3 ML SYRINGE IVFLUSH ×3 (01:02→15:55)
[2024-01-24] MEDS: HYDROmorphone HCl 2 MG TABLET PO ×3 (03:27→20:55)
[2024-01-24] MEDS: LORazepam 0.5 MG TABLET PO ×2 (03:34→16:24)
[2024-01-24] MEDS: Omeprazole 40 MG CAPSULE.DR PO ×2 (06:02→15:53)
[2024-01-24] MEDS: Enoxaparin Sodium 40 MG/0.4 ML SYRINGE SUBCUT (09:17)
[2024-01-24] MEDS: Bictegrav/Emtricit/Tenofov Ala TABLET 1 TAB PO (09:17)
[2024-01-24] MEDS: Loperamide HCl 2 MG CAPSULE PO ×3 (09:17→20:55)
[2024-01-24] MEDS: Ibuprofen 400 MG TABLET PO ×3 (09:17→15:53)
[2024-01-24] MEDS: Furosemide 20 MG TABLET PO (09:17)
[2024-01-24] MEDS: HYDROmorphone HCl 1 MG/ML SYRINGE IVPUSH (10:11)
--- NOTE | 2024-01-24 10:42 | HO.PM.IMPN ---
Subjective Subjective Date of Service: 01/24/24 Interval History: Seen and evaluated this morning comfortable on 4L O2, mildly anxious this morning complaining of pain from chest tube on left side no other overnight events Review of Systems Review of Systems: Yes all other systems are reviewed and are negative Physical Exam Vital Signs: Vital Signs: Last Vital Signs Temp 98.2 F 01/24/24 07:25 Pulse 72 01/24/24 07:25 Resp 19 01/24/24 10:11 BP 107/60 01/24/24 07:25 Pulse Ox 100 01/24/24 07:25 O2 Del Method Nasal Cannula 01/24/24 07:25 O2 Flow Rate 5 01/24/24 07:25 FiO2 45 01/13/24 07:04 Oxygen Flow Rate 15 12/09/23 19:34 BMI result Body Mass Index 22.5 Const: Other: Constitutional : Awake, interactive, not in distress Neck : Normal inspection, Supple Cardiovascular : RRR, no JVP, trace lower extremity edema Respiratory :improved bilateral air entry decreased at the basis, no crackles, no significant wheezes on NC, chest tube on left side Gastrointestinal: soft, lax, Normal bowel sounds, Non tender Skin : Warm, Dry Neurological : Alert & oriented x3, No focal deficit Objective Data Active Medications Acetaminophen (Acetaminophen 325 Mg Tablet) 975 mg PO QSHIFT [facility] Last Admin: 01/24/24 09:17 Dose: 975 mg Documented By: CALVIN Azithromycin (Azithromycin 500 Mg Tablet) 1,200 mg PO Q7D [facility] Stop: 12/28/24 12:01 Last Admin: 01/20/24 13:31 Dose: 1,200 mg Documented By: MARLYN Benzonatate (Benzonatate 100 Mg Capsule) 100 mg PO TID PRN PRN Reason: Cough Last Admin: 01/13/24 09:26 Dose: 100 mg Documented By: ALISSON Bictegravir/Emtricitabine/Tenofovir (Bictegrav/Emtricit/Tenofov Ala Tablet) 1 tab PO DAILY [facility] Last Admin: 01/24/24 09:17 Dose: 1 tab Documented By: CALVIN Enoxaparin Sodium (Enoxaparin Sodium 40 Mg/0.4 Ml Syringe) 40 mg SUBCUT Q24H [facility] Last Admin: 01/24/24 09:17 Dose: 40 mg Documented By: CALVIN Furosemide (Furosemide 20 Mg Tablet) 20 mg PO DAILY [facility]; Protocol Last Admin: 01/24/24 09:17 Dose: 20 mg Documented By: CALVIN Hydromorphone HCl (Hydromorphone Hcl 2 Mg Tablet) 2 mg PO Q6H PRN PRN Reason: Pain, Severe (Pain Scale 7-10) Last Admin: 01/24/24 03:27 Dose: 2 mg Documented By: TEOFILO Ibuprofen (Ibuprofen 400 Mg Tablet) 400 mg PO TIDWM [facility] Last Admin: 01/24/24 09:17 Dose: 400 mg Documented By: CALVIN Lidocaine (Lidocaine 4 % Patch Adh..Patch) 1 patch TRANSDERMA DAILY [facility]; Protocol Last Admin: 01/24/24 09:22 Dose: Not Given Documented By: CALVIN Non-Admin Reason: Patient Refused Loperamide HCl (Loperamide Hcl 2 Mg Capsule) 2 mg PO Q4H PRN PRN Reason: Diarrhea Last Admin: 01/24/24 09:17 Dose: 2 mg Documented By: CALVIN Lorazepam (Lorazepam 0.5 Mg Tablet) 0.5 mg PO Q8H PRN PRN Reason: Anxiety Last Admin: 01/24/24 03:34 Dose: 0.5 mg Documented By: TEOFILO Metoclopramide HCl (Metoclopramide Hcl 10 Mg/2 Ml Vial) 10 mg IVPUSH Q6H PRN PRN Reason: Nausea and Vomiting Last Admin: 01/23/24 05:52 Dose: 10 mg Documented By: JORDAN Omeprazole (Omeprazole 40 Mg Capsule.Dr) 40 mg PO BID@0630,1630 [facility] Last Admin: 01/24/24 06:02 Dose: 40 mg Documented By: TEOFILO Senna/Docusate Sodium (Sennosides/Docusate Sodium Tablet) 1 tab PO BEDTIME [facility] Last Admin: 01/23/24 21:04 Dose: Not Given Documented By: TEOFILO Non-Admin Reason: pt having diarrhea Sodium Chloride (0.9 % Sodium Chloride Flush 3 Ml Syringe) 3 ml IVFLUSH QSHIFT [facility] Last Admin: 01/24/24 09:19 Dose: 3 ml Documented By: CALVIN Sodium Chloride (Sodium Chloride 0.65 % Nasal 44 Ml Sprbtl) 1 spray NOSTRIL-B Q1H PRN PRN Reason: nasal dryness Last Admin: 12/26/23 11:10 Dose: 1 spray Documented By: MAXIMO Trimethoprim/Sulfamethoxazole (Sulfamethox/Trimeth 800/160 Tablet) 1 tab PO Q24H [facility] Last Admin: 01/23/24 10:48 Dose: 1 tab Documented By: DEVANAK Labs 01/17/24 06:42 01/17/24 06:42 Assessment and Plan (1) Pneumothorax: Status: Acute (2) Pulmonary fibrosis: Status: Acute Plan 43M PMH HIV - non compliant, unspecified compensated liver cirrhosis, presented 12/09/23 with sob, found to have acute hypoxic respiratory failure due to pneumocystitis pneumonia, pulm edema, transferred to icu 12/19/23, after treatement with bactrim, azitrho, diuresis, patient o2 requirements improved, downgraded to imc 01/02/24, course then complicated by pneumothorax, chest tube placed 01/13/24. sepsis, acute hypoxic respiratory failure due to pneumocystis pneumonia in HIV/aids complicated by left pneumothorax completed iv bactrim course. Finished pulse Solumedrol high dose for 3 days On bactrim and azitrho prophylaxis along with biktarvy chest tube placed 01/13/24, repeat cxr initially much improved, cxr 01/19/24 with recurrence of pneumothorax while on waterseal, placed back on suction thoracic surgery following; might take long time before we are able to remove the tube, might end up placing a valve weaning o2, now on 3-4L O2 Incentive spirometry CXR showing resolution of the PNX, to discuss with thoracic surgery and place underwater seal subacute inflammatory anemia transfused 2 units prbc total monitor hgb, currently stable moderate protein calorie malnutrition off tpn, encourage po intake acute hfpef improved changed to oral maintenance dvt prophylaxis - lovenox full code reason for continued hospitalization: still with pneumothorax on cxr pending clinical improvement Quality Stroke Does the patient have a stroke diagnosis?: No VTE Prior VTE?: No VTE Risk Level:: Medical - moderate - high VTE Device Contraindication: Treatment Not Indicated VTE Drug Contraindication: N/A - Med Ordered
[2024-01-24] MEDS: Sulfamethox/Trimeth 800/160 TABLET 1 TAB PO (12:45)
--- NOTE | 2024-01-24 13:15 | PM.PNTS ---
Subjective Subjective Date of Service: 01/24/24 Interval history: Patient evaluated with family member present. No acute respiratory symptoms. Chest tube minimal output and no air leak. A.m. chest x-ray demonstrates no significant pneumothorax. Physical Exam Vital Signs: Vital Signs: Last Vital Signs Temp 98.6 F 01/24/24 11:46 Pulse 68 01/24/24 11:46 Resp 18 01/24/24 11:46 BP 144/86 H 01/24/24 11:46 Pulse Ox 100 01/24/24 11:46 O2 Del Method Oxymask 01/24/24 11:46 O2 Flow Rate 5 01/24/24 11:46 FiO2 45 01/13/24 07:04 Oxygen Flow Rate 15 12/09/23 19:34 BMI result Body Mass Index 22.5 Chest: Other: Chest tube dressing clean dry and intact. Pleur-evac as noted above Procedures Date of Service Date of Service: 01/24/24 Progress Note: A&P Assessment and plan (1) Pneumothorax: Status: Acute (2) Pulmonary fibrosis: Status: Acute (3) Pulmonary edema: Status: Acute (4) PCP (pneumocystis jiroveci pneumonia): Status: Acute Plan Continue chest tube to wall suction. If x-ray looks good tomorrow, consider pleurodesis/sclerosis Time Spent With Patient Time: Total time managing care of this patient today ____ minutes. Quality Stroke Does the patient have a stroke diagnosis?: No VTE Prior VTE?: No VTE Risk Level:: Medical - moderate - high VTE Device Contraindication: Treatment Not Indicated VTE Drug Contraindication: N/A - Med Ordered
[2024-01-24] MEDS: HYDROmorphone HCl 2 MG TABLET 1 MG PO (16:24)
[2024-01-25] VITALS (14 sets, daily range): BP systolic 111–120; BP diastolic 66–75; PULSE 67–90; RESP 17–23; TEMP 36.1–37.1; O2SAT 98–100; BMI 22.7
[2024-01-25] MEDS: LORazepam 0.5 MG TABLET PO ×3 (02:39→12:45)
[2024-01-25] MEDS: HYDROmorphone HCl 2 MG TABLET PO ×2 (06:21→13:26)
[2024-01-25] MEDS: Omeprazole 40 MG CAPSULE.DR PO ×2 (06:21→16:54)
[2024-01-25] MEDS: Loperamide HCl 2 MG CAPSULE PO (06:21)
[2024-01-25 08:18] LABS: Hematocrit 28.2 % (42.0-52.0); Hemoglobin 9.7 g/dl (14.0-18.0); Mean Corpuscular HGB Conc 34.4 g/dl (31.0-36.0); Mean Corpuscular Hemoglobin 31.2 pg (27.0-33.0); Mean Corpuscular Volume 90.7 fL (80.0-98.0); Mean Platelet Volume 9.9 fL (9.4-12.4); Platelet Count 218 X10*3/uL (160-400); Red Blood Count 3.11 X10*6/uL (4.60-5.80); Red Cell Distribution Width 16.3 % (11.0-16.0); White Blood Count 6.6 X10*3/uL (4.8-10.8)
[2024-01-25] MEDS: Enoxaparin Sodium 40 MG/0.4 ML SYRINGE SUBCUT (08:27)
[2024-01-25] MEDS: Ibuprofen 400 MG TABLET PO ×3 (08:28→16:54)
[2024-01-25] MEDS: Acetaminophen 325 MG TABLET 975 MG PO ×2 (08:28→16:53)
[2024-01-25] MEDS: Bictegrav/Emtricit/Tenofov Ala TABLET 1 TAB PO (08:28)
[2024-01-25] MEDS: 0.9 % Sodium Chloride Flush 3 ML SYRINGE IVFLUSH ×3 (08:28→23:10)
[2024-01-25] MEDS: Furosemide 20 MG TABLET PO (08:28)
[2024-01-25 08:34] LABS: Anion Gap 10 (12-20); Blood Urea Nitrogen 10 mg/dL (9-16); Carbon Dioxide 27 mmol/L (22-29); Chloride 104 mmol/L (96-108); Creatinine Clr Calc Pharmacy 157.3; Estimated Glomerular Filt Rate > 60; Glucose Random 96 mg/dL (60-115); Potassium 3.7 mmol/L (3.3-5.1); Sodium 137 mmol/L (135-145)
--- NOTE | 2024-01-25 10:38 | MHC.CM.PN ---
Per ROUNDS discussion, Patient has a chest Tube and is not yet medically cleared for dc. PT is recommending STR and CM will continue to follow.
--- NOTE | 2024-01-25 11:32 | HO.PM.IMPN ---
Subjective Subjective Date of Service: 01/25/24 Interval History: Seen and evaluated this morning comfortable on 4L O2, less anxious complaining of pain from chest tube on left side no other overnight events Review of Systems Review of Systems: Yes all other systems are reviewed and are negative Physical Exam Vital Signs: Vital Signs: Last Vital Signs Temp 98.4 F 01/25/24 11:05 Pulse 76 01/25/24 11:05 Resp 20 01/25/24 07:56 BP 112/73 01/25/24 11:05 Pulse Ox 100 01/25/24 11:05 O2 Del Method Oxymask 01/25/24 11:05 O2 Flow Rate 5 01/25/24 11:05 FiO2 30 01/25/24 03:08 Oxygen Flow Rate 15 12/09/23 19:34 BMI result Body Mass Index 22.7 Const: Other: Constitutional : Awake, interactive, not in distress Neck : Normal inspection, Supple Cardiovascular : RRR, no JVP, trace lower extremity edema Respiratory :improved bilateral air entry decreased at the basis, no crackles, no significant wheezes on NC, chest tube on left side Gastrointestinal: soft, lax, Normal bowel sounds, Non tender Skin : Warm, Dry Neurological : Alert & oriented x3, No focal deficit Objective Data Active Medications Acetaminophen (Acetaminophen 325 Mg Tablet) 975 mg PO QSHIFT [facility] Last Admin: 01/25/24 08:28 Dose: 975 mg Documented By: RASHEEDA Azithromycin (Azithromycin 500 Mg Tablet) 1,200 mg PO Q7D [facility] Stop: 12/28/24 12:01 Last Admin: 01/20/24 13:31 Dose: 1,200 mg Documented By: MARLYN Benzonatate (Benzonatate 100 Mg Capsule) 100 mg PO TID PRN PRN Reason: Cough Last Admin: 01/13/24 09:26 Dose: 100 mg Documented By: ALISSON Bictegravir/Emtricitabine/Tenofovir (Bictegrav/Emtricit/Tenofov Ala Tablet) 1 tab PO DAILY [facility] Last Admin: 01/25/24 08:28 Dose: 1 tab Documented By: RASHEEDA Enoxaparin Sodium (Enoxaparin Sodium 40 Mg/0.4 Ml Syringe) 40 mg SUBCUT Q24H [facility] Last Admin: 01/25/24 08:27 Dose: 40 mg Documented By: RASHEEDA Furosemide (Furosemide 20 Mg Tablet) 20 mg PO DAILY [facility]; Protocol Last Admin: 01/25/24 08:28 Dose: 20 mg Documented By: RASHEEDA Hydromorphone HCl (Hydromorphone Hcl 2 Mg Tablet) 2 mg PO Q6H PRN PRN Reason: Pain, Severe (Pain Scale 7-10) Last Admin: 01/25/24 06:21 Dose: 2 mg Documented By: EFFIE Ibuprofen (Ibuprofen 400 Mg Tablet) 400 mg PO TIDWM [facility] Last Admin: 01/25/24 08:28 Dose: 400 mg Documented By: RASHEEDA Lidocaine (Lidocaine 4 % Patch Adh..Patch) 1 patch TRANSDERMA DAILY [facility]; Protocol Last Admin: 01/25/24 08:22 Dose: Not Given Documented By: RASHEEDA Non-Admin Reason: Patient Refused Loperamide HCl (Loperamide Hcl 2 Mg Capsule) 2 mg PO Q4H PRN PRN Reason: Diarrhea Last Admin: 01/25/24 06:21 Dose: 2 mg Documented By: EFFIE Lorazepam (Lorazepam 0.5 Mg Tablet) 0.5 mg PO Q4H PRN PRN Reason: Anxiety Last Admin: 01/25/24 08:28 Dose: 0.5 mg Documented By: RASHEEDA Metoclopramide HCl (Metoclopramide Hcl 10 Mg/2 Ml Vial) 10 mg IVPUSH Q6H PRN PRN Reason: Nausea and Vomiting Last Admin: 01/23/24 05:52 Dose: 10 mg Documented By: JORDAN Omeprazole (Omeprazole 40 Mg Marquez.) 40 mg PO BID@0630,1630 [facility] Last Admin: 01/25/24 06:21 Dose: 40 mg Documented By: EFFIE Senna/Docusate Sodium (Sennosides/Docusate Sodium Tablet) 1 tab PO BEDTIME [facility] Last Admin: 01/24/24 20:58 Dose: Not Given Documented By: EFFIE Non-Admin Reason: loose stools Sodium Chloride (0.9 % Sodium Chloride Flush 3 Ml Syringe) 3 ml IVFLUSH QSHIFT [facility] Last Admin: 01/25/24 08:28 Dose: 3 ml Documented By: RASHEEDA Sodium Chloride (Sodium Chloride 0.65 % Nasal 44 Ml Sprbtl) 1 spray NOSTRIL-B Q1H PRN PRN Reason: nasal dryness Last Admin: 12/26/23 11:10 Dose: 1 spray Documented By: MAXIMO Trimethoprim/Sulfamethoxazole (Sulfamethox/Trimeth 800/160 Tablet) 1 tab PO Q24H [facility] Last Admin: 01/24/24 12:45 Dose: 1 tab Documented By: RASHEEDA Labs 01/25/24 07:16 01/25/24 07:16 Labs: Laboratory Results - last 24 hr 01/25/24 07:16 MCV 90.7 MCH 31.2 MCHC 34.4 RDW 16.3 H Plt Count 218 MPV 9.9 Absolute Nucleated RBC 0.000 Nucleated RBC % (auto) 0.0 Anion Gap 10 L Estim Creat Clear Calc 157.3 Estimated GFR > 60 Random Glucose 96 Calcium 9.0 Assessment and Plan (1) Pneumothorax: Status: Acute (2) Pulmonary fibrosis: Status: Acute (3) PCP (pneumocystis jiroveci pneumonia): Status: Acute Plan 43M PMH HIV - non compliant, unspecified compensated liver cirrhosis, presented 12/09/23 with sob, found to have acute hypoxic respiratory failure due to pneumocystitis pneumonia, pulm edema, transferred to icu 12/19/23, after treatement with bactrim, azitrho, diuresis, patient o2 requirements improved, downgraded to imc 01/02/24, course then complicated by pneumothorax, chest tube placed 01/13/24. sepsis, acute hypoxic respiratory failure due to pneumocystis pneumonia in HIV/aids complicated by left pneumothorax completed iv bactrim course. Finished pulse Solumedrol high dose for 3 days On bactrim and azitrho prophylaxis along with biktarvy chest tube placed 01/13/24, repeat cxr initially much improved, cxr 01/19/24 with recurrence of pneumothorax while on waterseal, placed back on suction weaning o2, now on 3-4L O2 Incentive spirometry CXR showing resolution of the PNX, to discuss with thoracic surgery and place underwater seal thoracic surgery following; considering pleurdesis if CXR stable subacute inflammatory anemia transfused 2 units prbc total monitor hgb, currently stable moderate protein calorie malnutrition off tpn, encourage po intake acute hfpef improved changed to oral maintenance dvt prophylaxis - lovenox full code reason for continued hospitalization: still with pneumothorax on chest tube pending clinical improvement Quality Stroke Does the patient have a stroke diagnosis?: No VTE Prior VTE?: No VTE Risk Level:: Medical - moderate - high VTE Device Contraindication: Treatment Not Indicated VTE Drug Contraindication: N/A - Med Ordered
[2024-01-25] MEDS: Sulfamethox/Trimeth 800/160 TABLET 1 TAB PO (11:41)
[2024-01-25] MEDS: HYDROmorphone HCl 0.5 MG/0.5 ML SYRINGE IVPUSH ×5 (11:52→23:10)
[2024-01-25] MEDS: Doxycycline Hyclate 400 MG in Syringe 60 ML 60 MG INTRAPLEUR (12:22)
[2024-01-25] MEDS: Lidocaine HCl 1 % MPF 30 ML VIAL INTRAPLEUR (12:23)
--- NOTE | 2024-01-25 12:35 | PM.PNTS ---
Subjective Subjective Date of Service: 01/25/24 <Tereza Leary PA-C - Last Filed: 01/25/24 12:42> 01/25/24 <Grey Gaona MD - Last Filed: 01/25/24 17:24> Interval history: No new complaints. <Tereza Leary PA-C - Last Filed: 01/25/24 12:42> Physical Exam Vital Signs: Vital Signs: Last Vital Signs Temp 98.4 F 01/25/24 11:05 Pulse 76 01/25/24 11:05 Resp 17 01/25/24 12:24 BP 112/73 01/25/24 11:05 Pulse Ox 100 01/25/24 11:05 O2 Del Method Oxymask 01/25/24 11:05 O2 Flow Rate 5 01/25/24 11:05 FiO2 30 01/25/24 03:08 Oxygen Flow Rate 15 12/09/23 19:34 BMI result Body Mass Index 22.7 <Tereza Leary PA-C - Last Filed: 01/25/24 12:42> Const: General: comfortable and no acute distress <Tereza Leary PA-C - Last Filed: 01/25/24 12:42> Orientation/consciousness: patient oriented x3 <Tereza Leary PA-C - Last Filed: 01/25/24 12:42> Chest: Other: chest tube in place left anterior chest, dressing c/d/i no air leak <Tereza Leary PA-C - Last Filed: 01/25/24 12:42> Resp: Effort & Inspection: normal respiratory effort and respiratory distress <Tereza Leary PA-C - Last Filed: 01/25/24 12:42> Skin: General skin exam: no rashes or lesions noted <NATY Francois Last Filed: 01/25/24 12:42> Neuro: General: patient oriented x3 and moves all extremities <NATY Francois Last Filed: 01/25/24 12:42> Procedures Date of Service Date of Service: 01/25/24 <Tereza Leary PA-C - Last Filed: 01/25/24 12:42> 01/25/24 <Grey Gaona MD - Last Filed: 01/25/24 17:24> Progress Note: A&P Assessment and plan (1) Pneumothorax: Status: Acute <Tereza Leary PA-C - Last Filed: 01/25/24 12:42> (2) Pulmonary fibrosis: Status: Acute <Tereza Leary PA-C - Last Filed: 01/25/24 12:42> (3) Pulmonary edema: Status: Acute <Tereza Leary PA-C - Last Filed: 01/25/24 12:42> (4) PCP (pneumocystis jiroveci pneumonia): Status: Acute <Tereza Leary PA-C - Last Filed: 01/25/24 12:42> (5) Acute hypoxemic respiratory failure: Status: Acute <Tereza Leary PA-C - Last Filed: 01/25/24 12:42> Assessment and Plan: No pneumo on this AM CXR, no air leak. Pleurodesis therefore performed today at bedside with 30cc 1% lidocaine followed by 60cc doxycycline. Chest tube clamped for 1hr. Patient tolerated well. Cont chest tube to suction for today, assess output and f/u CXR tomorrow. Possible water seal tomorrow if continues to be improved. <Tereza Leary PA-C - Last Filed: 01/25/24 12:42> Time Spent With Patient Time: Total time managing care of this patient today ____ minutes. <Tereza Leary PA-C - Last Filed: 01/25/24 12:42> Quality Stroke Does the patient have a stroke diagnosis?: No <Tereza Leary PA-C - Last Filed: 01/25/24 12:42> VTE Prior VTE?: No <Tereza Leary PA-C - Last Filed: 01/25/24 12:42> VTE Risk Level:: Medical - moderate - high <Tereza Leary PA-C - Last Filed: 01/25/24 12:42> VTE Device Contraindication: Treatment Not Indicated <Tereza Leary PA-C - Last Filed: 01/25/24 12:42> VTE Drug Contraindication: N/A - Med Ordered <Tereza Leary PA-C - Last Filed: 01/25/24 12:42>
[2024-01-25] MEDS: Acetaminophen 1,000 MG/100 ML PIGGYBACK 400 MG IV (12:45)
[2024-01-25] MEDS: LORazepam 2 MG/ML VIAL 0.5 MG IVPUSH (13:46)
--- NOTE | 2024-01-25 15:33 | P.PNPL_ITS ---
Subjective Subjective Date of Service: 01/25/24 Principal diagnosis: AIDS, PCP Interval history: Status post bedside pleurodesis for recurrent left-sided pneumothorax. FiO2 requirements improving. Objective Data Labs 01/25/24 07:16 01/25/24 07:16 Labs: Laboratory Results - last 24 hr 01/25/24 07:16 WBC 6.6 RBC 3.11 L Hgb 9.7 L Hct 28.2 L MCV 90.7 MCH 31.2 MCHC 34.4 RDW 16.3 H Plt Count 218 MPV 9.9 Absolute Nucleated RBC 0.000 Nucleated RBC % (auto) 0.0 Sodium 137 Potassium 3.7 Chloride 104 Carbon Dioxide 27 Anion Gap 10 L BUN 10 Creatinine 0.69 Estim Creat Clear Calc 157.3 Estimated GFR > 60 Random Glucose 96 Calcium 9.0 Microbiology Microbiology Results: Microbiology 12/10/23 14:48 Sputum - Expectorated Direct Acid Fast Bacilli Smear - Final 12/10/23 14:29 Sputum - Expectorated Direct Acid Fast Bacilli Smear - Final 12/10/23 10:10 Sputum - Expectorated Direct Acid Fast Bacilli Smear - Final 12/10/23 02:04 Blood - Venous Blood Culture - Final No growth after 5 days. 12/10/23 02:04 Blood - Venous Blood Culture - Final No growth after 5 days. 12/09/23 20:11 Blood - Venous Blood Culture - Final No growth after 5 days. 12/09/23 19:51 Blood - Venous Blood Culture - Final No growth after 5 days. 12/10/23 10:10 Sputum - Expectorated Gram Stain - Final 12/10/23 10:10 Sputum - Expectorated Sputum Culture - Final Physical Exam 2 Vital Signs: Vital Signs: Last Vital Signs Temp 98.4 F 01/25/24 11:05 Pulse 76 01/25/24 11:05 Resp 18 01/25/24 14:26 BP 112/73 01/25/24 11:05 Pulse Ox 100 01/25/24 11:05 O2 Del Method Oxymask 01/25/24 11:05 O2 Flow Rate 5 01/25/24 11:05 FiO2 30 01/25/24 03:08 Oxygen Flow Rate 15 12/09/23 19:34 BMI result Body Mass Index 22.7 Const: General: no acute distress, alert and awake Eyes: Sclerae: sclerae normal EOM: EOMs intact bilaterally Neck: Neck: Yes no lymphadenopathy, Yes trachea midline and Yes supple Resp: Effort & Inspection: normal respiratory effort and no respiratory distress Auscultation: clear to auscultation bilaterally Cardio: Rate: regular rate Rhythm: regular rhythm Heart sounds: no gallops, no murmurs and no rubs GI: Palpation (GI): Soft to palpation and Other GI palpation findings present ( Nontender) Auscultation: normal bowel sounds Extrem: General: Yes no pedal edema, No clubbing and No cyanosis Procedures Date of Service Date of Service: 01/25/24 Assessment and Plan Assessment and plan (1) Pneumothorax: Problem details: He is improving Status: Acute (2) Acute hypoxemic respiratory failure: Status: Acute (3) Pulmonary fibrosis: Status: Acute Plan Impression: 43-year-old gentleman with underlying AIDS admitted with acute hypoxic respiratory failure with PCP pneumonia, complicated by recurrent pulmonary edema, early fibrosis, and left-sided pneumothorax. Patient with good response to high-dose steroid pulse, now tapered off. Also, now status post left-sided pleurodesis at the bedside. FiO2 requirements improving. Recommendations: Continue to titrate off supplemental oxygen as tolerated. Continue to maintain euvolemia. Follow-up CT chest in a.m. Time Spent With Patient Time: Total time managing care of this patient today ____ minutes. Progress Note: Quality Stroke Does the patient have a stroke diagnosis?: No
--- NOTE | 2024-01-25 17:39 | PC.NURSE ---
1230- Thoracic PA Tereza Leary in room to do Pleurodesis at bedside. PA instilled Lidocaine and then Doxycycline into left anterior Chest Tube site then clamped chest tube tubing (ordered to clamp for 1 hour total). Pt c/o significant pain throughout duration when medication has to instill, trembling/ writhing/ Anxious. See all pain medication orders/ changes in computer done by Tereza Leary. Pt states this is the worst pain he has ever experienced. Pt could no longer tolerate it as of 1314 and message sent to Mckayla DORANTES who ordered to unclamp chest tube at this time. Pt slowly feeling relief of intense pain. Chest CT ordered to be done this afternoon. O2 sats maintained 95-100% throughout duration of pleurodesis and thereafter. Will continue to monitor closely.
[2024-01-26] MEDS: Acetaminophen 325 MG TABLET 975 MG PO ×2 (00:41→09:00)
[2024-01-26] MEDS: HYDROmorphone HCl 2 MG TABLET PO (00:46)
[2024-01-26] MEDS: HYDROmorphone HCl 0.5 MG/0.5 ML SYRINGE IVPUSH ×6 (02:19→21:32)
[2024-01-26 02:55] VITALS: BP 110/79; PULSE 88; RESP 19; TEMP 37.2; O2SAT 97
[2024-01-26] MEDS: Omeprazole 40 MG CAPSULE.DR PO ×2 (05:42→15:49)
[2024-01-26 06:00] VITALS: BMI 23.7
[2024-01-26] MEDS: Metoclopramide HCl 10 MG/2 ML VIAL IVPUSH (07:27)
[2024-01-26 07:40] VITALS: BP 130/78; PULSE 94; RESP 16; TEMP 37; O2SAT 99
[2024-01-26] MEDS: Ibuprofen 400 MG TABLET PO ×3 (09:00→18:19)
[2024-01-26] MEDS: Loperamide HCl 2 MG CAPSULE PO (09:01)
[2024-01-26] MEDS: Furosemide 20 MG TABLET PO (09:01)
[2024-01-26] MEDS: Cyclobenzaprine HCl 10 MG TABLET PO (09:01)
[2024-01-26] MEDS: LORazepam 0.5 MG TABLET PO ×2 (09:01→14:06)
[2024-01-26] MEDS: Bictegrav/Emtricit/Tenofov Ala TABLET 1 TAB PO (09:02)
[2024-01-26] MEDS: Enoxaparin Sodium 40 MG/0.4 ML SYRINGE SUBCUT (09:02)
[2024-01-26] MEDS: Ketorolac Tromethamine 30 MG/ML VIAL IVPUSH (09:02)
[2024-01-26] MEDS: 0.9 % Sodium Chloride Flush 3 ML SYRINGE IVFLUSH ×2 (09:02→14:06)
--- NOTE | 2024-01-26 09:49 | P.PNIM_ITS ---
Subjective Subjective Date of Service: 01/26/24 Interval History: Seen and evaluated this morning comfortable on 4-5L O2, less anxious complaining of pain from chest tube on left side CXR showing resolution of Pneumothorax no other overnight events Physical Exam 2 Vital Signs: Vital Signs: Last Vital Signs Temp 98.6 F 01/26/24 07:40 Pulse 94 01/26/24 07:40 Resp 16 01/26/24 07:40 BP 130/78 01/26/24 07:40 Pulse Ox 99 01/26/24 07:40 O2 Del Method Oxymask 01/26/24 07:40 O2 Flow Rate 5 01/26/24 07:40 FiO2 30 01/25/24 03:08 Oxygen Flow Rate 15 12/09/23 19:34 BMI result Body Mass Index 23.7 Const: Other: Constitutional : Awake, interactive, not in distress Neck : Normal inspection, Supple Cardiovascular : RRR, no JVP, trace lower extremity edema Respiratory :improved bilateral air entry decreased at the basis, no crackles, no significant wheezes on NC, chest tube on left side Gastrointestinal: soft, lax, Normal bowel sounds, Non tender Skin : Warm, Dry Neurological : Alert & oriented x3, No focal deficit Objective Data Active Medications Acetaminophen (Acetaminophen 325 Mg Tablet) 975 mg PO QSHIFT [facility] Last Admin: 01/26/24 09:00 Dose: 975 mg Documented By: RASHEEDA Azithromycin (Azithromycin 500 Mg Tablet) 1,200 mg PO Q7D [facility] Stop: 12/28/24 12:01 Last Admin: 01/20/24 13:31 Dose: 1,200 mg Documented By: MARLYN Benzonatate (Benzonatate 100 Mg Capsule) 100 mg PO TID PRN PRN Reason: Cough Last Admin: 01/13/24 09:26 Dose: 100 mg Documented By: ALISSON Bictegravir/Emtricitabine/Tenofovir (Bictegrav/Emtricit/Tenofov Ala Tablet) 1 tab PO DAILY [facility] Last Admin: 01/26/24 09:02 Dose: 1 tab Documented By: RASHEEDA Enoxaparin Sodium (Enoxaparin Sodium 40 Mg/0.4 Ml Syringe) 40 mg SUBCUT Q24H [facility] Last Admin: 01/26/24 09:02 Dose: 40 mg Documented By: RASHEEDA Furosemide (Furosemide 20 Mg Tablet) 20 mg PO DAILY [facility]; Protocol Last Admin: 01/26/24 09:01 Dose: 20 mg Documented By: RASHEEDA Hydromorphone HCl (Hydromorphone Hcl 2 Mg Tablet) 2 mg PO Q6H PRN PRN Reason: Pain, Severe (Pain Scale 7-10) Last Admin: 01/26/24 00:46 Dose: 2 mg Documented By: BROHiro Hydromorphone HCl (Hydromorphone Hcl 0.5 Mg/0.5 Ml Syringe) 0.5 mg IVPUSH Q3H PRN; Protocol PRN Reason: Pain, Severe (Pain Scale 7-10) Last Admin: 01/26/24 07:26 Dose: 0.5 mg Documented By: JACQUELIN Comments: early administration approved by MD Lombardo Ibuprofen (Ibuprofen 400 Mg Tablet) 400 mg PO TIDWM [facility] Last Admin: 01/26/24 09:00 Dose: 400 mg Documented By: RASHEEDA Lidocaine (Lidocaine 4 % Patch Adh..Patch) 1 patch TRANSDERMA DAILY [facility]; Protocol Last Admin: 01/26/24 08:55 Dose: Not Given Documented By: RASHEEDA Non-Admin Reason: Patient Refused Loperamide HCl (Loperamide Hcl 2 Mg Capsule) 2 mg PO Q4H PRN PRN Reason: Diarrhea Last Admin: 01/26/24 09:01 Dose: 2 mg Documented By: RASHEEDA Lorazepam (Lorazepam 0.5 Mg Tablet) 0.5 mg PO Q4H PRN PRN Reason: Anxiety Last Admin: 01/26/24 09:01 Dose: 0.5 mg Documented By: RASHEEDA Metoclopramide HCl (Metoclopramide Hcl 10 Mg/2 Ml Vial) 10 mg IVPUSH Q6H PRN PRN Reason: Nausea and Vomiting Last Admin: 01/26/24 07:27 Dose: 10 mg Documented By: JACQUELIN Omeprazole (Omeprazole 40 Mg Capsule.Dr) 40 mg PO BID@0630,1630 [facility] Last Admin: 01/26/24 05:42 Dose: 40 mg Documented By: BAMBI Senna/Docusate Sodium (Sennosides/Docusate Sodium Tablet) 1 tab PO BEDTIME [facility] Last Admin: 01/25/24 20:13 Dose: Not Given Documented By: MICHEAL Non-Admin Reason: Patient Refused Sodium Chloride (0.9 % Sodium Chloride Flush 3 Ml Syringe) 3 ml IVFLUSH QSHIFT [facility] Last Admin: 01/26/24 09:02 Dose: 3 ml Documented By: RASHEEDA Sodium Chloride (Sodium Chloride 0.65 % Nasal 44 Ml Sprbtl) 1 spray NOSTRIL-B Q1H PRN PRN Reason: nasal dryness Last Admin: 12/26/23 11:10 Dose: 1 spray Documented By: MAXIMO Trimethoprim/Sulfamethoxazole (Sulfamethox/Trimeth 800/160 Tablet) 1 tab PO Q24H [facility] Last Admin: 01/25/24 11:41 Dose: 1 tab Documented By: RASHEEDA Labs 01/25/24 07:16 01/25/24 07:16 Assessment and Plan (1) Pneumothorax: Status: Acute (2) Pulmonary fibrosis: Status: Acute (3) PCP (pneumocystis jiroveci pneumonia): Status: Acute Plan 43M PMH HIV - non compliant, unspecified compensated liver cirrhosis, presented 12/09/23 with sob, found to have acute hypoxic respiratory failure due to pneumocystitis pneumonia, pulm edema, transferred to icu 12/19/23, after treatement with bactrim, azitrho, diuresis, patient o2 requirements improved, downgraded to imc 01/02/24, course then complicated by pneumothorax, chest tube placed 01/13/24. sepsis, acute hypoxic respiratory failure due to pneumocystis pneumonia in HIV/aids complicated by left pneumothorax completed iv bactrim course. Finished pulse Solumedrol high dose for 3 days On bactrim and azitrho prophylaxis along with biktarvy chest tube placed 01/13/24, repeat cxr initially much improved, cxr 01/19/24 with recurrence of pneumothorax while on waterseal, placed back on suction weaning o2, now on 3-4L O2 Incentive spirometry CXR showing resolution of the PNX,thoracic surgery did pleurdesis 01/[address] removal of CT today if CXR Stable start discharge planning subacute inflammatory anemia transfused 2 units prbc total monitor hgb, currently stable moderate protein calorie malnutrition off tpn, encourage po intake acute hfpef improved changed to oral maintenance dvt prophylaxis - lovenox full code reason for continued hospitalization: still with pneumothorax on chest tube pending clinical improvement and safe discharge plan Quality Stroke Does the patient have a stroke diagnosis?: No VTE Prior VTE?: No VTE Risk Level:: Medical - moderate - high VTE Device Contraindication: Treatment Not Indicated VTE Drug Contraindication: N/A - Med Ordered
--- NOTE | 2024-01-26 09:53 | PM.PNTS ---
Subjective Subjective Date of Service: 01/26/24 Interval history: Status post pleurodesis yesterday. No significant chest tube output. No new respiratory issues. A.m. chest x-ray no pneumothorax. Pleur-Evac demonstrates no air leak on wall suction. Physical Exam Vital Signs: Vital Signs: Last Vital Signs Temp 98.6 F 01/26/24 07:40 Pulse 94 01/26/24 07:40 Resp 16 01/26/24 07:40 BP 130/78 01/26/24 07:40 Pulse Ox 99 01/26/24 07:40 O2 Del Method Oxymask 01/26/24 07:40 O2 Flow Rate 5 01/26/24 07:40 FiO2 30 01/25/24 03:08 Oxygen Flow Rate 15 12/09/23 19:34 BMI result Body Mass Index 23.7 Chest: Other: Chest tube dressing clean dry and intact. Procedures Date of Service Date of Service: 01/26/24 Progress Note: A&P Assessment and plan (1) Pneumothorax: Status: Acute (2) Pulmonary fibrosis: Status: Acute (3) Pulmonary edema: Status: Acute (4) Acute hypoxemic respiratory failure: Status: Acute Plan Current plan is to place chest tube on water seal and repeat chest x-ray in a few hours. If chest demonstrates no pneumothorax, for chest tube removal today. Time Spent With Patient Time: Total time managing care of this patient today ____ minutes. Quality Stroke Does the patient have a stroke diagnosis?: No VTE Prior VTE?: No VTE Risk Level:: Medical - moderate - high VTE Device Contraindication: Treatment Not Indicated VTE Drug Contraindication: N/A - Med Ordered
--- NOTE | 2024-01-26 11:38 | MHC.CM.PN ---
EMR reviewed and per MD rounds, pt is not medically cleared for D/C due to chest tube remaining in place, anticipate chest tube removal possibly later today or tomorrow. STR referral updated and [facility] continues to follow along with [facility] and [facility] [place]. LTAC referral updated and [facility] continues to follow. CM will continue to follow.
[2024-01-26 12:00] VITALS: BP 110/73; PULSE 81; RESP 17; TEMP 36.9; O2SAT 100
[2024-01-26 14:06] VITALS: RESP 17
[2024-01-26] MEDS: Sulfamethox/Trimeth 800/160 TABLET 1 TAB PO (14:06)
[2024-01-26 16:00] VITALS: BP 113/69; PULSE 82; RESP 16; TEMP 37; O2SAT 100
--- NOTE | 2024-01-26 16:12 | P.PNPL_ITS ---
Subjective Subjective Date of Service: 01/26/24 Principal diagnosis: AIDS, PCP Interval history: No recurrence of pneumothorax after pleurodesis. Objective Data Labs 01/25/24 07:16 01/25/24 07:16 Microbiology Microbiology Results: Microbiology 12/10/23 14:48 Sputum - Expectorated Direct Acid Fast Bacilli Smear - Final 12/10/23 14:29 Sputum - Expectorated Direct Acid Fast Bacilli Smear - Final 12/10/23 10:10 Sputum - Expectorated Direct Acid Fast Bacilli Smear - Final 12/10/23 02:04 Blood - Venous Blood Culture - Final No growth after 5 days. 12/10/23 02:04 Blood - Venous Blood Culture - Final No growth after 5 days. 12/09/23 20:11 Blood - Venous Blood Culture - Final No growth after 5 days. 12/09/23 19:51 Blood - Venous Blood Culture - Final No growth after 5 days. 12/10/23 10:10 Sputum - Expectorated Gram Stain - Final 12/10/23 10:10 Sputum - Expectorated Sputum Culture - Final Physical Exam 2 Vital Signs: Vital Signs: Last Vital Signs Temp 98.4 F 01/26/24 12:00 Pulse 81 01/26/24 12:00 Resp 17 01/26/24 14:06 BP 110/73 01/26/24 12:00 Pulse Ox 100 01/26/24 12:00 O2 Del Method Oxymask 01/26/24 12:00 O2 Flow Rate 5 01/26/24 12:00 FiO2 30 01/25/24 03:08 Oxygen Flow Rate 15 12/09/23 19:34 BMI result Body Mass Index 23.7 Const: General: no acute distress, alert and awake Eyes: Sclerae: sclerae normal EOM: EOMs intact bilaterally Neck: Neck: Yes no lymphadenopathy, Yes trachea midline and Yes supple Resp: Effort & Inspection: normal respiratory effort and no respiratory distress Auscultation: crackles (Bilateral) Cardio: Rate: regular rate Rhythm: regular rhythm Heart sounds: no gallops, no murmurs and no rubs GI: Palpation (GI): Soft to palpation and Other GI palpation findings present ( Nontender) Auscultation: normal bowel sounds Extrem: General: Yes no pedal edema, No clubbing and No cyanosis Procedures Date of Service Date of Service: 01/26/24 Assessment and Plan Assessment and plan (1) Pneumothorax: Problem details: He is improving Status: Acute (2) Pulmonary fibrosis: Status: Acute (3) Acute hypoxemic respiratory failure: Status: Acute (4) AIDS: Status: Acute Plan Impression: 43-year-old gentleman with underlying AIDS admitted with acute hypoxic respiratory failure with PCP pneumonia, complicated by recurrent pulmonary edema, early fibrosis, and left-sided pneumothorax. Patient with good response to high-dose steroid pulse, now tapered off. Also, now status post left-sided pleurodesis at the bedside. FiO2 continue to improve. Recommendations: Continue to titrate off supplemental oxygen as tolerated. Continue to maintain euvolemia. CT chest with underlying mild bronchiectasis and pulmonary fibrosis, will require outpatient pulmonary follow-up. Time Spent With Patient Time: Total time managing care of this patient today ____ minutes. Progress Note: Quality Stroke Does the patient have a stroke diagnosis?: No
[2024-01-26 20:00] VITALS: BP 111/68; PULSE 82; RESP 20; TEMP 36.7; O2SAT 100
[2024-01-27] VITALS (7 sets, daily range): BP systolic 99–130; BP diastolic 63–98; PULSE 74–102; RESP 18–22; TEMP 36.4–37.2; O2SAT 93–99
[2024-01-27] MEDS: HYDROmorphone HCl 0.5 MG/0.5 ML SYRINGE IVPUSH ×7 (00:34→22:56)
[2024-01-27] MEDS: 0.9 % Sodium Chloride Flush 3 ML SYRINGE IVFLUSH ×4 (00:37→22:56)
[2024-01-27] MEDS: Omeprazole 40 MG CAPSULE.DR PO ×2 (05:59→16:07)
[2024-01-27] MEDS: Enoxaparin Sodium 40 MG/0.4 ML SYRINGE SUBCUT (08:29)
[2024-01-27] MEDS: Loperamide HCl 2 MG CAPSULE PO ×2 (08:30→11:44)
[2024-01-27] MEDS: Ibuprofen 400 MG TABLET PO ×3 (08:30→17:33)
[2024-01-27] MEDS: Furosemide 20 MG TABLET PO (08:30)
[2024-01-27] MEDS: Bictegrav/Emtricit/Tenofov Ala TABLET 1 TAB PO (08:30)
[2024-01-27] MEDS: Acetaminophen 325 MG TABLET 975 MG PO ×2 (08:30→16:07)
--- NOTE | 2024-01-27 11:03 | P.PNIM_ITS ---
Subjective Subjective Date of Service: 01/27/24 Interval History: left flank pain Physical Exam 2 Vital Signs: Vital Signs: Last Vital Signs Temp 98.8 F 01/27/24 07:40 Pulse 85 01/27/24 07:40 Resp 22 H 01/27/24 07:40 BP 107/68 01/27/24 07:40 Pulse Ox 99 01/27/24 07:40 O2 Del Method Nasal Cannula 01/27/24 07:40 O2 Flow Rate 5 01/27/24 07:40 FiO2 30 01/25/24 03:08 Oxygen Flow Rate 15 12/09/23 19:34 BMI result Body Mass Index 23.7 Const: General: no acute distress, alert and awake Eyes: Sclerae: sclerae normal EOM: EOMs intact bilaterally Neck: Neck: Yes no lymphadenopathy, Yes trachea midline and Yes supple Resp: Effort & Inspection: normal respiratory effort and no respiratory distress Auscultation: crackles (Bilateral) Cardio: Rate: regular rate Rhythm: regular rhythm Heart sounds: no gallops, no murmurs and no rubs GI: Palpation (GI): Soft to palpation and Other GI palpation findings present ( Nontender) Auscultation: normal bowel sounds Extrem: General: Yes no pedal edema, No clubbing and No cyanosis Objective Data Active Medications Acetaminophen (Acetaminophen 325 Mg Tablet) 975 mg PO QSHIFT [facility] Last Admin: 01/27/24 08:30 Dose: 975 mg Documented By: SOFIA Azithromycin (Azithromycin 500 Mg Tablet) 1,200 mg PO Q7D [facility] Stop: 12/28/24 12:01 Last Admin: 01/20/24 13:31 Dose: 1,200 mg Documented By: MARLYN Benzonatate (Benzonatate 100 Mg Capsule) 100 mg PO TID PRN PRN Reason: Cough Last Admin: 01/13/24 09:26 Dose: 100 mg Documented By: ALISSON Bictegravir/Emtricitabine/Tenofovir (Bictegrav/Emtricit/Tenofov Ala Tablet) 1 tab PO DAILY [facility] Last Admin: 01/27/24 08:30 Dose: 1 tab Documented By: SOFIA Enoxaparin Sodium (Enoxaparin Sodium 40 Mg/0.4 Ml Syringe) 40 mg SUBCUT Q24H [facility] Last Admin: 01/27/24 08:29 Dose: 40 mg Documented By: SOFIA Furosemide (Furosemide 20 Mg Tablet) 20 mg PO DAILY [facility]; Protocol Last Admin: 01/27/24 08:30 Dose: 20 mg Documented By: SOFIA Hydromorphone HCl (Hydromorphone Hcl 2 Mg Tablet) 2 mg PO Q6H PRN PRN Reason: Pain, Severe (Pain Scale 7-10) Last Admin: 01/26/24 00:46 Dose: 2 mg Documented By: MICHEAL Hydromorphone HCl (Hydromorphone Hcl 0.5 Mg/0.5 Ml Syringe) 0.5 mg IVPUSH Q3H PRN; Protocol PRN Reason: Pain, Severe (Pain Scale 7-10) Last Admin: 01/27/24 08:30 Dose: 0.5 mg Documented By: SOFIA Ibuprofen (Ibuprofen 400 Mg Tablet) 400 mg PO TIDWM [facility] Last Admin: 01/27/24 08:30 Dose: 400 mg Documented By: SOFIA Lidocaine (Lidocaine 4 % Patch Adh..Patch) 1 patch TRANSDERMA DAILY [facility]; Protocol Last Admin: 01/27/24 08:32 Dose: Not Given Documented By: SOFIA Non-Admin Reason: Patient Refused Loperamide HCl (Loperamide Hcl 2 Mg Capsule) 2 mg PO Q4H PRN PRN Reason: Diarrhea Last Admin: 01/27/24 08:30 Dose: 2 mg Documented By: SOFIA Lorazepam (Lorazepam 0.5 Mg Tablet) 0.5 mg PO Q4H PRN PRN Reason: Anxiety Last Admin: 01/26/24 14:06 Dose: 0.5 mg Documented By: RASHEEDA Metoclopramide HCl (Metoclopramide Hcl 10 Mg/2 Ml Vial) 10 mg IVPUSH Q6H PRN PRN Reason: Nausea and Vomiting Last Admin: 01/26/24 07:27 Dose: 10 mg Documented By: JACQUELIN Omeprazole (Omeprazole 40 Mg Capsule.) 40 mg PO BID@0630,1630 [facility] Last Admin: 01/27/24 05:59 Dose: 40 mg Documented By: JAZMINE Senna/Docusate Sodium (Sennosides/Docusate Sodium Tablet) 1 tab PO BEDTIME [facility] Last Admin: 01/26/24 20:08 Dose: Not Given Documented By: YENNIFER Non-Admin Reason: Patient Refused Sodium Chloride (0.9 % Sodium Chloride Flush 3 Ml Syringe) 3 ml IVFLUSH QSHIFT [facility] Last Admin: 01/27/24 08:31 Dose: 3 ml Documented By: SOFIA Sodium Chloride (Sodium Chloride 0.65 % Nasal 44 Ml Sprbtl) 1 spray NOSTRIL-B Q1H PRN PRN Reason: nasal dryness Last Admin: 12/26/23 11:10 Dose: 1 spray Documented By: MAXIMO Trimethoprim/Sulfamethoxazole (Sulfamethox/Trimeth 800/160 Tablet) 1 tab PO Q24H [facility] Last Admin: 01/26/24 14:06 Dose: 1 tab Documented By: RASHEEDA Labs 01/25/24 07:16 01/25/24 07:16 Assessment and Plan (1) Pneumothorax: Status: Acute (2) Pulmonary fibrosis: Status: Acute (3) PCP (pneumocystis jiroveci pneumonia): Status: Acute Plan 43M PMH HIV - non compliant, unspecified compensated liver cirrhosis, presented 12/09/23 with sob, found to have acute hypoxic respiratory failure due to pneumocystitis pneumonia, pulm edema, transferred to icu 12/19/23, after treatement with bactrim, azitrho, diuresis, patient o2 requirements improved, downgraded to imc 01/02/24, course then complicated by pneumothorax, chest tube placed 01/13/24, s/p pleurodesis 01/25/24, removed 01/26/24 sepsis, acute hypoxic respiratory failure due to pneumocystis pneumonia in HIV/aids complicated by left pneumothorax completed iv bactrim course. Finished pulse Solumedrol high dose for 3 days On bactrim and azitrho prophylaxis along with biktarvy chest tube placed 01/13/24, repeat cxr initially much improved, cxr 01/19/24 with recurrence of pneumothorax while on waterseal, placed back on suction with impovement, pleurodesis 01/25/24, removed 01/26/24 weaning o2, now on 3-4L O2 Incentive spirometry thoracic following discharge planning subacute inflammatory anemia transfused 2 units prbc total monitor hgb, currently stable moderate protein calorie malnutrition off tpn, encourage po intake acute hfpef improved changed to oral maintenance dvt prophylaxis - lovenox full code reason for continued hospitalization: weaning o2, monitoring closely for recurrent pneumo after chest tube removal Quality Stroke Does the patient have a stroke diagnosis?: No VTE Prior VTE?: No VTE Risk Level:: Medical - moderate - high VTE Device Contraindication: Treatment Not Indicated VTE Drug Contraindication: N/A - Med Ordered
[2024-01-27] MEDS: Azithromycin 500 MG TABLET 1200 MG PO (11:44)
[2024-01-27] MEDS: Sulfamethox/Trimeth 800/160 TABLET 1 TAB PO (11:44)
[2024-01-27] MEDS: Metoclopramide HCl 10 MG/2 ML VIAL IVPUSH (12:24)
[2024-01-27] MEDS: LORazepam 0.5 MG TABLET PO (12:24)
--- NOTE | 2024-01-27 12:24 | MHC.CLN ---
F/U PO INTAKE 75-100% DIET RX;REGULAR-APPROPRIATE SHOWS FAVORABLE 16% WEIGHT GAIN SINCE ADMISSION-PT WITHIN IBW RANGE AT THIS TIME PT RECEIVING ENSURE MAX PROTEIN BID PROVIDES 300 [address]ALS, [address] TO CONTINUE TO FOLLOW WEEKLY
--- NOTE | 2024-01-27 12:33 | MHC.CM.PN ---
Addendum entered by Marisol Gonzalezerland 01/27/24 15:33: Return call received from Beatrice, she will talk with Terry about his refusal to work with PT (as [employer] will need an updated PT note in order to go for auth). Will plan for D/C to [facility] or [facility] in the next day or 2, Beatrice more agreeable knowing that it is for STR, not LTC. Addendum entered by Marisol Gregory 01/27/24 15:13: Call placed to pts mother/HCP Beatrice to further discuss D/C plans, voicemail left by this CM, awaiting return call. Original Note: EMR reviewed and per MD rounds, pt will be ready for D/C in the next day or 2. [facility] interested and pending insurance auth can offer pt a bed as soon as tomorrow. [facility] can possibly offer him a bed this Thursday. This CM met with pt to discuss D/C plan and he deferred this CM to speak with his mother/HCP Beatrice. This CM called pts mother Beatrice to discuss D/C plan. One of Beatrice's main concern is the distance of the facility from [place]. Beatrice's other concern is the pts insurance, she wanted to be sure that he has [facility] standard. This CM confirmed with marketing financial analyst Liyah that pt does have [facility] standard, his plan is [employer], this info relayed to Beatrice. Per Beatrice she does not think [facility] will work as it is too far, she also feels [facility] is too far. Beatrice does not want to make any decisions until she gets an update from the MD on his condition. Hospitalist updated and will call Beatrice.
--- NOTE | 2024-01-27 16:05 | P.PNPL_ITS ---
Subjective Subjective Date of Service: 01/27/24 Principal diagnosis: AIDS, PCP Interval history: Chest tube removed with no recurrence pneumothorax. Objective Data Labs 01/25/24 07:16 01/25/24 07:16 Microbiology Microbiology Results: Microbiology 12/10/23 14:48 Sputum - Expectorated Direct Acid Fast Bacilli Smear - Final 12/10/23 14:29 Sputum - Expectorated Direct Acid Fast Bacilli Smear - Final 12/10/23 10:10 Sputum - Expectorated Direct Acid Fast Bacilli Smear - Final 12/10/23 02:04 Blood - Venous Blood Culture - Final No growth after 5 days. 12/10/23 02:04 Blood - Venous Blood Culture - Final No growth after 5 days. 12/09/23 20:11 Blood - Venous Blood Culture - Final No growth after 5 days. 12/09/23 19:51 Blood - Venous Blood Culture - Final No growth after 5 days. 12/10/23 10:10 Sputum - Expectorated Gram Stain - Final 12/10/23 10:10 Sputum - Expectorated Sputum Culture - Final Physical Exam 2 Vital Signs: Vital Signs: Last Vital Signs Temp 98.1 F 01/27/24 15:41 Pulse 74 01/27/24 15:41 Resp 22 H 01/27/24 15:41 BP 102/65 01/27/24 15:41 Pulse Ox 98 01/27/24 15:41 O2 Del Method Nasal Cannula 01/27/24 15:41 O2 Flow Rate 5 01/27/24 15:41 FiO2 30 01/25/24 03:08 Oxygen Flow Rate 15 12/09/23 19:34 BMI result Body Mass Index 23.7 Const: General: no acute distress, alert and awake Eyes: Sclerae: sclerae normal EOM: EOMs intact bilaterally Neck: Neck: Yes no lymphadenopathy, Yes trachea midline and Yes supple Resp: Effort & Inspection: normal respiratory effort and no respiratory distress Auscultation: clear to auscultation bilaterally Cardio: Rate: regular rate Rhythm: regular rhythm Heart sounds: no gallops, no murmurs and no rubs GI: Palpation (GI): Soft to palpation and Other GI palpation findings present ( Nontender) Auscultation: normal bowel sounds Extrem: General: Yes no pedal edema, No clubbing and No cyanosis Procedures Date of Service Date of Service: 01/27/24 Assessment and Plan Assessment and plan (1) Pulmonary fibrosis: Status: Acute (2) Acute hypoxemic respiratory failure: Status: Acute Plan Impression: 43-year-old gentleman with underlying AIDS admitted with acute hypoxic respiratory failure with PCP pneumonia, complicated by recurrent pulmonary edema, early fibrosis, and left-sided pneumothorax. Patient with good response to high-dose steroid pulse, now tapered off. Now status post left- sided pleurodesis at the bedside removal of the chest tube. FiO2 continue to improve. Recommendations: Continue to titrate off supplemental oxygen as tolerated. Continue to maintain euvolemia. CT chest with underlying mild bronchiectasis and pulmonary fibrosis, will require outpatient pulmonary follow-up. Time Spent With Patient Time: Total time managing care of this patient today ____ minutes. Progress Note: Quality Stroke Does the patient have a stroke diagnosis?: No
[2024-01-28] MEDS: HYDROmorphone HCl 0.5 MG/0.5 ML SYRINGE IVPUSH ×5 (02:02→20:45)
[2024-01-28 04:00] VITALS: BP 118/73; PULSE 83; RESP 16; TEMP 36.6; O2SAT 98
[2024-01-28] MEDS: Omeprazole 40 MG CAPSULE.DR PO ×2 (05:35→17:18)
[2024-01-28 05:36] VITALS: BMI 22.8
[2024-01-28 07:36] VITALS: BP 109/67; PULSE 74; RESP 22; TEMP 36.6; O2SAT 98
[2024-01-28] MEDS: Enoxaparin Sodium 40 MG/0.4 ML SYRINGE SUBCUT (08:49)
[2024-01-28] MEDS: Ibuprofen 400 MG TABLET PO ×3 (08:50→17:19)
[2024-01-28] MEDS: Acetaminophen 325 MG TABLET 975 MG PO ×2 (08:50→17:18)
[2024-01-28] MEDS: Bictegrav/Emtricit/Tenofov Ala TABLET 1 TAB PO (08:50)
[2024-01-28] MEDS: Furosemide 20 MG TABLET PO (08:50)
[2024-01-28] MEDS: 0.9 % Sodium Chloride Flush 3 ML SYRINGE IVFLUSH ×3 (08:51→20:45)
[2024-01-28] MEDS: LORazepam 0.5 MG TABLET PO (08:52)
--- NOTE | 2024-01-28 09:03 | P.PNIM_ITS ---
Subjective Subjective Date of Service: 01/28/24 Interval History: pain improved Physical Exam 2 Vital Signs: Vital Signs: Last Vital Signs Temp 97.8 F 01/28/24 07:36 Pulse 74 01/28/24 07:36 Resp 22 H 01/28/24 07:36 BP 109/67 01/28/24 07:36 Pulse Ox 98 01/28/24 07:36 O2 Del Method Oxymask 01/28/24 07:36 O2 Flow Rate 3 01/28/24 07:36 FiO2 30 01/25/24 03:08 Oxygen Flow Rate 15 12/09/23 19:34 BMI result Body Mass Index 22.8 Const: General: no acute distress, alert and awake Eyes: Sclerae: sclerae normal EOM: EOMs intact bilaterally Neck: Neck: Yes no lymphadenopathy, Yes trachea midline and Yes supple Resp: Effort & Inspection: normal respiratory effort and no respiratory distress Auscultation: clear to auscultation bilaterally Cardio: Rate: regular rate Rhythm: regular rhythm Heart sounds: no gallops, no murmurs and no rubs GI: Palpation (GI): Soft to palpation and Other GI palpation findings present ( Nontender) Auscultation: normal bowel sounds Extrem: General: Yes no pedal edema, No clubbing and No cyanosis Objective Data Active Medications Acetaminophen (Acetaminophen 325 Mg Tablet) 975 mg PO QSHIFT [facility] Last Admin: 01/28/24 08:50 Dose: 975 mg Documented By: NISREEN Azithromycin (Azithromycin 500 Mg Tablet) 1,200 mg PO Q7D [facility] Stop: 12/28/24 12:01 Last Admin: 01/27/24 11:44 Dose: 1,200 mg Documented By: SOFIA Benzonatate (Benzonatate 100 Mg Capsule) 100 mg PO TID PRN PRN Reason: Cough Last Admin: 01/13/24 09:26 Dose: 100 mg Documented By: ALISSON Bictegravir/Emtricitabine/Tenofovir (Bictegrav/Emtricit/Tenofov Ala Tablet) 1 tab PO DAILY [facility] Last Admin: 01/28/24 08:50 Dose: 1 tab Documented By: NISREEN Enoxaparin Sodium (Enoxaparin Sodium 40 Mg/0.4 Ml Syringe) 40 mg SUBCUT Q24H [facility] Last Admin: 01/28/24 08:49 Dose: 40 mg Documented By: NISREEN Furosemide (Furosemide 20 Mg Tablet) 20 mg PO DAILY [facility]; Protocol Last Admin: 01/28/24 08:50 Dose: 20 mg Documented By: NISREEN Hydromorphone HCl (Hydromorphone Hcl 2 Mg Tablet) 2 mg PO Q6H PRN PRN Reason: Pain, Severe (Pain Scale 7-10) Last Admin: 01/26/24 00:46 Dose: 2 mg Documented By: MICHEAL Hydromorphone HCl (Hydromorphone Hcl 0.5 Mg/0.5 Ml Syringe) 0.5 mg IVPUSH Q3H PRN; Protocol PRN Reason: Pain, Severe (Pain Scale 7-10) Last Admin: 01/28/24 08:50 Dose: 0.5 mg Documented By: NISREEN Ibuprofen (Ibuprofen 400 Mg Tablet) 400 mg PO TIDWM [facility] Last Admin: 01/28/24 08:50 Dose: 400 mg Documented By: NISREEN Lidocaine (Lidocaine 4 % Patch Adh..Patch) 1 patch TRANSDERMA DAILY [facility]; Protocol Last Admin: 01/28/24 08:49 Dose: Not Given Documented By: NISREEN Non-Admin Reason: Patient Refused Loperamide HCl (Loperamide Hcl 2 Mg Capsule) 2 mg PO Q4H PRN PRN Reason: Diarrhea Last Admin: 01/27/24 11:44 Dose: 2 mg Documented By: SOFIA Lorazepam (Lorazepam 0.5 Mg Tablet) 0.5 mg PO Q4H PRN PRN Reason: Anxiety Last Admin: 01/28/24 08:52 Dose: 0.5 mg Documented By: NISREEN Metoclopramide HCl (Metoclopramide Hcl 10 Mg/2 Ml Vial) 10 mg IVPUSH Q6H PRN PRN Reason: Nausea and Vomiting Last Admin: 01/27/24 12:24 Dose: 10 mg Documented By: JUDY Omeprazole (Omeprazole 40 Mg Capsule.) 40 mg PO BID@0630,1630 [facility] Last Admin: 01/28/24 05:35 Dose: 40 mg Documented By: JAZMINE Senna/Docusate Sodium (Sennosides/Docusate Sodium Tablet) 1 tab PO BEDTIME [facility] Last Admin: 01/27/24 20:25 Dose: Not Given Documented By: YENNIFER Non-Admin Reason: Patient Refused Sodium Chloride (0.9 % Sodium Chloride Flush 3 Ml Syringe) 3 ml IVFLUSH QSHIFT [facility] Last Admin: 01/28/24 08:51 Dose: 3 ml Documented By: NISREEN Sodium Chloride (Sodium Chloride 0.65 % Nasal 44 Ml Sprbtl) 1 spray NOSTRIL-B Q1H PRN PRN Reason: nasal dryness Last Admin: 12/26/23 11:10 Dose: 1 spray Documented By: MAXIMO Trimethoprim/Sulfamethoxazole (Sulfamethox/Trimeth 800/160 Tablet) 1 tab PO Q24H [facility] Last Admin: 01/27/24 11:44 Dose: 1 tab Documented By: DEVANAC Labs 01/25/24 07:16 01/25/24 07:16 Assessment and Plan (1) Pneumothorax: Status: Acute (2) Pulmonary fibrosis: Status: Acute (3) PCP (pneumocystis jiroveci pneumonia): Status: Acute Plan 43M PMH HIV - non compliant, unspecified compensated liver cirrhosis, presented 12/09/23 with sob, found to have acute hypoxic respiratory failure due to pneumocystitis pneumonia, pulm edema, transferred to icu 12/19/23, after treatement with bactrim, azitrho, diuresis, patient o2 requirements improved, downgraded to imc 01/02/24, course then complicated by pneumothorax, chest tube placed 01/13/24, s/p pleurodesis 01/25/24, removed 01/26/24 sepsis, acute hypoxic respiratory failure due to pneumocystis pneumonia in HIV/aids complicated by left pneumothorax completed iv bactrim course. Finished pulse Solumedrol high dose for 3 days On bactrim and azitrho prophylaxis along with biktarvy chest tube placed 01/13/24, repeat cxr initially much improved, cxr 01/19/24 with recurrence of pneumothorax while on waterseal, placed back on suction with impovement, pleurodesis 01/25/24, removed 01/26/24 weaning o2, now on 3-4L O2 Incentive spirometry thoracic following discharge planning subacute inflammatory anemia transfused 2 units prbc total monitor hgb, currently stable moderate protein calorie malnutrition off tpn, encourage po intake acute hfpef improved changed to oral maintenance dvt prophylaxis - lovenox full code reason for continued hospitalization: safe dispo Quality Stroke Does the patient have a stroke diagnosis?: No VTE Prior VTE?: No VTE Risk Level:: Medical - moderate - high VTE Device Contraindication: Treatment Not Indicated VTE Drug Contraindication: N/A - Med Ordered
[2024-01-28 10:54] VITALS: BP 103/66; PULSE 86; RESP 22; TEMP 36.8; O2SAT 96
[2024-01-28] MEDS: Sulfamethox/Trimeth 800/160 TABLET 1 TAB PO (11:50)
[2024-01-28] MEDS: HYDROmorphone HCl 2 MG TABLET PO (11:50)
--- NOTE | 2024-01-28 13:33 | P.CNGI_ITS ---
History of Present Illness Data of Consult Service Date: 01/28/24 Requesting physician: Gregorio Corado Primary Care Provider: None Physician HPI Reason for consult: Chronic diarrhea This is a 43-year-old gentleman past medical history of HIV with AIDS, history of liver cirrhosis, who has been admitted to the hospital since last month for PJ pneumonia with course complicated by pneumothorax requiring chest tube placement on 01/13, for whom gastroenterology has been consulted for question of chronic diarrhea. History was obtained from the patient who states that he has had chronic diarrhea on and off for at least the past 20 years (since the diagnosis of HIV). Assoc with abd pain that improves wiht passing the BM. Symptoms are present at least 50% of the time. No triggering factor. Pt is visiting from [place] and was homeless there. He was not established with a GI longitudinally but has gotten scoped multiple times for this including within the last year at [facility] ([place] - where the pt is originally from) which was unremarkable. Currently, does not report the symptoms have changes or are any worse than baseline. Unable to comment on unintentional weight loss since hes been in the hospital the past 2 months but does not report any blood in stool. Work up so far with negative C Diff at the beginning of hospitalisation and negative GI stool PCR as of 01/20. Abd imaging not available. Currently for meds on Biktarvy and Bactrim. Review of Systems 2 Review of Systems: Yes all other systems are reviewed and are negative [facility] Past Medical History Medical History Gout Arthritis Family History Family history: reviewed and not pertinent Social History Social History (Updated 12/27/23 @ 14:15 by Freda Taylor RN) Household Members: Family Housing: Apartment Do you presently have visiting nurse or other home services: No Patient Tobacco Use Status: Current everyday Tobacco user Tobacco use type: Cigarette Cigarette Packs Per Day: 0.5 Cigarettes Per Day: 10.0 service: No Meds Allergies Allergy/AdvReac Type Severity Reaction Status Date / Time No Known Allergies Allergy Verified 12/09/23 19:32 Active Medications: Current Medications Acetaminophen (Acetaminophen 325 Mg Tablet) [address] [facility] Last Admin: 01/28/24 08:50 Dose: 975 mg Azithromycin (Azithromycin 500 Mg Tablet) 1,200 mg PO Q7D [facility] Stop: 12/28/24 12:01 Last Admin: 01/27/24 11:44 Dose: 1,200 mg Benzonatate (Benzonatate 100 Mg Capsule) 100 mg PO TID PRN PRN Reason: Cough Last Admin: 01/13/24 09:26 Dose: 100 mg Bictegravir/Emtricitabine/Tenofovir (Bictegrav/Emtricit/Tenofov Ala Tablet) 1 tab PO DAILY [facility] Last Admin: 01/28/24 08:50 Dose: 1 tab Enoxaparin Sodium (Enoxaparin Sodium 40 Mg/0.4 Ml Syringe) 40 mg SUBCUT Q24H [facility] Last Admin: 01/28/24 08:49 Dose: 40 mg Furosemide (Furosemide 20 Mg Tablet) 20 mg PO DAILY [facility]; Protocol Last Admin: 01/28/24 08:50 Dose: 20 mg Hydromorphone HCl (Hydromorphone Hcl 2 Mg Tablet) 2 mg PO Q6H PRN PRN Reason: Pain, Severe (Pain Scale 7-10) Last Admin: 01/28/24 11:50 Dose: 2 mg Hydromorphone HCl (Hydromorphone Hcl 0.5 Mg/0.5 Ml Syringe) 0.5 mg IVPUSH Q3H PRN; Protocol PRN Reason: Pain, Severe (Pain Scale 7-10) Last Admin: 01/28/24 08:50 Dose: 0.5 mg Ibuprofen (Ibuprofen 400 Mg Tablet) 400 mg PO TIDWM [facility] Last Admin: 01/28/24 11:50 Dose: 400 mg Lidocaine (Lidocaine 4 % Patch Adh..Patch) 1 patch TRANSDERMA DAILY [facility]; Protocol Last Admin: 01/28/24 08:49 Dose: Not Given Loperamide HCl (Loperamide Hcl 2 Mg Capsule) 2 mg PO Q4H PRN PRN Reason: Diarrhea Last Admin: 01/27/24 11:44 Dose: 2 mg Lorazepam (Lorazepam 0.5 Mg Tablet) 0.5 mg PO Q4H PRN PRN Reason: Anxiety Last Admin: 01/28/24 08:52 Dose: 0.5 mg Metoclopramide HCl (Metoclopramide Hcl 10 Mg/2 Ml Vial) 10 mg IVPUSH Q6H PRN PRN Reason: Nausea and Vomiting Last Admin: 01/27/24 12:24 Dose: 10 mg Omeprazole (Omeprazole 40 Mg Capsule.Dr) 40 mg PO BID@0630,1630 [facility] Last Admin: 01/28/24 05:35 Dose: 40 mg Senna/Docusate Sodium (Sennosides/Docusate Sodium Tablet) 1 tab PO BEDTIME [facility] Last Admin: 01/27/24 20:25 Dose: Not Given Sodium Chloride (0.9 % Sodium Chloride Flush 3 Ml Syringe) 3 ml IVFLUSH QSHIFT [facility] Last Admin: 01/28/24 08:51 Dose: 3 ml Sodium Chloride (Sodium Chloride 0.65 % Nasal 44 Ml Sprbtl) 1 spray NOSTRIL-B Q1H PRN PRN Reason: nasal dryness Last Admin: 12/26/23 11:10 Dose: 1 spray Trimethoprim/Sulfamethoxazole (Sulfamethox/Trimeth 800/160 Tablet) 1 tab PO Q24H [facility] Last Admin: 01/28/24 11:50 Dose: 1 tab Physical Exam 2 Vital Signs: Vital Signs: Last Vital Signs Temp 98.3 F 01/28/24 10:54 Pulse 86 01/28/24 10:54 Resp 22 H 01/28/24 10:54 BP 103/66 01/28/24 10:54 Pulse Ox 96 01/28/24 10:54 O2 Del Method Oxymask 01/28/24 10:54 O2 Flow Rate 3 01/28/24 07:36 FiO2 30 01/25/24 03:08 Oxygen Flow Rate 15 12/09/23 19:34 BMI result Body Mass Index 22.8 Frail, ill appearing male SK on face Abd soft, nontender Results Labs 01/25/24 07:16 01/25/24 07:16 Microbiology Microbiology Results: Microbiology 12/10/23 14:48 Sputum - Expectorated Direct Acid Fast Bacilli Smear - Final 12/10/23 14:29 Sputum - Expectorated Direct Acid Fast Bacilli Smear - Final 12/10/23 10:10 Sputum - Expectorated Direct Acid Fast Bacilli Smear - Final 12/10/23 02:04 Blood - Venous Blood Culture - Final No growth after 5 days. 12/10/23 02:04 Blood - Venous Blood Culture - Final No growth after 5 days. 12/09/23 20:11 Blood - Venous Blood Culture - Final No growth after 5 days. 12/09/23 19:51 Blood - Venous Blood Culture - Final No growth after 5 days. 12/10/23 10:10 Sputum - Expectorated Gram Stain - Final 12/10/23 10:10 Sputum - Expectorated Sputum Culture - Final Assessment and Plan (1) Pneumothorax: Status: Acute (2) PCP (pneumocystis jiroveci pneumonia): Status: Acute (3) Acute hypoxemic respiratory failure: Status: Acute (4) AIDS: Status: Acute (5) Chronic diarrhea: Status: Acute Plan Longstanding non-progressive sx are reflective of underlying benign vs nonorganic etiology. However, given pt at high risk for HIV related opportunistic diarrheal illnesses charu with CD4 count < 50 of would recommend: - Checking stool for C Diff, crypto, giardia - Check celiac serology and thyroid studies - If diarrhea progresses, consider CT Abd/pel to r/o acute colitis - Since no other red flags, low suspicion for CMV colitis or Kaposi for now and was scoped within the last year. Thank you for allowing me to participate in his care. Please do not hesitate to reach out for questions or concerns. Procedures Date of Service Date of Service: 01/28/24
--- NOTE | 2024-01-28 14:48 | MHC.CM.PN ---
Pt able to participate in PT today, PT note sent to [facility], and [facility], [facility], and [facility]. Liaison from [facility] was swamped today but will let us know when they go for auth. [facility] does not have an open bed today but continue to follow. [place] and [place] still following. Meeting held today with pt, mother/HCP Beatrice, family friend and hospital team, all in agreement with pt going to rehab when be is available. CM will continue to follow.
--- NOTE | 2024-01-28 15:43 | MHC.CM.PN ---
Bed offer received from [facility], they would like pt to arrive tomorrow morning. Facility is also requesting that pts biktarvy be filled and brought with him. This CM discussed with pt and he is in agreement with going there. Transport set up via [facility] tomorrow at 10am. Hospitalist aware of bed offer and request for biktarvy to be filled here and brought with him.
[2024-01-28 16:00] VITALS: BP 101/63; PULSE 70; RESP 22; TEMP 36.4; O2SAT 100
[2024-01-28 18:02] LABS: CDiff Gene PCR NEGATIVE (Negative)
[2024-01-28 19:43] VITALS: BP 105/65; PULSE 78; RESP 18; TEMP 36.7; O2SAT 99
[2024-01-28 23:25] VITALS: BP 121/66; PULSE 74; RESP 18; TEMP 36.8; O2SAT 100
[2024-01-29] MEDS: Acetaminophen 325 MG TABLET 975 MG PO ×2 (00:20→09:12)
[2024-01-29] MEDS: HYDROmorphone HCl 0.5 MG/0.5 ML SYRINGE IVPUSH ×4 (00:20→09:37)
[2024-01-29 03:34] VITALS: BP 119/71; PULSE 69; RESP 16; TEMP 37.2; O2SAT 98
[2024-01-29 06:00] VITALS: BMI 20.6; BMI 22.6
[2024-01-29] MEDS: Omeprazole 40 MG CAPSULE.DR PO (06:01)
[2024-01-29 07:46] VITALS: BP 106/68; PULSE 64; RESP 20; TEMP 36.6; O2SAT 100
[2024-01-29] MEDS: Enoxaparin Sodium 40 MG/0.4 ML SYRINGE SUBCUT (09:12)
[2024-01-29] MEDS: Bictegrav/Emtricit/Tenofov Ala TABLET 1 TAB PO (09:13)
[2024-01-29] MEDS: Ibuprofen 400 MG TABLET PO (09:13)
--- NOTE | 2024-01-29 09:20 | MHC.CM.PN ---
Pt is medically cleared for D/C to [facility], pt has the biktarvy from [facility] outpatient pharmacy to bring with him (pharmacy delivered to bedside last evening), and transport is booked for 10am via [facility].
[2024-01-29] MEDS: 0.9 % Sodium Chloride Flush 3 ML SYRINGE IVFLUSH ×2 (09:21→09:36)
--- NOTE | 2024-01-29 09:23 | P.DS_ITS ---
DS: Providers Provider Date of Service: 01/29/24 Date of admission: 12/09/23 23:05 Primary care physician: None Physician Consults: 12/09/23 21:29 Consult to Infectious Diseases Stat Consulting Provider: NOLVIA LEE Reason for consultation: AIDS with hypoxia Has provider been notified: Yes 01/01/24 13:59 Consult to Wound Care Routine Reason for consultation: open wound sacrum/coccyx Has provider been notified: Yes 01/04/24 13:52 Consult to Infectious Diseases Routine Consulting Provider: [facility] [place] Infectious Disease Reason for consultation: follow up 01/06/24 16:17 Consult to Psychiatry Routine Consulting Provider: Psych Covering Reason for consultation: Anxiety and depression for medication advice. 01/08/24 14:17 Consult to Thoracic Surgery Routine Consulting Provider: Grey Gaona Reason for consultation: reported pneumothorax for eval and rec 01/25/24 17:56 Consult to Wound Care Routine Reason for consultation: redness to bony prominences on coccyx, foam dsg/ barrier cream Has provider been notified: Yes 01/28/24 12:16 Consult to Gastroenterology Routine Consulting Provider: Cristal Swan Reason for consultation: Chronic diarrhea DS: Diagnosis Discharge Diagnosis (1) Pneumothorax: Status: Acute (2) PCP (pneumocystis jiroveci pneumonia): Status: Acute (3) Acute hypoxemic respiratory failure: Status: Acute (4) AIDS: Status: Acute (5) Chronic diarrhea: Status: Acute DS: Summary Hospital Course Hospital Course: from initial hpi: 43 years old man with past medical history significant for HIV infection (not taking HARRTs) presents to the emergency department complaining of worsening shortness of breath over the last few days. He does have generalized weakness and fatigue. He also complains of cough, vomiting and diarrhea. He denied abdominal pain. He did not report any acute gastrointestinal symptom. He does have a rash involving his face and extremities which he attributes to sorry acids. Terry is homeless and he has not been taking his HIV medication for the last 3 years. He smoke tobacco, half pack daily. He denied illicit drug use or alcohol abuse. In the ED, he was found to have tachycardia and fever. His oxygen saturation dropped to the 70s and his current requirement 2 L per minutes supplemental oxygen via mask. Blood workup is remarkable for elevated creatinine in of 2.48 as well as a BUN. There is no leukocytosis or lactic acidosis. Troponin is elevated, 60 and there is hypoalbuminemia. Urinalysis showed proteinuria but no evidence of urinary tract infection. Viral testing for COVID-19, influenza and RSV are negative. Urine drug test is negative. TSH is normal. AST is slightly elevated at 41. ALT, alk phos and total bilirubin are normal. ABG showed normal pH. There is no CO2 retention. CXR showed bilateral patchy infiltrates. Chest CT scan without IV contrast showed extensive regions of irregular ground glass opacities with interlobular and intralobular septal thickening throughout the bilateral lungs and splenomegaly. ED tx: Cefepime 2 g IV x1, fluconazole 200 mg IV x1, acetaminophen 975 mg p.o. x1, atovaquone 1500 mg p.o. x1, DuoNeb. hospital course: Patient had prolonged hospitalization, please see medical record for complete history. In brief, patient was admitted for sepsis and acute hypoxic respiratory failure due to Pneumocystis pneumonia in HIV/aids. This was further complicated by acute pulmonary edema due to acute diastolic CHF and worsening hypoxia requiring transfer to the ICU on 12/19/2023. In ICU he was treated with Bactrim, azithromycin, diuresis, as O2 requirement slowly improved and was able to be downgraded to medical floor on 01/02/2024. Course was then complicated by left lung pneumothorax. He had chest tube placed on 01/13/2024, underwent pleurodesis 01/25/2024, chest tube removed 01/26/2024, and lung reexpansion has remained stable. Patient was able to be weaned down to 3 L by time of discharge. He completed his course of Bactrim, pulse steroid course. He was seen by infectious disease who started patient on Biktarvy, and continued Bactrim prophylaxis and azithromycin prophylaxis. He will follow up with them as outpatient. For subacute inflammatory anemia he received 2 units total PRBC and hemoglobin has remained stable. For moderate protein calorie malnutrition he received TPN briefly, oral nutrition is encouraged. Patient was evaluated for chronic diarrhea, stool PCR and C diff were negative. He is using Imodium as needed, can follow up with GI as outpatient. Overall, patient is quite debilitated from prolonged hospitalization and above-mentioned medical conditions, but has made significant improvement and there is room for further recovery if compliant with treatment though chronic pulmonary fibrosis is likely. He will be discharged to group home facility for short-term rehab. Time Attestation Discharge coordination time: Greater than 30 minutes Quality: Safe Use of Opioids Does Pt have an Active Cancer Diagnosis on the Problem List?: No Quality: Stroke Does the patient have a stroke diagnosis?: No Physical Exam Vital Signs: Vital Signs: Last Vital Signs Temp 97.9 F 01/29/24 07:46 Pulse 64 01/29/24 07:46 Resp 20 01/29/24 07:46 BP 106/68 01/29/24 07:46 Pulse Ox 100 01/29/24 07:46 O2 Del Method Oxymask 01/29/24 07:46 O2 Flow Rate 3 01/29/24 07:46 FiO2 30 01/25/24 03:08 Oxygen Flow Rate 15 12/09/23 19:34 BMI result Body Mass Index 20.6 Frail, ill appearing male SK on face Abd soft, nontender DS: Data Data Completed and Pending Labs on day of discharge: Laboratory Results - last 24 hr 01/28/24 16:27 C. difficile Tox B Gene NEGATIVE Discharge Plan Discharge Anticipated Discharge Date/Time: 01/29/24 09:15 Patient Disposition: Xfer SNF Discharge Diagnosis: hiv, aids, pneumocystis, pneumothorax [facility] [Outside] - 1 Week Cristal Swan MD [Physician] - 1 Week Nolvia Lee MD [Physician] - 1 Week Physician,None [Primary Care Provider] - 1 Week Discharge Medications: New Biktarvy 50-200-25 mg Tablet 1 tab PO DAILY Qty: 30 0RF acetaminophen 325 mg Tablet 975 mg PO QSHIFT Qty: 0 0RF lidocaine [Lidocaine Pain Relief] 4 % Adhesive Patch,Medicated 1 patch transdermal DAILY Qty: 0 0RF Protocol: Apply to: Apply to: affected area loperamide 2 mg Capsule 2 mg PO Q4H PRN (Reason: Diarrhea) Qty: 0 0RF sulfamethoxazole-trimethoprim 800-160 mg Tablet 1 tab PO Q24H Qty: 0 0RF omeprazole 40 mg Capsule,Delayed Release(Dr/Ec) 40 mg PO BID@0630,1630 Qty: 0 0RF lorazepam 0.5 mg Tablet 0.5 mg PO Q4H PRN (Reason: Anxiety) Qty: 15 0RF benzonatate 100 mg Capsule 100 mg PO TID PRN (Reason: Cough) Qty: 0 0RF ibuprofen 400 mg Tablet 400 mg PO TIDWM Qty: 0 0RF furosemide 20 mg Tablet 20 mg PO DAILY Qty: 0 0RF Protocol: Hold for SBP< HOLD for SBP < : 90 azithromycin 500 mg Tablet 1,200 mg PO Q7D Qty: 0 0RF hydromorphone 2 mg tablet 2 mg PO Q6H PRN (Reason: moderate pain (scale score 5-6)) Qty: 20 0RF Rx Instructions: Partial Fill upon patient request. Discharge Orders: Discharge Order (Routine); Ordered 01/29/24 Ordered By: Gregorio Corado Diet: Advance to usual diet Activity on Discharge: As tolerated Stand Alone Forms: Patient Portal Discharge page Care Plan Goals: recovery Health Concerns: hiv/aids, pulm fibrosis, chronic diarrhea Plan of Treatment: meds as prescribed, follow up with ID and GI Assessment: see above
[2024-01-29] MEDS: LORazepam 0.5 MG TABLET PO (09:37)
[2024-01-29] MEDS: Furosemide 20 MG TABLET PO (09:38)
== END 2024-01-29 11:01 | disposition skilled nursing facility (03) | DRG 890 ==
LOC: HO.ED 21:22 → HO.EDOVER 23:12 → HO.IMC 12-10 15:09 → HO.ICU 12-19 13:09 → HO.IMC 01-02 20:48
PROVIDERS: Family Medicine; Hospitalist; Internal Medicine; Internal Medicine Critical Care Medicine; Internal Medicine Pulmonary Disease; Physician Assistant; Physician Assistant Medical; Student in an Organized Health Care Education/Training Program; Admitting Provider Internal Medicine; Emergency Provider Student in an Organized Health Care Education/Training Program; Visit Provider Internal Medicine
PROC: 02HV33Z Insertion of Infusion Device into Superior Vena Cava, Percutaneous Approach (ICD-10-PCS; principal; 2023-12-15 16:00)
PROC: 0W9B30Z Drainage of Left Pleural Cavity with Drainage Device, Percutaneous Approach (ICD-10-PCS; CPT 32551; principal; 2024-01-13 11:30)
DX: A41.9 Sepsis, unspecified organism (principal); B20 Human immunodeficiency virus [HIV] disease; B59 Pneumocystosis; R65.20 Severe sepsis without septic shock; J96.01 Acute respiratory failure with hypoxia; E44.0 Moderate protein-calorie malnutrition; I50.31 Acute diastolic (congestive) heart failure; B37.0 Candidal stomatitis; E87.1 Hypo-osmolality and hyponatremia; D63.8 Anemia in other chronic diseases classified elsewhere; B37.81 Candidal esophagitis; F41.9 Anxiety disorder, unspecified; E88.A Wasting disease (syndrome) due to underlying condition; E87.20 Acidosis, unspecified; E83.42 Hypomagnesemia; J84.10 Pulmonary fibrosis, unspecified; Z68.20 Body mass index [BMI] 20.0-20.9, adult; J93.9 Pneumothorax, unspecified; N17.9 Acute kidney failure, unspecified; E86.0 Dehydration; D68.4 Acquired coagulation factor deficiency; F10.21 Alcohol dependence, in remission; K70.30 Alcoholic cirrhosis of liver without ascites; F17.210 Nicotine dependence, cigarettes, uncomplicated; Z71.6 Tobacco abuse counseling; Z59.01 Sheltered homelessness; Z86.19 Personal history of other infectious and parasitic diseases; D89.3 Immune reconstitution syndrome; T37.5X5A Adverse effect of antiviral drugs, initial encounter
CPT/HCPCS: 0241U; 32551; 36415; 36573; 36600; 71045; 71250; 76700; 80048; 80053; 80076; 80307; 81001; 81003; 82040; 82272; 82550; 82570; 82803; 82947; 83605; 83615; 83735; 83880; 84100; 84145; 84156; 84300; 84443; 84478; 84484; 85007; 85025; 85027; 85379; 85610; 85730; 86359; 86360; 86403; 86481; 86592; 86704; 86706; 86709; 86777; 86778; 86780; 86803; 86850; 86870; 86885; 86900; 86901; 86902; 86920; 86922; 86923; 87040; 87070; 87116; 87205; 87206; 87340; 87449; 87493; 87497; 87502; 87507; 87536; 87635; 87640; 87641; 87798; 87900; 87901; 87906; 92950; 93005; 93306; 93970; 94640; 97110; 97163; 97167; 97530; 99285; A7041; C1729; C1751; C9113; J0131; J0289; J0456; J0561; J0692; J0696; J1170; J1450; J1570; J1644; J1650; J1885; J1940; J2060; J2250; J2270; J2405; J2765; J2930; J2997; J3360; J3475; J3480; J7120; P9016; P9047; Q4186; Q9957

== ENCOUNTER → 2023-12-09 19:32 | Outpatient (BNV) | payer MEDICAID, SELFPAY | PROVIDERS: Admitting Provider Internal Medicine; Emergency Provider Student in an Organized Health Care Education/Training Program; Visit Provider Internal Medicine Cardiovascular Disease | DX: R00.0 Tachycardia, unspecified (principal) | CPT/HCPCS: 93010 ==

== ENCOUNTER 2023-12-09 23:05 | Outpatient (BNV) | payer MEDICAID, SELFPAY | END 2024-01-24 00:11 | PROVIDERS: Admitting Provider Internal Medicine; Emergency Provider Student in an Organized Health Care Education/Training Program; Visit Provider Internal Medicine Cardiovascular Disease | DX: I45.19 Other right bundle-branch block (principal) | CPT/HCPCS: 93010 ==

== ENCOUNTER 2023-12-09 23:05 | Outpatient (BNV) | payer MEDICAID, SELFPAY | END 2023-12-16 07:00 | PROVIDERS: Admitting Provider Internal Medicine; Emergency Provider Student in an Organized Health Care Education/Training Program; Visit Provider Internal Medicine | DX: J96.01 Acute respiratory failure with hypoxia (principal) | CPT/HCPCS: 93306 ==

== ENCOUNTER 2023-12-09 23:05 | Outpatient (BNV) | payer MEDICAID, SELFPAY | END 2024-01-13 11:15 | PROVIDERS: Admitting Provider Internal Medicine; Emergency Provider Student in an Organized Health Care Education/Training Program; Visit Provider Student in an Organized Health Care Education/Training Program | DX: J93.9 Pneumothorax, unspecified (principal) | CPT/HCPCS: 32557 ==

== ENCOUNTER 2023-12-09 23:05 | Outpatient (BNV) | payer MEDICAID, SELFPAY | END 2024-01-12 01:40 | PROVIDERS: Admitting Provider Internal Medicine; Emergency Provider Student in an Organized Health Care Education/Training Program; Visit Provider Internal Medicine Cardiovascular Disease | DX: J96.01 Acute respiratory failure with hypoxia (principal); R07.9 Chest pain, unspecified | CPT/HCPCS: 93010 ==

== ENCOUNTER → 2023-12-09 23:05 | Outpatient (BNV) | payer MEDICAID, SELFPAY | PROVIDERS: Admitting Provider Internal Medicine; Emergency Provider Student in an Organized Health Care Education/Training Program; Visit Provider Surgery | DX: J93.9 Pneumothorax, unspecified (principal); J84.10 Pulmonary fibrosis, unspecified; J81.1 Chronic pulmonary edema; B59 Pneumocystosis; J96.01 Acute respiratory failure with hypoxia | CPT/HCPCS: 99222; 99232; 99233 ==

== ENCOUNTER → 2023-12-09 23:05 | Outpatient (BNV) | payer OTHER, SELFPAY | PROVIDERS: Admitting Provider Internal Medicine; Emergency Provider Student in an Organized Health Care Education/Training Program; Visit Provider Internal Medicine | DX: J93.9 Pneumothorax, unspecified (principal); J96.01 Acute respiratory failure with hypoxia; B59 Pneumocystosis; B20 Human immunodeficiency virus [HIV] disease; K52.9 Noninfective gastroenteritis and colitis, unspecified | CPT/HCPCS: 99223; 99232; 99233; 99238 ==

== ENCOUNTER → 2023-12-09 23:05 | Outpatient (BNV) | payer MEDICAID, OTHER, SELFPAY | PROVIDERS: Admitting Provider Internal Medicine; Emergency Provider Student in an Organized Health Care Education/Training Program; Visit Provider Internal Medicine | DX: J93.9 Pneumothorax, unspecified (principal); J84.10 Pulmonary fibrosis, unspecified; B59 Pneumocystosis; B20 Human immunodeficiency virus [HIV] disease | CPT/HCPCS: 99222; 99232; 99499 ==

== ENCOUNTER → 2023-12-09 23:05 | Outpatient (BNV) | payer MEDICAID, SELFPAY | PROVIDERS: Admitting Provider Internal Medicine; Emergency Provider Student in an Organized Health Care Education/Training Program; Visit Provider Registered Nurse | DX: F41.0 Panic disorder [episodic paroxysmal anxiety] (principal); F10.11 Alcohol abuse, in remission; R45.89 Other symptoms and signs involving emotional state | CPT/HCPCS: 99222 ==

== ENCOUNTER → 2023-12-09 23:05 | Outpatient (BNV) | payer MEDICAID, SELFPAY | PROVIDERS: Admitting Provider Internal Medicine; Emergency Provider Student in an Organized Health Care Education/Training Program; Visit Provider Physician Assistant Medical | DX: B59 Pneumocystosis (principal); J96.01 Acute respiratory failure with hypoxia; B20 Human immunodeficiency virus [HIV] disease | CPT/HCPCS: 99291; 99292 ==

== ENCOUNTER → 2023-12-09 23:05 | Outpatient (BNV) | payer MEDICAID, SELFPAY | PROVIDERS: Admitting Provider Internal Medicine; Emergency Provider Student in an Organized Health Care Education/Training Program; Visit Provider Internal Medicine | DX: J93.9 Pneumothorax, unspecified (principal); B59 Pneumocystosis; J96.01 Acute respiratory failure with hypoxia; B20 Human immunodeficiency virus [HIV] disease; K52.9 Noninfective gastroenteritis and colitis, unspecified | CPT/HCPCS: 99222 ==

== ENCOUNTER → 2023-12-09 23:05 | Outpatient (BNV) | payer MEDICAID, OTHER, SELFPAY | PROVIDERS: Admitting Provider Internal Medicine; Emergency Provider Student in an Organized Health Care Education/Training Program; Visit Provider Internal Medicine Pulmonary Disease | DX: J84.10 Pulmonary fibrosis, unspecified (principal); J96.01 Acute respiratory failure with hypoxia; B20 Human immunodeficiency virus [HIV] disease | CPT/HCPCS: 99222; 99232; 99233; 99291; 99499 ==

== ENCOUNTER 2024-03-04 14:53 | Outpatient (REF) | payer OTHER, SELFPAY ==
[2024-03-07 09:28] LABS: Absolute CD3 Count 1259 cells/uL (840-3060); Absolute CD4 Count 255 cells/uL (490-1740); Absolute CD8 Count 1022 cells/uL (180-1170); Absolute Lymphocytes 1569 cells/uL (850-3900); CD4 CD8 Ratio 0.25 (0.86-5.00); Percent CD3 Cells 80 % (57-85); Percent CD4 Cells 16 % (30-61); Percent CD8 Cells 65 % (12-42)
[2024-03-08 08:57] LABS: HIV RNA PCR Qn Copies 132 copies/mL (NOT DETECTED); HIV RNA PCR Qn Log Copies 2.12 (NOT DETECTED)
== END 2024-03-04 14:54 | disposition home or self-care (01) ==
LOC: HO.LAB 14:53
PROVIDERS: Visit Provider Internal Medicine
DX: B20 Human immunodeficiency virus [HIV] disease (principal); Z99.81 Dependence on supplemental oxygen
CPT/HCPCS: 36415; 86359; 86360; 87536; 99212

== ENCOUNTER 2024-03-04 14:53 | Outpatient (AMB) | payer OTHER, SELFPAY ==
[2024-03-04 14:54] VITALS: PULSE 92; O2SAT 99; BMI 18.7
--- NOTE | 2024-03-04 14:54 | A.OFFVIS_ITS ---
Intake Vital Signs 03/04/24 14:54 Height 6 ft 3 in Weight 150 lb BMI 18.7 Pulse 92 Pulse Source Pulse Oximeter Pulse Oximetry (%) 99 Intake Visit Reasons: Ref[facility],HIV, follow up medication Allergies No Known Allergies Allergy (Verified 03/04/24 15:01) HPI Ref.[facility],HIV, follow up medication HPI Details He is here for followup evaluation PJP pneumonia. He has still some low level oxygen requirement but feels better. He has no other complaints. [facility] Medical History Gout Arthritis Social History Household Members: Family Housing: Apartment Do you presently have visiting nurse or other home services: No Patient Tobacco Use Status: Current everyday Tobacco user Tobacco use type: Cigarette Cigarette Packs Per Day: 0.5 Cigarettes Per Day: 10.0 service: No Review of Systems Const All systems reviewed & are unremarkable except as noted in HPI and below Physical Exam Vital Signs: Last Vital Signs Pulse 92 03/04/24 14:54 Pulse Ox 99 03/04/24 14:54 BMI result Body Mass Index 18.7 Const General: cooperative Orientation/consciousness: patient oriented x3 HEENT Head: Yes normal to inspection Mouth: Normal oral and palatal mucosa present Eyes General: appearance normal, both eyes and all related structures Pupils: Equal, round and reactive pupils present Resp Effort & Inspection: normal respiratory effort Cardio Rate: regular rate Rhythm: regular rhythm GI Palpation (GI): Soft to palpation and nontender General: Yes no CVA tenderness Back/Spine/Pelvis Back: no CVA tenderness Skin General skin exam: no rashes or lesions noted Neuro General: patient oriented x3 Cranial nerves: Yes CN's II-XII intact bilaterally and Yes Equal, round and reactive pupils present Extrem General: Yes normal to inspection Psych Appearance: grossly normal Assessment & Plan Assessment & Plan (1) AIDS: Code(s): B20 - Human immunodeficiency virus [HIV] disease Plan He has been taking Biktarvy. Check labs. See as needed. Orders: Orders Lymphocyte Subset Panel 3 03/04/24 B20 - Human immunodeficiency virus [HIV] disease RPR Monitor reflex titer 03/04/24 B20 - Human immunodeficiency virus [HIV] disease HIV-1 RNA QN PCR Expanded 03/04/24 B20 - Human immunodeficiency virus [HIV] disease Medications: New kbkstnrtn-jpstvarf-bbgctko ala 50-200-25 mg (Biktarvy) 1 tab PO DAILY 30 tabs 3RF 30 days sulfamethoxazole-trimethoprim 800-160 mg (Bactrim DS) 1 tab PO DAILY 30 tabs 3RF 30 days ketoconazole 2% 1 appl topical DAILY 30 grams 0RF eczema Refilled nrplyilli-jajrfccl-lxxksbz ala 50-200-25 mg (Biktarvy) 1 tab PO DAILY 30 tabs 3RF Coding Level of Care Code Est Pt Level 3 (69253) Diagnoses AIDS B20
== END 2024-03-04 15:43 | disposition home or self-care (01) ==
LOC: HO.HID 14:53
PROVIDERS: Visit Provider Internal Medicine
DX: B20 Human immunodeficiency virus [HIV] disease (principal)
CPT/HCPCS: 99213

== ENCOUNTER 2024-04-07 15:39 | Outpatient (REF) | payer MEDICAID, SELFPAY ==
[2024-04-08 10:48] LABS: Absolute CD3 Count 1500 cells/uL (840-3060); Absolute CD4 Count 322 cells/uL (490-1740); Absolute CD8 Count 1186 cells/uL (180-1170); Absolute Lymphocytes 1852 cells/uL (850-3900); CD4 CD8 Ratio 0.27 (0.86-5.00); Percent CD3 Cells 81 % (57-85); Percent CD4 Cells 17 % (30-61); Percent CD8 Cells 64 % (12-42)
[2024-04-08 15:08] LABS: HIV RNA PCR Qn Copies 143 copies/mL (NOT DETECTED); HIV RNA PCR Qn Log Copies 2.16 (NOT DETECTED)
== END 2024-04-07 15:40 | disposition home or self-care (01) ==
LOC: HO.HHCL 15:39
PROVIDERS: Visit Provider Internal Medicine
DX: B20 Human immunodeficiency virus [HIV] disease (principal)
CPT/HCPCS: 36415; 86359; 86360; 87536